=== PATIENT | female | born 1945 | race Two or more races ===

== ENCOUNTER → 2016-07-25 | Outpatient (CLI) | payer MEDICARE, MEDICAID ==
[~2016-07-25] MED LIST: *MAMMOGRAM; /FENO48TA PO; /FERG32TA PO; /GLIP10TAB PO; /LAMO20TA PO; /QUET10TA; /ZOLP6ER; /ZOLP6ER OR; ACET500C PO; ACET50TA PO; ALBU83IN INH; AMBI10TA OR; AMBI10TA PO; AMBI12.52 PO; AMBI5TAB PO; AMIT24CA PO; AMIT24CA5 PO; ARIC10TA OR; Amlodipine Besylate PO; BENI20TA11; BENI20TA11 PO; BENI40TA3 PO; BENZ0.5T PO; CALCCHW12; CALCCHW12 OR; CALCTAB37 PO; CALCTAB54 PO; CLAR5CHW; CLON0.5T; CLON0.5T PO; COLA100C2; COLA100C2 PO; COLACE PO; COMBIVENT PO; COMBVENT INH; CRANPOW2 PO; DEXI60CA PO; DOCU100T8 PO; DONETAB6 PO; DULO20CA PO; DULO30CA PO; ELIQ5TAB PO; FERR325T; FERR325T OR; FIBE625T27 PO; FIBE625T4 PO; FIBERLAX; FIBERLAX PO; FLUTISP; FURO20TA2 PO; GEOD40CA2 PO; GLIP2.5T20 PO; GLIP5TAB77; GLUC10TA18 PO; GLUCOSAMINE; GLUCOSAMINE PO; GLUCTAB6 PO; HYDR1OI TOP; HYDROCODONE PO; INSUDET SC; IPRA6SP; IPRASOL4 IN; IRON28TA OR; JANU50TA4 PO; KLON0.5T; KLON0.5T PO; KLONOPIN PO; KLOR10TA; KLOR10TA PO; LAMI200T3 PO; LANTINJ4 SC; LASI20TA PO; LASI40TA; LEVA500T; LEVO125T6 PO; LIPI20TA OR; LIPI20TA PO; MAGN250T PO; MAGN400C2 PO; MAGO400T PO; MILKSUS; MILKSUS5 PO; MIRA3350 PO; MIRA33504 PO; MULTIVIT PO; MYLASUS6 PO; NEXI40GR PO; OSCAL PO; OXYB10TA PO; POTA10CA PO; POTASSIUM PO; PRAVACHOL1 PO; PRED20TA PO; PREVACID15 PO; PREVACID30 PO; PRIL20CA PO; PROA1AER IN; PROVENTILI PO; QUET20XRTB PO; QUET30XR PO; SENN15TA2 PO; SENN8.6C PO; SENN8.6T28 PO; SENN8.6T76 PO; SENNA PO; SIME80TA PO; SLOWTAB2 PO; SLOWTAB3 PO; SYNT137T7 PO; SYNTHRO125 PO; SYNTHROI15 PO; THERGRAN PO; TRAM50TA2; TRAM50TA2 PO; TRAZ100T; TRAZ100T PO; TYLENOL500 PO; ULTR37.52 PO; VESI10TA PO; VESI5TAB PO; VICO5TAB; VITORIN; VITORIN PO; VOLT1GEL EX; VOLT1GEL TOP; VOLT75TA; VYTO10TA5; ZANTAC150 PO; ZIPR80CAP; ZIPR80CAP PO; ZOLP5TAB PO; ZYRT10CA PO; [UNRECOGNIZED DRUG - CODE] PO; [UNRECOGNIZED DRUG - CODE] PO; [UNRECOGNIZED DRUG - OTHER]; [UNRECOGNIZED DRUG - OTHER] PO
--- NOTE | 2016-07-26 00:18 | ECWPNPC ---
PATIENT NAME: AZALIA COFFMAN : 1945 GENDER: FEMALE VISIT DATE: 07/25/2016 DISCHARGE DATE: 07/25/16 1040 VISIT LOCKED DATE TIME: PHYSICIAN: MIKE LAWRENCE RESOURCE: MIKE LAWRENCE REASON FOR APPOINTMENT 1. BACK HISTORY OF PRESENT ILLNESS HISTORY OF PRESENT ILLNESS: HERE FOR ROUTINE F/U. LUMBAR FACET BLOCK 02-13-16.REPORTED >50% IMPROVEMENT IN PAIN THAT CONTINUED UNTIL A FEW WEEKS AGO.. HAVING FLARE UP IN ARTHRITIC PAIN BILAT. HIPS AND MID BACK. DISCUSSED BILAT. LUMBAR THERAPEUTIC FACET BLOCKS THAT HAVE BEEN HELPFUL IN PAST AND PATIENT WOULD LIKE TO PURSUE. DOES FIND MEDICATION FOR CHRONIC PAIN HELPFUL.DENIES SIDE EFFECTS. RATING PAINVAS 6/10. PAIN THE PATIENT DESCRIBES THE PAIN... THE PATIENT DESCRIBES THE PAIN... FALL RISK SCREENING: SCREENING :NO FALLS IN THE PAST YEAR CURRENT MEDICATIONS TAKING GLUCOTROL XL 10 MG TABLET EXTENDED RELEASE 24 HOUR 1 TABLET ORALLY DAILY, NOTES: 02/21/16 TAKING AMITIZA 24 MCG CAPSULE 1 CAPSULE WITH FOOD ORALLY TWICE A DAY, NOTES: 02/21/16 TAKING DONEPEZIL HYDROCHLORIDE 10 MG TABLET 1 TABLET AT BEDTIME ORALLY ONCE A DAY, NOTES: 02/21/16 TAKING LIPITOR 40MG TABLET 1 TABLET ORALLY ONCE A DAY, NOTES: 02/21/16 TAKING DOCUSATE SODIUM 100 MG CAPSULE 1 CAPSULE NEEDED ORALLY BID, NOTES: 02/21/16 TAKING CALCIUM CITRATE + D 315-200 MG-UNIT TABLET 1 TABLET WITH MEALS ORALLY DAILY, NOTES: 02/21/16 TAKING LAMICTAL 200 MG TABLET 1 TABLET ORALLY ONCE A DAY, NOTES: 02/21/16 TAKING SEROQUEL XR 300 MG TABLET EXTENDED RELEASE 24 HOUR 1 TABLET IN THE EVENING ORALLY ONCE A DAY, NOTES: 02/21/16 TAKING GEODON 80 MG CAPSULE 1 CAPSULE WITH FOOD ORALLY TWICE A DAY, NOTES: 02/21/16 TAKING BENICAR 40 MG TABLET 1 TABLET ORALLY ONCE A DAY, NOTES: 02/21/16 TAKING KLOR-CON 10 10 MEQ TABLET EXTENDED RELEASE 2 TABLET ORALLY BID, NOTES: 02/21/16 TAKING SENNA-GEN 8.6 MG TABLET DIRECTED ORALLY , NOTES: 02/21/16 TAKING LEVOTHYROXINE SODIUM 137 MG TABLET ONCE DAILY ORALLY ONCE A DAY, NOTES: 02/21/16 TAKING ZOLPIDEM TARTRATE 5 MG TABLET 1 TABLET AT BEDTIME ORALLY ONCE A DAY, NOTES: 02/21/16 TAKING FUROSEMIDE 20 MG TABLET 1 TABLET ORALLY ONCE DAILY, NOTES: 02/21/16 TAKING JANUMET XR 50-500 MG TABLET EXTENDED RELEASE 24 HOUR 1 TABLET WITH A MEAL ORALLY TWICE DAILY, NOTES: 02/21/16 TAKING CLONAZEPAM 0.5 MG TABLET 1 TABLET ORALLY BID, NOTES: 02/21/16 TAKING SLOW MAGNESIUM/CALCIUM 64-106 MG TABLET DELAYED RELEASE DIRECTED ORALLY , NOTES: 02/21/16 TAKING NEEDLES & SYRINGES 31 GAUGE DIRECTED TAKING LANCETS THIN MISCELLANEOUS DIRECTED TAKING GLUCOMETER DIRECTED TAKING LEVEMIR FLEXTOUCH 100 UNIT/ML SOLUTION PEN-INJECTOR 80 UNITS SUBCUTANEOUS BEFORE BEDTIME TAKING DEXILANT 60 MG CAPSULE DELAYED RELEASE 1 CAPSULE ORALLY ONCE A DAY TAKING TRAMADOL-ACETAMINOPHEN 37.5-325 MG TABLET 1 ORALLY Q8H PRN MDD3 TAKING CYMBALTA 30 MG CAPSULE DELAYED RELEASE PARTICLES 1 CAPSULE ORALLY DAILY, NOTES: 02/21/16 TAKING FIBER - CAPSULE 2 CAPSULES WITH 8 OUNCES OF LIQUID ORALLY BID NOT-TAKING IPRATROPIUM BROMIDE 0.03 % SOLUTION 2 APPLICATIONS NASALLY TWICE A DAY, NOTES: 02/21/16 NOT-TAKING TRAZODONE HCL 50 MG TABLET 2 TABLETS ORALLY THREE TIMES A DAY, NOTES: 02/21/16 NOT-TAKING OXYBUTYNIN CHLORIDE ER 10 MG TABLET EXTENDED RELEASE 24 HOUR TAKE ONE TABLET BY MOUTH ONCE DAILY NOT-TAKING MIRALAX SUSPENSION 17 GRAMS ORALLY AT HOUR OF SLEEP, NOTES: 02/21/16 NOT-TAKING ELIQUIS 5 MG TABLET ORALLY BID NOT-TAKING NEBULIZER DEVICE DIRECTED FOUR TIMES A DAY NOT-TAKING ALBUTEROL SULFATE (2.5 MG/3ML) 0.083% NEBULIZATION SOLUTION 3 ML INHALATION FOUR TIMES PER DAY NOT-TAKING PROAIR HFA 108 (90 BASE) MCG/ACT AEROSOL SOLUTION 2 PUFFS NEEDED INHALATION EVERY 4 HRS NOT-TAKING NEXIUM 40 MG CAPSULE DELAYED RELEASE 1 CAPSULE ORALLY ONCE A DAY DISCONTINUED FIBER (GUAR GUM) TABLET CHEWABLE TAB SWALLOWED DIRECTED ORALLY , NOTES: 02/21/16 DISCONTINUED ULTRACET 37.5-325 MG TABLET 2 TABLETS NEEDED ORALLY THREE TIMES DAILY, NOTES: 02/21/16 MEDICATION LIST REVIEWED AND RECONCILED WITH THE PATIENT PAST MEDICAL HISTORY KIDNEY DISEASE MEMORY LOSS SCHIZOPHRENIA OSTEOARTHRITIS INCONTINENCE HYPERCHOLESTEROLEMIA ANEMIA DIABETES MELLITUS HYPOTHYROIDISM HYPERTENSION, BENIGN ESOPHAGEAL REFLUX LEGALLY BLIND ALLERGIES SULFA (FOR ALLERGY USE ONLY): HANDS SWELL: ALLERGY ASPIRIN: STOMACH: ALLERGY MORPHINE SULFATE: RASH: ALLERGY CELEBREX: CAUSES PROBLEMS WITH KIDNEYS: ALLERGY SOCIAL HISTORY GENERAL: TOBACCO USE ARE YOU A:NONSMOKER LEARNING BARRIERS / SPECIAL NEEDS ORIENTED TO PLAN OF CARE: PATIENT, PAIN MANAGEMENT PATIENT, ORIENTED TO PLAN OF CARE: PATIENT, PAIN MANAGEMENT PATIENT. NEW PATIENT PAIN DIARY TODAY'S VISITNOTES FROM 0-10, WHAT LEVEL IS YOUR PAIN TODAY?0 PAIN CLINIC PFS, CLERGY, PUBLIC HEALTH REFERRALS PFS REFERRAL NEEDED?NO CLERGY REFERRAL NEEDED?NO PUBLIC HEALTH REFERRAL NEEDED?NO WAS THE PROVIDER NOTIFIED OF ANY PERTINENT INFO?NO PFS REFERRAL NEEDED?NO CLERGY REFERRAL NEEDED?NO PUBLIC HEALTH REFERRAL NEEDED?NO WAS THE PROVIDER NOTIFIED OF ANY PERTINENT INFO?NO REVIEW OF SYSTEMS CONSTITUTIONAL: ANY CHANGE IN YOUR MEDICAL CONDITION? NO . CHILLS NO . FEVER NO . INFECTION: DO YOU HAVE NEW INFECTIONS? NO . DO YOU HAVE HISTORY OF MRSA? NO . MUSCULOSKELETAL: ANY NEW PATTERNS OF PAIN OR NUMBNESS? YES, OCC. MUSCLE SPASMS IN BACK . GASTROENTEROLOGY: ANY NEW CHANGE IN BOWEL CONTROL? NO . GENITOURINARY: ANY NEW CHANGE IN BLADDER CONTROL? NO . IS THERE A CHANCE YOU COULD BE ? NO . HEMATOLOGY/LYMPH: DO YOU TAKE ANY BLOOD THINNERS? (FOR EXAMPLE- COUMADIN, PLAVIX, AGGRENOX, PLATEL, PRADAXA, OR XARELTO) NO . WHEN WAS YOUR LAST DOSE? DATE: TIME: . NEUROLOGY: HAVE YOU FALLEN IN THE PAST 6 MONTHS? NO . ANY NEW EXTREMITY NUMBNESS OR WEAKNESS? NO . CARDIOLOGY: DO YOU HAVE A PACEMAKER OR DEFIBRILLATOR? NO . RESPIRATORY: HAVE YOU BEEN SICK IN THE PAST WEEK? NO . FEVER NO . FLU LIKE SYMPTOMS? NO . COUGH NO . INTEGUMENTARY: DO YOU HAVE ANY RASHES OR OPEN SORES? NO . ALLERGIC/IMMUNO: ARE YOU ALLERGIC TO SHELLFISH OR IV DYE? NO . ANY NEW ALLERGIES? NO . PSYCHIATRIC: DO YOU HAVE THOUGHTS OF HURTING YOURSELF OR SOMEONE ELSE? NO . ARE YOU ABUSED, NEGLECTED, OR IN AN UNSAFE ENVIRONMENT? NO . ENDOCRINOLOGY: ARE YOU DIABETIC? YES . OTHER: DO YOU NEED ANY PRESCRIPTIONS? NOT SURE . IF YES, PLEASE LIST: ____ . ANY NEW PROBLEMS WITH YOUR MEDICATIONS? NO . WHEN DID YOU LAST EAT? ____ . WHEN DID YOU LAST DRINK? ____ . WHAT DID YOU LAST DRINK? ____ . NAME OF PERSON DRIVING YOU HOME? ____ . DO YOU HAVE ANY OTHER QUESTIONS OR CONCERNS NO . REVIEWED BY: PROVIDER: MIKE SIU . VITAL SIGNS WT 217 LBS, HT 63 IN, BMI 38.44 INDEX, BP 138/70 MM HG, HR 85 /MIN, RR 18 /MIN, TEMP 96.0 F, OXYGEN SAT % 92, NA INITIALS TL 0957, REVIEWED BY: AD. EXAMINATION GENERAL EXAMINATION: LUNGS:LUNG SOUNDS ARE CLEAR. HEART:HEART RATE REGULAR. MUSCULOSKELETAL:*, MUSCLE STRENGTH TESTING 3/5 BILATERAL, PALPATION: POSITIVE FOR PAIN OVER L/S SPINE. POSITIVE FOR PAIN OVER L/S PARSPINALS. DIAGNOSTIC:MRI L/S [id number]-[id number]-REVIEWED. ASSESSMENTS LUMBAR DEGENERATIVE DISC DISEASE - M51.36 (PRIMARY) TREATMENT LUMBAR DEGENERATIVE DISC DISEASE CONTINUE TRAMADOL-ACETAMINOPHEN TABLET, 37.5-325 MG, 1, ORALLY, Q8H PRN MDD3 CONTINUE CYMBALTA CAPSULE DELAYED RELEASE PARTICLES, 30 MG, 1 CAPSULE, ORALLY, DAILY, NOTES: 02/21/16 LUMBAR FACET THERAPEUTIC NOTES: FACET JOINT INJECTION MATERIAL WAS PRINTED,FACET JOINT INJECTION: YOUR EXPERIENCE MATERIAL WAS PRINTED. PROCEDURE CODES FA211 ESTABILISHED PATIENT FORMERLY [facility] CHARGE G8730 PAIN ASSESS POS TOOL F/U PLAN DOC G8427 DOC MEDS VERIFIED W/PT OR RE FOLLOW UP 2WK POST ELECTRONICALLY SIGNED BY SALBADOR ADEN ON 07/25/2016 AT 02:36 PM EST DISCLAIMER : THIS IS A VISIT SUMMARY EXTRACTED FROM THE [employer] CHART. IT IS NOT A COPY OF THE [employer] PROGRESS NOTE. MTDD
== END ==
LOC: M PAIN 09:40
PROVIDERS: ATTEND Nurse Practitioner Family
DX: M51.36 Other intervertebral disc degeneration, lumbar region (principal); M16.9 Osteoarthritis of hip, unspecified; M54.04 Panniculitis affecting regions of neck and back, thoracic region; Z79.84 Long term (current) use of oral hypoglycemic drugs; Z79.891 Long term (current) use of opiate analgesic; Z79.4 Long term (current) use of insulin; Z79.899 Other long term (current) drug therapy; Z88.2 Allergy status to sulfonamides; Z88.6 Allergy status to analgesic agent; Z88.5 Allergy status to narcotic agent; Z88.8 Allergy status to other drugs, medicaments and biological substances

== ENCOUNTER → 2016-08-15 | Outpatient (CLI) | payer MEDICARE, MEDICAID ==
[~2016-08-15] MED LIST changes: +BUPIVACAINE HCL 0.25% 30 ML VIAL As Ordered ONE; +ISOVUE-M 300 61% 15ML VIAL (Q9967) As Ordered ONE; +LIDOCAINE 1% SDV INJ 30 ML VIAL As Ordered ONE; +TRIAMCINOLONE ACETONIDE SUSP 40 MG/ML VIAL (J3301) As Ordered ONE
--- NOTE | 2016-08-15 12:41 | REP ---
Partial lumbar spine series: Two views. History: Pain. Injection procedure. 23 seconds of fluoroscopy time is reported. Findings: A sequence of two fluoroscopically obtained last minute hold images of the lumbar spine document various needle positions and contrast injections associated with lumbar spine facet injection procedure. Signed by Toan Lafleur MD 08/15/2016 04:31 P
--- NOTE | 2016-08-22 01:33 | ECWPNPC ---
PATIENT NAME: AZALIA COFFMAN : 1945 GENDER: FEMALE VISIT DATE: 08/15/2016 DISCHARGE DATE: 08/15/16 1157 VISIT LOCKED DATE TIME: PHYSICIAN: JEFRY GOSS RESOURCE: JEFRY GOSS REASON FOR APPOINTMENT 1. PROCEDURE: LUMBAR FACET THERAPEUTIC HISTORY OF PRESENT ILLNESS HISTORY OF PRESENT ILLNESS: PAIN THE PATIENT DESCRIBES THE PAIN... FALL RISK SCREENING: SCREENING :NO FALLS IN THE PAST YEAR CURRENT MEDICATIONS TAKING GLUCOTROL XL 10 MG TABLET EXTENDED RELEASE 24 HOUR 1 TABLET ORALLY DAILY, NOTES: TAKING AMITIZA 24 MCG CAPSULE 1 CAPSULE WITH FOOD ORALLY TWICE A DAY, NOTES: 08/14/16 TAKING DONEPEZIL HYDROCHLORIDE 10 MG TABLET 1 TABLET AT BEDTIME ORALLY ONCE A DAY, NOTES: 08/14/16 TAKING LIPITOR 40MG TABLET 1 TABLET ORALLY ONCE A DAY, NOTES: 08/14/16 TAKING DOCUSATE SODIUM 100 MG CAPSULE 1 CAPSULE NEEDED ORALLY BID, NOTES: 08/14/16 TAKING CALCIUM CITRATE + D 315-200 MG-UNIT TABLET 1 TABLET WITH MEALS ORALLY DAILY, NOTES: 08/14/16 TAKING LAMICTAL 200 MG TABLET 1 TABLET ORALLY ONCE A DAY, NOTES: 08/14/1630 TAKING SEROQUEL XR 300 MG TABLET EXTENDED RELEASE 24 HOUR 1 TABLET IN THE EVENING ORALLY ONCE A DAY, NOTES: 08/14/16 TAKING GEODON 80 MG CAPSULE 1 CAPSULE WITH FOOD ORALLY TWICE A DAY, NOTES: 08/14/16 TAKING BENICAR 40 MG TABLET 1 TABLET ORALLY ONCE A DAY, NOTES: 08/14/1630 TAKING KLOR-CON 10 10 MEQ TABLET EXTENDED RELEASE 2 TABLET ORALLY BID, NOTES: 08/14/16 TAKING SENNA-GEN 8.6 MG TABLET DIRECTED ORALLY , NOTES: 08/14/16 TAKING LEVOTHYROXINE SODIUM 137 MG TABLET ONCE DAILY ORALLY ONCE A DAY, NOTES: 08/14/1630 TAKING ZOLPIDEM TARTRATE 5 MG TABLET 1 TABLET AT BEDTIME ORALLY ONCE A DAY, NOTES: 08/14/16 TAKING FUROSEMIDE 20 MG TABLET 1 TABLET ORALLY ONCE DAILY, NOTES: 08/14/16 TAKING JANUMET XR 50-500 MG TABLET EXTENDED RELEASE 24 HOUR 1 TABLET WITH A MEAL ORALLY TWICE DAILY, NOTES: 08/14/16@1800 TAKING CLONAZEPAM 0.5 MG TABLET 1 TABLET ORALLY BID, NOTES: 08/14/16 TAKING SLOW MAGNESIUM/CALCIUM 64-106 MG TABLET DELAYED RELEASE DIRECTED ORALLY , NOTES: 08/14/16@0730 TAKING NEEDLES & SYRINGES 31 GAUGE DIRECTED TAKING LANCETS THIN MISCELLANEOUS DIRECTED TAKING GLUCOMETER DIRECTED TAKING LEVEMIR FLEXTOUCH 100 UNIT/ML SOLUTION PEN-INJECTOR 80 UNITS SUBCUTANEOUS BEFORE BEDTIME, NOTES: 08/14/16 TAKING DEXILANT 60 MG CAPSULE DELAYED RELEASE 1 CAPSULE ORALLY ONCE A DAY, NOTES: 08/14/161800 TAKING FIBER - CAPSULE 2 CAPSULES WITH 8 OUNCES OF LIQUID ORALLY BID, NOTES: 08/14/16 TAKING TRAMADOL-ACETAMINOPHEN 37.5-325 MG TABLET 1 ORALLY Q8H PRN MDD3, NOTES: 08/14/161800 TAKING CYMBALTA 30 MG CAPSULE DELAYED RELEASE PARTICLES 1 CAPSULE ORALLY DAILY, NOTES: 08/14/16@1199 NOT-TAKING IPRATROPIUM BROMIDE 0.03 % SOLUTION 2 APPLICATIONS NASALLY TWICE A DAY, NOTES: 02/21/16 NOT-TAKING TRAZODONE HCL 50 MG TABLET 2 TABLETS ORALLY THREE TIMES A DAY, NOTES: 02/21/16 NOT-TAKING OXYBUTYNIN CHLORIDE ER 10 MG TABLET EXTENDED RELEASE 24 HOUR TAKE ONE TABLET BY MOUTH ONCE DAILY NOT-TAKING MIRALAX SUSPENSION 17 GRAMS ORALLY AT HOUR OF SLEEP, NOTES: 02/21/16 NOT-TAKING ELIQUIS 5 MG TABLET ORALLY BID NOT-TAKING NEBULIZER DEVICE DIRECTED FOUR TIMES A DAY NOT-TAKING ALBUTEROL SULFATE (2.5 MG/3ML) 0.083% NEBULIZATION SOLUTION 3 ML INHALATION FOUR TIMES PER DAY NOT-TAKING PROAIR HFA 108 (90 BASE) MCG/ACT AEROSOL SOLUTION 2 PUFFS NEEDED INHALATION EVERY 4 HRS NOT-TAKING NEXIUM 40 MG CAPSULE DELAYED RELEASE 1 CAPSULE ORALLY ONCE A DAY MEDICATION LIST REVIEWED AND RECONCILED WITH THE PATIENT PAST MEDICAL HISTORY KIDNEY DISEASE MEMORY LOSS SCHIZOPHRENIA OSTEOARTHRITIS INCONTINENCE HYPERCHOLESTEROLEMIA ANEMIA DIABETES MELLITUS HYPOTHYROIDISM HYPERTENSION, BENIGN ESOPHAGEAL REFLUX LEGALLY BLIND ALLERGIES SULFA (FOR ALLERGY USE ONLY): HANDS SWELL: ALLERGY ASPIRIN: STOMACH: ALLERGY MORPHINE SULFATE: RASH: ALLERGY CELEBREX: CAUSES PROBLEMS WITH KIDNEYS: ALLERGY SOCIAL HISTORY GENERAL: TOBACCO USE ARE YOU A:NONSMOKER LEARNING BARRIERS / SPECIAL NEEDS ORIENTED TO PLAN OF CARE: PATIENT, PAIN MANAGEMENT PATIENT, ORIENTED TO PLAN OF CARE: PATIENT, PAIN MANAGEMENT PATIENT. NEW PATIENT PAIN DIARY TODAY'S VISITNOTES FROM 0-10, WHAT LEVEL IS YOUR PAIN TODAY?0 PAIN CLINIC PFS, CLERGY, PUBLIC HEALTH REFERRALS PFS REFERRAL NEEDED?NO CLERGY REFERRAL NEEDED?NO PUBLIC HEALTH REFERRAL NEEDED?NO WAS THE PROVIDER NOTIFIED OF ANY PERTINENT INFO?NO PFS REFERRAL NEEDED?NO CLERGY REFERRAL NEEDED?NO PUBLIC HEALTH REFERRAL NEEDED?NO WAS THE PROVIDER NOTIFIED OF ANY PERTINENT INFO?NO REVIEW OF SYSTEMS CONSTITUTIONAL: ANY CHANGE IN YOUR MEDICAL CONDITION? NO . CHILLS NO . FEVER NO . INFECTION: DO YOU HAVE NEW INFECTIONS? NO . DO YOU HAVE HISTORY OF MRSA? NO . MUSCULOSKELETAL: ANY NEW PATTERNS OF PAIN OR NUMBNESS? NO . GASTROENTEROLOGY: ANY NEW CHANGE IN BOWEL CONTROL? NO . GENITOURINARY: ANY NEW CHANGE IN BLADDER CONTROL? NO . IS THERE A CHANCE YOU COULD BE ? NO . HEMATOLOGY/LYMPH: DO YOU TAKE ANY BLOOD THINNERS? (FOR EXAMPLE- COUMADIN, PLAVIX, AGGRENOX, PLATEL, PRADAXA, OR XARELTO) NO . WHEN WAS YOUR LAST DOSE? DATE: TIME: . NEUROLOGY: HAVE YOU FALLEN IN THE PAST 6 MONTHS? NO . ANY NEW EXTREMITY NUMBNESS OR WEAKNESS? NO . CARDIOLOGY: DO YOU HAVE A PACEMAKER OR DEFIBRILLATOR? NO . RESPIRATORY: HAVE YOU BEEN SICK IN THE PAST WEEK? NO . FEVER NO . FLU LIKE SYMPTOMS? NO . COUGH NO . INTEGUMENTARY: DO YOU HAVE ANY RASHES OR OPEN SORES? NO . ALLERGIC/IMMUNO: ARE YOU ALLERGIC TO SHELLFISH OR IV DYE? NO . ANY NEW ALLERGIES? NO . PSYCHIATRIC: DO YOU HAVE THOUGHTS OF HURTING YOURSELF OR SOMEONE ELSE? NO . ARE YOU ABUSED, NEGLECTED, OR IN AN UNSAFE ENVIRONMENT? NO . ENDOCRINOLOGY: ARE YOU DIABETIC? YES . OTHER: DO YOU NEED ANY PRESCRIPTIONS? NO . IF YES, PLEASE LIST: ____ . ANY NEW PROBLEMS WITH YOUR MEDICATIONS? NO . WHEN DID YOU LAST EAT? ____12 AM . WHEN DID YOU LAST DRINK? ____12AM . WHAT DID YOU LAST DRINK? ____JUICE . NAME OF PERSON DRIVING YOU HOME? ____[facility] . DO YOU HAVE ANY OTHER QUESTIONS OR CONCERNS NO . REVIEWED BY: PROVIDER: . VITAL SIGNS WT 215 LBS, HT 63 IN, BMI 38.08 INDEX, BP 135/69 MM HG, HR 83 /MIN, RR 16 /MIN, TEMP 97.0 F, OXYGEN SAT % 92, NA INITIALS TL 0939, REVIEWED BY: VD. ASSESSMENTS SPONDYLOSIS WITHOUT MYELOPATHY OR RADICULOPATHY, LUMBAR REGION - M47.816 (PRIMARY) SPONDYLOSIS WITHOUT MYELOPATHY OR RADICULOPATHY, LUMBOSACRAL REGION - M47.817 PROCEDURES PN LUMBAR FACET BLOCK THERAPEUTIC PRE PROCEDURE DIAGNOSIS LUMBAR SPONDYLOSIS, LUMBOSACRAL SPONDYLOSIS POST PROCEDURE DIAGNOSIS LUMBAR SPONDYLOSIS, LUMBOSACRAL SPONDYLOSIS PROCEDURE BILATERAL L4-L5 AND BILATERAL L5-S1 FACET THERAPEUTIC BLOCK SURGEON DR. 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 I EVALUATE THE PATIENT AND REVIEWED THE CHART. I WENT OVER THE RISKS, ALTERNATIVES, AND BENEFITS ASSOCIATED WITH THIS PROCEDURE. THE PATIENT WOULD LIKE TO PROCEED AND GIVE CONSENT TO PERFORMED THE PROCEDURE. THE PATIENT DENIES UNEXPLAINABLE WEIGHT LOSS, FEVER, CHILLS, OR NEW CHANGES IN URINARY OR BOWEL CONTROL DESCRIPTION OF PROCEDURE THE PATIENT WAS BROUGHT TO THE PROCEDURE ROOM AND PLACED IN THE PRONE POSITION. THE LUMBOSACRAL AREA WAS CLEANED WITH CHLORAPREP SOLUTION AND DRAPED ASEPTICALLY. THE PROCEDURE WAS DONE UNDER STERILE CONDITIONS. I CHECKED LATERALITY AND THE LEVEL WHERE THE PROCEDURE WAS GOING TO BE PERFORMED WITH THE PATIENT AND THE SUPPORTING STAFF AT THE MOMENT OF THE TIME OUT IN THE PROCEDURE ROOM. UNDER FLUOROSCOPIC GUIDANCE, THE TARGET POINT WAS SELECTED AT THE RIGHT AND LEFT L4-L5 AND RIGHT AND LEFT L5-S1 FACET JOINT. TARGET POINT WAS SELECTED AFTER LATERAL ROTATION AND TILT OF THE MAGNIFIER OF THE C-ARM. LIDOCAINE 0.5% WAS USED TO NUMB THE SKIN AND THE SUBCUTANEOUS TISSUE BELOW IT. SPINAL NEEDLES, 22-GAUGE, WERE ADVANCED UNDER FLUOROSCOPIC GUIDANCE AND FOLLOWING PATIENT FEEDBACK UNTIL THE TARGETS WERE TOUCHED. THE POSITION OF THE NEEDLES WAS VERIFIED WITH AP AND LATERAL VIEWS. AFTER PROPER POSITION OF THE NEEDLES WAS ACHIEVED, ISOVUE-M DYE 30% 0.1 ML WAS INJECTED SHOWING ADEQUATE SPREAD OF THE DYE. THEN A SOLUTION OF 1.9 ML OF BUPIVACAINE 0.125% OF KENALOG 10 MG WAS INJECTED AT EACH SITE. THERE WAS NO EVIDENCE OF BLOOD, PARESTHESIA OR CEREBROSPINAL FLUID DURING THE PROCEDURE. THE PATIENT WAS SENT TO THE RECOVERY ROOM. THE PATIENT WAS MOVING THE EXTREMITIES AND DOING WELL. THERE WAS NO COMPLICATION DURING THE PROCEDURE. FLUOROSCOPY TIME WAS 23 SECONDS POST PROCEDURE NOTE THE PATIENT WILL BE SEEN IN A FOLLOW UP IN THE NEXT FEW WEEKS. INSTRUCTIONS WERE GIVEN, QUESTIONS WERE ANSWERED, AND THE PATIENT EXPRESSED UNDERSTANDING AND AGREES WITH THE PLAN. INSTRUCTIONS WERE GIVEN, QUESTIONS WERE ANSWERED, PATIENT REPORTS UNDERSTANDING AND AGREES WITH THE PLAN. I, ANTHONY MEDEROS, DOCUMENTED THE ABOVE INFORMATION ACTING A SCRIBE FOR DR. GOSS. I HAVE REVIEWED THE ABOVE DOCUMENT, WRITTEN BY ANTHONY MEDEROS SCRIBE AND I VERIFY THAT IT IS ACCURATE. DIAGNOSTIC IMAGING [facility] FACET BLOCK (PAIN)[id number] PROCEDURE CODES 57453 INJ PARAVERT F JNT L/S 1 LEV 09054 INJ PARAVERT F JNT L/S 2 LEV 6045F RADXPS IN END [id number] PXD FOLLOW UP 3 WEEKS ELECTRONICALLY SIGNED BY JEFRY GOSS MD ON 08/20/2016 AT 01:11 PM EST DISCLAIMER : THIS IS A VISIT SUMMARY EXTRACTED FROM THE [employer] CHART. IT IS NOT A COPY OF THE [employer] PROGRESS NOTE. MTDD
== END ==
LOC: M PAIN 09:10
PROVIDERS: ATTEND Anesthesiology
DX: G89.29 Other chronic pain (principal); M47.816 Spondylosis without myelopathy or radiculopathy, lumbar region; M47.817 Spondylosis without myelopathy or radiculopathy, lumbosacral region; H54.8 Legal blindness, as defined in USA; N18.9 Chronic kidney disease, unspecified; E11.9 Type 2 diabetes mellitus without complications; R41.3 Other amnesia; E03.9 Hypothyroidism, unspecified; K21.9 Gastro-esophageal reflux disease without esophagitis; M19.90 Unspecified osteoarthritis, unspecified site; E78.00 Pure hypercholesterolemia, unspecified; D64.9 Anemia, unspecified; Z88.2 Allergy status to sulfonamides; Z88.6 Allergy status to analgesic agent; Z88.5 Allergy status to narcotic agent; Z88.8 Allergy status to other drugs, medicaments and biological substances; Z79.84 Long term (current) use of oral hypoglycemic drugs; Z79.891 Long term (current) use of opiate analgesic; Z79.899 Other long term (current) drug therapy
CPT/HCPCS: 64493; 64494; J3301; Q9967

== ENCOUNTER → 2016-08-29 | Outpatient (CLI) | payer MEDICARE, MEDICAID ==
[~2016-08-29] MED LIST changes: -BUPIVACAINE HCL 0.25% 30 ML VIAL As Ordered ONE; -ISOVUE-M 300 61% 15ML VIAL (Q9967) As Ordered ONE; -LIDOCAINE 1% SDV INJ 30 ML VIAL As Ordered ONE; -TRIAMCINOLONE ACETONIDE SUSP 40 MG/ML VIAL (J3301) As Ordered ONE
--- NOTE | 2016-08-29 23:54 | ECWPNPC ---
PATIENT NAME: AZALIA COFFMAN : 1945 GENDER: FEMALE VISIT DATE: 08/29/2016 DISCHARGE DATE: 08/29/16 1109 VISIT LOCKED DATE TIME: PHYSICIAN: MIKE LAWRENCE RESOURCE: MIKE LAWRENCE REASON FOR APPOINTMENT 1. POST PROCEDURE-BACK HISTORY OF PRESENT ILLNESS HISTORY OF PRESENT ILLNESS: HERE FOR POST PROCEDURE F/U.HAD BILAT. L4/5-L5/S1 THERAPEUTIC FACET BLOCK ON 08-15-16.REPORTS IMPROVEMENT IN CENTRAL LOW BACK PAIN THAT CONTINUES TODAY.CHIEF AREA OF PAIN IS RIGHT LOW BACK WITH RADIATION DOWN RIGHT LEG.PAIN IS AGGREVATED BY STANDING.RELIEVED SOMEWHAT WITH LAYING DOWN.AWAKENING AT NIGHT DUE TO THIS PAIN AND SHE HAS TO GET UP AND TAKE TYLENOL.RATING PAIN VAS 6/10. PAIN THE PATIENT DESCRIBES THE PAIN... FALL RISK SCREENING: SCREENING :NO FALLS IN THE PAST YEAR CURRENT MEDICATIONS TAKING GLUCOTROL XL 10 MG TABLET EXTENDED RELEASE 24 HOUR 1 TABLET ORALLY DAILY TAKING AMITIZA 24 MCG CAPSULE 1 CAPSULE WITH FOOD ORALLY TWICE A DAY TAKING DONEPEZIL HYDROCHLORIDE 10 MG TABLET 1 TABLET AT BEDTIME ORALLY ONCE A DAY TAKING LIPITOR 40MG TABLET 1 TABLET ORALLY ONCE A DAY TAKING DOCUSATE SODIUM 100 MG CAPSULE 1 CAPSULE NEEDED ORALLY BID TAKING CALCIUM CITRATE + D 315-200 MG-UNIT TABLET 1 TABLET WITH MEALS ORALLY DAILY TAKING LAMICTAL 200 MG TABLET 1 TABLET ORALLY ONCE A DAY TAKING SEROQUEL XR 300 MG TABLET EXTENDED RELEASE 24 HOUR 1 TABLET IN THE EVENING ORALLY ONCE A DAY TAKING GEODON 80 MG CAPSULE 1 CAPSULE WITH FOOD ORALLY TWICE A DAY TAKING BENICAR 40 MG TABLET 1 TABLET ORALLY ONCE A DAY TAKING KLOR-CON 10 10 MEQ TABLET EXTENDED RELEASE 2 TABLET ORALLY BID TAKING SENNA-GEN 8.6 MG TABLET DIRECTED ORALLY TAKING LEVOTHYROXINE SODIUM 137 MG TABLET ONCE DAILY ORALLY ONCE A DAY TAKING ZOLPIDEM TARTRATE 5 MG TABLET 1 TABLET AT BEDTIME ORALLY ONCE A DAY TAKING FUROSEMIDE 20 MG TABLET 1 TABLET ORALLY ONCE DAILY TAKING JANUMET XR 50-500 MG TABLET EXTENDED RELEASE 24 HOUR 1 TABLET WITH A MEAL ORALLY TWICE DAILY TAKING CLONAZEPAM 0.5 MG TABLET 1 TABLET ORALLY BID TAKING SLOW MAGNESIUM/CALCIUM 64-106 MG TABLET DELAYED RELEASE DIRECTED ORALLY TAKING NEEDLES & SYRINGES 31 GAUGE DIRECTED TAKING LANCETS THIN MISCELLANEOUS DIRECTED TAKING GLUCOMETER DIRECTED TAKING LEVEMIR FLEXTOUCH 100 UNIT/ML SOLUTION PEN-INJECTOR 80 UNITS SUBCUTANEOUS BEFORE BEDTIME TAKING DEXILANT 60 MG CAPSULE DELAYED RELEASE 1 CAPSULE ORALLY ONCE A DAY TAKING FIBER - CAPSULE 2 CAPSULES WITH 8 OUNCES OF LIQUID ORALLY BID TAKING TRAMADOL-ACETAMINOPHEN 37.5-325 MG TABLET 1 ORALLY Q8H PRN MDD3 TAKING CYMBALTA 30 MG CAPSULE DELAYED RELEASE PARTICLES 1 CAPSULE ORALLY DAILY NOT-TAKING IPRATROPIUM BROMIDE 0.03 % SOLUTION 2 APPLICATIONS NASALLY TWICE A DAY, NOTES: 02/21/16 NOT-TAKING TRAZODONE HCL 50 MG TABLET 2 TABLETS ORALLY THREE TIMES A DAY, NOTES: 02/21/16 NOT-TAKING OXYBUTYNIN CHLORIDE ER 10 MG TABLET EXTENDED RELEASE 24 HOUR TAKE ONE TABLET BY MOUTH ONCE DAILY NOT-TAKING MIRALAX SUSPENSION 17 GRAMS ORALLY AT HOUR OF SLEEP, NOTES: 02/21/16 NOT-TAKING ELIQUIS 5 MG TABLET ORALLY BID NOT-TAKING NEBULIZER DEVICE DIRECTED FOUR TIMES A DAY NOT-TAKING ALBUTEROL SULFATE (2.5 MG/3ML) 0.083% NEBULIZATION SOLUTION 3 ML INHALATION FOUR TIMES PER DAY NOT-TAKING PROAIR HFA 108 (90 BASE) MCG/ACT AEROSOL SOLUTION 2 PUFFS NEEDED INHALATION EVERY 4 HRS NOT-TAKING NEXIUM 40 MG CAPSULE DELAYED RELEASE 1 CAPSULE ORALLY ONCE A DAY MEDICATION LIST REVIEWED AND RECONCILED WITH THE PATIENT PAST MEDICAL HISTORY KIDNEY DISEASE MEMORY LOSS SCHIZOPHRENIA OSTEOARTHRITIS INCONTINENCE HYPERCHOLESTEROLEMIA ANEMIA DIABETES MELLITUS HYPOTHYROIDISM HYPERTENSION, BENIGN ESOPHAGEAL REFLUX LEGALLY BLIND ALLERGIES SULFA (FOR ALLERGY USE ONLY): HANDS SWELL: ALLERGY ASPIRIN: STOMACH: ALLERGY MORPHINE SULFATE: RASH: ALLERGY CELEBREX: CAUSES PROBLEMS WITH KIDNEYS: ALLERGY SOCIAL HISTORY GENERAL: TOBACCO USE ARE YOU A:NONSMOKER LEARNING BARRIERS / SPECIAL NEEDS ORIENTED TO PLAN OF CARE: PATIENT, PAIN MANAGEMENT PATIENT, ORIENTED TO PLAN OF CARE: PATIENT, PAIN MANAGEMENT PATIENT. NEW PATIENT PAIN DIARY TODAY'S VISITNOTES FROM 0-10, WHAT LEVEL IS YOUR PAIN TODAY?0 PAIN CLINIC PFS, CLERGY, PUBLIC HEALTH REFERRALS PFS REFERRAL NEEDED?NO CLERGY REFERRAL NEEDED?NO PUBLIC HEALTH REFERRAL NEEDED?NO WAS THE PROVIDER NOTIFIED OF ANY PERTINENT INFO?NO PFS REFERRAL NEEDED?NO CLERGY REFERRAL NEEDED?NO PUBLIC HEALTH REFERRAL NEEDED?NO WAS THE PROVIDER NOTIFIED OF ANY PERTINENT INFO?NO REVIEW OF SYSTEMS CONSTITUTIONAL: ANY CHANGE IN YOUR MEDICAL CONDITION? NO . CHILLS NO . FEVER NO . INFECTION: DO YOU HAVE NEW INFECTIONS? NO . DO YOU HAVE HISTORY OF MRSA? NO . MUSCULOSKELETAL: ANY NEW PATTERNS OF PAIN OR NUMBNESS? NO . GASTROENTEROLOGY: ANY NEW CHANGE IN BOWEL CONTROL? NO . GENITOURINARY: ANY NEW CHANGE IN BLADDER CONTROL? NO . IS THERE A CHANCE YOU COULD BE ? NO . HEMATOLOGY/LYMPH: DO YOU TAKE ANY BLOOD THINNERS? (FOR EXAMPLE- COUMADIN, PLAVIX, AGGRENOX, PLATEL, PRADAXA, OR XARELTO) NO . WHEN WAS YOUR LAST DOSE? DATE: TIME: . NEUROLOGY: HAVE YOU FALLEN IN THE PAST 6 MONTHS? NO . ANY NEW EXTREMITY NUMBNESS OR WEAKNESS? NO . CARDIOLOGY: DO YOU HAVE A PACEMAKER OR DEFIBRILLATOR? NO . RESPIRATORY: HAVE YOU BEEN SICK IN THE PAST WEEK? NO . FEVER NO . FLU LIKE SYMPTOMS? NO . COUGH NO . INTEGUMENTARY: DO YOU HAVE ANY RASHES OR OPEN SORES? NO . ALLERGIC/IMMUNO: ARE YOU ALLERGIC TO SHELLFISH OR IV DYE? NO . ANY NEW ALLERGIES? NO . PSYCHIATRIC: DO YOU HAVE THOUGHTS OF HURTING YOURSELF OR SOMEONE ELSE? NO . ARE YOU ABUSED, NEGLECTED, OR IN AN UNSAFE ENVIRONMENT? NO . ENDOCRINOLOGY: ARE YOU DIABETIC? NO . OTHER: DO YOU NEED ANY PRESCRIPTIONS? YES . IF YES, PLEASE LIST: ____ . ANY NEW PROBLEMS WITH YOUR MEDICATIONS? NO . WHEN DID YOU LAST EAT? ____ . WHEN DID YOU LAST DRINK? ____ . WHAT DID YOU LAST DRINK? ____ . NAME OF PERSON DRIVING YOU HOME? ____ . DO YOU HAVE ANY OTHER QUESTIONS OR CONCERNS NO . REVIEWED BY: PROVIDER: MIKE SIU . VITAL SIGNS WT 218 LBS, HT 63 IN, BMI 38.61 INDEX, BP 137/67 MM HG, HR 86 /MIN, RR 16 /MIN, TEMP 96.8 F, OXYGEN SAT % 90%, NA INITIALS SC 10:08. EXAMINATION GENERAL EXAMINATION: LUNGS:LUNG SOUNDS ARE CLEAR. HEART:HEART RATE REGULAR. MUSCULOSKELETAL:*, MUSCLE STRENGTH TESTING 3/5 BILATERAL, PALPATION: POSITIVE FOR PAIN OVER L/S SPINE. POSITIVE FOR PAIN OVER L/S PARSPINALS. DIAGNOSTIC:MRI L/S [id number]. ASSESSMENTS LUMBAR DEGENERATIVE DISC DISEASE - M51.36 (PRIMARY) SACROILIAC JOINT PAIN - M53.3 TREATMENT LUMBAR DEGENERATIVE DISC DISEASE CONTINUE TRAMADOL-ACETAMINOPHEN TABLET, 37.5-325 MG, 1, ORALLY, Q8H PRN MDD3 CONTINUE CYMBALTA CAPSULE DELAYED RELEASE PARTICLES, 30 MG, 1 CAPSULE, ORALLY, DAILY INJECTION ANESTHETIC SACROILIAC JOINT PROCEDURE CODES FA211 ESTABILISHED PATIENT [facility] CHARGE G8730 PAIN ASSESS POS TOOL F/U PLAN DOC G8427 DOC MEDS VERIFIED W/PT OR RE DISPOSITION & COMMUNICATION FOLLOW UP 2WK POST (REASON: RIGHT SIJ) ELECTRONICALLY SIGNED BY SALBADOR ADEN ON 08/29/2016 AT 03:45 PM EST DISCLAIMER : THIS IS A VISIT SUMMARY EXTRACTED FROM THE [employer] CHART. IT IS NOT A COPY OF THE [employer] PROGRESS NOTE. SISI
== END ==
LOC: M PAIN 09:40
PROVIDERS: ATTEND Nurse Practitioner Family
DX: Z09 Encounter for follow-up examination after completed treatment for conditions other than malignant neoplasm (principal); G89.29 Other chronic pain; M51.36 Other intervertebral disc degeneration, lumbar region; M53.3 Sacrococcygeal disorders, not elsewhere classified; M19.90 Unspecified osteoarthritis, unspecified site; M47.816 Spondylosis without myelopathy or radiculopathy, lumbar region; M47.817 Spondylosis without myelopathy or radiculopathy, lumbosacral region; E11.9 Type 2 diabetes mellitus without complications; Z79.4 Long term (current) use of insulin; I12.9 Hypertensive chronic kidney disease with stage 1 through stage 4 chronic kidney disease, or unspecified chronic kidney disease; N18.9 Chronic kidney disease, unspecified; K21.9 Gastro-esophageal reflux disease without esophagitis; E03.9 Hypothyroidism, unspecified; D64.9 Anemia, unspecified; F25.9 Schizoaffective disorder, unspecified; R41.3 Other amnesia; H54.8 Legal blindness, as defined in USA; Z88.2 Allergy status to sulfonamides; Z88.6 Allergy status to analgesic agent; Z88.5 Allergy status to narcotic agent; Z88.8 Allergy status to other drugs, medicaments and biological substances; Z79.891 Long term (current) use of opiate analgesic; Z79.899 Other long term (current) drug therapy

== ENCOUNTER 2016-09-19 11:56 | Observation (INO) | payer MEDICARE, MEDICAID ==
[~2016-09-19] VITALS: Ht 158.8 cm; Wt 101.6 kg
[2016-09-19] MEDS ORDERED: SODIUM CHLORIDE 0.9% 1000 ML IV ONE (12:15)
[2016-09-19] MEDS ORDERED: fentaNYL 100 MCG/2 ML INJECTION (J3010) IV ONE ×2 (12:15→15:00)
[2016-09-19 12:40] LABS: BASO % 0.5 % (0.0-1.0); EOS # 0.2 K/mm3 (0.0-0.50); EOS % 2.1 % (0.0-3.0); LARGE UNSTAINED CELL # 0.2 K/mm3 (0.0-0.4); LARGE UNSTAINED CELL % 2.6 % (0.0-4.0); LYMPH # 0.7 K/mm3 (1.5-4.5); LYMPH % 10.2 % (24.0-44.0); MEAN CORPUSCULAR HEMOGLOBIN 32.6 pg (27.0-33.0); MEAN CORPUSCULAR HGB CONC 33.8 g/dl (32.0-36.5); MEAN CORPUSCULAR VOLUME 96.5 fl (80.0-96.0); MONO # 0.4 K/mm3 (0.0-0.8); MONO % 5.6 % (0.0-5.0); NEUTROPHILS # 5.4 K/mm3 (1.8-7.7); NEUTROPHILS % 78.9 % (36.0-66.0); PLATELET COUNT, AUTOMATED 211 k/mm3 (150-450); RED CELL DISTRIBUTION WIDTH 12.8 % (11.5-14.5); WHITE BLOOD COUNT 6.8 K/mm3 (4.0-10.0)
[2016-09-19 12:55] LABS: ALBUMIN 3.5 GM/DL (3.2-5.2); ALBUMIN/GLOBULIN RATIO 0.83 (1.00-1.93); ALKALINE PHOSPHATASE 121 U/L (45-117); ALT/SGPT 45 U/L (12-78); ANION GAP 11 MEQ/L (8-16); AST/SGOT 36 U/L (15-37); BILIRUBIN,DIRECT < 0.1 MG/DL (0.0-0.2); BILIRUBIN,TOTAL 0.2 MG/DL (0.2-1.0); BLOOD UREA NITROGEN 24 MG/DL (7-18); CALCIUM LEVEL 9.1 MG/DL (8.8-10.2); CARBON DIOXIDE LEVEL 25 MEQ/L (21-32); CHLORIDE LEVEL 101 MEQ/L (98-107); GLOMERULAR FILTRATION RATE 52.4 (>45); GLUCOSE, FASTING 170 MG/DL (80-110); POTASSIUM SERUM 4.6 MEQ/L (3.5-5.1); SODIUM LEVEL 137 MEQ/L (136-145); TOTAL PROTEIN 7.7 GM/DL (6.4-8.2)
[2016-09-19] MEDS ORDERED: ISOVUE-370 76% 100ML VIAL (Q9967) As Ordered ONE (13:15)
[2016-09-19] MEDS ORDERED: VESI10TA PO (13:48)
[2016-09-19] MEDS ORDERED: ASPE4PAD EX (13:48)
[2016-09-19] MEDS ORDERED: PIPERACILLIN/TAZOBACTAM SOD 3.375 GM in D5W MINI-BAG PLUS 50 ML IV ONE (14:00)
[2016-09-19] MEDS ORDERED: FIBE62TA (14:02)
[2016-09-19] MEDS ORDERED: JANU50TA4 PO (14:02)
[2016-09-19] MEDS ORDERED: OLME40TA (14:02)
[2016-09-19] MEDS ORDERED: SERO400T3 (14:02)
[2016-09-19] MEDS ORDERED: SENN-22 (14:02)
[2016-09-19] MEDS ORDERED: [UNRECOGNIZED DRUG - CODE] (14:02)
[2016-09-19] MEDS ORDERED: GLIP10TA13 PO (14:02)
[2016-09-19] MEDS ORDERED: LEVO150T7 (14:02)
[2016-09-19] MEDS ORDERED: KLON1TAB (14:02)
[2016-09-19] MEDS ORDERED: AMBI10TA (14:02)
--- NOTE | 2016-09-19 14:07 | REP ---
ABDOMEN SERIES: Four views. HISTORY: Abdominal pain. FINDINGS: There is interstitial fibrosis pattern in the right apex which is unchanged from the February 29, 2016 prior chest x-ray. EKG electrodes are seen. The lungs are otherwise clear. No free subdiaphragmatic air is seen. Heart is not enlarged. Supine and erect views of the abdomen show hernia repair aubrie in the central abdomen and vascular calcification. There is nonspecific pattern of small bowel and large bowel gas. No significant air fluid level. No definite obstruction. IMPRESSION: Post hernia repair clips. Nonspecific small bowel loops in the central abdomen. No significant air-fluid levels. No evidence of free air. Signed by Toan Lafleur MD 09/19/2016 05:38 P
--- NOTE | 2016-09-19 15:11 | REP ---
CT ABDOMEN AND PELVIS WITH IV CONTRAST: 09/19/2016. Clinical history: Abdominal pain. Prior abdominal wall hernia repair. Chronic kidney disease, stage III, scanning through the abdomen and pelvis after bolus of 100 ml of Isovue 370 and with both coronal and sagittal reconstructions provided. Comparison: 08/31/2015. CT abdomen: Lung bases show dependent atelectatic changes bilaterally in the lower lung zones, right slightly greater than left. No effusion or dense consolidation or parenchymal lung mass. Heart not grossly enlarged. No pericardial thickening or effusion. There appears to be some fatty infiltration of the liver with some hepatomegaly with an 18 cm vertical diameter of the right lobe in the midclavicular line. This is essentially unchanged. No focal hepatic mass or intrahepatic biliary dilatation. The gallbladder partially contracted without calcified stone or mass. The spleen is not enlarged and shows no focal lesion. No ascites. Adrenal glands normal. There is no hiatal hernia. The aorta has diffuse atherosclerotic calcifications without aneurysm or dissection. No periaortic adenopathy. No retroperitoneal or mesenteric lymphadenopathy. Lung window review of all CT slice levels shows no perforation or free air. There is some colonic interposition of the hepatic flexure between the anterior wall of the abdomen and the right lobe of the liver and some of this extends upward towards the dome of the liver. This is an anatomic variation. There are some inflammatory changes adjacent to the cecum and thickening of the appendix with inflammatory changes around it consistent with acute appendicitis. This is a distinct change from the thin normal appearance of the appendix on 08/31/2015. Although there are inflammatory changes in the fat adjacent to it, there is no perforation or abscess noted at this time. Small bowel loops are fluid filled but not abnormally dilated. A few air-fluid levels in a nonspecific pattern. There is a midline ventral hernia repair. No ascites in the peroneal gutters or upper abdomen. Kidneys show function without obstruction, mass, stone or hydronephrosis. There is a scar lower pole left kidney as on the previous study. Bone windows show degenerative changes at the L4-5 level with narrowing and marginal osteophytes at that disc space. The other vertebral body and disc spaces were intact. There is facet hypertrophy in the lower lumbar spine but no spondylolysis. The visualized ribs are intact. CT pelvis: The bilateral hips show mild degenerative changes. The pelvis, SI joints, sacrum, acetabuli and ischium grossly intact. No fracture or destructive lesion. In the deep pelvis, bladder intact without mass, wall thickening or stone. No ureteral dilatation or stone in the deep pelvis. The vaginal cuff is intact. No adnexal mass. The distal left colon, sigmoid and rectum are without evidence for colitis, diverticulitis or proctosigmoiditis. No inguinal hernia or pathologic inguinal adenopathy. Impression: 1. There is evidence of acute appendicitis with thickening of the appendix, inflammatory changes in the fat adjacent, but no perforation or abscess. The appendix has a very normal appearance on the previous CT. 2. No generalized ascites, free air, adenopathy or mass. 3. Fluid filled but not abnormally dilated. Small bowel loops with a few air-fluid levels as a nonspecific finding, likely some ileus. 4. Partially contracted gallbladder and a prior ventral wall abdominal hernia repair noted. Signed by Mauro Escamilla MD 09/19/2016 04:19 P
[2016-09-19] MEDS ORDERED: BUPIVACAINE/EPIN 0.25% 30 ML VIAL As Ordered ONE (15:52)
[2016-09-19] MEDS ORDERED: DONETAB6 PO (16:22)
[2016-09-19] MEDS ORDERED: COLA100C3 PO (16:22)
[2016-09-19] MEDS ORDERED: ULTR37.52 PO (16:22)
[2016-09-19] MEDS ORDERED: DEXI60CA PO (16:22)
[2016-09-19] MEDS ORDERED: ZOLP10TA2 PO (16:22)
[2016-09-19] MEDS ORDERED: ZIPR80CA12 PO (16:22)
[2016-09-19] MEDS ORDERED: CLON1TAB PO (16:22)
[2016-09-19] MEDS ORDERED: CLON0.5T PO (16:22)
[2016-09-19] MEDS ORDERED: CETI10TA PO (16:22)
[2016-09-19] MEDS ORDERED: SERO400T3 PO (16:22)
[2016-09-19] MEDS ORDERED: ATOR40TA PO (16:22)
[2016-09-19] MEDS ORDERED: FURO20TA2 PO (16:22)
[2016-09-19] MEDS ORDERED: CALCTAB37 PO (16:22)
[2016-09-19] MEDS ORDERED: LEVO150T42 PO (16:22)
[2016-09-19] MEDS ORDERED: GLIP10TA58 PO (16:22)
[2016-09-19] MEDS ORDERED: AMIT24CA5 PO (16:22)
[2016-09-19] MEDS ORDERED: JANU50TA22 PO (16:22)
[2016-09-19] MEDS ORDERED: LAMI200T3 PO (16:22)
[2016-09-19] MEDS ORDERED: OLME40TA PO (16:22)
[2016-09-19] MEDS ORDERED: MIRA33504 PO (16:22)
[2016-09-19] MEDS ORDERED: FIBE62TA PO (16:22)
[2016-09-19] MEDS ORDERED: DULO1CAP2 PO (16:22)
[2016-09-19] MEDS ORDERED: SENN8.6T10 PO (16:22)
[2016-09-19] MEDS ORDERED: MAGN400T5 PO (16:22)
[2016-09-19] MEDS ORDERED: K-TA10TA PO (16:22)
[2016-09-19] MEDS ORDERED: OXYB10TA PO (16:24)
[2016-09-19] MEDS ORDERED: INSUDET SC (16:24)
[2016-09-19] MEDS ORDERED: TYLE650T35 PO (16:24)
[2016-09-19] MEDS ORDERED: MIDAZOLAM INJ 2 MG/2 ML VIAL (J2250) As Ordered ONE (16:43)
[2016-09-19] MEDS ORDERED: ROCURONIUM BROMIDE 50 MG/5 ML VIAL As Ordered ONE (16:43)
[2016-09-19] MEDS ORDERED: KETOROLAC 60 MG/2 ML VIAL (J1885) As Ordered ONE (16:43)
[2016-09-19] MEDS ORDERED: ONDANSETRON 4MG/2ML VIAL (J2405) As Ordered ONE (16:43)
[2016-09-19] MEDS ORDERED: dexameTHASONE 4 MG/ML 1ML VIAL (J1100) As Ordered ONE (16:43)
[2016-09-19] MEDS ORDERED: PROPOFOL 200 MG/20 ML VIAL As Ordered ONE (16:43)
[2016-09-19] MEDS ORDERED: fentaNYL 250 MCG/5 ML INJECTION (J3010) As Ordered ONE (16:43)
[2016-09-19] MEDS ORDERED: LIDOCAINE 2% INJ 100 MG/5 ML SDV (FOR ANES.) As Ordered ONE (16:43)
[2016-09-19] MEDS ORDERED: SUCCINYLCHOLINE 100 MG/5 ML SYRINGE (J0330) As Ordered ONE (16:53)
[2016-09-19] MEDS ORDERED: ULTRACET TAB PO SCH (17:30)
[2016-09-19] MEDS ORDERED: GLYCOPYRROLATE INJ 0.2 MG/ML 2 ML VIAL As Ordered ONE (17:41)
[2016-09-19] MEDS ORDERED: NEOSTIGMINE 1MG/ML 5 ML SYRINGE (J2710) As Ordered ONE (17:41)
[2016-09-19] MEDS ORDERED: HYDROmorphone HCL 1 MG/ML SYRINGE (J1170) IV PRN (18:30)
[2016-09-19] MEDS ORDERED: METOCLOPRAMIDE INJ 10MG/2ML VIAL (J2765) IV PRN (18:30)
[2016-09-19] MEDS ORDERED: HYDROmorphone 2 MG TAB PO PRN (18:30)
[2016-09-19] MEDS ORDERED: ONDANSETRON 4MG/2ML VIAL (J2405) IV PRN ×2 (18:30→19:30)
[2016-09-19] MEDS ORDERED: PROMETHAZINE INJ 25 MG/ML VIAL (J2550) IV PRN (18:30)
[2016-09-19] MEDS ORDERED: LABETALOL HCL 100 MG/20 ML VIAL As Ordered ONE (18:45)
[2016-09-19] MEDS: HYDROmorphone HCL 1 MG/ML SYRINGE (J1170) IV PRN ×5 (19:15→19:35)
[2016-09-19] MEDS ORDERED: PERCOCET 5MG/325MG TAB PO PRN (19:30)
[2016-09-19] MEDS ORDERED: LR 1,000 ML IV SCH (19:30)
[2016-09-19] MEDS ORDERED: fentaNYL 100 MCG/2 ML INJECTION (J3010) IV PRN (19:30)
[2016-09-19 20:00] VITALS: BP 145/70
[2016-09-19 20:30] VITALS: BP 138/63
[2016-09-19] MEDS ORDERED: SENNA 8.6 MG TAB (SENOKOT) PO SCH (21:00)
[2016-09-19 21:30] VITALS: BP 123/58
[2016-09-19] MEDS: QUEtiapine FUMARATE **XR** 200MG TABLET PO SCH (22:09)
[2016-09-19] MEDS: FIBER-CON 625 MG TAB PO SCH (22:09)
[2016-09-19] MEDS: lamoTRIgine 100MG TAB PO SCH (22:09)
[2016-09-19] MEDS: clonazePAM 1 MG TAB PO SCH (22:09)
[2016-09-19] MEDS: clonazePAM 0.5 MG TAB PO SCH (22:10)
[2016-09-19] MEDS: FAMOTIDINE 20 MG TAB PO SCH (22:10)
[2016-09-19] MEDS: ATORVASTATIN 20 MG TAB PO SCH (22:10)
[2016-09-19] MEDS: MAGNESIUM OXIDE 400 MG TAB (MAG-OX) PO SCH (22:10)
[2016-09-19] MEDS: POTASSIUM CHLORIDE 10 MEQ SR TABLET PO SCH (22:10)
[2016-09-19] MEDS: ZIPRASIDONE 80 MG CAP (GEODON) PO SCH (22:11)
[2016-09-19] MEDS: DOCUSATE SODIUM 100 MG CAP PO SCH (22:11)
[2016-09-19] MEDS: zolPIDEM TARTRATE 10MG TAB PO SCH (22:11)
[2016-09-19] MEDS: FUROSEMIDE 20 MG TAB PO SCH (22:12)
[2016-09-19] MEDS: NORCO, ANEXSIA 5/325MG TABLET (HYDROcodone/ACETAMINOPHEN) PO PRN (22:13)
[2016-09-19] MEDS: PIPERACILLIN/TAZOBACTAM SOD 3.375 GM in D5W MINI-BAG PLUS 50 ML IV SCH (22:13)
[2016-09-19] MEDS: LR 1,000 ML IV SCH (22:19)
[2016-09-19 22:30] VITALS: BP 121/60
[2016-09-19 23:30] VITALS: BP 149/70
[2016-09-20 02:00] VITALS: BP 117/56
[2016-09-20] MEDS: LR 1,000 ML IV SCH (02:44)
[2016-09-20] MEDS: PIPERACILLIN/TAZOBACTAM SOD 3.375 GM in D5W MINI-BAG PLUS 50 ML IV SCH ×4 (02:44→20:53)
[2016-09-20] MEDS: NORCO, ANEXSIA 5/325MG TABLET (HYDROcodone/ACETAMINOPHEN) PO PRN ×3 (05:47→20:55)
[2016-09-20] MEDS: LEVOTHYROXINE 0.15 MG TAB (150 MCG) PO SCH (05:47)
[2016-09-20 06:00] VITALS: BP 133/62
[2016-09-20] MEDS: ULTRACET TAB PO SCH ×3 (07:30→17:13)
--- NOTE | 2016-09-20 08:44 | ECGEPIP ---
Stationary ECG Study [facility] - ED Test Date: 2016-09-19 Pat Name: AZALIA COFFMAN Department: Room: - Gender: F It Applications Analyst: MOE : 1945 Requested By: Varsha Phillips Order Number: [id number] Reading MD: Varsha Phillips Measurements Intervals [place] Rate: 76 P: 23 NE: 173 QRS: -6 QRSD: 94 T: 42 QT: 403 QTc: 454 Interpretive Statements SINUS RHYTHM INCOMPLETE RIGHT BUNDLE BRANCH BLOCK NONSPECIFIC T-WAVE ABNORMALITY DECREASED RATE 08/28/15 Electronically Signed On 09-20-2016 8:44:33 EDT by Varsha Phillips
[2016-09-20] MEDS: ZIPRASIDONE 80 MG CAP (GEODON) PO SCH ×2 (09:08→17:12)
[2016-09-20] MEDS: MAGNESIUM OXIDE 400 MG TAB (MAG-OX) PO SCH ×2 (09:08→20:54)
[2016-09-20] MEDS: CETIRIZINE (ZyrTEC) 10 MG TAB PO SCH (09:09)
[2016-09-20] MEDS: POTASSIUM CHLORIDE 10 MEQ SR TABLET PO SCH ×2 (09:09→20:54)
[2016-09-20] MEDS: DULoxetine 30 MG CAP (CYMBALTA) PO SCH (09:09)
[2016-09-20] MEDS: glipiZIDE XL 5 MG TABCR PO SCH (09:09)
[2016-09-20] MEDS: DOCUSATE SODIUM 100 MG CAP PO SCH ×2 (09:09→20:53)
[2016-09-20] MEDS: clonazePAM 0.5 MG TAB PO SCH ×2 (09:09→20:54)
[2016-09-20] MEDS: oxyBUTYnin *DITROPAN XL* 5 MG TABCR PO SCH (09:09)
[2016-09-20] MEDS: FAMOTIDINE 20 MG TAB PO SCH ×2 (09:09→20:54)
[2016-09-20] MEDS ORDERED: DEXTROSE 50% 50 ML SYRINGE IV PRN (09:30)
[2016-09-20] MEDS ORDERED: GLUCAGON FOR INJ 1 MG VIAL (J1610) SC PRN (09:30)
[2016-09-20] MEDS ORDERED: GLUCOSE 4 GM CHEW TABLET PO PRN (09:30)
[2016-09-20] MEDS: SENNA 8.6 MG TAB (SENOKOT) PO SCH ×2 (11:13→20:54)
[2016-09-20] MEDS: FIBER-CON 625 MG TAB PO SCH ×2 (11:14→20:54)
[2016-09-20] MEDS: FUROSEMIDE 20 MG TAB PO SCH (11:14)
[2016-09-20] MEDS: lamoTRIgine 100MG TAB PO SCH (11:14)
[2016-09-20 11:51] LABS: MEAN CORPUSCULAR HEMOGLOBIN 32.4 pg (27.0-33.0); MEAN CORPUSCULAR HGB CONC 33.5 g/dl (32.0-36.5); MEAN CORPUSCULAR VOLUME 96.6 fl (80.0-96.0); WHITE BLOOD COUNT 8.7 K/mm3 (4.0-10.0)
[2016-09-20] MEDS: IPRATROPIUM 0.5MG/ALBUTEROL 2.5MG INH SOL UD 3ML (DUONEB)(J7620) NEB SCH ×3 (12:00→21:19)
[2016-09-20 12:21] LABS: ALBUMIN/GLOBULIN RATIO 0.77 (1.00-1.93); BILIRUBIN,TOTAL 0.3 MG/DL (0.2-1.0); CALCIUM LEVEL 7.9 MG/DL (8.8-10.2); CREATININE FOR GFR 1.18 MG/DL (0.55-1.02); GLOMERULAR FILTRATION RATE 48.3 (>45); POTASSIUM SERUM 4.6 MEQ/L (3.5-5.1); TOTAL PROTEIN 6.9 GM/DL (6.4-8.2)
[2016-09-20] MEDS: HumaLOG INSULIN (NovoLOG) PER UNIT SC SCH ×3 (12:51→20:35)
[2016-09-20 14:00] VITALS: BP 133/60
--- NOTE | 2016-09-20 17:35 | HPE ---
DATE OF ADMISSION: 09/20/2016 CHIEF COMPLAINT: Right lower quadrant pain. HISTORY OF PRESENT ILLNESS: The patient is a 70-year-old female who has a complex medical history with some difficulties with memory and confusion and thus history is somewhat vague but essentially started with a 3-day history of some abdominal pain, seemed to be better after about 24 hours, then it was quite severe, persistent in the right lower quadrant, without fevers, without chills. However, it radiated up into the right upper chest area down across the umbilicus. She developed some nausea with significant bloating and had decreased oral intake. She has had a bowel movement on the day of admission without blood per rectum. She has had no urinary tract complaints, although she does have some chronic urinary tract issues. Came to the emergency room and had some right lower quadrant pain, tenderness and concerns of possible appendicitis. A CT scan was performed. The patient had a normal white count and the CT scan revealed some inflammatory changes in the right lower quadrant consistent with acute appendicitis and evidence of acute thickening of the appendix. The patient had a "very normal appearance" on previous CT. PAST MEDICAL HISTORY: Significant for history of amnesia, history of anemia, history of chronic kidney disease secondary to diabetes mellitus, history of insulin dependent diabetes mellitus, history of gastroesophageal reflux disease, history of Jose Alfredo's thyroiditis, history of hypercholesterolemia, hypertension, hypomagnesemia, hypothyroidism, legally blind, osteoarthritis, schizophrenia, urge incontinence, left shoulder surgery, thyroidectomy, vaginal cuff repair, bladder suspension, hernia repair, hysterectomy. MEDICATIONS: Include: - Tylenol - Amitiza - atorvastatin - calcium citrate - Fiber Lax - cetirizine - clonazepam - Dexilant - docusate - donepezil - duloxetine - Lasix - glipizide - insulin - lamotrigine - levothyroxine - magnesium oxide - medoxomil - oxybutynin - polyethylene glycol - potassium chloride - Seroquel - Sennalax - Janumet - Ultracet - ziprasidone - zolpidem PHYSICAL EXAMINATION: Reveals a 70-year-old female who looks stated age. Sclerae nonicteric. Oropharynx clear without exudate or lesions. Neck supple without adenopathy. She has previous incisions from thyroid surgery. Lungs are clear anterior although decreased posteriorly. Heart is regular. Abdomen is morbidly obese, tender in the right lower quadrant with guarding and localized peritoneal signs. No hernias are appreciated. No masses are appreciated. She has a previous incisional hernia above the umbilicus. IMPRESSION AND PLAN: The patient is tender in her right lower quadrant, evidence of possible appendicitis on her CT scan. However, her white count is not significantly elevated, suggesting that either the appendicitis is early in its presentation or that there may be some other etiology for her inflammatory process in this area. I do feel a laparoscopic appendectomy/laparoscopic evaluation is warranted. We have discussed risks as well as operative benefits of laparoscopy. The risks include, but are not limited to, infection, bleeding, damage to surrounding structures including bowel, bladder, nerves, vessels, kidney, ureter, and postoperative appendix complications. The patient understands and would like to proceed with operative intervention as soon as possible.
--- NOTE | 2016-09-20 17:45 | IPN ---
DATE: 09/20/2016 The patient overnight has been doing relatively well, has tolerated a breakfast this morning without significant problems associated with this, but still is quite sore around her incisions as well as in the right lower quadrant. She is not having any fevers. No chills. No nausea. No vomiting. Tolerating a regular diet, as I stated previously. She has not had a bowel movement as of yet, but otherwise has no other complaints except for the discomfort per se. She lives alone and does not feel "comfortable enough to go home today." OBJECTIVE: She is afebrile. Blood pressure is good. Her white count remains normal at 8.7. Her physical examination reveals abdomen is morbidly obese. It is hard to tell if this is distended or just morbidly obese at baseline. Dressings are clean and dry. IMPRESSION/PLAN: Patient has some postoperative discomfort and, at this point, given her living situation, I do feel that it is reasonable for her to spend the night with us, probably get discharged to home tomorrow and I anticipate she will need some oral pain medication; however, I feel that with the present diagnosis of infarcted epiploic fat, she does not need to be discharged home on antibiotics. Will see how she does over the evening and I anticipate probable discharge tomorrow morning.
--- NOTE | 2016-09-20 20:25 | RO ---
DATE OF PROCEDURE: 09/19/2016 PREOPERATIVE DIAGNOSIS: Acute appendicitis. POSTOPERATIVE DIAGNOSIS: 1. Infarcted epiploic fat. 2. Fibrotic appendix. PROCEDURE: Laparoscopic appendectomy. SURGEON: Dr. Roderick Cazares COMPLIANCE REVIEW SPECIALIST: ANESTHESIA: General endotracheal anesthesia ESTIMATED BLOOD LOSS: Minimal. FLUIDS: Crystalloid. DESCRIPTION OF PROCEDURE: The patient was brought to the operating room, was given general anesthesia. After adequate anesthesia and preoperative antibiotics were given, the patient was prepped and draped in the usual sterile fashion. Next, a supraumbilical incision was made with a skin knife. Blunt dissection was carried down to fascia and a Veress needle placed into the abdominal cavity and insufflated to 15 mm of pressure. A dilating 5 mm trocar was placed above the umbilicus and under direct visualization, a suprapubic 5 mm trocar was placed and then the 5 mm trocar above the umbilicus was replaced with a 12 mm trocar, left lower quadrant 5 mm trocar was also placed. The patient was placed in a Trendelenburg position, left side down, and the small bowel was quite dilated but eventually I was able to get this mobilized off the right pelvic sidewall and then the cecum was evaluated. It was lifted and there was some fibrosed tissue coming off the cecum, going to the pelvic sidewall and lateral to this, I did take down the peritoneum so that the lateral portion of the cecum could be mobilized and then clearing some of this fibrosed tissue as well, I was able to mobilize this area in question. Once mobilizing this area, there was an epiploic fat that was obviously torsed and it could be visualized being twisted several times and it was infarcted and somewhat gangrenous appearing. This was transected at its base. It was placed in the EndoCatch bag when the appendix was removed. The rest of the cecum was mobilized as well. I felt that this was necessary given that even though the epiploic fat was indeed an abnormality, I could not reliably determine where the appendix was in this area. Thus, without seeing a "normal-appearing appendix," I mobilized the end of the cecum, and once I did this, there was some fibrotic tissue coming off the tissue off the end of the cecum and then following this more proximally, this was the fluted base of the appendix, thus suggesting that the patient had a chronically fibrotic distal appendix. After mobilizing this further, some of the mesentery needed to be taken down and while taking this down, I felt that the end of the appendix would be relatively ischemic. Once the base of the appendix was cleared of all mesentery, this was transected using a JOCELIN stapler. The green load was used and thus there was some minimal oozing along the staple line and this was treated with some clips. However, it still was mildly oozing and thus mary was placed on this area and provided excellent hemostasis. The area where the epiploic fat was removed was nice clean and dry. Everything had been washed, irrigated prior to removal and revealed no other significant abnormalities. No infectious process present. All trocars were removed under direct visualization, #0 Vicryl was used to close the fascia at the umbilicus, in the epigastric/supraumbilical area, and all incisions were closed with #4-0 Vicryl. Steri-Strips and a dry sterile dressing was applied. The patient was awakened, extubated, brought to recovery room awake, alert, and hemodynamically stable. Sponge and needle counts correct times two. MTDD
[2016-09-20] MEDS: QUEtiapine FUMARATE **XR** 200MG TABLET PO SCH (20:53)
[2016-09-20] MEDS: clonazePAM 1 MG TAB PO SCH (20:54)
[2016-09-20] MEDS: ATORVASTATIN 20 MG TAB PO SCH (20:54)
[2016-09-20] MEDS: zolPIDEM TARTRATE 10MG TAB PO SCH (20:55)
[2016-09-20] MEDS ORDERED: HumaLOG INSULIN (NovoLOG) PER UNIT SC SCH (21:00)
[2016-09-20 22:00] VITALS: BP 135/63
[2016-09-21 02:00] VITALS: BP 126/58
[2016-09-21] MEDS: PIPERACILLIN/TAZOBACTAM SOD 3.375 GM in D5W MINI-BAG PLUS 50 ML IV SCH ×4 (02:08→20:47)
[2016-09-21] MEDS: NORCO, ANEXSIA 5/325MG TABLET (HYDROcodone/ACETAMINOPHEN) PO PRN ×3 (05:52→19:36)
[2016-09-21] MEDS: LEVOTHYROXINE 0.15 MG TAB (150 MCG) PO SCH (05:52)
[2016-09-21 06:00] VITALS: BP 167/72
[2016-09-21] MEDS: CETIRIZINE (ZyrTEC) 10 MG TAB PO SCH (08:02)
[2016-09-21] MEDS: DULoxetine 30 MG CAP (CYMBALTA) PO SCH (08:02)
[2016-09-21] MEDS: POTASSIUM CHLORIDE 10 MEQ SR TABLET PO SCH ×2 (08:02→20:48)
[2016-09-21] MEDS: HumaLOG INSULIN (NovoLOG) PER UNIT SC SCH ×4 (08:03→20:30)
[2016-09-21] MEDS: ULTRACET TAB PO SCH ×3 (08:03→17:35)
[2016-09-21] MEDS: glipiZIDE XL 5 MG TABCR PO SCH (08:03)
[2016-09-21] MEDS: oxyBUTYnin *DITROPAN XL* 5 MG TABCR PO SCH (08:03)
[2016-09-21] MEDS: clonazePAM 0.5 MG TAB PO SCH ×2 (08:04→20:47)
[2016-09-21] MEDS: FAMOTIDINE 20 MG TAB PO SCH ×2 (08:04→20:48)
[2016-09-21] MEDS: ZIPRASIDONE 80 MG CAP (GEODON) PO SCH ×2 (08:04→17:36)
[2016-09-21] MEDS: DOCUSATE SODIUM 100 MG CAP PO SCH ×2 (08:04→20:48)
[2016-09-21] MEDS: MAGNESIUM OXIDE 400 MG TAB (MAG-OX) PO SCH ×2 (08:04→20:49)
[2016-09-21] MEDS: IPRATROPIUM 0.5MG/ALBUTEROL 2.5MG INH SOL UD 3ML (DUONEB)(J7620) NEB SCH ×4 (08:48→20:53)
[2016-09-21] MEDS: FUROSEMIDE 20 MG TAB PO SCH (12:51)
[2016-09-21] MEDS: lamoTRIgine 100MG TAB PO SCH (12:51)
[2016-09-21] MEDS: FIBER-CON 625 MG TAB PO SCH ×2 (12:51→20:49)
[2016-09-21] MEDS: SENNA 8.6 MG TAB (SENOKOT) PO SCH ×2 (12:51→20:49)
[2016-09-21 14:00] VITALS: BP 175/75
[2016-09-21] MEDS: clonazePAM 1 MG TAB PO SCH (20:48)
[2016-09-21] MEDS: QUEtiapine FUMARATE **XR** 200MG TABLET PO SCH (20:48)
[2016-09-21] MEDS: ATORVASTATIN 20 MG TAB PO SCH (20:49)
[2016-09-21] MEDS: zolPIDEM TARTRATE 10MG TAB PO SCH (20:49)
[2016-09-21 22:00] VITALS: BP 130/62
[2016-09-22] MEDS: NORCO, ANEXSIA 5/325MG TABLET (HYDROcodone/ACETAMINOPHEN) PO PRN (04:43)
[2016-09-22] MEDS: LEVOTHYROXINE 0.15 MG TAB (150 MCG) PO SCH (05:54)
[2016-09-22] MEDS: IPRATROPIUM 0.5MG/ALBUTEROL 2.5MG INH SOL UD 3ML (DUONEB)(J7620) NEB SCH ×2 (07:07→11:37)
[2016-09-22] MEDS: HumaLOG INSULIN (NovoLOG) PER UNIT SC SCH ×2 (08:06→12:18)
[2016-09-22] MEDS: DULoxetine 30 MG CAP (CYMBALTA) PO SCH (08:06)
[2016-09-22] MEDS: FAMOTIDINE 20 MG TAB PO SCH (08:07)
[2016-09-22] MEDS: clonazePAM 0.5 MG TAB PO SCH (08:07)
[2016-09-22] MEDS: DOCUSATE SODIUM 100 MG CAP PO SCH (08:07)
[2016-09-22] MEDS: MAGNESIUM OXIDE 400 MG TAB (MAG-OX) PO SCH (08:07)
[2016-09-22] MEDS: POTASSIUM CHLORIDE 10 MEQ SR TABLET PO SCH (08:07)
[2016-09-22] MEDS: glipiZIDE XL 5 MG TABCR PO SCH (08:07)
[2016-09-22] MEDS: oxyBUTYnin *DITROPAN XL* 5 MG TABCR PO SCH (08:07)
[2016-09-22] MEDS: ZIPRASIDONE 80 MG CAP (GEODON) PO SCH (08:08)
[2016-09-22] MEDS: ULTRACET TAB PO SCH ×2 (08:08→12:18)
[2016-09-22] MEDS: CETIRIZINE (ZyrTEC) 10 MG TAB PO SCH (08:08)
[2016-09-22] MEDS: FIBER-CON 625 MG TAB PO SCH (12:17)
[2016-09-22] MEDS: lamoTRIgine 100MG TAB PO SCH (12:18)
[2016-09-22] MEDS: FUROSEMIDE 20 MG TAB PO SCH (12:18)
[2016-09-22] MEDS: SENNA 8.6 MG TAB (SENOKOT) PO SCH (12:18)
[2016-09-22 14:00] VITALS: BP 132/75
== END 2016-09-22 16:45 | disposition home health service (06) ==
LOC: M ED 12:46 → M SDC 15:40 → M ED INP 18:25 → M MSPAV 19:53 → M ED INP 09-20 14:47 → UNDOADMOB 09-20 14:47 → M MSPAV 09-20 14:48 → M ED INP 09-20 14:48 → UNDODISOB 09-22 16:45
PROVIDERS: ADMIT Surgery; ATTEND Surgery
DX: K55.069 Acute infarction of intestine, part and extent unspecified (principal); K38.8 Other specified diseases of appendix; E11.9 Type 2 diabetes mellitus without complications; K21.9 Gastro-esophageal reflux disease without esophagitis; D64.9 Anemia, unspecified; F31.9 Bipolar disorder, unspecified; E03.9 Hypothyroidism, unspecified; N18.3 Chronic kidney disease, stage 3 (moderate); I12.9 Hypertensive chronic kidney disease with stage 1 through stage 4 chronic kidney disease, or unspecified chronic kidney disease; E87.6 Hypokalemia; Z88.2 Allergy status to sulfonamides; Z88.8 Allergy status to other drugs, medicaments and biological substances; Z79.899 Other long term (current) drug therapy; E78.00 Pure hypercholesterolemia, unspecified
CPT/HCPCS: 36415; 44970; 74022; 74177; 80048; 80053; 80076; 83690; 85025; 85027; 88304; 90834; 93005; 93041; 94640; 99285; G0378; G0463; J0330; J1100; J1170; J2250; J2405; J2543; J2710; J3010; Q9967

== ENCOUNTER → 2016-10-19 | Outpatient (REF) | payer MEDICARE, MEDICAID ==
[~2016-10-19] MED LIST changes: +AMBI10TA; +ASPE4PAD EX; +ATOR40TA PO; +CETI10TA PO; +CLON1TAB PO; +COLA100C3 PO; +DULO1CAP2 PO; +FIBE62TA; +FIBE62TA PO; +GLIP10TA13 PO; +GLIP10TA58 PO; +JANU50TA22 PO; +K-TA10TA PO; +KLON1TAB; +LEVO150T42 PO; +LEVO150T7; +MAGN400T5 PO; +OLME40TA; +OLME40TA PO; +SENN-22; +SENN8.6T10 PO; +SERO400T3; +SERO400T3 PO; +TYLE650T35 PO; +ZIPR80CA12 PO; +ZOLP10TA2 PO; +[UNRECOGNIZED DRUG - CODE]
[2016-10-19 09:29] LABS: MEAN CORPUSCULAR HEMOGLOBIN 31.1 pg (27.0-33.0); MEAN CORPUSCULAR HGB CONC 31.9 g/dl (32.0-36.5); MEAN CORPUSCULAR VOLUME 97.4 fl (80.0-96.0); RED CELL DISTRIBUTION WIDTH 13.9 % (11.5-14.5); WHITE BLOOD COUNT 5.1 K/mm3 (4.0-10.0)
[2016-10-19 09:58] LABS: ALBUMIN 3.3 GM/DL (3.2-5.2); ALBUMIN/GLOBULIN RATIO 0.87 (1.00-1.93); BILIRUBIN,DIRECT 0.1 MG/DL (0.0-0.2); BILIRUBIN,TOTAL 0.2 MG/DL (0.2-1.0); CALCIUM LEVEL 8.6 MG/DL (8.8-10.2); CREATININE FOR GFR 0.98 MG/DL (0.55-1.02); GLOMERULAR FILTRATION RATE 59.7 (>39); MAGNESIUM LEVEL 1.8 MG/DL (1.8-2.4); POTASSIUM SERUM 4.4 MEQ/L (3.5-5.1); TOTAL PROTEIN 7.1 GM/DL (6.4-8.2)
[2016-10-21 11:23] LABS: HEP C VIRUS AB SCREEN MEDICARE 0.3 INDEX (<0.8)
== END ==
LOC: SKLABADC 08:28
PROVIDERS: ATTEND Internal Medicine
DX: N18.3 Chronic kidney disease, stage 3 (moderate) (principal); D63.1 Anemia in chronic kidney disease; E11.22 Type 2 diabetes mellitus with diabetic chronic kidney disease; M19.90 Unspecified osteoarthritis, unspecified site; E83.42 Hypomagnesemia; E03.9 Hypothyroidism, unspecified; E66.9 Obesity, unspecified
CPT/HCPCS: 36415; 80048; 80076; 82043; 82550; 83036; 83735; 84443; 85027; G0472

== ENCOUNTER → 2016-10-31 | Outpatient (CLI) | payer MEDICARE, MEDICAID ==
[~2016-10-31] MED LIST changes: +BUPIVACAINE HCL 0.25% 30 ML VIAL As Ordered ONE; +ISOVUE-M 300 61% 15ML VIAL (Q9967) As Ordered ONE; +LIDOCAINE 1% SDV INJ 30 ML VIAL As Ordered ONE; +TRIAMCINOLONE ACETONIDE SUSP 40 MG/ML VIAL (J3301) As Ordered ONE
--- NOTE | 2016-11-01 06:44 | REP ---
FLUORO GUIDANCE: The images were reviewed with Dr. Stevenson. The patient has a history of low back pain. The portable C-arm was provided in the OR for Dr. Stanton for fluoroscopic guidance. Four intraoperative fluoro spot films were obtained for needle placement verification for bilateral SI joint injection. The films are on the PACS system and are available for review. 28 seconds of fluoroscopy time was utilized for this procedure. Reviewed by MEAGAN Moreno 11/01/2016 05:38 PEdited and Signed by Davin Stevenson MD 11/04/2016 05:34 P
--- NOTE | 2016-11-04 00:43 | ECWPNPC ---
PATIENT NAME: AZALIA COFFMAN : 1945 GENDER: FEMALE VISIT DATE: 10/31/2016 DISCHARGE DATE: 10/31/16 1055 VISIT LOCKED DATE TIME: PHYSICIAN: JEFRY GOSS RESOURCE: JEFRY GOSS REASON FOR APPOINTMENT 1. SIJ INJECTION HISTORY OF PRESENT ILLNESS HISTORY OF PRESENT ILLNESS: PAIN THE PATIENT DESCRIBES THE PAIN... FALL RISK SCREENING: SCREENING :NO FALLS IN THE PAST YEAR CURRENT MEDICATIONS TAKING GLUCOTROL XL 10 MG TABLET EXTENDED RELEASE 24 HOUR 1 TABLET ORALLY DAILY, NOTES: 10/30 AM TAKING AMITIZA 24 MCG CAPSULE 1 CAPSULE WITH FOOD ORALLY TWICE A DAY, NOTES: 10/30 AM TAKING DONEPEZIL HCL 10 MG TABLET 1 TABLET AT BEDTIME ORALLY ONCE A DAY, NOTES: 10/30 PM TAKING LIPITOR 40MG TABLET 1 TABLET ORALLY ONCE A DAY, NOTES: 10/30 AM TAKING DOCUSATE SODIUM 100 MG CAPSULE 1 CAPSULE NEEDED ORALLY BID, NOTES: 10/30 AM TAKING CALCIUM CITRATE + D 315-200 MG-UNIT TABLET 1 TABLET WITH MEALS ORALLY DAILY, NOTES: 10/30 AM TAKING LAMICTAL 200 MG TABLET 1 TABLET ORALLY ONCE A DAY, NOTES: 10/30 AM TAKING SEROQUEL XR 300 MG TABLET EXTENDED RELEASE 24 HOUR 1 TABLET IN THE EVENING ORALLY ONCE A DAY, NOTES: 10/30 AM TAKING GEODON 80 MG CAPSULE 1 CAPSULE WITH FOOD ORALLY TWICE A DAY, NOTES: 10/30 AM TAKING BENICAR 40 MG TABLET 1 TABLET ORALLY ONCE A DAY, NOTES: 10/30 AM TAKING KLOR-CON 10 10 MEQ TABLET EXTENDED RELEASE 2 TABLET ORALLY BID, NOTES: 10/30 AM TAKING SENNA-GEN 8.6 MG TABLET DIRECTED ORALLY , NOTES: 10/30 AM TAKING LEVOTHYROXINE SODIUM 137 MG TABLET ONCE DAILY ORALLY ONCE A DAY, NOTES: 10/30 AM TAKING ZOLPIDEM TARTRATE 5 MG TABLET 1 TABLET AT BEDTIME ORALLY ONCE A DAY, NOTES: 10/30 AM TAKING FUROSEMIDE 20 MG TABLET 1 TABLET ORALLY ONCE DAILY, NOTES: 10/30 AM TAKING JANUMET XR 50-500 MG TABLET EXTENDED RELEASE 24 HOUR 1 TABLET WITH A MEAL ORALLY TWICE DAILY, NOTES: 10/30 AM TAKING CLONAZEPAM 0.5 MG TABLET 1 TABLET ORALLY BID, NOTES: 10/30 PM TAKING SLOW MAGNESIUM/CALCIUM 64-106 MG TABLET DELAYED RELEASE DIRECTED ORALLY , NOTES: 10/30 AM TAKING NEEDLES & SYRINGES 31 GAUGE DIRECTED TAKING LANCETS THIN MISCELLANEOUS DIRECTED TAKING GLUCOMETER DIRECTED TAKING LEVEMIR FLEXTOUCH 100 UNIT/ML SOLUTION PEN-INJECTOR 80 UNITS SUBCUTANEOUS BEFORE BEDTIME, NOTES: 10/30 PM TAKING DEXILANT 60 MG CAPSULE DELAYED RELEASE 1 CAPSULE ORALLY ONCE A DAY, NOTES: 10/30 AM TAKING FIBER - CAPSULE 2 CAPSULES WITH 8 OUNCES OF LIQUID ORALLY BID, NOTES: 10/30 AM TAKING TRAMADOL-ACETAMINOPHEN 37.5-325 MG TABLET 1 ORALLY Q8H PRN MDD3, NOTES: 10/30 AM TAKING CYMBALTA 30 MG CAPSULE DELAYED RELEASE PARTICLES 1 CAPSULE ORALLY DAILY, NOTES: 10/30 PM NOT-TAKING IPRATROPIUM BROMIDE 0.03 % SOLUTION 2 APPLICATIONS NASALLY TWICE A DAY, NOTES: 02/21/16 NOT-TAKING TRAZODONE HCL 50 MG TABLET 2 TABLETS ORALLY THREE TIMES A DAY, NOTES: 02/21/16 NOT-TAKING OXYBUTYNIN CHLORIDE ER 10 MG TABLET EXTENDED RELEASE 24 HOUR TAKE ONE TABLET BY MOUTH ONCE DAILY NOT-TAKING MIRALAX SUSPENSION 17 GRAMS ORALLY AT HOUR OF SLEEP, NOTES: 02/21/16 NOT-TAKING ELIQUIS 5 MG TABLET ORALLY BID NOT-TAKING NEBULIZER DEVICE DIRECTED FOUR TIMES A DAY NOT-TAKING ALBUTEROL SULFATE (2.5 MG/3ML) 0.083% NEBULIZATION SOLUTION 3 ML INHALATION FOUR TIMES PER DAY NOT-TAKING PROAIR HFA 108 (90 BASE) MCG/ACT AEROSOL SOLUTION 2 PUFFS NEEDED INHALATION EVERY 4 HRS NOT-TAKING NEXIUM 40 MG CAPSULE DELAYED RELEASE 1 CAPSULE ORALLY ONCE A DAY MEDICATION LIST REVIEWED AND RECONCILED WITH THE PATIENT PAST MEDICAL HISTORY KIDNEY DISEASE MEMORY LOSS SCHIZOPHRENIA OSTEOARTHRITIS INCONTINENCE HYPERCHOLESTEROLEMIA ANEMIA DIABETES MELLITUS HYPOTHYROIDISM HYPERTENSION, BENIGN ESOPHAGEAL REFLUX LEGALLY BLIND ALLERGIES SULFA (FOR ALLERGY USE ONLY): HANDS SWELL: ALLERGY ASPIRIN: STOMACH: ALLERGY MORPHINE SULFATE: RASH: ALLERGY CELEBREX: CAUSES PROBLEMS WITH KIDNEYS: ALLERGY SOCIAL HISTORY GENERAL: PAIN CLINIC PFS, CLERGY, PUBLIC HEALTH REFERRALS PFS REFERRAL NEEDED?NO CLERGY REFERRAL NEEDED?NO PUBLIC HEALTH REFERRAL NEEDED?NO WAS THE PROVIDER NOTIFIED OF ANY PERTINENT INFO?YES PATIENT: ____. REVIEW OF SYSTEMS CONSTITUTIONAL: ANY CHANGE IN YOUR MEDICAL CONDITION? NO . CHILLS NO . FEVER NO . INFECTION: DO YOU HAVE NEW INFECTIONS? NO . DO YOU HAVE HISTORY OF MRSA? NO . MUSCULOSKELETAL: ANY NEW PATTERNS OF PAIN OR NUMBNESS? NO . GASTROENTEROLOGY: ANY NEW CHANGE IN BOWEL CONTROL? NO . GENITOURINARY: ANY NEW CHANGE IN BLADDER CONTROL? NO . IS THERE A CHANCE YOU COULD BE ? NO . HEMATOLOGY/LYMPH: DO YOU TAKE ANY BLOOD THINNERS? (FOR EXAMPLE- COUMADIN, PLAVIX, AGGRENOX, PLATEL, PRADAXA, OR XARELTO) NO . WHEN WAS YOUR LAST DOSE? DATE: TIME: . NEUROLOGY: HAVE YOU FALLEN IN THE PAST 6 MONTHS? NO . ANY NEW EXTREMITY NUMBNESS OR WEAKNESS? NO . CARDIOLOGY: DO YOU HAVE A PACEMAKER OR DEFIBRILLATOR? NO . RESPIRATORY: HAVE YOU BEEN SICK IN THE PAST WEEK? NO . FEVER NO . FLU LIKE SYMPTOMS? NO . COUGH NO . INTEGUMENTARY: DO YOU HAVE ANY RASHES OR OPEN SORES? NO . ALLERGIC/IMMUNO: ARE YOU ALLERGIC TO SHELLFISH OR IV DYE? NO . ANY NEW ALLERGIES? NO . PSYCHIATRIC: DO YOU HAVE THOUGHTS OF HURTING YOURSELF OR SOMEONE ELSE? NO . ARE YOU ABUSED, NEGLECTED, OR IN AN UNSAFE ENVIRONMENT? NO . ENDOCRINOLOGY: ARE YOU DIABETIC? YES, DID NOT DO FSBS THIS MORNING. . OTHER: DO YOU NEED ANY PRESCRIPTIONS? NO . IF YES, PLEASE LIST: ____ . ANY NEW PROBLEMS WITH YOUR MEDICATIONS? NO . WHEN DID YOU LAST EAT? 10/30 12AM . WHEN DID YOU LAST DRINK? 10/30 12AM . WHAT DID YOU LAST DRINK? WATER . NAME OF PERSON DRIVING YOU HOME? [facility] . DO YOU HAVE ANY OTHER QUESTIONS OR CONCERNS NO . REVIEWED BY: PROVIDER: . VITAL SIGNS WT 213 LBS, HT 63 IN, BMI 37.73 INDEX, BP 138/54 MM HG, HR 88 /MIN, RR 18 /MIN, TEMP 97 F,7 F, OXYGEN SAT % 93, SAFE IN ENV? (Y/N) Y, NA INITIALS KG 930, REVIEWED BY: DS. ASSESSMENTS SACROILIITIS, NOT ELSEWHERE CLASSIFIED - M46.1 (PRIMARY) PROCEDURES PN SI PRE PROCEDURE DIAGNOSIS SACROILIITIS, SACROILIAC JOINT DYSFUNCTION POST PROCEDURE DIAGNOSIS SACROILIITIS, SACROILIAC JOINT DYSFUNCTION PROCEDURE ., BILATERAL SACROILIAC JOINT BLOCK SURGEON DR. 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 I EVALUATED THE PATIENT AND REVIEWED THE CHART. I WENT OVER THE RISKS, ALTERNATIVES, AND BENEFITS ASSOCIATED WITH THIS PROCEDURE. THE PATIENT WOULD LIKE TO PROCEED AND GAVE CONSENT TO PERFORM THE PROCEDURE. THE PATIENT DENIES UNEXPLAINABLE WEIGHT LOSS, FEVER, CHILLS, OR NEW CHANGES IN URINARY OR BOWEL CONTROL DESCRIPTION OF PROCEDURE THE PATIENT WAS BROUGHT TO THE PROCEDURE ROOM AND PLACED IN THE PRONE POSITION. THE LUMBOSACRAL AREA WAS CLEANED WITH CHLORAPREP SOLUTION AND DRAPED ASEPTICALLY. THE PROCEDURE WAS DONE UNDER STERILE CONDITIONS. I CHECKED LATERALITY AND THE LEVEL WHERE THE PROCEDURE WAS GOING TO BE PERFORMED WITH THE PATIENT AND THE SUPPORTING STAFF AT THE MOMENT OF THE TIME OUT IN THE PROCEDURE ROOM. UNDER FLUOROSCOPIC GUIDANCE, TARGET POINT WAS SELECTED AT THE LOWER BORDER OF THE RIGHT AND LEFT SACROILIAC JOINT. TARGET POINT WAS SELECTED AFTER MEDIAL ROTATION AND TILT OF THE MAGNIFIER OF THE C-ARM. LIDOCAINE WAS USED TO NUMB THE SKIN AND SUBCUTANEOUS TISSUE BELOW IT. A SPINAL NEEDLE, 22-GAUGE, WAS ADVANCED UNDER FLUOROSCOPIC GUIDANCE AND FOLLOWING PATIENT FEEDBACK UNTIL THE TARGET AREA WAS TOUCHED. THE POSITION OF THE NEEDLE WAS VERIFIED WITH AP AND LATERAL VIEWS. AFTER PROPER POSITION OF THE NEEDLE WAS ACHIEVED, ISOVUE M DYE 30%, 0.25 ML, WAS INJECTED SHOWING SPREAD OF THE DYE. THEN, A SOLUTION OF 20 MG OF KENALOG WAS INJECTED IN RIGHT JOINT WITH 3 ML OF BUPIVACAINE 0.125%. THERE WAS NO EVIDENCE OF BLOOD, PARESTHESIA OR CEREBROSPINAL FLUID DURING THE PROCEDURE. THE PATIENT WAS SENT TO THE RECOVERY ROOM. THE PATIENT WAS MOVING THE EXTREMITIES AND DOING WELL. THERE WAS NO COMPLICATION DURING THE PROCEDURE. FLUOROSCOPY TIME WAS 28 SECONDS POST PROCEDURE NOTE THE PATIENT WILL BE SEEN IN A FOLLOW UP IN THE NEXT FEW WEEKS. INSTRUCTIONS WERE GIVEN, QUESTIONS WERE ANSWERED, AND THE PATIENT EXPRESSED UNDERSTANDING AND AGREED WITH THE PLAN. I, ANTHONY MEDEROS, DOCUMENTED THE ABOVE INFORMATION ACTING A SCRIBE FOR DR. GOSS. I HAVE REVIEWED THE ABOVE DOCUMENT, WRITTEN BY ANTHONY MEDEROS SCRIBFaizan AND I VERIFY THAT IT IS ACCURATE. DIAGNOSTIC IMAGING [facility] FLUORO GUIDANCE (PAIN)[id number] PROCEDURE CODES 15663 INJECT SACROILIAC JOINT 6045F RADXPS IN END [id number] PXD DISPOSITION & COMMUNICATION FOLLOW UP 3 WEEKS ELECTRONICALLY SIGNED BY JEFRY GOSS MD ON 11/03/2016 AT 12:39 PM EDT DISCLAIMER : THIS IS A VISIT SUMMARY EXTRACTED FROM THE [email or web address] CHART. IT IS NOT A COPY OF THE [email or web address] PROGRESS NOTE. SISI
== END ==
LOC: M PAIN 09:00
PROVIDERS: ATTEND Anesthesiology
DX: G89.29 Other chronic pain (principal); M46.1 Sacroiliitis, not elsewhere classified; M53.88 Other specified dorsopathies, sacral and sacrococcygeal region; I12.9 Hypertensive chronic kidney disease with stage 1 through stage 4 chronic kidney disease, or unspecified chronic kidney disease; N18.9 Chronic kidney disease, unspecified; R41.3 Other amnesia; F25.9 Schizoaffective disorder, unspecified; M19.90 Unspecified osteoarthritis, unspecified site; E78.00 Pure hypercholesterolemia, unspecified; D64.9 Anemia, unspecified; E11.9 Type 2 diabetes mellitus without complications; E03.9 Hypothyroidism, unspecified; K21.9 Gastro-esophageal reflux disease without esophagitis; H54.8 Legal blindness, as defined in USA; Z88.6 Allergy status to analgesic agent; Z88.2 Allergy status to sulfonamides; Z88.5 Allergy status to narcotic agent; Z88.8 Allergy status to other drugs, medicaments and biological substances; Z79.891 Long term (current) use of opiate analgesic; Z79.899 Other long term (current) drug therapy
CPT/HCPCS: G0260; J3301; Q9967

== ENCOUNTER → 2016-11-14 | Outpatient (CLI) | payer MEDICARE, MEDICAID ==
[~2016-11-14] MED LIST changes: -BUPIVACAINE HCL 0.25% 30 ML VIAL As Ordered ONE; -ISOVUE-M 300 61% 15ML VIAL (Q9967) As Ordered ONE; -LIDOCAINE 1% SDV INJ 30 ML VIAL As Ordered ONE; -TRIAMCINOLONE ACETONIDE SUSP 40 MG/ML VIAL (J3301) As Ordered ONE
--- NOTE | 2016-11-14 11:57 | REPMRS ---
Patient History The patient states she has not had a clinical breast exam in over a year. Patient is nulliparous. Family history of unknown cancer in father at age 50 or over, unknown cancer in sister under age 50, and unknown cancer in mother at age 50 or over. Benign radio exam breast specimen of the right breast, October 18, 2014. Benign stereotatic loc for ea lesion of the right breast, October 18, 2014. Stereotatic Loc for ea Lesion of the left breast, October 02, 2011. Took hormonal contraceptives for 2 years. Took unspecified hormones for 2 years. Digital Mammo Screening Bilat: November 14, 2016 - Exam #: [id number] Bilateral CC and MLO view(s) were taken. Technologist: Tea Ingram, Technologist Prior study comparison: September 01, 2014, right breast digital mammo diagnostic unilateral performed at [facility]. January 04, 2014, right breast digital mammo diagnostic unilateral performed at [facility]. FINDINGS: The breast tissue is heterogeneously dense. This may lower the sensitivity of mammography. There is a fairly symmetric fibroglandular pattern in both breasts. There has been no interval development of masses, areas of architectural distortion or clusters of microcalcifications typical of malignancy. Large coarse benign appearing calcifications are present, the number of calcifications has mildly increased at the benign biopsy sites bilaterally. ASSESSMENT: BI-RADS/ACR category 2 mammogram. Benign finding(s). Recommendation Routine screening mammogram of both breasts in 1 year (for women over age 40). This mammogram was interpreted with the aid of an FDA-approved computer-aided dectection system. Electronically Signed By: Davin Stevenson MD 11/14/16 2051
== END ==
LOC: M RAD 10:24
PROVIDERS: ATTEND Internal Medicine
DX: Z12.31 Encounter for screening mammogram for malignant neoplasm of breast (principal); Z92.0 Personal history of contraception; R92.8 Other abnormal and inconclusive findings on diagnostic imaging of breast

== ENCOUNTER → 2016-12-12 | Outpatient (CLI) | payer MEDICARE, MEDICAID ==
--- NOTE | 2016-12-13 00:22 | ECWPNPC ---
PATIENT NAME: AZALIA COFFMAN : 1945 GENDER: FEMALE VISIT DATE: 12/12/2016 DISCHARGE DATE: 12/12/16 1054 VISIT LOCKED DATE TIME: PHYSICIAN: MIKE LAWRENCE RESOURCE: MIKE LAWRENCE HISTORY OF PRESENT ILLNESS HISTORY OF PRESENT ILLNESS: HERE FOR POST PROCEDURE F/U.HADBILATERAL SIJ INJECTIONS 10-31-16.REPORTS SIGNIFICANT IMPROVEMENT IN LOW BACK PAIN THAT CONTINUES TODAY.RATING PAIN VAS 5/10.DESCRIBES INTERMITTENT TENDERNESS OVER LOW BACK.PATIENT IS SLEEPING AT INTERVALS DURING VISIT BUT IS EASILY AROUSABLE.SHE STATES SHE DOES THIS SOMETIMES. PAIN THE PATIENT DESCRIBES THE PAIN... FALL RISK SCREENING: SCREENING :NO FALLS IN THE PAST YEAR CURRENT MEDICATIONS TAKING GLUCOTROL XL 10 MG TABLET EXTENDED RELEASE 24 HOUR 1 TABLET ORALLY DAILY TAKING AMITIZA 24 MCG CAPSULE 1 CAPSULE WITH FOOD ORALLY TWICE A DAY TAKING DONEPEZIL HCL 10 MG TABLET 1 TABLET AT BEDTIME ORALLY ONCE A DAY TAKING LIPITOR 40MG TABLET 1 TABLET ORALLY ONCE A DAY TAKING DOCUSATE SODIUM 100 MG CAPSULE 1 CAPSULE NEEDED ORALLY BID TAKING CALCIUM CITRATE + D 315-200 MG-UNIT TABLET 1 TABLET WITH MEALS ORALLY DAILY TAKING LAMICTAL 200 MG TABLET 1 TABLET ORALLY ONCE A DAY TAKING SEROQUEL XR 300 MG TABLET EXTENDED RELEASE 24 HOUR 1 TABLET IN THE EVENING ORALLY ONCE A DAY TAKING GEODON 80 MG CAPSULE 1 CAPSULE WITH FOOD ORALLY TWICE A DAY TAKING BENICAR 40 MG TABLET 1 TABLET ORALLY ONCE A DAY TAKING KLOR-CON 10 10 MEQ TABLET EXTENDED RELEASE 2 TABLET ORALLY BID TAKING SENNA-GEN 8.6 MG TABLET DIRECTED ORALLY TAKING LEVOTHYROXINE SODIUM 137 MG TABLET ONCE DAILY ORALLY ONCE A DAY TAKING ZOLPIDEM TARTRATE 5 MG TABLET 1 TABLET AT BEDTIME ORALLY ONCE A DAY TAKING FUROSEMIDE 20 MG TABLET 1 TABLET ORALLY ONCE DAILY TAKING JANUMET XR 50-500 MG TABLET EXTENDED RELEASE 24 HOUR 1 TABLET WITH A MEAL ORALLY TWICE DAILY TAKING CLONAZEPAM 0.5 MG TABLET 1 TABLET ORALLY BID TAKING SLOW MAGNESIUM/CALCIUM 64-106 MG TABLET DELAYED RELEASE DIRECTED ORALLY TAKING NEEDLES & SYRINGES 31 GAUGE DIRECTED TAKING LANCETS THIN MISCELLANEOUS DIRECTED TAKING GLUCOMETER DIRECTED TAKING LEVEMIR FLEXTOUCH 100 UNIT/ML SOLUTION PEN-INJECTOR 80 UNITS SUBCUTANEOUS BEFORE BEDTIME TAKING DEXILANT 60 MG CAPSULE DELAYED RELEASE 1 CAPSULE ORALLY ONCE A DAY TAKING FIBER - CAPSULE 2 CAPSULES WITH 8 OUNCES OF LIQUID ORALLY BID TAKING TRAMADOL-ACETAMINOPHEN 37.5-325 MG TABLET 1 ORALLY Q8H PRN MDD3 TAKING CYMBALTA 30 MG CAPSULE DELAYED RELEASE PARTICLES 1 CAPSULE ORALLY DAILY NOT-TAKING IPRATROPIUM BROMIDE 0.03 % SOLUTION 2 APPLICATIONS NASALLY TWICE A DAY, NOTES: 02/21/16 NOT-TAKING TRAZODONE HCL 50 MG TABLET 2 TABLETS ORALLY THREE TIMES A DAY, NOTES: 02/21/16 NOT-TAKING OXYBUTYNIN CHLORIDE ER 10 MG TABLET EXTENDED RELEASE 24 HOUR TAKE ONE TABLET BY MOUTH ONCE DAILY NOT-TAKING MIRALAX SUSPENSION 17 GRAMS ORALLY AT HOUR OF SLEEP, NOTES: 02/21/16 NOT-TAKING ELIQUIS 5 MG TABLET ORALLY BID NOT-TAKING NEBULIZER DEVICE DIRECTED FOUR TIMES A DAY NOT-TAKING ALBUTEROL SULFATE (2.5 MG/3ML) 0.083% NEBULIZATION SOLUTION 3 ML INHALATION FOUR TIMES PER DAY NOT-TAKING PROAIR HFA 108 (90 BASE) MCG/ACT AEROSOL SOLUTION 2 PUFFS NEEDED INHALATION EVERY 4 HRS NOT-TAKING NEXIUM 40 MG CAPSULE DELAYED RELEASE 1 CAPSULE ORALLY ONCE A DAY MEDICATION LIST REVIEWED AND RECONCILED WITH THE PATIENT PAST MEDICAL HISTORY KIDNEY DISEASE MEMORY LOSS SCHIZOPHRENIA OSTEOARTHRITIS INCONTINENCE HYPERCHOLESTEROLEMIA ANEMIA DIABETES MELLITUS HYPOTHYROIDISM HYPERTENSION, BENIGN ESOPHAGEAL REFLUX LEGALLY BLIND ALLERGIES SULFA (FOR ALLERGY USE ONLY): HANDS SWELL: ALLERGY ASPIRIN: STOMACH: ALLERGY MORPHINE SULFATE: RASH: ALLERGY CELEBREX: CAUSES PROBLEMS WITH KIDNEYS: ALLERGY REVIEW OF SYSTEMS CONSTITUTIONAL: ANY CHANGE IN YOUR MEDICAL CONDITION? NO . CHILLS NO . FEVER NO . INFECTION: DO YOU HAVE NEW INFECTIONS? NO . DO YOU HAVE HISTORY OF MRSA? NO . MUSCULOSKELETAL: ANY NEW PATTERNS OF PAIN OR NUMBNESS? NO . GASTROENTEROLOGY: ANY NEW CHANGE IN BOWEL CONTROL? NO . GENITOURINARY: ANY NEW CHANGE IN BLADDER CONTROL? NO . IS THERE A CHANCE YOU COULD BE ? NO . HEMATOLOGY/LYMPH: DO YOU TAKE ANY BLOOD THINNERS? (FOR EXAMPLE- COUMADIN, PLAVIX, AGGRENOX, PLATEL, PRADAXA, OR XARELTO) NO . WHEN WAS YOUR LAST DOSE? DATE: TIME: . NEUROLOGY: HAVE YOU FALLEN IN THE PAST 6 MONTHS? NO . ANY NEW EXTREMITY NUMBNESS OR WEAKNESS? NO . CARDIOLOGY: DO YOU HAVE A PACEMAKER OR DEFIBRILLATOR? NO . RESPIRATORY: HAVE YOU BEEN SICK IN THE PAST WEEK? NO . FEVER NO . FLU LIKE SYMPTOMS? NO . COUGH NO . INTEGUMENTARY: DO YOU HAVE ANY RASHES OR OPEN SORES? NO . ALLERGIC/IMMUNO: ARE YOU ALLERGIC TO SHELLFISH OR IV DYE? NO . ANY NEW ALLERGIES? NO . PSYCHIATRIC: DO YOU HAVE THOUGHTS OF HURTING YOURSELF OR SOMEONE ELSE? NO . ARE YOU ABUSED, NEGLECTED, OR IN AN UNSAFE ENVIRONMENT? NO . ENDOCRINOLOGY: ARE YOU DIABETIC? YES . OTHER: DO YOU NEED ANY PRESCRIPTIONS? NO . IF YES, PLEASE LIST: ____ . ANY NEW PROBLEMS WITH YOUR MEDICATIONS? NO . WHEN DID YOU LAST EAT? ____ . WHEN DID YOU LAST DRINK? ____ . WHAT DID YOU LAST DRINK? ____ . NAME OF PERSON DRIVING YOU HOME? ____ . DO YOU HAVE ANY OTHER QUESTIONS OR CONCERNS NO . REVIEWED BY: PROVIDER: MIKE SIU . VITAL SIGNS WT 219 LBS, HT 63 IN, BMI 38.79 INDEX, BP 119/57 MM HG, HR 82 /MIN, RR 16 /MIN, TEMP 96.1 F, OXYGEN SAT % 93%, NA INITIALS SC 10:32, REVIEWED BY: KEYLA. EXAMINATION GENERAL EXAMINATION: GENERAL APPEARANCE:SLEEPING . LUNGS:LUNG RIVERO ARE CLEAR TO AUSCULTATION BILATERALLY. GOOD MOVEMENT OF AIR. HEART:S1, S2 IN A REGULAR RATE AND RHYTHM. NO SIGNIFICANT MURMURS, RUBS OR GALLOPS NOTED. ASSESSMENTS LUMBAR DEGENERATIVE DISC DISEASE - M51.36 (PRIMARY) TREATMENT LUMBAR DEGENERATIVE DISC DISEASE CONTINUE TRAMADOL-ACETAMINOPHEN TABLET, 37.5-325 MG, 1, ORALLY, Q8H PRN MDD3 CONTINUE CYMBALTA CAPSULE DELAYED RELEASE PARTICLES, 30 MG, 1 CAPSULE, ORALLY, DAILY PROCEDURE CODES FA211 ESTABILISHED PATIENT [facility] CHARGE G8730 PAIN ASSESS POS TOOL F/U PLAN DOC G8427 DOC MEDS VERIFIED W/PT OR RE DISPOSITION & COMMUNICATION FOLLOW UP 2 MONTHS ELECTRONICALLY SIGNED BY SALBADOR ADEN ON 12/12/2016 AT 01:40 PM EDT DISCLAIMER : THIS IS A VISIT SUMMARY EXTRACTED FROM THE [employer] CHART. IT IS NOT A COPY OF THE [employer] PROGRESS NOTE. MTDD
== END ==
LOC: M PAIN 10:20
PROVIDERS: ATTEND Nurse Practitioner Family
DX: G89.29 Other chronic pain (principal); M51.36 Other intervertebral disc degeneration, lumbar region; R41.2 Retrograde amnesia; F25.9 Schizoaffective disorder, unspecified; M19.90 Unspecified osteoarthritis, unspecified site; E78.00 Pure hypercholesterolemia, unspecified; D64.9 Anemia, unspecified; E11.9 Type 2 diabetes mellitus without complications; E03.9 Hypothyroidism, unspecified; I10 Essential (primary) hypertension; K21.9 Gastro-esophageal reflux disease without esophagitis; H54.8 Legal blindness, as defined in USA; Z88.2 Allergy status to sulfonamides; Z88.6 Allergy status to analgesic agent; Z88.5 Allergy status to narcotic agent; Z88.8 Allergy status to other drugs, medicaments and biological substances; Z79.891 Long term (current) use of opiate analgesic; Z79.84 Long term (current) use of oral hypoglycemic drugs; Z79.899 Other long term (current) drug therapy

== ENCOUNTER → 2017-01-23 | Outpatient (REF) | payer MEDICARE, MEDICAID, OTHER ==
[~2017-01-23] MED LIST changes: -AMIT24CA5 PO; +AMIT24CA7 PO; +ARIC1TAB2 PO; -ATOR40TA PO; +ATOR40TA75 PO; +BENI40TA26 PO; -BENI40TA3 PO; -CALCTAB37 PO; +CALCTAB63 PO; -COLA100C3 PO; +COLA100C5 PO; +DEXI60CA2 PO; -GLIP10TA13 PO; -GLIP10TA58 PO; +GLIP1TAB11 PO; +GLIP1TAB51 PO; +INSULANT SC; +LAMI1TAB9 PO; -LAMI200T3 PO; +MILKSUS PO; -PROA1AER IN; +PROAAER10 IN; +SENN1TAB10 PO; -SENN8.6T10 PO; -ULTR37.52 PO; +ULTR37.54 PO; -VESI10TA PO; +VESI10TA2 PO
[2017-01-23 09:59] LABS: MEAN CORPUSCULAR HEMOGLOBIN 33.7 pg (27.0-33.0); MEAN CORPUSCULAR HGB CONC 34.6 g/dl (32.0-36.5); MEAN CORPUSCULAR VOLUME 97.4 fl (80.0-96.0); RED CELL DISTRIBUTION WIDTH 13.6 % (11.5-14.5); WHITE BLOOD COUNT 5.7 K/mm3 (4.0-10.0)
[2017-01-23 10:10] LABS: CALCIUM LEVEL 9.2 MG/DL (8.8-10.2); CREATININE FOR GFR 1.14 MG/DL (0.55-1.02); GLOMERULAR FILTRATION RATE 50.2 (>39); POTASSIUM SERUM 4.6 MEQ/L (3.5-5.1)
== END ==
LOC: SKLABADC 08:16
PROVIDERS: ATTEND Internal Medicine
DX: D64.9 Anemia, unspecified (principal); N18.3 Chronic kidney disease, stage 3 (moderate); E11.22 Type 2 diabetes mellitus with diabetic chronic kidney disease

== ENCOUNTER → 2017-02-06 | Outpatient (CLI) | payer MEDICARE, MEDICAID ==
--- NOTE | 2017-02-23 00:19 | ECWPNPC ---
PATIENT NAME: AZALIA COFFMAN : 1945 GENDER: FEMALE VISIT DATE: 02/06/2017 DISCHARGE DATE: 02/06/17 1151 VISIT LOCKED DATE TIME: PHYSICIAN: MIKE LAWRENCE RESOURCE: MIKE LAWRENCE REASON FOR APPOINTMENT 1. BACK HISTORY OF PRESENT ILLNESS HISTORY OF PRESENT ILLNESS: HERE FOR F/U OF CHRONIC LOW BACK PAIN.HAVING INCREASE IN LEFT LOW BACK PAIN OVER THE PAST SEVERAL WEEKS.DESCRIBES PAIN SHARP.RATING PAIN VAS 8/10.USING [id number] DAILY AND ULTRACET PRN WITH GOOD EFFECT.DENIES SIDE EFFECTS. PAIN THE PATIENT DESCRIBES THE PAIN... THE PATIENT DESCRIBES THE PAIN... FALL RISK SCREENING: SCREENING :NO FALLS IN THE PAST YEAR CURRENT MEDICATIONS TAKING GLUCOTROL XL 10 MG TABLET EXTENDED RELEASE 24 HOUR 1 TABLET ORALLY DAILY TAKING AMITIZA 24 MCG CAPSULE 1 CAPSULE WITH FOOD ORALLY TWICE A DAY TAKING DONEPEZIL HCL 10 MG TABLET 1 TABLET AT BEDTIME ORALLY ONCE A DAY TAKING DOCUSATE SODIUM 100 MG CAPSULE 2 CAPSULE NEEDED ORALLY BID TAKING CALCIUM CITRATE + D 315-200 MG-UNIT TABLET 1 TABLET WITH MEALS ORALLY DAILY TAKING LAMICTAL 200 MG TABLET 1 TABLET ORALLY ONCE A DAY TAKING SEROQUEL XR 400 MG TABLET EXTENDED RELEASE 24 HOUR 1 TABLET IN THE EVENING ORALLY ONCE A DAY TAKING GEODON 80 MG CAPSULE 2 CAPSULE WITH FOOD ORALLY TWICE A DAY TAKING BENICAR 40 MG TABLET 1 TABLET ORALLY ONCE A DAY TAKING KLOR-CON 10 10 MEQ TABLET EXTENDED RELEASE 2 TABLET ORALLY BID TAKING SENNA-GEN 8.6 MG TABLET DIRECTED ORALLY BID TAKING LEVOTHYROXINE SODIUM 150 MCG TABLET ONCE DAILY ORALLY ONCE A DAY TAKING ZOLPIDEM TARTRATE 5 MG TABLET 1 TABLET AT BEDTIME ORALLY ONCE A DAY TAKING FUROSEMIDE 20 MG TABLET 1 TABLET ORALLY ONCE DAILY TAKING JANUMET XR 50-500 MG TABLET EXTENDED RELEASE 24 HOUR 1 TABLET WITH A MEAL ORALLY TWICE DAILY TAKING CLONAZEPAM 1 MG TABLET 1 TABLET ORALLY ONCE DAILY TAKING NEEDLES & SYRINGES 31 GAUGE DIRECTED TAKING LANCETS THIN MISCELLANEOUS DIRECTED TAKING GLUCOMETER DIRECTED TAKING LEVEMIR FLEXTOUCH 100 UNIT/ML SOLUTION PEN-INJECTOR SUBCUTANEOUS 50 UNITS IN AM AND 40 UNITS AT 9 PM TAKING DEXILANT 60 MG CAPSULE DELAYED RELEASE 1 CAPSULE ORALLY ONCE A DAY TAKING FIBER - CAPSULE 2 CAPSULES WITH 8 OUNCES OF LIQUID ORALLY BID TAKING TRAMADOL-ACETAMINOPHEN 37.5-325 MG TABLET 1 ORALLY Q8H PRN MDD3 TAKING OXYBUTYNIN CHLORIDE ER 10 MG TABLET EXTENDED RELEASE 24 HOUR TAKE ONE TABLET BY MOUTH ONCE DAILY TAKING CYMBALTA 30 MG CAPSULE DELAYED RELEASE PARTICLES 1 CAPSULE ORALLY DAILY TAKING ATORVASTATIN CALCIUM 40 MG TABLET 1 TABLET ORALLY ONCE A DAY TAKING OLMESARTAN MEDOXOMIL 40 MG TABLET 1 TABLET ORALLY ONCE A DAY TAKING ALIGN 4 MG CAPSULE ORALLY DAILY TAKING QUETIAPINE FUMARATE ER 400 MG TABLET EXTENDED RELEASE 24 HOUR 1 TABLET IN THE EVENING ORALLY ONCE A DAY TAKING GLYCOLAX - POWDER ORALLY BID NEEDED TAKING TYLENOL EXTRA STRENGTH 500 MG TABLET 2 TABLETS NEEDED ORALLY 2-3 TIMES A DAY NEEDED TAKING MAGNESIUM 400 MG CAPSULE 2 TAB ORALLY BID TAKING CETIRIZINE HCL 10 MG TABLET 1 TABLET ORALLY ONCE A DAY TAKING ASPERCREME LIDOCAINE 4 % PATCH EXTERNALLY 2-4 TIMES A DAY NEEDED TAKING SALINE NASAL SPRAY 0.65 % SOLUTION NASALLY 6-8 TIMES A DAY NEEDED TAKING NOVOLOG FLEXPEN 100 UNIT/ML SOLUTION PEN-INJECTOR 10 UNITS SUBCUTANEOUS BID TAKING IPRATROPIUM BROMIDE 0.03 % SOLUTION 2 APPLICATIONS NASALLY TWICE A DAY TAKING MIRALAX SUSPENSION 17 GRAMS ORALLY AT HOUR OF SLEEP TAKING PROAIR HFA 108 (90 BASE) MCG/ACT AEROSOL SOLUTION 2 PUFFS NEEDED INHALATION EVERY 4 HRS NOT-TAKING LIPITOR 40MG TABLET 1 TABLET ORALLY ONCE A DAY NOT-TAKING SLOW MAGNESIUM/CALCIUM 64-106 MG TABLET DELAYED RELEASE DIRECTED ORALLY NOT-TAKING OXYBUTYNIN CHLORIDE ER 10 MG TAB TAKE ONE TABLET BY MOUTH ONCE DAILY 30 DAY(S) NOT-TAKING TRAZODONE HCL 50 MG TABLET 2 TABLETS ORALLY THREE TIMES A DAY, NOTES: 02/21/16 NOT-TAKING ELIQUIS 5 MG TABLET ORALLY BID NOT-TAKING NEBULIZER DEVICE DIRECTED FOUR TIMES A DAY NOT-TAKING ALBUTEROL SULFATE (2.5 MG/3ML) 0.083% NEBULIZATION SOLUTION 3 ML INHALATION FOUR TIMES PER DAY NOT-TAKING NEXIUM 40 MG CAPSULE DELAYED RELEASE 1 CAPSULE ORALLY ONCE A DAY MEDICATION LIST REVIEWED AND RECONCILED WITH THE PATIENT PAST MEDICAL HISTORY KIDNEY DISEASE MEMORY LOSS SCHIZOPHRENIA OSTEOARTHRITIS INCONTINENCE HYPERCHOLESTEROLEMIA ANEMIA DIABETES MELLITUS HYPOTHYROIDISM HYPERTENSION, BENIGN ESOPHAGEAL REFLUX LEGALLY BLIND ALLERGIES SULFA (FOR ALLERGY USE ONLY): HANDS SWELL: ALLERGY ASPIRIN: STOMACH: ALLERGY MORPHINE SULFATE: RASH: ALLERGY CELEBREX: CAUSES PROBLEMS WITH KIDNEYS: ALLERGY SOCIAL HISTORY GENERAL: TOBACCO USE ARE YOU A:FORMER SMOKER HOW LONG HAS IT BEEN SINCE YOU LAST SMOKED?> 10 YEARS ALCOHOL SCREENING DID YOU HAVE A DRINK CONTAINING ALCOHOL IN THE PAST YEAR?NO POINTS0 INTERPRETATIONNEGATIVE RECREATIONAL DRUG USE DRUG USE?NO CAFFEINE CAFFEINE USE?YES HOW OFTEN AND HOW MUCH? 1/2 CUP OF COFFEE OR TEA A DAY MARITAL STATUS: . OTHERS AT HOME: NONE. LANGUAGE LANGUAGES SPOKEN:[facility] PFS, CLERGY, PUBLIC HEALTH REFERRALS WAS THE PROVIDER NOTIFIED OF ANY PERTINENT INFO?NO HAS THE PATIENT BEEN EDUCATED REGARDING HIS/HER PLAN OF CARE?YES HAS THE PATIENT BEEN EDUCATED REGARDING PAIN, THE RISK FOR PAIN, THE IMPORTANCE OF EFFECTIVE PAIN MANAGEMENT, AND THE PAIN ASSESSMENT PROCESS?YES PATIENT: ____. TRAVEL OUTSIDE US: DENIES. DOMESTIC VIOLENCE DO YOU FEEL SAFE IN YOUR ENVIRONMENT?NO REVIEW OF SYSTEMS REVIEWED BY: PROVIDER: MIKE SIU . CONSTITUTIONAL: ANY CHANGE IN YOUR MEDICAL CONDITION? YES, SUGAR HAS BEEN HIGH . CHILLS NO . FEVER NO . INFECTION: DO YOU HAVE NEW INFECTIONS? NO . DO YOU HAVE HISTORY OF MRSA? NO . MUSCULOSKELETAL: ANY NEW PATTERNS OF PAIN OR NUMBNESS? NO . GASTROENTEROLOGY: ANY NEW CHANGE IN BOWEL CONTROL? YES, MORE CONSTIPATION . GENITOURINARY: ANY NEW CHANGE IN BLADDER CONTROL? NO . IS THERE A CHANCE YOU COULD BE ? NO . HEMATOLOGY/LYMPH: DO YOU TAKE ANY BLOOD THINNERS? (FOR EXAMPLE- COUMADIN, PLAVIX, AGGRENOX, PLATEL, PRADAXA, OR XARELTO) NO . WHEN WAS YOUR LAST DOSE? DATE: TIME: . NEUROLOGY: HAVE YOU FALLEN IN THE PAST 6 MONTHS? NO . ANY NEW EXTREMITY NUMBNESS OR WEAKNESS? NO . CARDIOLOGY: DO YOU HAVE A PACEMAKER OR DEFIBRILLATOR? NO . RESPIRATORY: HAVE YOU BEEN SICK IN THE PAST WEEK? NO . FEVER NO . FLU LIKE SYMPTOMS? NO . COUGH NO . INTEGUMENTARY: DO YOU HAVE ANY RASHES OR OPEN SORES? NO . ALLERGIC/IMMUNO: ARE YOU ALLERGIC TO SHELLFISH OR IV DYE? NO . ANY NEW ALLERGIES? NO . PSYCHIATRIC: DO YOU HAVE THOUGHTS OF HURTING YOURSELF OR SOMEONE ELSE? NO . ARE YOU ABUSED, NEGLECTED, OR IN AN UNSAFE ENVIRONMENT? NO . ENDOCRINOLOGY: ARE YOU DIABETIC? YES . OTHER: DO YOU NEED ANY PRESCRIPTIONS? NO . IF YES, PLEASE LIST: ____ . ANY NEW PROBLEMS WITH YOUR MEDICATIONS? NO . WHEN DID YOU LAST EAT? ____ . WHEN DID YOU LAST DRINK? ____ . WHAT DID YOU LAST DRINK? ____ . NAME OF PERSON DRIVING YOU HOME? ____ . DO YOU HAVE ANY OTHER QUESTIONS OR CONCERNS NO . VITAL SIGNS WT 224 LBS, HT 63 IN, BMI 39.68 INDEX, BP 129/67 MM HG, HR 81 /MIN, RR 18 /MIN, TEMP 97.2 F, OXYGEN SAT % 98, SAFE IN ENV? (Y/N) YES, NA INITIALS MP 1041, REVIEWED BY: KEYLA. EXAMINATION GENERAL EXAMINATION: GENERAL APPEARANCE:SLEEPING . LUNGS:LUNG RIVERO ARE CLEAR TO AUSCULTATION BILATERALLY. GOOD MOVEMENT OF AIR. HEART:S1, S2 IN A REGULAR RATE AND RHYTHM. NO SIGNIFICANT MURMURS, RUBS OR GALLOPS NOTED. LUMBAR SPINE/LOWER BACK: PALPATION:TRIGGER POINT WELICITED LEFT LOW BACK.PAIN IS AGGREVATED IN THIS AREA WITH ROJM OF SPINE. ASSESSMENTS LUMBAR DEGENERATIVE DISC DISEASE - M51.36 (PRIMARY) NEUROPATHY - G62.9 TREATMENT LUMBAR DEGENERATIVE DISC DISEASE INCREASE CYMBALTA CAPSULE DELAYED RELEASE PARTICLES, 30 MG, 1 CAPSULE, ORALLY, TWICE DAILY, 30 DAY(S), 60, REFILLS 2 REFILL TRAMADOL-ACETAMINOPHEN TABLET, 37.5-325 MG, 1, ORALLY, Q8H PRN MDD3, 30 DAY(S), 90, REFILLS 2 [facility] MRI SPINE, L.S. WITHOUT [id number], MACKENZIE 02/14/2017 02:07:00 PM > [facility] CALLING TO SCHEDULE PATIENT FOR APPOINTMENT, NO AUTH REQUIRED MEDICARE A/B NOTES: TPI LEFT LOW BACK. PREVENTIVE MEDICINE PAIN CLINIC TEACHING: MEDICATIONS INCREASE CYMBALTA PER ORDER AND PATIENT VERBALIZES UNDERSTANDING.. PROCEDURE TEACHING PRE-PROCEDURE TEACHING DONE. PATIENT VERBALIZES UNDERSTANDING SHE HAS HAD THESE INJECTIONS IN THE PAST.. PROCEDURE CODES FA211 ESTABILISHED PATIENT [facility] FACILITY CHARGE G8730 PAIN ASSESS POS TOOL F/U PLAN DOC G8427 DOC MEDS VERIFIED W/PT OR RE DISPOSITION & COMMUNICATION FOLLOW UP POST PROC. (REASON: TPI LEFT LOW BACK) ELECTRONICALLY SIGNED BY SALBADOR ADEN ON 02/20/2017 AT 08:14 PM EDT DISCLAIMER : THIS IS A VISIT SUMMARY EXTRACTED FROM THE [employer] CHART. IT IS NOT A COPY OF THE [employer] PROGRESS NOTE. MTDD
== END ==
LOC: M PAIN 10:40
PROVIDERS: ATTEND Nurse Practitioner Family
DX: G89.29 Other chronic pain (principal); M51.36 Other intervertebral disc degeneration, lumbar region; G62.9 Polyneuropathy, unspecified; F25.9 Schizoaffective disorder, unspecified; M19.90 Unspecified osteoarthritis, unspecified site; E78.00 Pure hypercholesterolemia, unspecified; E11.9 Type 2 diabetes mellitus without complications; E03.9 Hypothyroidism, unspecified; I10 Essential (primary) hypertension; K21.9 Gastro-esophageal reflux disease without esophagitis; H54.8 Legal blindness, as defined in USA; Z88.2 Allergy status to sulfonamides; Z88.6 Allergy status to analgesic agent; Z88.5 Allergy status to narcotic agent; Z88.8 Allergy status to other drugs, medicaments and biological substances; Z79.4 Long term (current) use of insulin; Z79.891 Long term (current) use of opiate analgesic; Z79.899 Other long term (current) drug therapy; Z87.891 Personal history of nicotine dependence

== ENCOUNTER → 2017-02-20 | Outpatient (CLI) | payer MEDICARE, MEDICAID ==
[~2017-02-20] MED LIST changes: +BUPIVACAINE HCL 0.25% 10 ML VIAL As Ordered ONE; +BUPIVACAINE HCL 0.25% 30 ML VIAL As Ordered ONE; +TRIAMCINOLONE ACETONIDE SUSP 40 MG/ML VIAL (J3301) As Ordered ONE
--- NOTE | 2017-02-23 23:44 | ECWPNPC ---
PATIENT NAME: AZALIA COFFMAN : 1945 GENDER: FEMALE VISIT DATE: 02/20/2017 DISCHARGE DATE: 02/20/17 1140 VISIT LOCKED DATE TIME: PHYSICIAN: JEFRY GOSS RESOURCE: JEFRY GOSS REASON FOR APPOINTMENT 1. L, LOW BACK HISTORY OF PRESENT ILLNESS HISTORY OF PRESENT ILLNESS: PAIN THE PATIENT DESCRIBES THE PAIN... FALL RISK SCREENING: SCREENING :NO FALLS IN THE PAST YEAR CURRENT MEDICATIONS TAKING GLUCOTROL XL 10 MG TABLET EXTENDED RELEASE 24 HOUR 1 TABLET ORALLY DAILY, NOTES: 02/19/17 TAKING AMITIZA 24 MCG CAPSULE 1 CAPSULE WITH FOOD ORALLY TWICE A DAY, NOTES: 02/20/17729 TAKING DONEPEZIL HCL 10 MG TABLET 1 TABLET AT BEDTIME ORALLY ONCE A DAY, NOTES: 02/19/17 TAKING DOCUSATE SODIUM 100 MG CAPSULE 2 CAPSULE NEEDED ORALLY BID, NOTES: 02/20/17729 TAKING CALCIUM CITRATE + D 315-200 MG-UNIT TABLET 1 TABLET WITH MEALS ORALLY DAILY, NOTES: 02/20/17729 TAKING LAMICTAL 200 MG TABLET 1 TABLET ORALLY ONCE A DAY, NOTES: 02/20/17729 TAKING SEROQUEL XR 400 MG TABLET EXTENDED RELEASE 24 HOUR 1 TABLET IN THE EVENING ORALLY ONCE A DAY, NOTES: 02/19/17 TAKING GEODON 80 MG CAPSULE 2 CAPSULE WITH FOOD ORALLY TWICE A DAY, NOTES: 02/20/17729 TAKING BENICAR 40 MG TABLET 1 TABLET ORALLY ONCE A DAY, NOTES: 02/20/17729 TAKING KLOR-CON 10 10 MEQ TABLET EXTENDED RELEASE 2 TABLET ORALLY BID, NOTES: 02/20/17729 TAKING SENNA-GEN 8.6 MG TABLET DIRECTED ORALLY BID, NOTES: 02/20/17729 TAKING LEVOTHYROXINE SODIUM 150 MCG TABLET ONCE DAILY ORALLY ONCE A DAY, NOTES: 02/20/17729 TAKING ZOLPIDEM TARTRATE 5 MG TABLET 1 TABLET AT BEDTIME ORALLY ONCE A DAY, NOTES: 02/19/17 TAKING FUROSEMIDE 20 MG TABLET 1 TABLET ORALLY ONCE DAILY, NOTES: 02/20/17729 TAKING JANUMET XR 50-500 MG TABLET EXTENDED RELEASE 24 HOUR 1 TABLET WITH A MEAL ORALLY TWICE DAILY, NOTES: 02/19/17 TAKING CLONAZEPAM 1 MG TABLET 1 TABLET ORALLY ONCE DAILY, NOTES: 02/20/17729 TAKING NEEDLES & SYRINGES 31 GAUGE DIRECTED TAKING LANCETS THIN MISCELLANEOUS DIRECTED TAKING GLUCOMETER DIRECTED TAKING LEVEMIR FLEXTOUCH 100 UNIT/ML SOLUTION PEN-INJECTOR SUBCUTANEOUS 50 UNITS IN AM AND 40 UNITS AT 9 PM, NOTES: 02/19/17 TAKING DEXILANT 60 MG CAPSULE DELAYED RELEASE 1 CAPSULE ORALLY ONCE A DAY, NOTES: 02/20/17729 TAKING FIBER - CAPSULE 2 CAPSULES WITH 8 OUNCES OF LIQUID ORALLY BID, NOTES: 02/20/17729 TAKING OXYBUTYNIN CHLORIDE ER 10 MG TABLET EXTENDED RELEASE 24 HOUR TAKE ONE TABLET BY MOUTH ONCE DAILY , NOTES: 02/20/17729 TAKING ATORVASTATIN CALCIUM 40 MG TABLET 1 TABLET ORALLY ONCE A DAY, NOTES: 02/19/17 TAKING OLMESARTAN MEDOXOMIL 40 MG TABLET 1 TABLET ORALLY ONCE A DAY, NOTES: 02/20/17729 TAKING ALIGN 4 MG CAPSULE ORALLY DAILY, NOTES: 02/20/17729 TAKING QUETIAPINE FUMARATE ER 400 MG TABLET EXTENDED RELEASE 24 HOUR 1 TABLET IN THE EVENING ORALLY ONCE A DAY, NOTES: 02/20/17729 TAKING GLYCOLAX - POWDER ORALLY BID NEEDED, NOTES: 02/19/17 TAKING TYLENOL EXTRA STRENGTH 500 MG TABLET 2 TABLETS NEEDED ORALLY 2-3 TIMES A DAY NEEDED, NOTES: 02/19/17 TAKING MAGNESIUM 400 MG CAPSULE 2 TAB ORALLY BID, NOTES: 02/20/17729 TAKING CETIRIZINE HCL 10 MG TABLET 1 TABLET ORALLY ONCE A DAY, NOTES: 02/20/17729 TAKING ASPERCREME LIDOCAINE 4 % PATCH EXTERNALLY 2-4 TIMES A DAY NEEDED, NOTES: 02/19/17 TAKING SALINE NASAL SPRAY 0.65 % SOLUTION NASALLY 6-8 TIMES A DAY NEEDED, NOTES: 02/19/17 TAKING NOVOLOG FLEXPEN 100 UNIT/ML SOLUTION PEN-INJECTOR 10 UNITS SUBCUTANEOUS BID, NOTES: 02/19/17 TAKING IPRATROPIUM BROMIDE 0.03 % SOLUTION 2 APPLICATIONS NASALLY TWICE A DAY, NOTES: 02/20/17729 TAKING MIRALAX SUSPENSION 17 GRAMS ORALLY AT HOUR OF SLEEP, NOTES: 02/20/17729 TAKING PROAIR HFA 108 (90 BASE) MCG/ACT AEROSOL SOLUTION 2 PUFFS NEEDED INHALATION EVERY 4 HRS, NOTES: 02/20/17729 TAKING CYMBALTA 30 MG CAPSULE DELAYED RELEASE PARTICLES 1 CAPSULE ORALLY TWICE DAILY, NOTES: 02/20/17729 TAKING TRAMADOL-ACETAMINOPHEN 37.5-325 MG TABLET 1 ORALLY Q8H PRN MDD3, NOTES: 02/20/17729 NOT-TAKING LIPITOR 40MG TABLET 1 TABLET ORALLY ONCE A DAY NOT-TAKING SLOW MAGNESIUM/CALCIUM 64-106 MG TABLET DELAYED RELEASE DIRECTED ORALLY NOT-TAKING OXYBUTYNIN CHLORIDE ER 10 MG TAB TAKE ONE TABLET BY MOUTH ONCE DAILY 30 DAY(S) NOT-TAKING TRAZODONE HCL 50 MG TABLET 2 TABLETS ORALLY THREE TIMES A DAY, NOTES: 02/21/16 NOT-TAKING ELIQUIS 5 MG TABLET ORALLY BID NOT-TAKING NEBULIZER DEVICE DIRECTED FOUR TIMES A DAY NOT-TAKING ALBUTEROL SULFATE (2.5 MG/3ML) 0.083% NEBULIZATION SOLUTION 3 ML INHALATION FOUR TIMES PER DAY NOT-TAKING NEXIUM 40 MG CAPSULE DELAYED RELEASE 1 CAPSULE ORALLY ONCE A DAY MEDICATION LIST REVIEWED AND RECONCILED WITH THE PATIENT PAST MEDICAL HISTORY KIDNEY DISEASE MEMORY LOSS SCHIZOPHRENIA OSTEOARTHRITIS INCONTINENCE HYPERCHOLESTEROLEMIA ANEMIA DIABETES MELLITUS HYPOTHYROIDISM HYPERTENSION, BENIGN ESOPHAGEAL REFLUX LEGALLY BLIND ALLERGIES SULFA (FOR ALLERGY USE ONLY): HANDS SWELL: ALLERGY ASPIRIN: STOMACH: ALLERGY MORPHINE SULFATE: RASH: ALLERGY CELEBREX: CAUSES PROBLEMS WITH KIDNEYS: ALLERGY SURGICAL HISTORY THYROID SURGERY PARTIAL HYSTERECTOMY/LIFTED BLADDER BILATERAL FOOT SURGERY HERNIA CATARACT RIGHT SHOULDER SURGERY HOSPITALIZATION/MAJOR DIAGNOSTIC PROCEDURE SURGERY RELATED KIDNEY INFECTION 2010 REVIEW OF SYSTEMS REVIEWED BY: PROVIDER: . CONSTITUTIONAL: ANY CHANGE IN YOUR MEDICAL CONDITION? YES, PT C/O LEFT FOOT TOES DIGITS # 3, 4 & 5 ARE PAINFUL AND TENDER X 2-3 MONTHS. PT STATES SHE SEES A CANE FLUME WATCHMAN FOR THIS. . CHILLS NO . FEVER NO . INFECTION: DO YOU HAVE NEW INFECTIONS? NO . DO YOU HAVE HISTORY OF MRSA? NO . MUSCULOSKELETAL: ANY NEW PATTERNS OF PAIN OR NUMBNESS? NO . GASTROENTEROLOGY: ANY NEW CHANGE IN BOWEL CONTROL? NO . GENITOURINARY: ANY NEW CHANGE IN BLADDER CONTROL? NO . IS THERE A CHANCE YOU COULD BE ? NO . HEMATOLOGY/LYMPH: DO YOU TAKE ANY BLOOD THINNERS? (FOR EXAMPLE- COUMADIN, PLAVIX, AGGRENOX, PLATEL, PRADAXA, OR XARELTO) NO . WHEN WAS YOUR LAST DOSE? DATE: TIME: . NEUROLOGY: HAVE YOU FALLEN IN THE PAST 6 MONTHS? NO . ANY NEW EXTREMITY NUMBNESS OR WEAKNESS? NO . CARDIOLOGY: DO YOU HAVE A PACEMAKER OR DEFIBRILLATOR? NO . RESPIRATORY: HAVE YOU BEEN SICK IN THE PAST WEEK? NO . FEVER NO . FLU LIKE SYMPTOMS? NO . COUGH NO . INTEGUMENTARY: DO YOU HAVE ANY RASHES OR OPEN SORES? NO . ALLERGIC/IMMUNO: ARE YOU ALLERGIC TO SHELLFISH OR IV DYE? NO . ANY NEW ALLERGIES? NO . PSYCHIATRIC: DO YOU HAVE THOUGHTS OF HURTING YOURSELF OR SOMEONE ELSE? NO . ARE YOU ABUSED, NEGLECTED, OR IN AN UNSAFE ENVIRONMENT? NO . ENDOCRINOLOGY: ARE YOU DIABETIC? YES, FS THIS AM WAS 224 . OTHER: DO YOU NEED ANY PRESCRIPTIONS? YES, TRAMADOL . IF YES, PLEASE LIST: ____ . ANY NEW PROBLEMS WITH YOUR MEDICATIONS? NO . WHEN DID YOU LAST EAT? 02/19/17 . WHEN DID YOU LAST DRINK? 02/20/17 0730 . WHAT DID YOU LAST DRINK? WATER . NAME OF PERSON DRIVING YOU HOME? DAYCARE . DO YOU HAVE ANY OTHER QUESTIONS OR CONCERNS NO . VITAL SIGNS WT 221 LBS, HT 63 IN, BMI 39.14 INDEX, BP 138/76 MM HG, HR 79 /MIN, RR 18 /MIN, TEMP 96.8 F, OXYGEN SAT % 91%, NA INITIALS AW 1007. ASSESSMENTS MYALGIA - M79.1 (PRIMARY) PROCEDURES PN TRIGGER POINT INJECTION WITH STEROIDS PRE PROCEDURE DIAGNOSIS 1. MYALGIA 2. PAIN AT BILATERAL LOWER BACK AREA POST PROCEDURE DIAGNOSIS 1. MYALGIA 2. PAIN AT BILATERAL LOWER BACK AREA PROCEDURE TRIGGER POINT INJECTION AT BILATERAL LOWER BACK AREA SURGEON DR. JEFRY GOSS MAGNETIC TAPE TYPEWRITER OPERATOR NONE ANESTHESIA LOCAL PRE PROCEDURE NOTE THE PATIENT HAS A HISTORY OF CHRONIC PAIN AT THE RIGHT AND LEFT LOWER BACK AREA. I EVALUATE THE PATIENT AND REVIEWED THE CHART. THERE IS EVIDENCE OF BANDS OF TISSUE WITH RESTRICTION OF MOVEMENT AND PRESENCE OF TRIGGER POINT AT THE AFFECTED AREA. I WENT OVER THE RISKS, ALTERNATIVES, AND BENEFITS ASSOCIATED WITH THIS PROCEDURE. THE PATIENT WOULD LIKE TO PROCEED AND GIVE CONSENT TO PERFORMED THE PROCEDURE. THE PATIENT DENIES UNEXPLAINABLE WEIGHT LOSS, FEVER, CHILLS, OR NEW CHANGES IN URINARY OR BOWEL CONTROL DESCRIPTION OF PROCEDURE THE PATIENT WAS BROUGHT TO THE PROCEDURE ROOM AND PLACED IN THE SITTING POSITION. THE AREA WAS CLEANED WITH ALCOHOL. THE PROCEDURE WAS DONE USING ASEPTIC STERILE TECHNIQUE. I CHECKED LATERALITY AND THE LEVEL WHERE THE PROCEDURE WAS GOING TO BE PERFORMED WITH THE PATIENT AND THE SUPPORTING STAFF AT THE MOMENT OF THE TIME OUT IN THE PROCEDURE ROOM. USING A 25-GAUGE NEEDLE, TRIGGER POINTS WERE INJECTED AT THE RIGHT AND LEFT LOWER BACK AREA WITH A TOTAL OF 40 ML OF BUPIVACAINE 0.25% AND KENALOG 40 MG. THERE WAS NO EVIDENCE OF BLOOD, PARESTHESIA OR CEREBROSPINAL FLUID DURING THE PROCEDURE. THE PATIENT WAS SENT TO THE RECOVERY ROOM. THE PATIENT WAS MOVING THE EXTREMITIES AND DOING WELL. THERE WAS NO COMPLICATION DURING THE PROCEDURE POST PROCEDURE NOTE THE PATIENT WILL BE SEEN IN A FOLLOW UP IN THE NEXT FEW WEEKS. INSTRUCTIONS WERE GIVEN, QUESTIONS WERE ANSWERED, AND THE PATIENT EXPRESSED UNDERSTANDING AND AGREES WITH THE PLAN. I, MIKALA PRICE, DOCUMENTED THE ABOVE INFORMATION ACTING A SCRIBE FOR DR. GOSS. I HAVE REVIEWED THE ABOVE DOCUMENT, WRITTEN BY MIKALA TENA AND I VERIFY THAT IT IS ACCURATE PROCEDURE CODES 78538 INJ TRIGGER POINT [place] [facility] [id number] RADXPS IN [place] [id number] [id number] DISPOSITION & COMMUNICATION FOLLOW UP 3 WEEKS ELECTRONICALLY SIGNED BY JEFRY GOSS MD ON 02/23/2017 AT 07:32 PM EDT DISCLAIMER : THIS IS A VISIT SUMMARY EXTRACTED FROM THE [employer] CHART. IT IS NOT A COPY OF THE [employer] PROGRESS NOTE. MTDD
== END ==
LOC: M PAIN 10:00
PROVIDERS: ATTEND Anesthesiology
DX: G89.29 Other chronic pain (principal); M54.5 Low back pain; M79.1 Myalgia; I12.9 Hypertensive chronic kidney disease with stage 1 through stage 4 chronic kidney disease, or unspecified chronic kidney disease; N18.9 Chronic kidney disease, unspecified; F25.9 Schizoaffective disorder, unspecified; M19.90 Unspecified osteoarthritis, unspecified site; E11.9 Type 2 diabetes mellitus without complications; E03.9 Hypothyroidism, unspecified; E78.00 Pure hypercholesterolemia, unspecified; K21.9 Gastro-esophageal reflux disease without esophagitis; Z88.2 Allergy status to sulfonamides; Z88.6 Allergy status to analgesic agent; Z88.5 Allergy status to narcotic agent; Z88.8 Allergy status to other drugs, medicaments and biological substances; Z79.4 Long term (current) use of insulin; Z79.891 Long term (current) use of opiate analgesic; Z79.899 Other long term (current) drug therapy
CPT/HCPCS: 20552; J3301

== ENCOUNTER → 2017-03-06 | Outpatient (CLI) | payer MEDICARE, MEDICAID ==
[~2017-03-06] MED LIST changes: -BUPIVACAINE HCL 0.25% 10 ML VIAL As Ordered ONE; -BUPIVACAINE HCL 0.25% 30 ML VIAL As Ordered ONE; -TRIAMCINOLONE ACETONIDE SUSP 40 MG/ML VIAL (J3301) As Ordered ONE
--- NOTE | 2017-03-06 11:52 | REP ---
MR LUMBAR SPINE WITHOUT CONTRAST: HISTORY: Back pain. COMPARISON: 06/15/2013 Decreased signal intensity on T2-weighted images is present in the L3-4 through L5-S1 intervertebral discs. The discs are decreased in height. These findings are consistent with disc degeneration. A diffuse disc bulge is present at the L1-2 level. This abuts the thecal sac. The L1 nerves exit the neural foramina without compression. A diffuse disc bulge is present at the L2-3 level. This abuts the thecal sac. The L2 nerves exit the neural foramina without compression. A diffuse disc bulge is present at the L3-4 level. There is hypertrophy of the ligamenta flava and posterior articulating facets. There is an increase in the amount of epidural fat. There are 3 mm of grade 1 spondylolisthesis of L3 on L4. These findings produce mild central canal stenosis. The L3 nerves exit the neural foramina without compression. A diffuse disc bulge and small central disc protrusion with associated osteophyte formation are present at the L4-5 level. There is minimal compression of the thecal sac. There is hypertrophy of the posterior articulating facets. The L4 nerves exit the neural foramina without compression. A diffuse disc bulge is symmetric and to the left and small central disc protrusion are present at the L5-S1 level. The disc protrusion abuts the thecal sac. There is hypertrophy of the posterior articulating facets. The L5 nerves exit the neural foramina without compression. There is partial sacralization of the L5 vertebral body. The conus medullaris is normal in appearance terminating at the level of the T12-L1 intervertebral disc. Increased signal intensity on T2-weighted images is present in the endplates of the L4 and L5 vertebral bodies. This represents degenerative change. IMPRESSION: 1. Diffuse disc bulges at the L1-2 and L2-3 levels. The disc bulges abut the thecal sac. The disc bulge at the L2-3 level is a new finding. 2. Mild central canal stenosis at the L3-4 level secondary to disc bulge, ligamentous and facet hypertrophy and epidural lipomatosis and grade 1 spondylolisthesis. 3. Diffuse disc bulge and small central disc protrusion with associated osteophyte formation at the L4-5 level with minimal thecal sac compression. 4. Diffuse disc bulge and small central disc protrusion at the L5-S1 level. The disc bulge abuts the thecal sac. There is no other significant change. Signed by Herbie Yang MD 03/06/2017 12:02 P
== END ==
LOC: M RAD 10:17
PROVIDERS: ATTEND Nurse Practitioner Family
DX: M51.36 Other intervertebral disc degeneration, lumbar region (principal); M51.26 Other intervertebral disc displacement, lumbar region

== ENCOUNTER → 2017-03-20 | Outpatient (CLI) | payer MEDICARE, MEDICAID ==
--- NOTE | 2017-03-30 23:33 | ECWPNPC ---
PATIENT NAME: AZALIA COFFMAN : 1945 GENDER: FEMALE VISIT DATE: 03/20/2017 DISCHARGE DATE: 03/20/17 1112 VISIT LOCKED DATE TIME: PHYSICIAN: MIKE LAWRENCE RESOURCE: MIKE LAWRENCE REASON FOR APPOINTMENT 1. POST PROCEDURE HISTORY OF PRESENT ILLNESS HISTORY OF PRESENT ILLNESS: HERE FOR POST PROCEDURE F/U.HAD BILATERAL LOW BACK TPI W STEROIDS.SHE IS VERY HAPPY WITH REDUCTION IN PAIN.RATING PAIN VAS 0/10. PAIN THE PATIENT DESCRIBES THE PAIN... THE PATIENT DESCRIBES THE PAIN... FALL RISK SCREENING: SCREENING :NO FALLS IN THE PAST YEAR CURRENT MEDICATIONS TAKING GLUCOTROL XL 10 MG TABLET EXTENDED RELEASE 24 HOUR 1 TABLET ORALLY DAILY, NOTES: 02/19/17 TAKING AMITIZA 24 MCG CAPSULE 1 CAPSULE WITH FOOD ORALLY TWICE A DAY, NOTES: 02/20/17729 TAKING DONEPEZIL HCL 10 MG TABLET 1 TABLET AT BEDTIME ORALLY ONCE A DAY, NOTES: 02/19/17 TAKING DOCUSATE SODIUM 100 MG CAPSULE 2 CAPSULE NEEDED ORALLY BID, NOTES: 02/20/17729 TAKING CALCIUM CITRATE + D 315-200 MG-UNIT TABLET 1 TABLET WITH MEALS ORALLY DAILY, NOTES: 02/20/17729 TAKING LAMICTAL 200 MG TABLET 1 TABLET ORALLY ONCE A DAY, NOTES: 02/20/17729 TAKING SEROQUEL XR 400 MG TABLET EXTENDED RELEASE 24 HOUR 1 TABLET IN THE EVENING ORALLY ONCE A DAY, NOTES: 02/19/17 TAKING GEODON 80 MG CAPSULE 2 CAPSULE WITH FOOD ORALLY TWICE A DAY, NOTES: 02/20/17729 TAKING BENICAR 40 MG TABLET 1 TABLET ORALLY ONCE A DAY, NOTES: 02/20/17729 TAKING KLOR-CON 10 10 MEQ TABLET EXTENDED RELEASE 2 TABLET ORALLY BID, NOTES: 02/20/17729 TAKING SENNA-GEN 8.6 MG TABLET DIRECTED ORALLY BID, NOTES: 02/20/17729 TAKING LEVOTHYROXINE SODIUM 150 MCG TABLET ONCE DAILY ORALLY ONCE A DAY, NOTES: 02/20/17729 TAKING ZOLPIDEM TARTRATE 5 MG TABLET 1 TABLET AT BEDTIME ORALLY ONCE A DAY, NOTES: 02/19/17 TAKING FUROSEMIDE 20 MG TABLET 1 TABLET ORALLY ONCE DAILY, NOTES: 02/20/17729 TAKING JANUMET XR 50-500 MG TABLET EXTENDED RELEASE 24 HOUR 1 TABLET WITH A MEAL ORALLY TWICE DAILY, NOTES: 02/19/17 TAKING CLONAZEPAM 1 MG TABLET 1 TABLET ORALLY ONCE DAILY, NOTES: 02/20/17729 TAKING NEEDLES & SYRINGES 31 GAUGE DIRECTED TAKING LANCETS THIN MISCELLANEOUS DIRECTED TAKING GLUCOMETER DIRECTED TAKING LEVEMIR FLEXTOUCH 100 UNIT/ML SOLUTION PEN-INJECTOR SUBCUTANEOUS 50 UNITS IN AM AND 40 UNITS AT 9 PM, NOTES: 02/19/17 TAKING DEXILANT 60 MG CAPSULE DELAYED RELEASE 1 CAPSULE ORALLY ONCE A DAY, NOTES: 02/20/17729 TAKING FIBER - CAPSULE 2 CAPSULES WITH 8 OUNCES OF LIQUID ORALLY BID, NOTES: 02/20/17729 TAKING OXYBUTYNIN CHLORIDE ER 10 MG TABLET EXTENDED RELEASE 24 HOUR TAKE ONE TABLET BY MOUTH ONCE DAILY , NOTES: 02/20/17729 TAKING ATORVASTATIN CALCIUM 40 MG TABLET 1 TABLET ORALLY ONCE A DAY, NOTES: 02/19/17 TAKING OLMESARTAN MEDOXOMIL 40 MG TABLET 1 TABLET ORALLY ONCE A DAY, NOTES: 02/20/17729 TAKING ALIGN 4 MG CAPSULE ORALLY DAILY, NOTES: 02/20/17729 TAKING QUETIAPINE FUMARATE ER 400 MG TABLET EXTENDED RELEASE 24 HOUR 1 TABLET IN THE EVENING ORALLY ONCE A DAY, NOTES: 02/20/17729 TAKING GLYCOLAX - POWDER ORALLY BID NEEDED, NOTES: 02/19/17 TAKING TYLENOL EXTRA STRENGTH 500 MG TABLET 2 TABLETS NEEDED ORALLY 2-3 TIMES A DAY NEEDED, NOTES: 02/19/17 TAKING MAGNESIUM 400 MG CAPSULE 2 TAB ORALLY BID, NOTES: 02/20/17729 TAKING CETIRIZINE HCL 10 MG TABLET 1 TABLET ORALLY ONCE A DAY, NOTES: 02/20/17729 TAKING ASPERCREME LIDOCAINE 4 % PATCH EXTERNALLY 2-4 TIMES A DAY NEEDED, NOTES: 02/19/17 TAKING SALINE NASAL SPRAY 0.65 % SOLUTION NASALLY 6-8 TIMES A DAY NEEDED, NOTES: 02/19/17 TAKING NOVOLOG FLEXPEN 100 UNIT/ML SOLUTION PEN-INJECTOR 10 UNITS SUBCUTANEOUS BID, NOTES: 02/19/17 TAKING IPRATROPIUM BROMIDE 0.03 % SOLUTION 2 APPLICATIONS NASALLY TWICE A DAY, NOTES: 02/20/17729 TAKING MIRALAX SUSPENSION 17 GRAMS ORALLY AT HOUR OF SLEEP, NOTES: 02/20/17729 TAKING PROAIR HFA 108 (90 BASE) MCG/ACT AEROSOL SOLUTION 2 PUFFS NEEDED INHALATION EVERY 4 HRS, NOTES: 02/20/17729 TAKING CYMBALTA 30 MG CAPSULE DELAYED RELEASE PARTICLES 1 CAPSULE ORALLY TWICE DAILY, NOTES: 02/20/17729 TAKING TRAMADOL-ACETAMINOPHEN 37.5-325 MG TABLET 1 ORALLY Q8H PRN MDD3, NOTES: 02/20/17729 NOT-TAKING LIPITOR 40MG TABLET 1 TABLET ORALLY ONCE A DAY NOT-TAKING SLOW MAGNESIUM/CALCIUM 64-106 MG TABLET DELAYED RELEASE DIRECTED ORALLY NOT-TAKING OXYBUTYNIN CHLORIDE ER 10 MG TAB TAKE ONE TABLET BY MOUTH ONCE DAILY 30 DAY(S) NOT-TAKING TRAZODONE HCL 50 MG TABLET 2 TABLETS ORALLY THREE TIMES A DAY, NOTES: 02/21/16 NOT-TAKING ELIQUIS 5 MG TABLET ORALLY BID NOT-TAKING NEBULIZER DEVICE DIRECTED FOUR TIMES A DAY NOT-TAKING ALBUTEROL SULFATE (2.5 MG/3ML) 0.083% NEBULIZATION SOLUTION 3 ML INHALATION FOUR TIMES PER DAY NOT-TAKING NEXIUM 40 MG CAPSULE DELAYED RELEASE 1 CAPSULE ORALLY ONCE A DAY MEDICATION LIST REVIEWED AND RECONCILED WITH THE PATIENT PAST MEDICAL HISTORY KIDNEY DISEASE MEMORY LOSS SCHIZOPHRENIA OSTEOARTHRITIS INCONTINENCE HYPERCHOLESTEROLEMIA ANEMIA DIABETES MELLITUS HYPOTHYROIDISM HYPERTENSION, BENIGN ESOPHAGEAL REFLUX LEGALLY BLIND ALLERGIES SULFA (FOR ALLERGY USE ONLY): HANDS SWELL: ALLERGY ASPIRIN: STOMACH: ALLERGY MORPHINE SULFATE: RASH: ALLERGY CELEBREX: CAUSES PROBLEMS WITH KIDNEYS: ALLERGY REVIEW OF SYSTEMS REVIEWED BY: PROVIDER: MIKE SIU . CONSTITUTIONAL: ANY CHANGE IN YOUR MEDICAL CONDITION? NO . CHILLS NO . FEVER NO . INFECTION: DO YOU HAVE NEW INFECTIONS? NO . DO YOU HAVE HISTORY OF MRSA? NO . MUSCULOSKELETAL: ANY NEW PATTERNS OF PAIN OR NUMBNESS? NO . GASTROENTEROLOGY: ANY NEW CHANGE IN BOWEL CONTROL? NO . GENITOURINARY: ANY NEW CHANGE IN BLADDER CONTROL? NO . IS THERE A CHANCE YOU COULD BE ? NO . HEMATOLOGY/LYMPH: DO YOU TAKE ANY BLOOD THINNERS? (FOR EXAMPLE- COUMADIN, PLAVIX, AGGRENOX, PLATEL, PRADAXA, OR XARELTO) NO . WHEN WAS YOUR LAST DOSE? DATE: TIME: . NEUROLOGY: HAVE YOU FALLEN IN THE PAST 6 MONTHS? NO . ANY NEW EXTREMITY NUMBNESS OR WEAKNESS? NO . CARDIOLOGY: DO YOU HAVE A PACEMAKER OR DEFIBRILLATOR? NO . RESPIRATORY: HAVE YOU BEEN SICK IN THE PAST WEEK? NO . FEVER NO . FLU LIKE SYMPTOMS? NO . COUGH NO . INTEGUMENTARY: DO YOU HAVE ANY RASHES OR OPEN SORES? NO . ALLERGIC/IMMUNO: ARE YOU ALLERGIC TO SHELLFISH OR IV DYE? NO . ANY NEW ALLERGIES? NO . PSYCHIATRIC: DO YOU HAVE THOUGHTS OF HURTING YOURSELF OR SOMEONE ELSE? NO . ARE YOU ABUSED, NEGLECTED, OR IN AN UNSAFE ENVIRONMENT? NO . ENDOCRINOLOGY: ARE YOU DIABETIC? NO . OTHER: DO YOU NEED ANY PRESCRIPTIONS? NO . IF YES, PLEASE LIST: ____ . ANY NEW PROBLEMS WITH YOUR MEDICATIONS? NO . WHEN DID YOU LAST EAT? ____ . WHEN DID YOU LAST DRINK? ____ . WHAT DID YOU LAST DRINK? ____ . NAME OF PERSON DRIVING YOU HOME? ____ . DO YOU HAVE ANY OTHER QUESTIONS OR CONCERNS NO . VITAL SIGNS WT 221 LBS, HT 63 IN, BMI 39.14 INDEX, BP 136/65 MM HG, HR 86 /MIN, RR 18 /MIN, TEMP 96.8 F, OXYGEN SAT % 92, REVIEWED BY: NL. EXAMINATION GENERAL EXAMINATION: GENERAL APPEARANCE:SLEEPING . LUNGS:LUNG RIVERO ARE CLEAR TO AUSCULTATION BILATERALLY. GOOD MOVEMENT OF AIR . HEART:S1, S2 IN A REGULAR RATE AND RHYTHM. NO SIGNIFICANT MURMURS, RUBS OR GALLOPS NOTED . BACK:NORMAL, NONTENDER. ASSESSMENTS LUMBAR DEGENERATIVE DISC DISEASE - M51.36 (PRIMARY) NEUROPATHY - G62.9 TREATMENT LUMBAR DEGENERATIVE DISC DISEASE CONTINUE TRAMADOL-ACETAMINOPHEN TABLET, 37.5-325 MG, 1, ORALLY, Q8H PRN MDD3, NOTES: 02/20/17729 CONTINUE CYMBALTA CAPSULE DELAYED RELEASE PARTICLES, 30 MG, 1 CAPSULE, ORALLY, TWICE DAILY, NOTES: 02/20/17729 PROCEDURE CODES FA211 ESTABILISHED PATIENT [facility] FACILITY CHARGE G8730 PAIN ASSESS POS TOOL F/U PLAN DOC G8427 DOC MEDS VERIFIED W/PT OR RE DISPOSITION & COMMUNICATION FOLLOW UP 2 MONTHS ELECTRONICALLY SIGNED BY SALBADOR ADEN ON 03/30/2017 AT 07:15 PM EDT DISCLAIMER : THIS IS A VISIT SUMMARY EXTRACTED FROM THE [employer] CHART. IT IS NOT A COPY OF THE [employer] PROGRESS NOTE. MTDD
== END ==
LOC: M PAIN 09:30
PROVIDERS: ATTEND Nurse Practitioner Family
DX: G89.29 Other chronic pain (principal); M51.36 Other intervertebral disc degeneration, lumbar region; G62.9 Polyneuropathy, unspecified; F25.9 Schizoaffective disorder, unspecified; M19.90 Unspecified osteoarthritis, unspecified site; E78.00 Pure hypercholesterolemia, unspecified; E03.9 Hypothyroidism, unspecified; E11.9 Type 2 diabetes mellitus without complications; I10 Essential (primary) hypertension; K21.9 Gastro-esophageal reflux disease without esophagitis; Z88.2 Allergy status to sulfonamides; Z88.6 Allergy status to analgesic agent; Z88.5 Allergy status to narcotic agent; Z88.8 Allergy status to other drugs, medicaments and biological substances; Z79.4 Long term (current) use of insulin; Z79.891 Long term (current) use of opiate analgesic; Z79.899 Other long term (current) drug therapy; R32 Unspecified urinary incontinence; N32.81 Overactive bladder
CPT/HCPCS: 36415; 80048; 85027; 85610; 93005; G0463

== ENCOUNTER → 2017-03-20 | Outpatient (CLI) | payer MEDICARE, MEDICAID ==
[2017-03-20 10:22] LABS: MEAN CORPUSCULAR HEMOGLOBIN 33.6 pg (27.0-33.0); MEAN CORPUSCULAR HGB CONC 34.2 g/dl (32.0-36.5); MEAN CORPUSCULAR VOLUME 98.2 fl (80.0-96.0); WHITE BLOOD COUNT 6.8 K/mm3 (4.0-10.0)
[2017-03-20 10:28] LABS: INR 0.95
[2017-03-20 10:41] LABS: CREATININE FOR GFR 1.23 MG/DL (0.55-1.02)
--- NOTE | 2017-03-20 14:58 | ECGEPIP ---
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
== END ==
LOC: M LAB 09:43 → M EKG 09:43
PROVIDERS: ATTEND Specialist
DX: Z01.818 Encounter for other preprocedural examination (principal); R32 Unspecified urinary incontinence; N32.81 Overactive bladder

== ENCOUNTER 2017-04-22 06:33 | Day surgery (SDC) | payer MEDICARE, MEDICAID ==
--- NOTE | 2017-03-24 18:25 | CR ---
DATE OF CONSULTATION: 03/24/[address] Short, thank you for asking me to see Ms. Geri Keyes prior to her bladder Botox injections. As you know Ms. Keyes is a 71-year-old female with a past medical history of schizoaffective disorder, type 2 diabetes, hypertension, hyperlipidemia. The patient reports that she has been in her usual state of good health. She is pleased that we have added short-acting insulin between before her largest meal i.e. breakfast and supper and has been titrating the insulin to optimize the postprandial sugars she brings with her list of sugars. She is hesitant even to let me hold her insulin perioperatively because she is so pleased her sugars have improved. The patient has known gastroesophageal reflux disease. She is on dexilant with good control of symptoms. The patient has gastroparesis she is on Amitiza, MiraLax with adequate control constipation. The patient is legally blind. She has Public Health support and arrangement of her medication. She goes to [facility] 2-3 days a week. The patient has schizoaffective disorder. She feels that she is stable. She follows with psychiatry and is compliant with her multidrug regimen which she has been instructed to take perioperatively. The patient follows with pain clinic. She has had multitude of orthopedic symptoms they have helped us address. She continues on tramadol three times a day and is requesting approval to take it the morning of surgery. The patient otherwise denies any fevers or chills, chest pain or shortness of breath, nausea, vomiting, change in bowels. Review of systems otherwise negative. PAST MEDICAL HISTORY: 1. Type 2 diabetes with chronic renal insufficiency. 2. Hypertensive heart disease. 3. Hyperlipidemia. 4. Grave's thyroiditis status post surgery and radioactive iodine. 5. OAD ASHTYN. 6. Gastroesophageal reflux disease / aclasia, status is EGD/ 07-07 with dilatation and EGD 05/20 status-post dilatation. 7. COPD. 8. Schizoaffective disorder. 9. Status post hysterectomy with bladder suspension secondary to prolapse in 1994. 10. Uterine fibroids with tubal ligation 1971. 11. Cor pulmonale with echo 2000 showing pulmonary hypertension. 12. Bladder suspension 12/2001 with tension-free vaginal tape posterior vaginal wall. 13. Left rotator cuff surgery. 14. Abdominal hernia repair. 15. Chronic renal insufficiency stage III. 16. Anemia felt secondary renal insufficiency. 17. Legally blind. 18. Multiple foot surgeries for hammertoe correction / bunionectomy [id number]. MEDICATIONS: She is on Amitiza 24 mcg one by mouth two times a day, asper cream as needed, atorvastatin 40 mg daily, calcitriol 315/250 one daily, cetirizine 10 mg daily, clonazepam 1 mg at 06:00 p.m., Cymbalta 30 mg daily, Dexilant 60 mg daily, docusate 100 mg 2 pills twice a day, donepezil 10 mg daily, Fiberlax 625 mg 2 tablets two times a day, Flonase once spray per nostril twice a day, furosemide 20 mg every morning, Geodon 80 mg 2 pills twice a day, Glucotrol XL 10 mg in the morning, glycolax 17 grams daily as needed, ipratropium nasal spray 1 spray per nostril twice a day as needed, Janumet XR 50/500 take 1 tablet two times a day, Klor-Con 10 mEq 2 tablets twice a day, Lamictal 200 mg the morning Levemir 50 units every morning, 40 units every p.m., levothyroxine 115 mcg daily, Maxzide 400 mg 2 tablets twice a day, milk of magnesia as needed, Mylanta as needed, NovoLog 20 units before breakfast and 10 units before supper, olmesartan 40 mg daily, ProAir as needed, Seroquel 400 mg at bedtime, saline spray as needed, senna 8.6 mg 2 tablets twice a day as needed, Tylenol as needed, Vesicare 10 mg a day, tramadol with acetaminophen 37.5 mg three times a day, Ambien 5 mg at bedtime. ALLERGIES: Sulfa causes hand swelling, aspirin upsets her stomach, morphine causes a rash. SOCIAL HISTORY: She lives independently with support. She is legally blind. Former smoker 17 pack-year quit over 30 years ago. Denies alcohol use. FAMILY HISTORY: Irrelevant. PHYSICAL EXAMINATION: VITAL SIGNS: Weight 223 pounds with a BMI of 41. Her O2 sat is 93%, blood pressure 122/62 with a pulse of 80. HEENT: Examination head is normocephalic. Neck is supple. Pupils evidence of exophthalmos. She does wear eyeglasses. Pupils are equally reactive to light. Extraocular movements are intact. Conjunctivae not injected. Sclerae anicteric. Vision is grossly declined. EARS:: Tympanic membranes slightly dull, scant amount of cerumen. Tongue is midline. Posterior pharynx without inflammation. Neck is supple. Well-healed anterior neck incision. No thyromegaly, carotid bruits, cervical lymphadenopathy. RESPIRATORY: Clear to auscultation, resonant to percussion. BREASTS: Exam deferred. GYNECOLOGY: Gynecologic deferred. CARDIOVASCULAR: Regular rate and rhythm. No significant murmur, rub, gallop. ABDOMEN: Protuberant, soft, nontender. No hepatosplenomegaly. EXTREMITIES: Trace pretibial edema. NEUROLOGIC: She is alert and oriented. LABORATORY DATA: [facility] 03/20/2017, CBC, H and H is 11.7 and 34.2, med profile the sugar is 163, BUN and creatinine are 20 and 1.23 with a GFR of 46. Her last A1c was 8. IMPRESSION: Ms. Anna Keyes is a 71-year-old female with multiple cardiovascular risk factors including age, type 2 diabetes, hypertension, hyperlipidemia, has no signs or symptoms indicative of cardiovascular ischemia and is felt to be optimized and at low risk for cardiovascular complications from the proposed surgical intervention which can be further minimized by the following. 1. Diabetes 2. Hold oral meds a.m. of surgery halve long acting and short acting insulin the evening before and the morning of surgery, resume all meds following surgery. 2. Hypertension. Hold Benicar and furosemide morning of the surgery. I have approved her taking these after surgery when discharged to home. 3. Hyperlipidemia. Take statin as usual the evening prior to surgery. 4. Schizoaffective disorder. I have approved her taking her Cymbalta, Geodon the morning of surgery as usual. 5. Gastroesophageal reflux disease. She will take her dexilant morning of surgery. 6. Hypothyroid. She will take her levothyroxine morning of surgery. 7. COPD. She will use ProAir only if needed as she rarely takes this. 8. Urinary incontinence. She will hold Vesicare morning of surgery 9. Constipation she will hold her bowel meds morning of surgery but resumed following surgery. 10. OA DJD, chronic pain. I have approved her taking Cymbalta and tramadol morning of surgery as usual. Thank you very much for this consultation. Please call with any questions or concerns.
[~2017-04-22] VITALS: Ht 157.5 cm; Wt 100.2 kg
[2017-04-22] MEDS ORDERED: D5W/0.2% SODIUM CHLORIDE 250 ML IV ONE (07:00)
[2017-04-22] MEDS ORDERED: LIDOCAINE 2% INJ 100 MG/5 ML SYRINGE As Ordered ONE (07:21)
[2017-04-22] MEDS ORDERED: PROPOFOL 200 MG/20 ML VIAL As Ordered ONE (07:21)
[2017-04-22] MEDS ORDERED: MIDAZOLAM INJ 2 MG/2 ML VIAL (J2250) As Ordered ONE (07:22)
[2017-04-22] MEDS ORDERED: fentaNYL 100 MCG/2 ML INJECTION (J3010) As Ordered ONE (07:22)
[2017-04-22] MEDS ORDERED: BOTULINUM INJ 100 UNITS (J0585) As Ordered ONE (07:33)
[2017-04-22] MEDS ORDERED: LIDOCAINE 2% 5ML JELLY UROJET As Ordered ONE (07:41)
[2017-04-22 09:10] VITALS: BP 128/62
--- NOTE | 2017-04-22 16:12 | RO ---
DATE OF PROCEDURE: 04/22/2017 PREOPERATIVE DIAGNOSIS: Severe urinary urgency, frequency, and urge incontinence despite medical management. POSTOPERATIVE DIAGNOSIS: Severe urinary urgency, frequency, and urge incontinence despite medical management. PROCEDURE: Cystoscopy, hydrodistention, intravesical Botox, bladder biopsies, and fulguration. SURGEON: Dr. Milagros Short ALODIZE MACHINE HELPER: ANESTHESIA: MAC. MEDICATIONS: Ancef 2 grams preoperatively. DRAINS: None. FINDINGS: Total bladder capacity of 400 mL with minimal glomerulations but some trabeculation and some areas of erythema INDICATIONS FOR PROCEDURE: The patient is a 71-year-old female with severe urinary urgency, frequency, and urge incontinence despite Vesicare, Myrbetriq and oxybutynin ER. She did do behavioral modification and was still wearing Depends, which she changed twice a day. Urodynamic studies were done 02/10/2017, and she had a voided volume of 115 mL with a post void residual (PVR) of 23 mL. Her first sensation was at 13 mL with urgency at 192 mL. A voiding diary showed that she voided between 13 and 15 times a day and voided as little as 80 mL at a time. After discussing all different options, alternatives, risks, and benefits, it was decided to bring her to the operating room for surgical management. Informed consent was obtained in both verbal and written form. DESCRIPTION OF PROCEDURE: The patient was brought into the operating room. Sequential compression devices were in place. Preoperative antibiotics were given. Next, anesthesia was given and the patient was placed in the lithotomy position and careful attention was paid that her pressure points were well padded and protected. She was prepped and draped in the usual fashion. Next, a 21-Maori cystoscope was inserted. The urethra was noted to be open without any evidence of lesions or strictures. Upon entering the bladder, both ureteral orifices were seen. There was some mild trabeculation and some erythematous areas even before distension. Next, the bladder was distended using sterile water with gravity drainage. This was left distended for a total of 10 minutes. Her total bladder capacity under anesthesia was only 400 mL. She did have some minimal glomerulations. At this point, 100 units of Botox had been reconstituted with 10 mL of injectable saline. Next, using an injection needle, Botox was placed in 10 different areas in the bladder with 10 units in each area. This was done one in the middle the trigone, at the base of the bladder and the lateral quintero. When this was completed, random bladder biopsies were taken at the areas of glomerulations and hyperemia. These areas were then fulgurated. The patient's bladder was emptied and she was returned to the recovery room in stable condition.
== END 2017-04-22 09:51 | disposition home or self-care (01) ==
LOC: M SDC 06:33
PROVIDERS: ATTEND Specialist
DX: R39.15 Urgency of urination (principal); N30.10 Interstitial cystitis (chronic) without hematuria; R35.0 Frequency of micturition; N32.81 Overactive bladder; E11.9 Type 2 diabetes mellitus without complications; E78.5 Hyperlipidemia, unspecified; I10 Essential (primary) hypertension; K21.9 Gastro-esophageal reflux disease without esophagitis; Z79.899 Other long term (current) drug therapy; Z87.891 Personal history of nicotine dependence; E05.90 Thyrotoxicosis, unspecified without thyrotoxic crisis or storm; Z88.2 Allergy status to sulfonamides; Z88.5 Allergy status to narcotic agent; Z88.8 Allergy status to other drugs, medicaments and biological substances
CPT/HCPCS: 36415; 52260; 52287; 86850; 86900; 86901; 88305; J0585; J0690; J2250; J3010; L8606

== ENCOUNTER → 2017-05-01 | Outpatient (REF) | payer MEDICARE, MEDICAID ==
[2017-05-01 12:33] LABS: MEAN CORPUSCULAR HEMOGLOBIN 32.8 pg (27.0-33.0); MEAN CORPUSCULAR HGB CONC 32.7 g/dl (32.0-36.5); MEAN CORPUSCULAR VOLUME 100.3 fl (80.0-96.0); PLATELET COUNT, AUTOMATED 216 10^3/uL (150-450); RED CELL DISTRIBUTION WIDTH 13.3 % (11.5-14.5); WHITE BLOOD COUNT 7.3 10^3/uL (4.0-10.0)
[2017-05-01 13:47] LABS: CALCIUM LEVEL 9.4 MG/DL (8.8-10.2); CREATININE FOR GFR 1.25 MG/DL (0.55-1.02); GLOMERULAR FILTRATION RATE 45.1 (>39); POTASSIUM SERUM 4.7 MEQ/L (3.5-5.1)
== END ==
LOC: SKLABADC 08:41
PROVIDERS: ATTEND Internal Medicine
DX: E11.22 Type 2 diabetes mellitus with diabetic chronic kidney disease (principal); N18.3 Chronic kidney disease, stage 3 (moderate); D64.9 Anemia, unspecified

== ENCOUNTER → 2017-05-21 | Outpatient (REF) | payer MEDICARE | LOC: M SMT 18:03 | PROVIDERS: ATTEND Specialist | DX: R32 Unspecified urinary incontinence (principal) | CPT/HCPCS: 81001; 81002; G0463 ==

== ENCOUNTER → 2017-06-12 | Outpatient (CLI) | payer MEDICARE, MEDICAID | LOC: M PAIN 10:15 | DX: G89.29 Other chronic pain (principal); M51.36 Other intervertebral disc degeneration, lumbar region; M43.07 Spondylolysis, lumbosacral region; I12.9 Hypertensive chronic kidney disease with stage 1 through stage 4 chronic kidney disease, or unspecified chronic kidney disease; N18.9 Chronic kidney disease, unspecified; F25.9 Schizoaffective disorder, unspecified; E11.9 Type 2 diabetes mellitus without complications; E03.9 Hypothyroidism, unspecified; K21.9 Gastro-esophageal reflux disease without esophagitis; H54.8 Legal blindness, as defined in USA; R32 Unspecified urinary incontinence; Z88.2 Allergy status to sulfonamides; Z88.6 Allergy status to analgesic agent; Z88.5 Allergy status to narcotic agent; Z88.8 Allergy status to other drugs, medicaments and biological substances; Z79.4 Long term (current) use of insulin; Z79.891 Long term (current) use of opiate analgesic; Z79.899 Other long term (current) drug therapy | CPT/HCPCS: G0463 ==

== ENCOUNTER 2017-07-07 11:05 | Emergency (ER) | payer MEDICARE, MEDICAID | END 2017-07-07 12:27 | disposition home or self-care (01) | LOC: M ED 11:05 | DX: K59.00 Constipation, unspecified (principal); E11.9 Type 2 diabetes mellitus without complications; I10 Essential (primary) hypertension; N18.9 Chronic kidney disease, unspecified; F25.9 Schizoaffective disorder, unspecified; Z87.891 Personal history of nicotine dependence; Z79.4 Long term (current) use of insulin; Z79.899 Other long term (current) drug therapy; Z88.6 Allergy status to analgesic agent; Z88.5 Allergy status to narcotic agent; Z88.2 Allergy status to sulfonamides | CPT/HCPCS: 74022 ==

== ENCOUNTER → 2017-08-14 | Outpatient (CLI) | payer MEDICARE, MEDICAID | LOC: M PAIN 09:45 | DX: M51.36 Other intervertebral disc degeneration, lumbar region (principal); M43.07 Spondylolysis, lumbosacral region; G89.29 Other chronic pain; E11.22 Type 2 diabetes mellitus with diabetic chronic kidney disease; I12.9 Hypertensive chronic kidney disease with stage 1 through stage 4 chronic kidney disease, or unspecified chronic kidney disease; N18.9 Chronic kidney disease, unspecified; F25.9 Schizoaffective disorder, unspecified; E03.9 Hypothyroidism, unspecified; K21.9 Gastro-esophageal reflux disease without esophagitis; M19.90 Unspecified osteoarthritis, unspecified site; E78.00 Pure hypercholesterolemia, unspecified; H54.8 Legal blindness, as defined in USA; Z79.4 Long term (current) use of insulin; Z79.899 Other long term (current) drug therapy; Z88.2 Allergy status to sulfonamides; Z88.5 Allergy status to narcotic agent; Z88.6 Allergy status to analgesic agent; Z88.8 Allergy status to other drugs, medicaments and biological substances; Z87.891 Personal history of nicotine dependence | CPT/HCPCS: 84443 ==

== ENCOUNTER → 2017-08-14 | Outpatient (REF) | payer MEDICARE, MEDICAID ==
[2017-08-14 10:14] LABS: HEMATOCRIT 35.1 % (36.0-47.0); HEMOGLOBIN 11.6 g/dl (12.0-16.0); MEAN CORPUSCULAR HEMOGLOBIN 31.6 pg (27.0-33.0); MEAN CORPUSCULAR VOLUME 95.6 fl (80.0-96.0); PLATELET COUNT, AUTOMATED 201 10^3/uL (150-450); RED BLOOD COUNT 3.67 10^6/uL (4.00-5.40); RED CELL DISTRIBUTION WIDTH 12.5 % (11.5-14.5); WHITE BLOOD COUNT 6.3 10^3/uL (4.0-10.0)
[2017-08-14 10:31] LABS: ESTIMATED AVERAGE GLUCOSE 154 MG/DL (60-110)
[2017-08-14 11:08] LABS: ANION GAP 7 MEQ/L (8-16); BLOOD UREA NITROGEN 21 MG/DL (7-18); CALCIUM LEVEL 9.5 MG/DL (8.8-10.2); CARBON DIOXIDE LEVEL 31 MEQ/L (21-32); CHLORIDE LEVEL 100 MEQ/L (98-107); CHOLESTEROL LEVEL 186 MG/DL (<200); CHOLESTEROL RISK RATIO 5.166 (<5); CREATININE FOR GFR 1.13 MG/DL (0.55-1.30); GLOMERULAR FILTRATION RATE 50.7 (>39); GLUCOSE, FASTING 174 MG/DL (70-100); HDL CHOLESTEROL 36 MG/DL (>40); LDL CHOLESTEROL 93.6 MG/DL (<100); NON-HDL-C 150 MG/DL; POTASSIUM SERUM 4.4 MEQ/L (3.5-5.1); SODIUM LEVEL 138 MEQ/L (136-145); THYROID STIMULATING HORMONE 0.654 uIU/ML (0.358-3.740); TRIGLYCERIDES LEVEL 282 MG/DL (<150)
== END ==
LOC: SKLABADC 08:09
DX: E11.22 Type 2 diabetes mellitus with diabetic chronic kidney disease (principal); N18.3 Chronic kidney disease, stage 3 (moderate); E03.9 Hypothyroidism, unspecified
CPT/HCPCS: 84443

== ENCOUNTER → 2017-08-15 | Outpatient (REF) | payer MEDICARE, MEDICAID ==
[2017-08-15 15:58] LABS: INFLUENZA A AMPLIFICATION POSITIVE (NEGATIVE); INFLUENZA B AMPLIFICATION NEGATIVE (NEGATIVE); RSV AMPLIFICATION NEGATIVE (NEGATIVE)
== END ==
LOC: M LAB REF 14:54
DX: J11.1 Influenza due to unidentified influenza virus with other respiratory manifestations (principal)
CPT/HCPCS: 87502

== ENCOUNTER → 2017-11-06 | Outpatient (REF) | payer MEDICARE, MEDICAID ==
[2017-11-06 10:00] LABS: HEMATOCRIT 33.1 % (36.0-47.0); MEAN CORPUSCULAR HGB CONC 33.2 g/dl (32.0-36.5); MEAN CORPUSCULAR VOLUME 96.2 fl (80.0-96.0); PLATELET COUNT, AUTOMATED 204 10^3/uL (150-450); RED BLOOD COUNT 3.44 10^6/uL (4.00-5.40); WHITE BLOOD COUNT 6.5 10^3/uL (4.0-10.0)
[2017-11-06 10:16] LABS: ESTIMATED AVERAGE GLUCOSE 154 MG/DL (60-110)
[2017-11-06 10:42] LABS: ALT/SGPT 28 U/L (12-78); ANION GAP 5 MEQ/L (8-16); BLOOD UREA NITROGEN 20 MG/DL (7-18); CALCIUM LEVEL 8.9 MG/DL (8.8-10.2); CARBON DIOXIDE LEVEL 29 MEQ/L (21-32); CHLORIDE LEVEL 104 MEQ/L (98-107); CHOLESTEROL LEVEL 194 MG/DL (<200); CHOLESTEROL RISK RATIO 4.974 (<5); CPK CREATINE PHOSPHOKINASE 62 U/L (26-192); CREATININE FOR GFR 1.06 MG/DL (0.55-1.30); CREATININE, URINE 88.2 MG/DL; GLOMERULAR FILTRATION RATE 54.4 (>39); GLUCOSE, FASTING 165 MG/DL (70-100); HDL CHOLESTEROL 39 MG/DL (>40); LDL CHOLESTEROL 105.2 MG/DL (<100); MAGNESIUM LEVEL 1.7 MG/DL (1.8-2.4); MALB URINE SIEMENS 31.6 MG/L; MAU/CREAT RATIO 35.8 MCG/MG (0.0-30.0); NON-HDL-C 155 MG/DL; POTASSIUM SERUM 4.5 MEQ/L (3.5-5.1); SODIUM LEVEL 138 MEQ/L (136-145); THYROID STIMULATING HORMONE 0.153 uIU/ML (0.358-3.740); TRIGLYCERIDES LEVEL 249 MG/DL (<150)
== END ==
LOC: SKLABADC 07:41
DX: E11.22 Type 2 diabetes mellitus with diabetic chronic kidney disease (principal); I12.9 Hypertensive chronic kidney disease with stage 1 through stage 4 chronic kidney disease, or unspecified chronic kidney disease; E78.00 Pure hypercholesterolemia, unspecified
CPT/HCPCS: 84460

== ENCOUNTER → 2017-11-20 | Outpatient (CLI) | payer MEDICARE, MEDICAID | LOC: M PAIN 10:00 | DX: M51.36 Other intervertebral disc degeneration, lumbar region (principal); F20.9 Schizophrenia, unspecified; M19.90 Unspecified osteoarthritis, unspecified site; R32 Unspecified urinary incontinence; E78.00 Pure hypercholesterolemia, unspecified; D64.9 Anemia, unspecified; E11.9 Type 2 diabetes mellitus without complications; E03.9 Hypothyroidism, unspecified; I10 Essential (primary) hypertension; K21.9 Gastro-esophageal reflux disease without esophagitis; H54.8 Legal blindness, as defined in USA; Z87.891 Personal history of nicotine dependence; Z79.4 Long term (current) use of insulin; Z79.891 Long term (current) use of opiate analgesic; Z79.899 Other long term (current) drug therapy; Z88.2 Allergy status to sulfonamides; Z88.6 Allergy status to analgesic agent; Z88.5 Allergy status to narcotic agent; Z88.8 Allergy status to other drugs, medicaments and biological substances | CPT/HCPCS: G0463 ==

== ENCOUNTER 2017-11-26 14:00 | Outpatient (RCR) | payer MEDICARE, MEDICAID | END 2017-12-04 | LOC: M PT 14:00 | DX: Z51.89 Encounter for other specified aftercare (principal); M54.5 Low back pain; M79.661 Pain in right lower leg; M79.662 Pain in left lower leg | CPT/HCPCS: 97161 ==

== ENCOUNTER 2017-12-10 07:49 | Outpatient (RCR) | payer MEDICARE, MEDICAID | END 2018-01-03 | LOC: M PT 07:49 | DX: Z51.89 Encounter for other specified aftercare (principal); M54.5 Low back pain | CPT/HCPCS: 97110 ==

== ENCOUNTER 2018-02-02 19:35 | Emergency (ER) | payer MEDICARE, MEDICAID ==
[2018-02-02 20:56] LABS: BASO % 0.6 % (0.0-1.0); EOS # 0.2 10^3/uL (0.0-0.50); EOS % 2.7 % (0.0-3.0); HEMOGLOBIN 11.1 g/dl (12.0-15.5); IMMATURE GRANULOCYTE % 0.7 % (0-3.0); LYMPH # 1.7 10^3/uL (1.5-4.5); LYMPH % 25.6 % (24.0-44.0); MEAN CORPUSCULAR HEMOGLOBIN 31.6 pg (27.0-33.0); MEAN CORPUSCULAR HGB CONC 33.6 g/dl (32.0-36.5); MONO # 0.7 10^3/uL (0.0-0.8); MONO % 10.9 % (0.0-5.0); NEUTROPHILS % 59.5 % (36.0-66.0); PLATELET COUNT, AUTOMATED 206 10^3/uL (150-450); RED BLOOD COUNT 3.51 10^6/uL (4.00-5.40); RED CELL DISTRIBUTION WIDTH 12.6 % (11.5-14.5); WHITE BLOOD COUNT 6.8 10^3/uL (4.0-10.0)
[2018-02-02 21:09] LABS: ALBUMIN 3.6 GM/DL (3.2-5.2); ALBUMIN/GLOBULIN RATIO 0.92 (1.00-1.93); ALKALINE PHOSPHATASE 111 U/L (45-117); ALT/SGPT 26 U/L (12-78); ANION GAP 9 MEQ/L (8-16); AST/SGOT 18 U/L (7-37); BILIRUBIN,DIRECT < 0.1 MG/DL (0.0-0.2); BILIRUBIN,TOTAL 0.2 MG/DL (0.2-1.0); BLOOD UREA NITROGEN 26 MG/DL (7-18); CALCIUM LEVEL 8.8 MG/DL (8.8-10.2); CARBON DIOXIDE LEVEL 28 MEQ/L (21-32); CHLORIDE LEVEL 102 MEQ/L (98-107); CREATININE FOR GFR 1.27 MG/DL (0.55-1.30); GLOMERULAR FILTRATION RATE 44.2 (>39); GLUCOSE, FASTING 65 MG/DL (70-100); POTASSIUM SERUM 3.9 MEQ/L (3.5-5.1); SODIUM LEVEL 139 MEQ/L (136-145); TOTAL PROTEIN 7.5 GM/DL (6.4-8.2)
[2018-02-02] MEDS: predniSONE 20 MG TAB PO (21:15)
== END 2018-02-03 01:46 | disposition home or self-care (01) ==
LOC: M ED 02-03 01:46
DX: R07.89 Other chest pain (principal); I10 Essential (primary) hypertension; E11.9 Type 2 diabetes mellitus without complications; J45.909 Unspecified asthma, uncomplicated; H54.8 Legal blindness, as defined in USA; Z88.6 Allergy status to analgesic agent; Z88.5 Allergy status to narcotic agent; Z88.2 Allergy status to sulfonamides; Z88.8 Allergy status to other drugs, medicaments and biological substances; Z79.899 Other long term (current) drug therapy; Z79.891 Long term (current) use of opiate analgesic; Z79.4 Long term (current) use of insulin
CPT/HCPCS: 71250

== ENCOUNTER → 2018-02-26 | Outpatient (REF) | payer MEDICARE, MEDICAID ==
[2018-02-26 09:29] LABS: HEMATOCRIT 33.5 % (36.0-47.0); HEMOGLOBIN 11.2 g/dl (12.0-15.5); MEAN CORPUSCULAR HEMOGLOBIN 31.5 pg (27.0-33.0); MEAN CORPUSCULAR HGB CONC 33.4 g/dl (32.0-36.5); MEAN CORPUSCULAR VOLUME 94.1 fl (80.0-96.0); PLATELET COUNT, AUTOMATED 215 10^3/uL (150-450); RED BLOOD COUNT 3.56 10^6/uL (4.00-5.40); RED CELL DISTRIBUTION WIDTH 12.7 % (11.5-14.5); WHITE BLOOD COUNT 8.1 10^3/uL (4.0-10.0)
[2018-02-26 09:39] LABS: ESTIMATED AVERAGE GLUCOSE 171 MG/DL (60-110); HEMOGLOBIN A1c 7.6 %
[2018-02-26 09:57] LABS: ANION GAP 10 MEQ/L (8-16); BLOOD UREA NITROGEN 14 MG/DL (7-18); CALCIUM LEVEL 8.9 MG/DL (8.8-10.2); CARBON DIOXIDE LEVEL 28 MEQ/L (21-32); CHLORIDE LEVEL 100 MEQ/L (98-107); CHOLESTEROL LEVEL 179 MG/DL (<200); CHOLESTEROL RISK RATIO 4.475 (<5); CREATININE FOR GFR 1.12 MG/DL (0.55-1.30); GLOMERULAR FILTRATION RATE 51.1 (>39); GLUCOSE, FASTING 177 MG/DL (70-100); HDL CHOLESTEROL 40 MG/DL (>40); NON-HDL-C 139 MG/DL; POTASSIUM SERUM 4.2 MEQ/L (3.5-5.1); SODIUM LEVEL 138 MEQ/L (136-145); THYROID STIMULATING HORMONE 0.258 uIU/ML (0.358-3.740); TRIGLYCERIDES LEVEL 220 MG/DL (<150)
== END ==
LOC: SKLABADC 08:04
DX: F20.3 Undifferentiated schizophrenia (principal); E03.9 Hypothyroidism, unspecified; D64.9 Anemia, unspecified; Z79.899 Other long term (current) drug therapy
CPT/HCPCS: 84443

== ENCOUNTER → 2018-03-12 | Outpatient (CLI) | payer MEDICARE, MEDICAID | LOC: M PAIN 09:45 | DX: M51.36 Other intervertebral disc degeneration, lumbar region (principal); E78.00 Pure hypercholesterolemia, unspecified; E11.9 Type 2 diabetes mellitus without complications; E03.9 Hypothyroidism, unspecified; I10 Essential (primary) hypertension; F20.9 Schizophrenia, unspecified; Z79.4 Long term (current) use of insulin; Z79.891 Long term (current) use of opiate analgesic; Z79.899 Other long term (current) drug therapy; Z88.8 Allergy status to other drugs, medicaments and biological substances; Z87.891 Personal history of nicotine dependence | CPT/HCPCS: G0463 ==

== ENCOUNTER 2018-04-02 15:50 | Inpatient (IN) | payer MEDICARE, MEDICAID ==
[2018-04-02] MEDS: IPRATROPIUM 0.5MG/ALBUTEROL 2.5MG INH SOL UD 3ML (DUONEB)(J7620) NEB ×2 (17:50→18:13)
[2018-04-02] MEDS: ACETAMINOPHEN 325 MG TAB PO (17:57)
[2018-04-02] MEDS: methylPREDNISolone INJ 125 MG/2 ML VIAL (J2930) IV (17:57)
[2018-04-02] MEDS: ZIPRASIDONE 80 MG CAP (GEODON) PO (18:00)
[2018-04-02 18:12] LABS: BASO % 0.3 % (0.0-1.0); EOS # 0.4 10^3/uL (0.0-0.50); EOS % 3.3 % (0.0-3.0); HEMATOCRIT 33.2 % (36.0-47.0); HEMOGLOBIN 11.2 g/dl (12.0-15.5); IMMATURE GRANULOCYTE % 0.4 % (0-3.0); LYMPH # 1.8 10^3/uL (1.5-4.5); LYMPH % 13.7 % (24.0-44.0); MEAN CORPUSCULAR HGB CONC 33.7 g/dl (32.0-36.5); MEAN CORPUSCULAR VOLUME 94.9 fl (80.0-96.0); MONO # 1.3 10^3/uL (0.0-0.8); MONO % 10.1 % (0.0-5.0); NEUTROPHILS # 9.3 10^3/uL (1.8-7.7); NEUTROPHILS % 72.2 % (36.0-66.0); PLATELET COUNT, AUTOMATED 206 10^3/uL (150-450); RED CELL DISTRIBUTION WIDTH 13.4 % (11.5-14.5); WHITE BLOOD COUNT 12.8 10^3/uL (4.0-10.0)
[2018-04-02 18:29] LABS: KETONE, URINE AUTO RFX NEGATIVE (NEGATIVE); LEUKOCYTE ESTERASE UR AUTO RFX 2+ (NEGATIVE); NITRITE, URINE AUTO RFX POSITIVE (NEGATIVE); RBC, URINE AUTO RFX 4 /HPF (0-3); SQUAM EPITHELIAL CELL UR AURFX 3 /HPF (0-6); WBC, URINE AUTO RFX 37 /HPF (0-3)
[2018-04-02 18:46] LABS: ALBUMIN 3.8 GM/DL (3.2-5.2); ALBUMIN/GLOBULIN RATIO 0.86 (1.00-1.93); ALKALINE PHOSPHATASE 83 U/L (45-117); ALT/SGPT 24 U/L (12-78); ANION GAP 10 MEQ/L (8-16); AST/SGOT 19 U/L (7-37); BILIRUBIN,DIRECT 0.1 MG/DL (0.0-0.2); BILIRUBIN,TOTAL 0.4 MG/DL (0.2-1.0); BLOOD UREA NITROGEN 21 MG/DL (7-18); CALCIUM LEVEL 9.5 MG/DL (8.8-10.2); CARBON DIOXIDE LEVEL 29 MEQ/L (21-32); CHLORIDE LEVEL 98 MEQ/L (98-107); CK-MB VALUE MASS < 1.0 NG/ML (<3.6); CPK CREATINE PHOSPHOKINASE 188 U/L (26-192); CREATININE FOR GFR 1.25 MG/DL (0.55-1.30); GLUCOSE, FASTING 66 MG/DL (70-100); MB/CK RELATIVE INDEX 0.53 (< OR =4); NT-PRO BNP 136 PG/ML (<125); POTASSIUM SERUM 3.8 MEQ/L (3.5-5.1); SODIUM LEVEL 137 MEQ/L (136-145); TOTAL PROTEIN 8.2 GM/DL (6.4-8.2); TROPONIN I < 0.02 NG/ML (< 0.10)
[2018-04-02] MEDS: LEVEMIR (INSULIN DETEMIR) 1 UNITS/0.01ML SC (21:00)
[2018-04-02] MEDS ORDERED: DEXTROSE 50% 50 ML SYRINGE IV (21:45)
[2018-04-02] MEDS ORDERED: guaiFENesin 200 MG TAB PO (21:45)
[2018-04-02] MEDS ORDERED: zolPIDEM TARTRATE 5 MG TAB PO (21:45)
[2018-04-02] MEDS ORDERED: GLUCAGON FOR INJ 1 MG VIAL (J1610) SC (21:45)
[2018-04-02] MEDS ORDERED: GLUCOSE 4 GM CHEW TABLET PO (21:45)
[2018-04-02] MEDS ORDERED: ZIPRASIDONE 80 MG CAP (GEODON) PO (22:45)
[2018-04-02 23:01] LABS: ESTIMATED AVERAGE GLUCOSE 151 MG/DL (60-110); HEMOGLOBIN A1c 6.9 %
[2018-04-03] MEDS: clonazePAM 0.5 MG TAB PO ×2 (00:09→21:46)
[2018-04-03] MEDS: zolPIDEM TARTRATE 10MG TAB PO ×2 (00:10→21:46)
[2018-04-03] MEDS: DULoxetine 30 MG CAP (CYMBALTA) PO ×3 (00:10→21:44)
[2018-04-03] MEDS: ULTRACET TAB PO ×4 (00:11→17:13)
[2018-04-03] MEDS: cefTRIAXone SOD 1 GM in D5W MINI-BAG PLUS 50 ML IV ×2 (00:14→21:46)
[2018-04-03] MEDS: QUEtiapine FUMARATE **XR** 200MG TABLET PO ×2 (00:33→21:45)
[2018-04-03 00:44] LABS: BEDSIDE GLUCOSE 299 MG/DL (83-110)
[2018-04-03] MEDS: HumaLOG INSULIN (NovoLOG) PER UNIT SC ×5 (00:48→21:43)
[2018-04-03] MEDS: AZITHROMYCIN INJ 500 MG, VIAL MATE ADAPTER 1 EACH in D5W 250 ML IV ×2 (00:54→23:40)
[2018-04-03 07:21] LABS: HEMATOCRIT 31.2 % (36.0-47.0); HEMOGLOBIN 10.6 g/dl (12.0-15.5); MEAN CORPUSCULAR HEMOGLOBIN 31.3 pg (27.0-33.0); PLATELET COUNT, AUTOMATED 192 10^3/uL (150-450); RED BLOOD COUNT 3.39 10^6/uL (4.00-5.40); RED CELL DISTRIBUTION WIDTH 12.9 % (11.5-14.5); WHITE BLOOD COUNT 11.1 10^3/uL (4.0-10.0)
[2018-04-03 07:54] LABS: ALBUMIN 3.5 GM/DL (3.2-5.2); ALBUMIN/GLOBULIN RATIO 0.83 (1.00-1.93); ALKALINE PHOSPHATASE 77 U/L (45-117); ALT/SGPT 23 U/L (12-78); ANION GAP 11 MEQ/L (8-16); AST/SGOT 19 U/L (7-37); BILIRUBIN,TOTAL 0.3 MG/DL (0.2-1.0); BLOOD UREA NITROGEN 22 MG/DL (7-18); CALCIUM LEVEL 9.2 MG/DL (8.8-10.2); CARBON DIOXIDE LEVEL 26 MEQ/L (21-32); CHLORIDE LEVEL 97 MEQ/L (98-107); CREATININE FOR GFR 1.04 MG/DL (0.55-1.30); FREE THYROXINE INDEX 1.6 % (1.3-4.8); GLOMERULAR FILTRATION RATE 55.6 (>39); GLUCOSE, FASTING 188 MG/DL (70-100); POTASSIUM SERUM 4.2 MEQ/L (3.5-5.1); SODIUM LEVEL 134 MEQ/L (136-145); T UPTAKE 33 % (30-39); THYROID STIMULATING HORMONE 0.384 uIU/ML (0.358-3.740); THYROXINE (T4) 4.9 UG/DL (4.5-12.0); TOTAL PROTEIN 7.7 GM/DL (6.4-8.2)
[2018-04-03] MEDS: methylPREDNISolone INJ 40 MG/1 ML VIAL (J2920) IV ×2 (08:19→17:14)
[2018-04-03] MEDS: ENOXAPARIN 40 MG/0.4 ML SYRINGE (J1650) SC (08:19)
[2018-04-03] MEDS: LEVEMIR (INSULIN DETEMIR) 1 UNITS/0.01ML SC ×2 (08:20→21:44)
[2018-04-03] MEDS: DOCUSATE SODIUM 100 MG CAP PO ×2 (08:20→17:14)
[2018-04-03] MEDS: oxyBUTYnin *DITROPAN XL* 5 MG TABCR PO (08:21)
[2018-04-03] MEDS: DONEPEZIL 5 MG TAB PO (08:21)
[2018-04-03] MEDS: CETIRIZINE (ZyrTEC) 10 MG TAB PO (08:22)
[2018-04-03] MEDS: LEVOTHYROXINE 150MCG TABLET (0.15MG) PO (08:22)
[2018-04-03] MEDS: ZIPRASIDONE 80 MG CAP (GEODON) PO ×2 (08:22→17:12)
[2018-04-03] MEDS: SOLIFENACIN 5 MG TAB PO (08:24)
[2018-04-03] MEDS: FIBER-CON 625 MG TAB PO ×2 (13:12→21:46)
[2018-04-03] MEDS: SENNA 8.6 MG TAB (SENOKOT) PO ×2 (13:13→21:46)
[2018-04-03] MEDS: POTASSIUM CHLORIDE 10 MEQ SR TABLET PO ×2 (13:14→21:44)
[2018-04-03] MEDS: MAGNESIUM OXIDE 400 MG TAB (MAG-OX) PO ×2 (13:14→21:45)
[2018-04-03] MEDS: FUROSEMIDE 20 MG TAB PO (13:15)
[2018-04-03] MEDS: lamoTRIgine 100MG TAB PO (13:15)
[2018-04-03] MEDS: IPRATROPIUM 0.5MG/ALBUTEROL 2.5MG INH SOL UD 3ML (DUONEB)(J7620) NEB ×3 (13:19→21:04)
[2018-04-03] MEDS: BENZONATATE 100 MG CAP PO ×2 (16:35→21:49)
[2018-04-03] MEDS: OMEPRAZOLE 20 MG CAP PO (17:13)
[2018-04-03 20:46] LABS: BEDSIDE GLUCOSE 351 MG/DL (83-110)
[2018-04-03 20:46] LABS: BEDSIDE GLUCOSE 260 MG/DL (83-110)
[2018-04-03 20:46] LABS: BEDSIDE GLUCOSE 216 MG/DL (83-110)
[2018-04-03 20:46] LABS: BEDSIDE GLUCOSE 342 MG/DL (83-110)
[2018-04-03] MEDS: ATORVASTATIN 20 MG TAB PO (21:45)
[2018-04-04] MEDS: LEVOTHYROXINE 150MCG TABLET (0.15MG) PO (05:03)
[2018-04-04] MEDS: methylPREDNISolone INJ 40 MG/1 ML VIAL (J2920) IV ×2 (05:03→17:08)
[2018-04-04 06:35] LABS: HEMATOCRIT 30.8 % (36.0-47.0); HEMOGLOBIN 10.2 g/dl (12.0-15.5); MEAN CORPUSCULAR HEMOGLOBIN 31.8 pg (27.0-33.0); MEAN CORPUSCULAR HGB CONC 33.1 g/dl (32.0-36.5); PLATELET COUNT, AUTOMATED 193 10^3/uL (150-450); RED BLOOD COUNT 3.21 10^6/uL (4.00-5.40); WHITE BLOOD COUNT 9.2 10^3/uL (4.0-10.0)
[2018-04-04 07:03] LABS: ALBUMIN 3.1 GM/DL (3.2-5.2); ALBUMIN/GLOBULIN RATIO 0.67 (1.00-1.93); ALKALINE PHOSPHATASE 99 U/L (45-117); ALT/SGPT 23 U/L (12-78); ANION GAP 11 MEQ/L (8-16); AST/SGOT 19 U/L (7-37); BILIRUBIN,TOTAL 0.2 MG/DL (0.2-1.0); BLOOD UREA NITROGEN 25 MG/DL (7-18); CALCIUM LEVEL 9.2 MG/DL (8.8-10.2); CARBON DIOXIDE LEVEL 27 MEQ/L (21-32); CHLORIDE LEVEL 98 MEQ/L (98-107); CREATININE FOR GFR 1.07 MG/DL (0.55-1.30); GLOMERULAR FILTRATION RATE 53.8 (>39); GLUCOSE, FASTING 243 MG/DL (70-100); POTASSIUM SERUM 3.8 MEQ/L (3.5-5.1); SODIUM LEVEL 136 MEQ/L (136-145); TOTAL PROTEIN 7.7 GM/DL (6.4-8.2)
[2018-04-04] MEDS: IPRATROPIUM 0.5MG/ALBUTEROL 2.5MG INH SOL UD 3ML (DUONEB)(J7620) NEB ×3 (07:30→22:21)
[2018-04-04] MEDS: HumaLOG INSULIN (NovoLOG) PER UNIT SC ×4 (08:01→20:23)
[2018-04-04] MEDS: LEVEMIR (INSULIN DETEMIR) 1 UNITS/0.01ML SC ×2 (08:01→20:24)
[2018-04-04] MEDS: ENOXAPARIN 40 MG/0.4 ML SYRINGE (J1650) SC (08:02)
[2018-04-04] MEDS: DONEPEZIL 5 MG TAB PO (08:02)
[2018-04-04] MEDS: DOCUSATE SODIUM 100 MG CAP PO ×2 (08:02→17:08)
[2018-04-04] MEDS: SOLIFENACIN 5 MG TAB PO (08:02)
[2018-04-04] MEDS: ULTRACET TAB PO ×3 (08:02→17:07)
[2018-04-04] MEDS: DULoxetine 30 MG CAP (CYMBALTA) PO ×2 (08:02→20:27)
[2018-04-04] MEDS: oxyBUTYnin *DITROPAN XL* 5 MG TABCR PO (08:02)
[2018-04-04] MEDS: OMEPRAZOLE 20 MG CAP PO (08:03)
[2018-04-04] MEDS: ZIPRASIDONE 80 MG CAP (GEODON) PO ×2 (08:03→17:08)
[2018-04-04] MEDS: CETIRIZINE (ZyrTEC) 10 MG TAB PO (08:03)
[2018-04-04] MEDS: CEFDINIR 300 MG CAP (OMNICEF) PO ×2 (08:06→20:25)
[2018-04-04 11:51] LABS: BEDSIDE GLUCOSE 401 MG/DL (83-110)
[2018-04-04] MEDS: lamoTRIgine 100MG TAB PO (12:00)
[2018-04-04] MEDS: MAGNESIUM OXIDE 400 MG TAB (MAG-OX) PO ×2 (12:01→20:26)
[2018-04-04] MEDS: SENNA 8.6 MG TAB (SENOKOT) PO ×2 (12:01→20:27)
[2018-04-04] MEDS: FIBER-CON 625 MG TAB PO ×2 (12:01→20:25)
[2018-04-04] MEDS: POTASSIUM CHLORIDE 10 MEQ SR TABLET PO ×2 (12:01→20:27)
[2018-04-04] MEDS: FUROSEMIDE 20 MG TAB PO (12:01)
[2018-04-04 17:04] LABS: BEDSIDE GLUCOSE 320 MG/DL (83-110)
[2018-04-04 20:04] LABS: BEDSIDE GLUCOSE 290 MG/DL (83-110)
[2018-04-04] MEDS: zolPIDEM TARTRATE 10MG TAB PO (20:25)
[2018-04-04] MEDS: clonazePAM 0.5 MG TAB PO (20:25)
[2018-04-04] MEDS: ATORVASTATIN 20 MG TAB PO (20:25)
[2018-04-04] MEDS: QUEtiapine FUMARATE **XR** 200MG TABLET PO (20:27)
[2018-04-04] MEDS: ACETAMINOPHEN TAB 650MG DOSE (2X325MG) PO (20:35)
[2018-04-04] MEDS: BENZONATATE 100 MG CAP PO (21:45)
[2018-04-05] MEDS: methylPREDNISolone INJ 40 MG/1 ML VIAL (J2920) IV ×2 (05:53→17:03)
[2018-04-05] MEDS: LEVOTHYROXINE 150MCG TABLET (0.15MG) PO (05:53)
[2018-04-05] MEDS: BENZONATATE 100 MG CAP PO ×3 (05:53→22:01)
[2018-04-05 06:35] LABS: HEMATOCRIT 29.6 % (36.0-47.0); MEAN CORPUSCULAR HEMOGLOBIN 31.6 pg (27.0-33.0); MEAN CORPUSCULAR HGB CONC 33.8 g/dl (32.0-36.5); MEAN CORPUSCULAR VOLUME 93.7 fl (80.0-96.0); PLATELET COUNT, AUTOMATED 210 10^3/uL (150-450); RED BLOOD COUNT 3.16 10^6/uL (4.00-5.40); WHITE BLOOD COUNT 8.9 10^3/uL (4.0-10.0)
[2018-04-05 06:49] LABS: ALBUMIN 3.3 GM/DL (3.2-5.2); ALBUMIN/GLOBULIN RATIO 0.77 (1.00-1.93); ALKALINE PHOSPHATASE 93 U/L (45-117); ALT/SGPT 26 U/L (12-78); ANION GAP 9 MEQ/L (8-16); AST/SGOT 19 U/L (7-37); BILIRUBIN,TOTAL 0.2 MG/DL (0.2-1.0); BLOOD UREA NITROGEN 20 MG/DL (7-18); CALCIUM LEVEL 8.8 MG/DL (8.8-10.2); CARBON DIOXIDE LEVEL 28 MEQ/L (21-32); CHLORIDE LEVEL 98 MEQ/L (98-107); CREATININE FOR GFR 0.89 MG/DL (0.55-1.30); GLOMERULAR FILTRATION RATE > 60.0 (>39); GLUCOSE, FASTING 170 MG/DL (70-100); POTASSIUM SERUM 3.9 MEQ/L (3.5-5.1); SODIUM LEVEL 135 MEQ/L (136-145); TOTAL PROTEIN 7.6 GM/DL (6.4-8.2)
[2018-04-05] MEDS: DOCUSATE SODIUM 100 MG CAP PO ×2 (08:12→17:03)
[2018-04-05] MEDS: ENOXAPARIN 40 MG/0.4 ML SYRINGE (J1650) SC (08:12)
[2018-04-05] MEDS: OMEPRAZOLE 20 MG CAP PO (08:13)
[2018-04-05] MEDS: SOLIFENACIN 5 MG TAB PO (08:13)
[2018-04-05] MEDS: ZIPRASIDONE 80 MG CAP (GEODON) PO ×2 (08:13→17:03)
[2018-04-05] MEDS: oxyBUTYnin *DITROPAN XL* 5 MG TABCR PO (08:13)
[2018-04-05] MEDS: CEFDINIR 300 MG CAP (OMNICEF) PO ×2 (08:13→21:02)
[2018-04-05] MEDS: CETIRIZINE (ZyrTEC) 10 MG TAB PO (08:13)
[2018-04-05] MEDS: DONEPEZIL 5 MG TAB PO (08:13)
[2018-04-05] MEDS: ULTRACET TAB PO ×3 (08:13→17:03)
[2018-04-05] MEDS: LEVEMIR (INSULIN DETEMIR) 1 UNITS/0.01ML SC ×2 (08:14→21:01)
[2018-04-05] MEDS: DULoxetine 30 MG CAP (CYMBALTA) PO ×2 (08:15→21:02)
[2018-04-05] MEDS: HumaLOG INSULIN (NovoLOG) PER UNIT SC ×4 (08:15→21:00)
[2018-04-05] MEDS: IPRATROPIUM 0.5MG/ALBUTEROL 2.5MG INH SOL UD 3ML (DUONEB)(J7620) NEB (11:12)
[2018-04-05 11:41] LABS: BEDSIDE GLUCOSE 263 MG/DL (83-110)
[2018-04-05] MEDS: FIBER-CON 625 MG TAB PO ×2 (11:55→21:03)
[2018-04-05] MEDS: MAGNESIUM OXIDE 400 MG TAB (MAG-OX) PO ×2 (11:55→21:02)
[2018-04-05] MEDS: SENNA 8.6 MG TAB (SENOKOT) PO ×2 (11:56→21:02)
[2018-04-05] MEDS: POTASSIUM CHLORIDE 10 MEQ SR TABLET PO ×2 (11:56→21:02)
[2018-04-05] MEDS: FUROSEMIDE 20 MG TAB PO (11:56)
[2018-04-05] MEDS: lamoTRIgine 100MG TAB PO (11:56)
[2018-04-05 16:52] LABS: BEDSIDE GLUCOSE 225 MG/DL (83-110)
[2018-04-05] MEDS: ATORVASTATIN 20 MG TAB PO (21:01)
[2018-04-05] MEDS: clonazePAM 0.5 MG TAB PO (21:02)
[2018-04-05] MEDS: QUEtiapine FUMARATE **XR** 200MG TABLET PO (21:02)
[2018-04-05] MEDS: zolPIDEM TARTRATE 10MG TAB PO (21:02)
[2018-04-05] MEDS: ACETAMINOPHEN TAB 650MG DOSE (2X325MG) PO (22:01)
[2018-04-06] MEDS: ACETAMINOPHEN TAB 650MG DOSE (2X325MG) PO (03:25)
[2018-04-06] MEDS: IPRATROPIUM 0.5MG/ALBUTEROL 2.5MG INH SOL UD 3ML (DUONEB)(J7620) NEB ×4 (04:11→20:08)
[2018-04-06 06:03] LABS: BEDSIDE GLUCOSE 217 MG/DL (83-110)
[2018-04-06] MEDS: methylPREDNISolone INJ 40 MG/1 ML VIAL (J2920) IV (06:06)
[2018-04-06] MEDS: LEVOTHYROXINE 150MCG TABLET (0.15MG) PO (06:06)
[2018-04-06] MEDS: guaiFENesin DM LIQ 10ML UD PO ×3 (06:06→21:16)
[2018-04-06 07:24] LABS: HEMATOCRIT 31.2 % (36.0-47.0); HEMOGLOBIN 10.7 g/dl (12.0-15.5); MEAN CORPUSCULAR HEMOGLOBIN 31.8 pg (27.0-33.0); MEAN CORPUSCULAR HGB CONC 34.3 g/dl (32.0-36.5); MEAN CORPUSCULAR VOLUME 92.6 fl (80.0-96.0); PLATELET COUNT, AUTOMATED 221 10^3/uL (150-450); RED BLOOD COUNT 3.37 10^6/uL (4.00-5.40); RED CELL DISTRIBUTION WIDTH 12.8 % (11.5-14.5); WHITE BLOOD COUNT 9.8 10^3/uL (4.0-10.0)
[2018-04-06] MEDS: BENZONATATE 100 MG CAP PO ×3 (07:42→22:56)
[2018-04-06 07:49] LABS: ALBUMIN 3.5 GM/DL (3.2-5.2); ALBUMIN/GLOBULIN RATIO 0.88 (1.00-1.93); ALKALINE PHOSPHATASE 84 U/L (45-117); ALT/SGPT 25 U/L (12-78); ANION GAP 6 MEQ/L (8-16); AST/SGOT 21 U/L (7-37); BILIRUBIN,TOTAL 0.2 MG/DL (0.2-1.0); BLOOD UREA NITROGEN 20 MG/DL (7-18); CALCIUM LEVEL 9.5 MG/DL (8.8-10.2); CARBON DIOXIDE LEVEL 31 MEQ/L (21-32); CHLORIDE LEVEL 98 MEQ/L (98-107); CREATININE FOR GFR 0.94 MG/DL (0.55-1.30); GLOMERULAR FILTRATION RATE > 60.0 (>39); GLUCOSE, FASTING 118 MG/DL (70-100); SODIUM LEVEL 135 MEQ/L (136-145); TOTAL PROTEIN 7.5 GM/DL (6.4-8.2)
[2018-04-06] MEDS: DULoxetine 30 MG CAP (CYMBALTA) PO ×2 (08:17→21:15)
[2018-04-06] MEDS: HumaLOG INSULIN (NovoLOG) PER UNIT SC ×4 (08:17→21:00)
[2018-04-06] MEDS: DOCUSATE SODIUM 100 MG CAP PO ×2 (08:17→17:45)
[2018-04-06] MEDS: ENOXAPARIN 40 MG/0.4 ML SYRINGE (J1650) SC (08:17)
[2018-04-06] MEDS: ZIPRASIDONE 80 MG CAP (GEODON) PO ×2 (08:18→17:45)
[2018-04-06] MEDS: CETIRIZINE (ZyrTEC) 10 MG TAB PO (08:18)
[2018-04-06] MEDS: CEFDINIR 300 MG CAP (OMNICEF) PO ×2 (08:18→21:15)
[2018-04-06] MEDS: oxyBUTYnin *DITROPAN XL* 5 MG TABCR PO (08:18)
[2018-04-06] MEDS: OMEPRAZOLE 20 MG CAP PO (08:18)
[2018-04-06] MEDS: DONEPEZIL 5 MG TAB PO (08:18)
[2018-04-06] MEDS: LEVEMIR (INSULIN DETEMIR) 1 UNITS/0.01ML SC ×2 (08:18→21:16)
[2018-04-06] MEDS: ULTRACET TAB PO ×3 (08:19→17:46)
[2018-04-06] MEDS: SOLIFENACIN 5 MG TAB PO (08:19)
[2018-04-06] MEDS: MAGNESIUM OXIDE 400 MG TAB (MAG-OX) PO ×2 (12:04→21:15)
[2018-04-06] MEDS: lamoTRIgine 100MG TAB PO (12:05)
[2018-04-06] MEDS: FIBER-CON 625 MG TAB PO ×2 (12:05→21:14)
[2018-04-06] MEDS: SENNA 8.6 MG TAB (SENOKOT) PO ×2 (12:05→21:14)
[2018-04-06] MEDS: POTASSIUM CHLORIDE 10 MEQ SR TABLET PO ×2 (12:05→21:15)
[2018-04-06] MEDS: FUROSEMIDE 20 MG TAB PO (12:05)
[2018-04-06] MEDS: ATORVASTATIN 20 MG TAB PO (21:14)
[2018-04-06] MEDS: predniSONE 20 MG TAB PO (21:14)
[2018-04-06] MEDS: clonazePAM 0.5 MG TAB PO (21:14)
[2018-04-06] MEDS: QUEtiapine FUMARATE **XR** 200MG TABLET PO (21:14)
[2018-04-06] MEDS: zolPIDEM TARTRATE 10MG TAB PO (21:15)
[2018-04-07 02:45] LABS: BEDSIDE GLUCOSE 268 MG/DL (83-110)
[2018-04-07 02:45] LABS: BEDSIDE GLUCOSE 274 MG/DL (83-110)
[2018-04-07 02:45] LABS: BEDSIDE GLUCOSE 182 MG/DL (83-110)
[2018-04-07] MEDS: guaiFENesin DM LIQ 10ML UD PO ×2 (03:05→09:46)
[2018-04-07] MEDS: IPRATROPIUM 0.5MG/ALBUTEROL 2.5MG INH SOL UD 3ML (DUONEB)(J7620) NEB ×5 (03:56→15:04)
[2018-04-07] MEDS: LEVOTHYROXINE 150MCG TABLET (0.15MG) PO (05:31)
[2018-04-07 07:04] LABS: HEMATOCRIT 32.1 % (36.0-47.0); HEMOGLOBIN 10.8 g/dl (12.0-15.5); MEAN CORPUSCULAR HEMOGLOBIN 31.9 pg (27.0-33.0); MEAN CORPUSCULAR HGB CONC 33.6 g/dl (32.0-36.5); MEAN CORPUSCULAR VOLUME 94.7 fl (80.0-96.0); PLATELET COUNT, AUTOMATED 222 10^3/uL (150-450); RED BLOOD COUNT 3.39 10^6/uL (4.00-5.40); RED CELL DISTRIBUTION WIDTH 12.9 % (11.5-14.5); WHITE BLOOD COUNT 9.6 10^3/uL (4.0-10.0)
[2018-04-07 07:24] LABS: ALBUMIN 3.3 GM/DL (3.2-5.2); ALBUMIN/GLOBULIN RATIO 0.83 (1.00-1.93); ALKALINE PHOSPHATASE 86 U/L (45-117); ALT/SGPT 25 U/L (12-78); ANION GAP 11 MEQ/L (8-16); AST/SGOT 17 U/L (7-37); BILIRUBIN,TOTAL 0.2 MG/DL (0.2-1.0); BLOOD UREA NITROGEN 19 MG/DL (7-18); CALCIUM LEVEL 9.6 MG/DL (8.8-10.2); CARBON DIOXIDE LEVEL 31 MEQ/L (21-32); CHLORIDE LEVEL 95 MEQ/L (98-107); CREATININE FOR GFR 1.05 MG/DL (0.55-1.30); GLUCOSE, FASTING 299 MG/DL (70-100); POTASSIUM SERUM 4.7 MEQ/L (3.5-5.1); SODIUM LEVEL 137 MEQ/L (136-145); TOTAL PROTEIN 7.3 GM/DL (6.4-8.2)
[2018-04-07] MEDS: LEVEMIR (INSULIN DETEMIR) 1 UNITS/0.01ML SC (08:08)
[2018-04-07] MEDS: HumaLOG INSULIN (NovoLOG) PER UNIT SC ×2 (08:08→11:27)
[2018-04-07] MEDS: ENOXAPARIN 40 MG/0.4 ML SYRINGE (J1650) SC (08:08)
[2018-04-07] MEDS: BENZONATATE 100 MG CAP PO (08:09)
[2018-04-07] MEDS: CEFDINIR 300 MG CAP (OMNICEF) PO (08:09)
[2018-04-07] MEDS: DONEPEZIL 5 MG TAB PO (08:09)
[2018-04-07] MEDS: ZIPRASIDONE 80 MG CAP (GEODON) PO (08:09)
[2018-04-07] MEDS: CETIRIZINE (ZyrTEC) 10 MG TAB PO (08:09)
[2018-04-07] MEDS: DOCUSATE SODIUM 100 MG CAP PO (08:09)
[2018-04-07] MEDS: predniSONE 20 MG TAB PO (08:10)
[2018-04-07] MEDS: DULoxetine 30 MG CAP (CYMBALTA) PO (08:10)
[2018-04-07] MEDS: OMEPRAZOLE 20 MG CAP PO (08:10)
[2018-04-07] MEDS: SOLIFENACIN 5 MG TAB PO (08:10)
[2018-04-07] MEDS: oxyBUTYnin *DITROPAN XL* 5 MG TABCR PO (08:10)
[2018-04-07] MEDS: ULTRACET TAB PO ×2 (08:11→11:28)
[2018-04-07] MEDS: MOM 30ML SUSPENSION UDC PO (09:46)
[2018-04-07] MEDS: MIRALAX *UNIT DOSE* 17GM PACKET PO (09:47)
[2018-04-07] MEDS: POTASSIUM CHLORIDE 10 MEQ SR TABLET PO (11:27)
[2018-04-07] MEDS: SENNA 8.6 MG TAB (SENOKOT) PO (11:27)
[2018-04-07] MEDS: MAGNESIUM OXIDE 400 MG TAB (MAG-OX) PO (11:27)
[2018-04-07] MEDS: lamoTRIgine 100MG TAB PO (11:27)
[2018-04-07] MEDS: FIBER-CON 625 MG TAB PO (11:28)
[2018-04-07] MEDS: FUROSEMIDE 20 MG TAB PO (11:28)
[2018-04-07 12:02] LABS: BEDSIDE GLUCOSE 331 MG/DL (83-110)
== END 2018-04-07 15:45 | disposition home health service (06) | DRG 202 ==
LOC: M ED 15:50 → M ED INP 21:39 → M MS5PR 23:00 → M ED INP 23:04 → M MS5PR 23:36
DX: J40 Bronchitis, not specified as acute or chronic (principal); J44.1 Chronic obstructive pulmonary disease with (acute) exacerbation; N39.0 Urinary tract infection, site not specified; F99 Mental disorder, not otherwise specified; G24.01 Drug induced subacute dyskinesia; E11.9 Type 2 diabetes mellitus without complications; K21.9 Gastro-esophageal reflux disease without esophagitis; E66.01 Morbid (severe) obesity due to excess calories; E89.0 Postprocedural hypothyroidism; B97.89 Other viral agents as the cause of diseases classified elsewhere; B96.20 Unspecified Escherichia coli [E. coli] as the cause of diseases classified elsewhere; J06.9 Acute upper respiratory infection, unspecified; H54.8 Legal blindness, as defined in USA; Z87.891 Personal history of nicotine dependence; Z79.4 Long term (current) use of insulin; Z79.891 Long term (current) use of opiate analgesic; Z79.899 Other long term (current) drug therapy; Z88.2 Allergy status to sulfonamides; Z88.6 Allergy status to analgesic agent; Z88.5 Allergy status to narcotic agent; Z68.38 Body mass index [BMI] 38.0-38.9, adult

== ENCOUNTER 2018-04-13 17:51 | Inpatient (IN) | payer MEDICARE, MEDICAID ==
[2018-04-13 18:32] LABS: BASO # 0.1 10^3/uL (0.0-0.2); BASO % 0.4 % (0.0-1.0); HEMOGLOBIN 11.9 g/dl (12.0-15.5); IMMATURE GRANULOCYTE % 2.6 % (0-3.0); LYMPH # 1.7 10^3/uL (1.5-4.5); MEAN CORPUSCULAR HEMOGLOBIN 31.9 pg (27.0-33.0); MEAN CORPUSCULAR HGB CONC 32.2 g/dl (32.0-36.5); MEAN CORPUSCULAR VOLUME 99.2 fl (80.0-96.0); MONO # 0.3 10^3/uL (0.0-0.8); NEUTROPHILS # 14.8 10^3/uL (1.8-7.7); PLATELET COUNT, AUTOMATED 264 10^3/uL (150-450); RED BLOOD COUNT 3.73 10^6/uL (4.00-5.40); RED CELL DISTRIBUTION WIDTH 13.4 % (11.5-14.5); VENOUS BASE EXCESS -0.6 (-2.0-2.0); VENOUS O2 SATURATION 96.9 % (60.0-80.0); VENOUS PARTIAL PRESSURE CO2 44.9 mmHg (38.0-50.0); VENOUS PARTIAL PRESSURE O2 98.5 mmHg (30.0-50.0); VENOUS PH 7.363 UNITS (7.330-7.430); VENOUS STANDARD HCO3 23.9 MEQ/L; VENOUS TOTAL CO2 26.3 MEQ/L (24.0-28.0); WHITE BLOOD COUNT 17.4 10^3/uL (4.0-10.0)
[2018-04-13 19:02] LABS: INFLUENZA A AMPLIFICATION NEGATIVE (NEGATIVE); INFLUENZA B AMPLIFICATION NEGATIVE (NEGATIVE); PROTHROMBIN TIME 12.2 SECONDS (12.1-14.4)
[2018-04-13 19:10] LABS: ALBUMIN 3.5 GM/DL (3.2-5.2); ALBUMIN/GLOBULIN RATIO 0.92 (1.00-1.93); ALKALINE PHOSPHATASE 108 U/L (45-117); ALT/SGPT 35 U/L (12-78); ANION GAP 10 MEQ/L (8-16); AST/SGOT 26 U/L (7-37); BILIRUBIN,DIRECT < 0.1 MG/DL (0.0-0.2); BILIRUBIN,TOTAL 0.2 MG/DL (0.2-1.0); BLOOD UREA NITROGEN 33 MG/DL (7-18); CALCIUM LEVEL 8.8 MG/DL (8.8-10.2); CARBON DIOXIDE LEVEL 28 MEQ/L (21-32); CHLORIDE LEVEL 95 MEQ/L (98-107); CPK CREATINE PHOSPHOKINASE 137 U/L (26-192); CREATININE FOR GFR 1.21 MG/DL (0.55-1.30); GLOMERULAR FILTRATION RATE 46.7 (>39); GLUCOSE, FASTING 222 MG/DL (70-100); MB/CK RELATIVE INDEX 0.88 (< OR =4); NT-PRO BNP 54 PG/ML (<125); POTASSIUM SERUM 4.8 MEQ/L (3.5-5.1); SODIUM LEVEL 133 MEQ/L (136-145); THYROID STIMULATING HORMONE 0.509 uIU/ML (0.358-3.740); TOTAL PROTEIN 7.3 GM/DL (6.4-8.2); TROPONIN I < 0.02 NG/ML (< 0.10)
[2018-04-13 19:14] LABS: LACTIC ACID SEPSIS PROTOCOL 3.5 MMOL/L (0.4-2.0)
[2018-04-13] MEDS: IPRATROPIUM 0.5MG/ALBUTEROL 2.5MG INH SOL UD 3ML (DUONEB)(J7620) NEB ×3 (19:50→21:49)
[2018-04-13] MEDS: dexameTHASONE 20 MG/5 ML VIAL (J1100) IV (19:50)
[2018-04-13] MEDS: NS 500 ML IV (19:50)
[2018-04-13 20:44] LABS: ABG HCO3 28.8 MEQ/L (22.0-26.0); ABG O2 SATURATION 97.8 % (95.0-99.0); ABG PARTIAL PRESSURE CO2 49.6 mmHg (35.0-45.0); ABG PARTIAL PRESSURE O2 119.5 mmHg (75.0-100.0); ABG STANDARD HCO3 27.1 MEQ/L (22.0-26.0); ABG TOTAL CO2 30.3 MEQ/L (23.0-31.0); ABG pH (ARTERIAL) 7.382 UNITS (7.350-7.450)
[2018-04-13 20:51] LABS: APPEARANCE, URINE CLEAR (CLEAR); BACTERIA, URINE AUTO NEGATIVE (NEGATIVE); BILIRUBIN, URINE AUTO NEGATIVE (NEGATIVE); BLOOD, URINE BLOOD NEGATIVE (NEGATIVE); COLOR, URINE YELLOW (YELLOW); GLUCOSE, URINE (UA) AUTO NEGATIVE (NEGATIVE); KETONE, URINE AUTO NEGATIVE (NEGATIVE); LEUKOCYTE ESTERASE, URINE AUTO NEGATIVE (NEGATIVE); NITRITE, URINE AUTO NEGATIVE (NEGATIVE); PROTEIN, URINE AUTO NEGATIVE (NEGATIVE); RBC, URINE AUTO 1 /HPF (0-3); SPECIFIC GRAVITY URINE AUTO 1.018 (1.002-1.035); SQUAMOUS EPITHELIAL CELL UR AU 1 /HPF (0-6); UROBILINOGEN, URINE AUTO 0.2 mg/dL (0.0-2.0); WBC, URINE AUTO 1 /HPF (0-3)
[2018-04-13] MEDS: NS 1,000 ML IV (21:15)
[2018-04-14] MEDS ORDERED: GLUCAGON FOR INJ 1 MG VIAL (J1610) SC (01:45)
[2018-04-14] MEDS ORDERED: MOM 30ML SUSPENSION UDC PO (01:45)
[2018-04-14] MEDS ORDERED: MIRALAX *UNIT DOSE* 17GM PACKET PO (01:45)
[2018-04-14] MEDS ORDERED: GLUCOSE 4 GM CHEW TABLET PO (01:45)
[2018-04-14] MEDS ORDERED: DEXTROSE 50% 50 ML SYRINGE IV (01:45)
[2018-04-14] MEDS: DULoxetine 30 MG CAP (CYMBALTA) PO ×3 (01:50→20:25)
[2018-04-14] MEDS: QUEtiapine FUMARATE **XR** 200MG TABLET PO ×2 (01:51→20:28)
[2018-04-14] MEDS: QUEtiapine FUMARATE 50 MG TAB PO ×2 (01:52→20:25)
[2018-04-14] MEDS: ZIPRASIDONE 80 MG CAP (GEODON) PO ×3 (01:57→20:25)
[2018-04-14] MEDS: SENNA 8.6 MG TAB (SENOKOT) PO ×3 (01:57→20:25)
[2018-04-14] MEDS: IPRATROPIUM 0.06% NASAL SPRAY 15 ML (ATROVENT) ×3 (01:57→21:00)
[2018-04-14] MEDS: zolPIDEM TARTRATE 10MG TAB PO ×2 (01:58→20:25)
[2018-04-14 02:16] LABS: BEDSIDE GLUCOSE 255 MG/DL (83-110)
[2018-04-14] MEDS: NS 1,000 ML IV ×3 (02:34→20:22)
[2018-04-14] MEDS: methylPREDNISolone INJ 125 MG/2 ML VIAL (J2930) IV ×4 (02:35→20:22)
[2018-04-14] MEDS: ATORVASTATIN 20 MG TAB PO ×2 (02:36→20:25)
[2018-04-14] MEDS: ACETAMINOPHEN TAB 650MG DOSE (2X325MG) PO (02:37)
[2018-04-14] MEDS: clonazePAM 0.5 MG TAB PO ×2 (02:37→20:25)
[2018-04-14] MEDS: LEVEMIR (INSULIN DETEMIR) 1 UNITS/0.01ML SC ×3 (02:37→20:25)
[2018-04-14] MEDS: DOCUSATE SODIUM 100 MG CAP PO ×3 (02:38→20:25)
[2018-04-14] MEDS: IPRATROPIUM 0.5MG/ALBUTEROL 2.5MG INH SOL UD 3ML (DUONEB)(J7620) NEB ×4 (03:53→19:54)
[2018-04-14] MEDS: LevoFLOXacin IV 500 MG in APPROPRIATE DILUENT 1 EA IV (03:59)
[2018-04-14 05:39] LABS: HEMATOCRIT 34.5 % (36.0-47.0); HEMOGLOBIN 11.2 g/dl (12.0-15.5); MEAN CORPUSCULAR HEMOGLOBIN 31.5 pg (27.0-33.0); MEAN CORPUSCULAR HGB CONC 32.5 g/dl (32.0-36.5); MEAN CORPUSCULAR VOLUME 97.2 fl (80.0-96.0); PLATELET COUNT, AUTOMATED 251 10^3/uL (150-450); RED BLOOD COUNT 3.55 10^6/uL (4.00-5.40); RED CELL DISTRIBUTION WIDTH 13.1 % (11.5-14.5); WHITE BLOOD COUNT 18.2 10^3/uL (4.0-10.0)
[2018-04-14] MEDS: HEPARIN SOD (PORCINE) 5000 UNITS/ML VIAL SC ×3 (05:46→20:23)
[2018-04-14 06:04] LABS: ANION GAP 10 MEQ/L (8-16); BLOOD UREA NITROGEN 23 MG/DL (7-18); CALCIUM LEVEL 7.9 MG/DL (8.8-10.2); CARBON DIOXIDE LEVEL 26 MEQ/L (21-32); CHLORIDE LEVEL 99 MEQ/L (98-107); CREATININE FOR GFR 1.17 MG/DL (0.55-1.30); GLOMERULAR FILTRATION RATE 48.5 (>39); GLUCOSE, FASTING 250 MG/DL (70-100); MAGNESIUM LEVEL 1.9 MG/DL (1.8-2.4); POTASSIUM SERUM 4.5 MEQ/L (3.5-5.1); SODIUM LEVEL 135 MEQ/L (136-145)
[2018-04-14 06:24] LABS: LACTIC ACID SEPSIS PROTOCOL 4.7 MMOL/L (0.4-2.0)
[2018-04-14] MEDS: NS 500 ML IV (07:12)
[2018-04-14] MEDS: HumaLOG INSULIN (NovoLOG) PER UNIT SC ×4 (08:14→20:30)
[2018-04-14] MEDS: FIBER-CON 625 MG TAB PO ×2 (08:15→20:25)
[2018-04-14] MEDS: CETIRIZINE (ZyrTEC) 10 MG TAB PO (08:15)
[2018-04-14] MEDS: LEVOTHYROXINE 150MCG TABLET (0.15MG) PO (08:15)
[2018-04-14] MEDS: OMEPRAZOLE 20 MG CAP PO (08:15)
[2018-04-14] MEDS: DONEPEZIL 5 MG TAB PO (08:15)
[2018-04-14 11:16] LABS: BEDSIDE GLUCOSE 265 MG/DL (83-110)
[2018-04-14] MEDS: SOLIFENACIN 5 MG TAB PO (13:05)
[2018-04-14] MEDS: OLMESARTAN MEDOXOMIL 20 MG TAB (BENICAR) PO (13:05)
[2018-04-14 16:44] LABS: BEDSIDE GLUCOSE 235 MG/DL (83-110)
[2018-04-14 20:10] LABS: BEDSIDE GLUCOSE 182 MG/DL (83-110)
[2018-04-14 21:35] LABS: LACTIC ACID SEPSIS PROTOCOL 3.2 MMOL/L (0.4-2.0)
[2018-04-15] MEDS: IPRATROPIUM 0.5MG/ALBUTEROL 2.5MG INH SOL UD 3ML (DUONEB)(J7620) NEB ×4 (02:00→21:24)
[2018-04-15] MEDS: methylPREDNISolone INJ 125 MG/2 ML VIAL (J2930) IV ×4 (03:18→20:46)
[2018-04-15] MEDS: NS 1,000 ML IV (04:17)
[2018-04-15] MEDS: HEPARIN SOD (PORCINE) 5000 UNITS/ML VIAL SC ×3 (05:23→20:46)
[2018-04-15 06:38] LABS: HEMATOCRIT 31.4 % (36.0-47.0); HEMOGLOBIN 10.3 g/dl (12.0-15.5); MEAN CORPUSCULAR HEMOGLOBIN 31.6 pg (27.0-33.0); MEAN CORPUSCULAR HGB CONC 32.8 g/dl (32.0-36.5); MEAN CORPUSCULAR VOLUME 96.3 fl (80.0-96.0); PLATELET COUNT, AUTOMATED 216 10^3/uL (150-450); RED BLOOD COUNT 3.26 10^6/uL (4.00-5.40); RED CELL DISTRIBUTION WIDTH 13.3 % (11.5-14.5); WHITE BLOOD COUNT 13.4 10^3/uL (4.0-10.0)
[2018-04-15 07:00] LABS: ANION GAP 7 MEQ/L (8-16); BLOOD UREA NITROGEN 19 MG/DL (7-18); CALCIUM LEVEL 8.9 MG/DL (8.8-10.2); CARBON DIOXIDE LEVEL 29 MEQ/L (21-32); CHLORIDE LEVEL 104 MEQ/L (98-107); CREATININE FOR GFR 0.91 MG/DL (0.55-1.30); GLOMERULAR FILTRATION RATE > 60.0 (>39); GLUCOSE, FASTING 167 MG/DL (70-100); POTASSIUM SERUM 4.2 MEQ/L (3.5-5.1); SODIUM LEVEL 140 MEQ/L (136-145)
[2018-04-15] MEDS: SENNA 8.6 MG TAB (SENOKOT) PO ×2 (08:39→20:45)
[2018-04-15] MEDS: LEVOTHYROXINE 150MCG TABLET (0.15MG) PO (08:39)
[2018-04-15] MEDS: DULoxetine 30 MG CAP (CYMBALTA) PO ×2 (08:39→20:50)
[2018-04-15] MEDS: ZIPRASIDONE 80 MG CAP (GEODON) PO ×2 (08:39→20:45)
[2018-04-15] MEDS: SOLIFENACIN 5 MG TAB PO (08:40)
[2018-04-15] MEDS: BENZONATATE 100 MG CAP PO (08:40)
[2018-04-15] MEDS: CETIRIZINE (ZyrTEC) 10 MG TAB PO (08:40)
[2018-04-15] MEDS: FIBER-CON 625 MG TAB PO ×2 (08:40→20:45)
[2018-04-15] MEDS: OMEPRAZOLE 20 MG CAP PO (08:40)
[2018-04-15] MEDS: DOCUSATE SODIUM 100 MG CAP PO ×2 (08:40→20:46)
[2018-04-15] MEDS: DONEPEZIL 5 MG TAB PO (08:40)
[2018-04-15] MEDS: LEVEMIR (INSULIN DETEMIR) 1 UNITS/0.01ML SC ×2 (08:41→20:47)
[2018-04-15] MEDS: HumaLOG INSULIN (NovoLOG) PER UNIT SC ×4 (08:41→20:44)
[2018-04-15 11:34] LABS: BEDSIDE GLUCOSE 200 MG/DL (83-110)
[2018-04-15] MEDS: OLMESARTAN MEDOXOMIL 20 MG TAB (BENICAR) PO (12:04)
[2018-04-15] MEDS: guaiFENesin DM LIQ 10ML UD PO (17:41)
[2018-04-15 20:38] LABS: BEDSIDE GLUCOSE 281 MG/DL (83-110)
[2018-04-15] MEDS: QUEtiapine FUMARATE **XR** 200MG TABLET PO (20:45)
[2018-04-15] MEDS: QUEtiapine FUMARATE 50 MG TAB PO (20:45)
[2018-04-15] MEDS: zolPIDEM TARTRATE 10MG TAB PO (20:45)
[2018-04-15] MEDS: clonazePAM 0.5 MG TAB PO (20:45)
[2018-04-15] MEDS: ATORVASTATIN 20 MG TAB PO (20:46)
[2018-04-15] MEDS: IPRATROPIUM 0.06% NASAL SPRAY 15 ML (ATROVENT) ×2 (21:00→22:59)
[2018-04-16] MEDS: IPRATROPIUM 0.5MG/ALBUTEROL 2.5MG INH SOL UD 3ML (DUONEB)(J7620) NEB ×4 (02:00→20:34)
[2018-04-16] MEDS: methylPREDNISolone INJ 125 MG/2 ML VIAL (J2930) IV (02:00)
[2018-04-16] MEDS: guaiFENesin DM LIQ 10ML UD PO (02:00)
[2018-04-16] MEDS: LevoFLOXacin IV 500 MG in APPROPRIATE DILUENT 1 EA IV (02:29)
[2018-04-16] MEDS: HEPARIN SOD (PORCINE) 5000 UNITS/ML VIAL SC ×3 (05:28→20:53)
[2018-04-16 06:37] LABS: HEMATOCRIT 35.8 % (36.0-47.0); HEMOGLOBIN 11.8 g/dl (12.0-15.5); MEAN CORPUSCULAR HEMOGLOBIN 31.9 pg (27.0-33.0); MEAN CORPUSCULAR VOLUME 96.8 fl (80.0-96.0); PLATELET COUNT, AUTOMATED 229 10^3/uL (150-450); RED CELL DISTRIBUTION WIDTH 12.9 % (11.5-14.5); WHITE BLOOD COUNT 10.7 10^3/uL (4.0-10.0)
[2018-04-16 06:59] LABS: ANION GAP 7 MEQ/L (8-16); BLOOD UREA NITROGEN 19 MG/DL (7-18); CALCIUM LEVEL 9.3 MG/DL (8.8-10.2); CARBON DIOXIDE LEVEL 30 MEQ/L (21-32); CHLORIDE LEVEL 98 MEQ/L (98-107); CREATININE FOR GFR 1.14 MG/DL (0.55-1.30); GLUCOSE, FASTING 225 MG/DL (70-100); SODIUM LEVEL 135 MEQ/L (136-145)
[2018-04-16] MEDS: LEVEMIR (INSULIN DETEMIR) 1 UNITS/0.01ML SC ×2 (08:06→20:49)
[2018-04-16] MEDS: HumaLOG INSULIN (NovoLOG) PER UNIT SC ×4 (08:06→20:50)
[2018-04-16] MEDS: SENNA 8.6 MG TAB (SENOKOT) PO ×2 (08:07→20:51)
[2018-04-16] MEDS: SOLIFENACIN 5 MG TAB PO (08:07)
[2018-04-16] MEDS: DONEPEZIL 5 MG TAB PO (08:07)
[2018-04-16] MEDS: FIBER-CON 625 MG TAB PO ×2 (08:07→20:51)
[2018-04-16] MEDS: OMEPRAZOLE 20 MG CAP PO (08:07)
[2018-04-16] MEDS: DOCUSATE SODIUM 100 MG CAP PO ×2 (08:07→20:51)
[2018-04-16] MEDS: ZIPRASIDONE 80 MG CAP (GEODON) PO ×2 (08:07→20:51)
[2018-04-16] MEDS: DULoxetine 30 MG CAP (CYMBALTA) PO ×2 (08:07→20:51)
[2018-04-16] MEDS: CETIRIZINE (ZyrTEC) 10 MG TAB PO (08:07)
[2018-04-16] MEDS: LEVOTHYROXINE 150MCG TABLET (0.15MG) PO (08:08)
[2018-04-16] MEDS: IPRATROPIUM 0.06% NASAL SPRAY 15 ML (ATROVENT) (09:00)
[2018-04-16 11:25] LABS: BEDSIDE GLUCOSE 259 MG/DL (83-110)
[2018-04-16] MEDS: OLMESARTAN MEDOXOMIL 20 MG TAB (BENICAR) PO (11:33)
[2018-04-16] MEDS: methylPREDNISolone INJ 40 MG/1 ML VIAL (J2920) IV (14:03)
[2018-04-16] MEDS: cloNIDine 0.2 MG TAB PO (20:12)
[2018-04-16] MEDS: QUEtiapine FUMARATE **XR** 200MG TABLET PO (20:50)
[2018-04-16] MEDS: clonazePAM 0.5 MG TAB PO (20:51)
[2018-04-16] MEDS: ATORVASTATIN 20 MG TAB PO (20:51)
[2018-04-16] MEDS: zolPIDEM TARTRATE 10MG TAB PO (20:52)
[2018-04-16] MEDS: QUEtiapine FUMARATE 50 MG TAB PO (20:52)
[2018-04-16] MEDS: ACETAMINOPHEN TAB 650MG DOSE (2X325MG) PO (20:53)
[2018-04-17] MEDS: IPRATROPIUM 0.5MG/ALBUTEROL 2.5MG INH SOL UD 3ML (DUONEB)(J7620) NEB ×5 (02:00→21:25)
[2018-04-17] MEDS: methylPREDNISolone INJ 40 MG/1 ML VIAL (J2920) IV ×2 (02:06→13:43)
[2018-04-17] MEDS: HEPARIN SOD (PORCINE) 5000 UNITS/ML VIAL SC ×3 (05:16→20:17)
[2018-04-17 06:41] LABS: HEMATOCRIT 32.4 % (36.0-47.0); HEMOGLOBIN 10.9 g/dl (12.0-15.5); MEAN CORPUSCULAR HEMOGLOBIN 32.3 pg (27.0-33.0); MEAN CORPUSCULAR HGB CONC 33.6 g/dl (32.0-36.5); MEAN CORPUSCULAR VOLUME 96.1 fl (80.0-96.0); PLATELET COUNT, AUTOMATED 212 10^3/uL (150-450); RED BLOOD COUNT 3.37 10^6/uL (4.00-5.40); RED CELL DISTRIBUTION WIDTH 13.2 % (11.5-14.5); WHITE BLOOD COUNT 8.6 10^3/uL (4.0-10.0)
[2018-04-17 07:07] LABS: ANION GAP 9 MEQ/L (8-16); BLOOD UREA NITROGEN 29 MG/DL (7-18); CALCIUM LEVEL 9.2 MG/DL (8.8-10.2); CARBON DIOXIDE LEVEL 29 MEQ/L (21-32); CHLORIDE LEVEL 97 MEQ/L (98-107); CREATININE FOR GFR 1.23 MG/DL (0.55-1.30); GLOMERULAR FILTRATION RATE 45.8 (>39); GLUCOSE, FASTING 254 MG/DL (70-100); POTASSIUM SERUM 4.3 MEQ/L (3.5-5.1); SODIUM LEVEL 135 MEQ/L (136-145)
[2018-04-17] MEDS: LEVEMIR (INSULIN DETEMIR) 1 UNITS/0.01ML SC ×2 (09:00→20:07)
[2018-04-17] MEDS: SENNA 8.6 MG TAB (SENOKOT) PO ×2 (09:01→20:05)
[2018-04-17] MEDS: CETIRIZINE (ZyrTEC) 10 MG TAB PO (09:01)
[2018-04-17] MEDS: OMEPRAZOLE 20 MG CAP PO (09:01)
[2018-04-17] MEDS: HumaLOG INSULIN (NovoLOG) PER UNIT SC ×4 (09:01→20:06)
[2018-04-17] MEDS: DOCUSATE SODIUM 100 MG CAP PO ×2 (09:02→20:04)
[2018-04-17] MEDS: LEVOTHYROXINE 150MCG TABLET (0.15MG) PO (09:02)
[2018-04-17] MEDS: SOLIFENACIN 5 MG TAB PO (09:02)
[2018-04-17] MEDS: ZIPRASIDONE 80 MG CAP (GEODON) PO ×2 (09:02→20:05)
[2018-04-17] MEDS: DULoxetine 30 MG CAP (CYMBALTA) PO ×2 (09:02→20:05)
[2018-04-17] MEDS: DONEPEZIL 5 MG TAB PO (09:02)
[2018-04-17] MEDS: FIBER-CON 625 MG TAB PO ×2 (09:02→20:05)
[2018-04-17] MEDS: IPRATROPIUM 0.06% NASAL SPRAY 15 ML (ATROVENT) ×2 (09:05→21:00)
[2018-04-17] MEDS: OLMESARTAN MEDOXOMIL 20 MG TAB (BENICAR) PO (13:42)
[2018-04-17 14:25] LABS: BEDSIDE GLUCOSE 277 MG/DL (83-110)
[2018-04-17 14:26] LABS: BEDSIDE GLUCOSE 340 MG/DL (83-110)
[2018-04-17 14:26] LABS: BEDSIDE GLUCOSE 330 MG/DL (83-110)
[2018-04-17 14:26] LABS: BEDSIDE GLUCOSE 282 MG/DL (83-110)
[2018-04-17] MEDS: guaiFENesin DM LIQ 10ML UD PO (15:00)
[2018-04-17 16:25] LABS: BEDSIDE GLUCOSE 278 MG/DL (83-110)
[2018-04-17] MEDS: clonazePAM 0.5 MG TAB PO (20:05)
[2018-04-17] MEDS: zolPIDEM TARTRATE 10MG TAB PO (20:05)
[2018-04-17] MEDS: predniSONE 20 MG TAB PO (20:05)
[2018-04-17] MEDS: QUEtiapine FUMERATE XR 50 MG TABER PO (20:05)
[2018-04-17] MEDS: ATORVASTATIN 20 MG TAB PO (20:05)
[2018-04-17] MEDS: QUEtiapine FUMARATE **XR** 200MG TABLET PO (20:05)
[2018-04-17] MEDS: ACETAMINOPHEN TAB 650MG DOSE (2X325MG) PO (20:17)
[2018-04-18] MEDS: IPRATROPIUM 0.5MG/ALBUTEROL 2.5MG INH SOL UD 3ML (DUONEB)(J7620) NEB ×3 (01:06→13:06)
[2018-04-18] MEDS: LevoFLOXacin 500 MG TABLET PO (05:45)
[2018-04-18] MEDS: HEPARIN SOD (PORCINE) 5000 UNITS/ML VIAL SC (05:45)
[2018-04-18 06:42] LABS: HEMATOCRIT 30.8 % (36.0-47.0); HEMOGLOBIN 10.4 g/dl (12.0-15.5); MEAN CORPUSCULAR HEMOGLOBIN 31.9 pg (27.0-33.0); MEAN CORPUSCULAR HGB CONC 33.8 g/dl (32.0-36.5); MEAN CORPUSCULAR VOLUME 94.5 fl (80.0-96.0); PLATELET COUNT, AUTOMATED 209 10^3/uL (150-450); RED BLOOD COUNT 3.26 10^6/uL (4.00-5.40); RED CELL DISTRIBUTION WIDTH 13.2 % (11.5-14.5); WHITE BLOOD COUNT 9.4 10^3/uL (4.0-10.0)
[2018-04-18 07:06] LABS: ANION GAP 10 MEQ/L (8-16); BLOOD UREA NITROGEN 29 MG/DL (7-18); CALCIUM LEVEL 8.9 MG/DL (8.8-10.2); CARBON DIOXIDE LEVEL 26 MEQ/L (21-32); CHLORIDE LEVEL 97 MEQ/L (98-107); CREATININE FOR GFR 1.09 MG/DL (0.55-1.30); GLOMERULAR FILTRATION RATE 52.7 (>39); GLUCOSE, FASTING 303 MG/DL (70-100); POTASSIUM SERUM 4.5 MEQ/L (3.5-5.1); SODIUM LEVEL 133 MEQ/L (136-145)
[2018-04-18] MEDS: SOLIFENACIN 5 MG TAB PO (08:17)
[2018-04-18] MEDS: SENNA 8.6 MG TAB (SENOKOT) PO (08:17)
[2018-04-18] MEDS: LEVEMIR (INSULIN DETEMIR) 1 UNITS/0.01ML SC (08:17)
[2018-04-18] MEDS: HumaLOG INSULIN (NovoLOG) PER UNIT SC ×2 (08:17→12:03)
[2018-04-18] MEDS: FIBER-CON 625 MG TAB PO (08:17)
[2018-04-18] MEDS: CETIRIZINE (ZyrTEC) 10 MG TAB PO (08:18)
[2018-04-18] MEDS: predniSONE 20 MG TAB PO (08:18)
[2018-04-18] MEDS: OMEPRAZOLE 20 MG CAP PO (08:18)
[2018-04-18] MEDS: LEVOTHYROXINE 150MCG TABLET (0.15MG) PO (08:18)
[2018-04-18] MEDS: ZIPRASIDONE 80 MG CAP (GEODON) PO (08:18)
[2018-04-18] MEDS: FUROSEMIDE 20 MG TAB PO (08:19)
[2018-04-18] MEDS: DOCUSATE SODIUM 100 MG CAP PO (08:19)
[2018-04-18] MEDS: DULoxetine 30 MG CAP (CYMBALTA) PO (08:20)
[2018-04-18] MEDS: DONEPEZIL 5 MG TAB PO (08:20)
[2018-04-18] MEDS: IPRATROPIUM 0.06% NASAL SPRAY 15 ML (ATROVENT) (09:59)
[2018-04-18] MEDS: OLMESARTAN MEDOXOMIL 20 MG TAB (BENICAR) PO (12:04)
[2018-04-19 12:41] LABS: BEDSIDE GLUCOSE 327 MG/DL (83-110)
[2018-04-19 12:41] LABS: BEDSIDE GLUCOSE 371 MG/DL (83-110)
== END 2018-04-18 14:30 | disposition home health service (06) | DRG 191 ==
LOC: M ED INP 04-14 02:15 → M MSPAV 04-16 13:11 → M ED 17:51
DX: J44.0 Chronic obstructive pulmonary disease with (acute) lower respiratory infection (principal); E87.2 Acidosis; F20.5 Residual schizophrenia; J44.1 Chronic obstructive pulmonary disease with (acute) exacerbation; G24.01 Drug induced subacute dyskinesia; Z79.899 Other long term (current) drug therapy; Z79.4 Long term (current) use of insulin; Z88.2 Allergy status to sulfonamides; Z88.6 Allergy status to analgesic agent; Z88.5 Allergy status to narcotic agent; Z88.8 Allergy status to other drugs, medicaments and biological substances; E11.9 Type 2 diabetes mellitus without complications; K21.9 Gastro-esophageal reflux disease without esophagitis; E66.01 Morbid (severe) obesity due to excess calories; I10 Essential (primary) hypertension; H54.8 Legal blindness, as defined in USA; K59.00 Constipation, unspecified; Z87.891 Personal history of nicotine dependence; D72.829 Elevated white blood cell count, unspecified; G30.9 Alzheimer's disease, unspecified; F02.80 Dementia in other diseases classified elsewhere, unspecified severity, without behavioral disturbance, psychotic disturbance, mood disturbance, and anxiety; N32.81 Overactive bladder; E03.9 Hypothyroidism, unspecified

== ENCOUNTER → 2018-04-28 | Outpatient (CLI) | payer MEDICARE, MEDICAID ==
[2018-04-28 22:15] LABS: CREATININE FOR GFR 1.15 MG/DL (0.55-1.30); GLOMERULAR FILTRATION RATE 49.5 (>39)
[2018-04-28 22:15] LABS: BLOOD UREA NITROGEN 23 MG/DL (7-18)
== END ==
LOC: M LAB 15:10
DX: E05.00 Thyrotoxicosis with diffuse goiter without thyrotoxic crisis or storm (principal)
CPT/HCPCS: 82565

== ENCOUNTER → 2018-05-04 | Outpatient (CLI) | payer MEDICARE, MEDICAID ==
[~2018-05-04] MED LIST changes: -*MAMMOGRAM; -/FENO48TA PO; -/FERG32TA PO; -/GLIP10TAB PO; -/LAMO20TA PO; -/QUET10TA; -/ZOLP6ER; -/ZOLP6ER OR; -ACET500C PO; -ACET50TA PO; -ALBU83IN INH; -AMBI10TA; -AMBI10TA OR; -AMBI10TA PO; -AMBI12.52 PO; -AMBI5TAB PO; -AMIT24CA PO; -AMIT24CA7 PO; -ARIC10TA OR; -ARIC1TAB2 PO; -ASPE4PAD EX; -ATOR40TA75 PO; -Amlodipine Besylate PO; -BENI20TA11; -BENI20TA11 PO; -BENI40TA26 PO; -BENZ0.5T PO; -CALCCHW12; -CALCCHW12 OR; -CALCTAB54 PO; -CALCTAB63 PO; -CETI10TA PO; -CLAR5CHW; -CLON0.5T; -CLON0.5T PO; -CLON1TAB PO; -COLA100C2; -COLA100C2 PO; -COLA100C5 PO; -COLACE PO; -COMBIVENT PO; -COMBVENT INH; -CRANPOW2 PO; -DEXI60CA PO; -DEXI60CA2 PO; -DOCU100T8 PO; -DONETAB6 PO; -DULO1CAP2 PO; -DULO20CA PO; -DULO30CA PO; -ELIQ5TAB PO; -FERR325T; -FERR325T OR; -FIBE625T27 PO; -FIBE625T4 PO; -FIBE62TA; -FIBE62TA PO; -FIBERLAX; -FIBERLAX PO; -FLUTISP; -FURO20TA2 PO; -GEOD40CA2 PO; -GLIP1TAB11 PO; -GLIP1TAB51 PO; -GLIP2.5T20 PO; -GLIP5TAB77; -GLUC10TA18 PO; -GLUCOSAMINE; -GLUCOSAMINE PO; -GLUCTAB6 PO; -HYDR1OI TOP; -HYDROCODONE PO; -INSUDET SC; -INSULANT SC; -IPRA6SP; -IPRASOL4 IN; -IRON28TA OR; +ISOVUE-370 76% 100ML VIAL (Q9967) As Ordered; -JANU50TA22 PO; -JANU50TA4 PO; -K-TA10TA PO; -KLON0.5T; -KLON0.5T PO; -KLON1TAB; -KLONOPIN PO; -KLOR10TA; -KLOR10TA PO; -LAMI1TAB9 PO; -LANTINJ4 SC; -LASI20TA PO; -LASI40TA; -LEVA500T; -LEVO125T6 PO; -LEVO150T42 PO; -LEVO150T7; -LIPI20TA OR; -LIPI20TA PO; -MAGN250T PO; -MAGN400C2 PO; -MAGN400T5 PO; -MAGO400T PO; -MILKSUS; -MILKSUS PO; -MILKSUS5 PO; -MIRA3350 PO; -MIRA33504 PO; -MULTIVIT PO; -MYLASUS6 PO; -NEXI40GR PO; -OLME40TA; -OLME40TA PO; -OSCAL PO; -OXYB10TA PO; -POTA10CA PO; -POTASSIUM PO; -PRAVACHOL1 PO; -PRED20TA PO; -PREVACID15 PO; -PREVACID30 PO; -PRIL20CA PO; -PROAAER10 IN; -PROVENTILI PO; -QUET20XRTB PO; -QUET30XR PO; -SENN-22; -SENN15TA2 PO; -SENN1TAB10 PO; -SENN8.6C PO; -SENN8.6T28 PO; -SENN8.6T76 PO; -SENNA PO; -SERO400T3; -SERO400T3 PO; -SIME80TA PO; -SLOWTAB2 PO; -SLOWTAB3 PO; -SYNT137T7 PO; -SYNTHRO125 PO; -SYNTHROI15 PO; -THERGRAN PO; -TRAM50TA2; -TRAM50TA2 PO; -TRAZ100T; -TRAZ100T PO; -TYLE650T35 PO; -TYLENOL500 PO; -ULTR37.54 PO; -VESI10TA2 PO; -VESI5TAB PO; -VICO5TAB; -VITORIN; -VITORIN PO; -VOLT1GEL EX; -VOLT1GEL TOP; -VOLT75TA; -VYTO10TA5; -ZANTAC150 PO; -ZIPR80CA12 PO; -ZIPR80CAP; -ZIPR80CAP PO; -ZOLP10TA2 PO; -ZOLP5TAB PO; -ZYRT10CA PO; -[UNRECOGNIZED DRUG - CODE]; -[UNRECOGNIZED DRUG - CODE] PO; -[UNRECOGNIZED DRUG - CODE] PO; -[UNRECOGNIZED DRUG - OTHER]; -[UNRECOGNIZED DRUG - OTHER] PO
== END ==
LOC: M RAD 07:53
DX: E05.00 Thyrotoxicosis with diffuse goiter without thyrotoxic crisis or storm (principal)
CPT/HCPCS: Q9967

== ENCOUNTER 2018-05-09 22:00 | Emergency (ER) | payer MEDICARE, MEDICAID ==
[2018-05-09] MEDS: LIDOCAINE 5% (LIDODERM) PATCH TD (22:48)
[2018-05-10] MEDS ORDERED: **NOTE PATIENT COMMENT** MISC XX (21:00)
== END 2018-05-09 23:29 | disposition home or self-care (01) ==
LOC: M ED 22:00
DX: M25.561 Pain in right knee (principal); E11.9 Type 2 diabetes mellitus without complications; I10 Essential (primary) hypertension; I25.10 Atherosclerotic heart disease of native coronary artery without angina pectoris; Z79.899 Other long term (current) drug therapy; Z79.4 Long term (current) use of insulin; Z88.2 Allergy status to sulfonamides; Z88.5 Allergy status to narcotic agent; Z88.8 Allergy status to other drugs, medicaments and biological substances
CPT/HCPCS: 73560

== ENCOUNTER → 2018-06-18 | Outpatient (CLI) | payer MEDICARE, MEDICAID ==
[~2018-06-18] MED LIST changes: +*MAMMOGRAM; +/FENO48TA PO; +/FERG32TA PO; +/GLIP10TAB PO; +/LAMO20TA PO; +/QUET10TA; +/ZOLP6ER; +/ZOLP6ER OR; +ACET500C PO; +ACET50TA PO; +ALBU83IN INH; +AMBI10TA; +AMBI10TA OR; +AMBI10TA PO; +AMBI12.52 PO; +AMBI5TAB PO; +AMIT24CA PO; +AMIT24CA7 PO; +AMLO25TA PO; +ARIC10TA OR; +ARIC1TAB2 PO; +ASPE4PAD EX; +ATOR40TA75 PO; +Amlodipine Besylate PO; +BENI20TA11; +BENI20TA11 PO; +BENI40TA26 PO; +BENZ0.5T PO; +BENZ200C70 PO; +CALCCHW12; +CALCCHW12 OR; +CALCTAB54 PO; +CALCTAB63 PO; +CETI10TA PO; +CLAR5CHW; +CLON0.5T; +CLON0.5T8 PO; +CLON1TAB8 PO; +COLA100C2; +COLA100C2 PO; +COLA100C5 PO; +COLACE PO; +COMBIVENT PO; +COMBVENT INH; +CRANPOW2 PO; +DEXI60CA PO; +DEXI60CA2 PO; +DOCU100T8 PO; +DONETAB6 PO; +DULO1CAP2 PO; +DULO20CA PO; +DULO30CA PO; +ELIQ5TAB PO; +FERR325T; +FERR325T OR; +FIBE625T27 PO; +FIBE625T4 PO; +FIBE62TA; +FIBE62TA PO; +FIBERLAX; +FIBERLAX PO; +FLUTISP; +FURO20TA2 PO; +GEOD40CA13 PO; +GLIP1TAB11 PO; +GLIP1TAB51 PO; +GLIP2.5T20 PO; +GLIP5TAB77; +GLUC10TA18 PO; +GLUCOSAMINE; +GLUCOSAMINE PO; +GLUCTAB6 PO; +GUAIDM5UD PO; +HYDR1OI TOP; +HYDROCODONE PO; +INGR80CA PO; +INSUDET SC; +INSULANT SC; +IPRA0.00 IN; +IPRA0.00 NEB; +IPRA6SP; +IRON28TA OR; -ISOVUE-370 76% 100ML VIAL (Q9967) As Ordered; +JANU50TA22 PO; +JANU50TA4 PO; +K-TA10TA PO; +KLON0.5T; +KLON0.5T PO; +KLON1TAB; +KLONOPIN PO; +KLOR10TA; +KLOR10TA PO; +KLOR10TA76 PO; +LAMI1TAB9 PO; +LANTINJ4 SC; +LASI20TA PO; +LASI40TA; +LEVA1TAB2 PO; +LEVA500T; +LEVO125T6 PO; +LEVO150T42 PO; +LEVO150T7; +LIDO5DIS41 TOP; +LIPI20TA OR; +LIPI20TA PO; +MAGN250T PO; +MAGN400C2 PO; +MAGN400T5 PO; +MAGO400T PO; +MILK12002 PO; +MILKSUS; +MILKSUS5 PO; +MIRA3350 PO; +MIRA33504 PO; +MULTIVIT PO; +MYLASUS6 PO; +NEXI40GR PO; +OLME40TA; +OLME40TA PO; +OSCAL PO; +OXYB10TA PO; +POTASSIUM PO; +PRAVACHOL1 PO; +PRED10TA2 PO; +PRED20TA PO; +PREVACID15 PO; +PREVACID30 PO; +PRIL20CA PO; +PROAAER10 IN; +PROAAER10 INH; +PROVENTILI PO; +QUET20XRTB PO; +QUET30XR PO; +QUET50TA48 PO; +SENN-22; +SENN15TA2 PO; +SENN1TAB10 PO; +SENN8.6C PO; +SENN8.6T28 PO; +SENN8.6T76 PO; +SENNA PO; +SERO400T3; +SERO400T3 PO; +SIME80TA PO; +SLOWTAB2 PO; +SLOWTAB3 PO; +SYNT137T7 PO; +SYNTHRO125 PO; +SYNTHROI15 PO; +THERGRAN PO; +TRAM50TA2; +TRAM50TA2 PO; +TRAZ100T; +TRAZ100T PO; +TYLE650T35 PO; +TYLENOL500 PO; +ULTR37.54 PO; +VESI10TA2 PO; +VESI5TAB PO; +VICO5TAB; +VITORIN; +VITORIN PO; +VOLT1GEL EX; +VOLT1GEL TOP; +VOLT75TA; +VYTO10TA5; +ZANTAC150 PO; +ZIPR80CA12 PO; +ZIPR80CAP; +ZIPR80CAP PO; +ZOLP10TA2 PO; +ZOLP5TAB PO; +ZYRT10CA PO; +[UNRECOGNIZED DRUG - CODE]; +[UNRECOGNIZED DRUG - CODE] PO; +[UNRECOGNIZED DRUG - CODE] PO; +[UNRECOGNIZED DRUG - OTHER]; +[UNRECOGNIZED DRUG - OTHER] PO
--- NOTE | 2018-07-11 02:02 | ECWPNPC ---
PATIENT NAME: AZALIA COFFMAN : 1945 GENDER: FEMALE VISIT DATE: 06/18/2018 DISCHARGE DATE: 06/18/18 1039 VISIT LOCKED DATE TIME: PHYSICIAN: MIKE LAWRENCE RESOURCE: MIKE LAWRENCE REASON FOR APPOINTMENT 1. LOW BACK HISTORY OF PRESENT ILLNESS HISTORY OF PRESENT ILLNESS: HERE FOR 3 MONTH F/U OF CHRONIC LOW BACK PAIN.CURRENTLY USING TRAMADOL AND CYMBALTA FOR CHRONIC PAIN.FINDS MEDICATION HELPFUL AT REDUCING PAIN AND KEEPING HER FUNCTIONAL.DENIES SIDE EFFECTS.HAVING AN INCREASE IN LOW BACK PAIN LATELY BUT FEELS SHE CONTINUES TO BENEFIT FROM TPI DONE IN .RATING PAIN LEVEL 5/10.PAIN IS AGGREVATED BY WALKING.CURRENTLY TAKING ULTRACET 37.5/325 THREE TABLETS DAILY.TAKING CYMBALTA 30MG BID. PAIN THE PATIENT DESCRIBES THE PAIN... THE PATIENT DESCRIBES THE PAIN... THE PATIENT DESCRIBES THE PAIN... THE PATIENT DESCRIBES THE PAIN... THE PATIENT DESCRIBES THE PAIN... THE PATIENT DESCRIBES THE PAIN... PAIN THE PATIENT DESCRIBES THE PAIN... THE PATIENT DESCRIBES THE PAIN... THE PATIENT DESCRIBES THE PAIN... THE PATIENT DESCRIBES THE PAIN... THE PATIENT DESCRIBES THE PAIN... THE PATIENT DESCRIBES THE PAIN... FALL RISK SCREENING: SCREENING :NO FALLS IN THE PAST YEAR CURRENT MEDICATIONS TAKING GLUCOTROL XL 10 MG TABLET EXTENDED RELEASE 24 HOUR 1 TABLET ORALLY DAILY TAKING AMITIZA 24 MCG CAPSULE 1 CAPSULE WITH FOOD ORALLY TWICE A DAY TAKING DONEPEZIL HCL 10 MG TABLET 1 TABLET AT BEDTIME ORALLY ONCE A DAY TAKING CALCIUM CITRATE + D 315-200 MG-UNIT TABLET 1 TABLET WITH MEALS ORALLY DAILY TAKING LAMICTAL 200 MG TABLET 1 TABLET ORALLY ONCE A DAY TAKING SEROQUEL XR 50 MG TABLET EXTENDED RELEASE 24 HOUR 1 TABLET IN THE EVENING ORALLY BEFORE BEDTIME TAKING GEODON 80 MG CAPSULE 1 CAPSULE WITH FOOD ORALLY TWICE A DAY TAKING BENICAR 40 MG TABLET 1 TABLET ORALLY ONCE A DAY TAKING KLOR-CON 10 10 MEQ TABLET EXTENDED RELEASE 2 TABLET ORALLY BID TAKING SENNA-GEN 8.6 MG TABLET DIRECTED ORALLY BID TAKING ZOLPIDEM TARTRATE 10 MG TABLET 1 TABLET AT BEDTIME ORALLY ONCE A DAY TAKING FUROSEMIDE 20 MG TABLET 1 TABLET ORALLY ONCE DAILY TAKING CLONAZEPAM 0.25 MG TABLET DISINTEGRATING 1 TABLET ORALLY ONCE DAILY TAKING NEEDLES & SYRINGES 31 GAUGE DIRECTED TAKING LANCETS THIN MISCELLANEOUS DIRECTED TAKING GLUCOMETER DIRECTED TAKING LEVEMIR FLEXTOUCH 100 UNIT/ML SOLUTION PEN-INJECTOR SUBCUTANEOUS 50 UNITS IN AM AND 40 UNITS AT 9 PM TAKING DEXILANT 30 MG CAPSULE DELAYED RELEASE 1 CAPSULE ORALLY ONCE A DAY TAKING FIBER - CAPSULE 2 CAPSULES WITH 8 OUNCES OF LIQUID ORALLY BID TAKING ATORVASTATIN CALCIUM 40 MG TABLET 1 TABLET ORALLY ONCE A DAY TAKING OLMESARTAN MEDOXOMIL 40 MG TABLET 1 TABLET ORALLY ONCE A DAY TAKING QUETIAPINE FUMARATE ER 400 MG TABLET EXTENDED RELEASE 24 HOUR 1 TABLET IN THE EVENING ORALLY ONCE A DAY TAKING GLYCOLAX - POWDER ORALLY BID NEEDED TAKING TYLENOL EXTRA STRENGTH 500 MG TABLET 2 TABLETS NEEDED ORALLY 2-3 TIMES A DAY NEEDED TAKING MAGNESIUM 400 MG CAPSULE 2 TAB ORALLY BID TAKING CETIRIZINE HCL 10 MG TABLET 1 TABLET ORALLY ONCE A DAY TAKING ASPERCREME LIDOCAINE 4 % PATCH EXTERNALLY 2-4 TIMES A DAY NEEDED TAKING SALINE NASAL SPRAY 0.65 % SOLUTION NASALLY 6-8 TIMES A DAY NEEDED TAKING NOVOLOG FLEXPEN 100 UNIT/ML SOLUTION PEN-INJECTOR 22 UNITS BEFORE BREAKFAST, 12 UNITS BEFORE DINNER SUBCUTANEOUS BID TAKING IPRATROPIUM BROMIDE 0.03 % SOLUTION 2 APPLICATIONS NASALLY TWICE A DAY TAKING MIRALAX SUSPENSION 17 GRAMS ORALLY AT HOUR OF SLEEP TAKING PROAIR HFA 108 (90 BASE) MCG/ACT AEROSOL SOLUTION 2 PUFFS NEEDED INHALATION EVERY 4 HRS TAKING LIPITOR 40MG TABLET 1 TABLET ORALLY ONCE A DAY TAKING SLOW MAGNESIUM/CALCIUM 64-106 MG TABLET DELAYED RELEASE DIRECTED ORALLY TAKING TRAZODONE HCL 50 MG TABLET 2 TABLETS ORALLY THREE TIMES A DAY TAKING NEBULIZER DEVICE DIRECTED FOUR TIMES A DAY TAKING ALBUTEROL SULFATE (2.5 MG/3ML) 0.083% NEBULIZATION SOLUTION 3 ML INHALATION FOUR TIMES PER DAY TAKING LEVEMIR FLEX TOUCH 100 UNIT/ML SOLUTION SUBCUTANEOUS TAKING JANUMET XR 50-500 MG TABLET EXTENDED RELEASE 24 HOUR 1 TAB ORALLY BID TAKING LEVOTHYROXINE SODIUM 125 MCG TABLET 1 TABLET ON AN EMPTY STOMACH IN THE MORNING ORALLY ONCE A DAY TAKING VESICARE 10 MG TABLET 1 TABLET ORALLY ONCE A DAY TAKING DOCUSATE SODIUM 100 MG CAPSULE 2 CAPSULE NEEDED ORALLY BID TAKING TRAMADOL-ACETAMINOPHEN 37.5-325 MG TABLET 1 ORALLY Q8H PRN MDD3 TAKING CYMBALTA 30 MG CAPSULE DELAYED RELEASE PARTICLES 1 CAPSULE ORALLY TWICE DAILY TAKING GUAIFENESIN-DM 100-10 MG/5ML SYRUP 10 ML NEEDED ORALLY EVERY 4 HRS TAKING XOPENEX HFA 45 MCG/ACT AEROSOL 1 PUFF NEEDED INHALATION EVERY 4 HRS TAKING VENTOLIN HFA 108 (90 BASE) MCG/ACT AEROSOL SOLUTION 2 PUFFS NEEDED INHALATION EVERY 6 HRS TAKING INGREZZA 80 MG CAPSULE 1 CAPSULE ORALLY ONCE A DAY TAKING ZIPRASIDONE HCL 80 MG CAPSULE 1 CAPSULE WITH FOOD ORALLY TWICE A DAY NOT-TAKING ELIQUIS 5 MG TABLET ORALLY BID NOT-TAKING NEXIUM 40 MG CAPSULE DELAYED RELEASE 1 CAPSULE ORALLY ONCE A DAY NOT-TAKING FLUTICASONE PROPIONATE 50 MCG/ACT SUSPENSION 1 SPRAY IN EACH NOSTRIL NASALLY ONCE A DAY NOT-TAKING OXYBUTYNIN CHLORIDE ER 10 MG TABLET EXTENDED RELEASE 24 HOUR TAKE ONE TABLET BY MOUTH ONCE DAILY DISCONTINUED SEROQUEL XR 50 MG TABLET EXTENDED RELEASE 24 HOUR 450 MG TABLET IN THE EVENING ORALLY ONCE A DAY, NOTES: DUPLICATE MEDICATION LIST REVIEWED AND RECONCILED WITH THE PATIENT PAST MEDICAL HISTORY KIDNEY DISEASE STAGE 3 MEMORY LOSS SCHIZOPHRENIA OSTEOARTHRITIS INCONTINENCE HYPERCHOLESTEROLEMIA ANEMIA DIABETES MELLITUS HYPOTHYROIDISM DUE TO DIALLO'S HYPERTENSION, BENIGN ESOPHAGEAL REFLUX LEGALLY BLIND HYPOMAGNESEMIA GERD ALLERGIES SULFA (FOR ALLERGY USE ONLY): HANDS SWELL: ALLERGY ASPIRIN: STOMACH: ALLERGY MORPHINE SULFATE: RASH: ALLERGY CELEBREX: CAUSES PROBLEMS WITH KIDNEYS: ALLERGY SURGICAL HISTORY THYROID SURGERY PARTIAL HYSTERECTOMY/LIFTED BLADDER BILATERAL FOOT SURGERY HERNIA CATARACT RIGHT SHOULDER SURGERY LEFT SHOULDER SURGERY FAMILY HISTORY FATHER: , DIAGNOSED WITH HEART DISEASE, CANCER MOTHER: , DIAGNOSED WITH CANCER SIBLINGS: , DIAGNOSED WITH STROKE, CANCER NO KNOWN FAMILY HISTORY OF ANY UROLOGICALLY RELATED DISEASES/CANCERS. FATHER-THROAT CAMOTHER-LUNG CASISTER-LUNG CAHAS 2 BROTHERS THAT SHE DOES NOT KNOW HISTORY ON. SOCIAL HISTORY GENERAL: TOBACCO USE ARE YOU A:FORMER SMOKER HOW LONG HAS IT BEEN SINCE YOU LAST SMOKED?> 10 YEARS ALCOHOL SCREENING DID YOU HAVE A DRINK CONTAINING ALCOHOL IN THE PAST YEAR?NO POINTS0 INTERPRETATIONNEGATIVE RECREATIONAL DRUG USE DRUG USE?NO CAFFEINE CAFFEINE USE?YES HOW OFTEN AND HOW MUCH? 1/2 CUP OF COFFEE OR TEA A DAY VOODOO VOODOO NO EVANGELICAL BELIEFS THAT WOULD IMPACT HEALTH CARE. LANGUAGE LANGUAGES SPOKEN:KOREAN LEARNING BARRIERS / SPECIAL NEEDS HEARING IMPAIRED?NO VISION IMPAIRED? GLASSES READINESS TO LEARN?YES LEARNING CAPABILITIES PRESENT?YES SPECIAL DEVICES?YES :WALKER DOMESTIC VIOLENCE DO YOU FEEL SAFE IN YOUR ENVIRONMENT?YES MARITAL STATUS: . OTHERS AT HOME: NONE. PAIN CLINIC PFS, CLERGY, PUBLIC HEALTH REFERRALS WAS THE PROVIDER NOTIFIED OF ANY PERTINENT INFO? N/A HAS THE PATIENT BEEN EDUCATED REGARDING HIS/HER PLAN OF CARE?YES HAS THE PATIENT BEEN EDUCATED REGARDING PAIN, THE RISK FOR PAIN, THE IMPORTANCE OF EFFECTIVE PAIN MANAGEMENT, AND THE PAIN ASSESSMENT PROCESS?YES ADVANCE DIRECTIVE ADVANCE DIRECTIVE DISCUSSED WITH PATIENT:YES PT STATES SHE HAS HCP 1. MAGALIE OLIVEIRA [phone](H) [phone](C) 2. GABRIELLA ARDON [phone] (H) 06/18/18 1027 REVIEWED WITH PT. AD. HOSPITALIZATION/MAJOR DIAGNOSTIC PROCEDURE SURGERY RELATED KIDNEY INFECTION 2011 BRONCHITIS X 2 REVIEW OF SYSTEMS REVIEWED BY: PROVIDER: MIKE SIU . CONSTITUTIONAL: ANY CHANGE IN YOUR MEDICAL CONDITION? YES, LAST FRI WAS STARTED ON O2 AT NIGHT . CHILLS NO . FEVER NO . INFECTION: DO YOU HAVE NEW INFECTIONS? NO . DO YOU HAVE HISTORY OF MRSA? NO . MUSCULOSKELETAL: ANY NEW PATTERNS OF PAIN OR NUMBNESS? NO . GASTROENTEROLOGY: ANY NEW CHANGE IN BOWEL CONTROL? NO . GENITOURINARY: ANY NEW CHANGE IN BLADDER CONTROL? NO . IS THERE A CHANCE YOU COULD BE ? NO . HEMATOLOGY/LYMPH: DO YOU TAKE ANY BLOOD THINNERS? (FOR EXAMPLE- COUMADIN, PLAVIX, AGGRENOX, PLATEL, PRADAXA, OR XARELTO) NO . WHEN WAS YOUR LAST DOSE? DATE: TIME: . NEUROLOGY: HAVE YOU FALLEN IN THE PAST 6 MONTHS? YES, FELL OUT OF BED A COUPLE OF WEEKS AGO--NO INJURY . ANY NEW EXTREMITY NUMBNESS OR WEAKNESS? NO . CARDIOLOGY: DO YOU HAVE A PACEMAKER OR DEFIBRILLATOR? NO . RESPIRATORY: HAVE YOU BEEN SICK IN THE PAST WEEK? NO . FEVER NO . FLU LIKE SYMPTOMS? NO . COUGH NO . INTEGUMENTARY: DO YOU HAVE ANY RASHES OR OPEN SORES? NO . ALLERGIC/IMMUNO: ARE YOU ALLERGIC TO SHELLFISH OR IV DYE? NO . ANY NEW ALLERGIES? NO . PSYCHIATRIC: DO YOU HAVE THOUGHTS OF HURTING YOURSELF OR SOMEONE ELSE? NO . ARE YOU ABUSED, NEGLECTED, OR IN AN UNSAFE ENVIRONMENT? NO . ENDOCRINOLOGY: ARE YOU DIABETIC? YES . OTHER: DO YOU NEED ANY PRESCRIPTIONS? YES . IF YES, PLEASE LIST: TRAMADOL AND ? CYMBALTA . ANY NEW PROBLEMS WITH YOUR MEDICATIONS? NO . WHEN DID YOU LAST EAT? ____ . WHEN DID YOU LAST DRINK? ____ . WHAT DID YOU LAST DRINK? ____ . NAME OF PERSON DRIVING YOU HOME? ____ . DO YOU HAVE ANY OTHER QUESTIONS OR CONCERNS NO . VITAL SIGNS WT 210 LBS, HT 63 IN, BMI 37.20 INDEX, BP 133/66 MM HG, HR 87 /MIN, RR 18 /MIN, TEMP 96.8 F, OXYGEN SAT % 94%, SAFE IN ENV? (Y/N) Y, NA INITIALS SC 10:04, REVIEWED BY: FIORDALIZA. EXAMINATION GENERAL EXAMINATION: GENERAL APPEARANCE:SLEEPING . LUNGS:LUNG RIVERO ARE CLEAR TO AUSCULTATION BILATERALLY. GOOD MOVEMENT OF AIR . HEART:S1, S2 IN A REGULAR RATE AND RHYTHM. NO SIGNIFICANT MURMURS, RUBS OR GALLOPS NOTED . BACK:MILD DISCOMFORT WITH PALPATION L/S SPINE AND LUMBAR PARASPINALS. ASSESSMENTS LUMBAR DEGENERATIVE DISC DISEASE - M51.36 (PRIMARY) TREATMENT LUMBAR DEGENERATIVE DISC DISEASE REFILL TRAMADOL-ACETAMINOPHEN TABLET, 37.5-325 MG, 1, ORALLY, Q8H PRN MDD3, 30 DAY(S), 90, REFILLS 2 CONTINUE DOCUSATE SODIUM CAPSULE, 100 MG, 2 CAPSULE NEEDED, ORALLY, BID CONTINUE CYMBALTA CAPSULE DELAYED RELEASE PARTICLES, 30 MG, 1 CAPSULE, ORALLY, TWICE DAILY NOTES: ISTOP REGISTRY REVIEWED AND DEMONSTRATES COMPLLIANCE. (REF # ). PROCEDURE CODES FA211 ESTABILISHED PATIENT [facility] CHARGE DISPOSITION & COMMUNICATION FOLLOW UP 3 MONTHS ELECTRONICALLY SIGNED BY SALBADOR VU ON 07/10/2018 AT 08:56 AM EST DISCLAIMER : THIS IS A VISIT SUMMARY EXTRACTED FROM THE [employer] CHART. IT IS NOT A COPY OF THE [employer] PROGRESS NOTE. MTDD
== END ==
LOC: M PAIN 09:30
PROVIDERS: ATTEND Nurse Practitioner Family
DX: M51.36 Other intervertebral disc degeneration, lumbar region (principal); G89.29 Other chronic pain; E11.22 Type 2 diabetes mellitus with diabetic chronic kidney disease; I12.9 Hypertensive chronic kidney disease with stage 1 through stage 4 chronic kidney disease, or unspecified chronic kidney disease; E03.9 Hypothyroidism, unspecified; N18.3 Chronic kidney disease, stage 3 (moderate); F31.9 Bipolar disorder, unspecified; E78.00 Pure hypercholesterolemia, unspecified; M19.90 Unspecified osteoarthritis, unspecified site; E83.42 Hypomagnesemia; E66.01 Morbid (severe) obesity due to excess calories; Z68.37 Body mass index [BMI] 37.0-37.9, adult; Z79.4 Long term (current) use of insulin; Z79.891 Long term (current) use of opiate analgesic; Z79.899 Other long term (current) drug therapy; Z88.2 Allergy status to sulfonamides; Z88.6 Allergy status to analgesic agent; Z88.5 Allergy status to narcotic agent; Z88.8 Allergy status to other drugs, medicaments and biological substances; Z87.891 Personal history of nicotine dependence

== ENCOUNTER → 2018-06-25 | Outpatient (REF) | payer MEDICARE, MEDICAID | LOC: SKLABADC 09:35 | PROVIDERS: ATTEND Internal Medicine | DX: E83.42 Hypomagnesemia (principal) ==

== ENCOUNTER → 2018-07-30 | Outpatient (REF) | payer MEDICARE, MEDICAID ==
[~2018-07-30] MED LIST changes: +GLIP10TA18 PO; -GLIP1TAB51 PO; +MILK120011 PO; -MILK12002 PO; -QUET30XR PO; +SERO300T20 PO
[2018-07-30 09:53] LABS: HEMATOCRIT 33.9 % (36.0-47.0); MEAN CORPUSCULAR HEMOGLOBIN 31.5 pg (27.0-33.0); MEAN CORPUSCULAR HGB CONC 32.4 g/dl (32.0-36.5); MEAN CORPUSCULAR VOLUME 97.1 fl (80.0-96.0); PLATELET COUNT, AUTOMATED 217 10^3/uL (150-450); RED BLOOD COUNT 3.49 10^6/uL (4.00-5.40); WHITE BLOOD COUNT 5.9 10^3/uL (4.0-10.0)
[2018-07-30 10:16] LABS: CALCIUM LEVEL 9.4 MG/DL (8.8-10.2); CREATININE FOR GFR 1.11 MG/DL (0.55-1.30); GLOMERULAR FILTRATION RATE 51.6 (>39); POTASSIUM SERUM 4.3 MEQ/L (3.5-5.1)
== END ==
LOC: SKLABADC 08:48
PROVIDERS: ATTEND Specialist
DX: R32 Unspecified urinary incontinence (principal); N18.3 Chronic kidney disease, stage 3 (moderate); E03.9 Hypothyroidism, unspecified; D64.9 Anemia, unspecified

== ENCOUNTER → 2018-07-30 | Outpatient (REF) | payer MEDICARE, MEDICAID ==
[2018-07-30 15:22] LABS: MAGNESIUM LEVEL 1.6 MG/DL (1.8-2.4); PERCENT SATURATION 25.2 % (13.2-45.0); THYROID STIMULATING HORMONE 2.45 uIU/ML (0.358-3.740)
[2018-07-30 15:36] LABS: FOLATE 14.2 NG/ML
== END ==
LOC: M LAB REF 13:39
PROVIDERS: ATTEND Internal Medicine
DX: N18.3 Chronic kidney disease, stage 3 (moderate) (principal); E03.9 Hypothyroidism, unspecified; D64.9 Anemia, unspecified

== ENCOUNTER → 2018-08-11 | Outpatient (REF) | payer MEDICARE, MEDICAID ==
[~2018-08-11] MED LIST changes: +INSUH10VL SC; +NOVOINJ3 SC; +TYLE500T78 PO
[2018-08-11 12:52] LABS: BACTERIA, URINE AUTO 1+ (NEGATIVE); MUCUS, URINE SMALL (NEGATIVE); RBC, URINE AUTO 5 /HPF (0-3); SQUAMOUS EPITHELIAL CELL UR AU 1 /HPF (0-6); WBC, URINE AUTO 22 /HPF (0-3)
== END ==
LOC: SKLABADC 12:04
PROVIDERS: ATTEND Specialist
DX: R32 Unspecified urinary incontinence (principal)

== ENCOUNTER 2018-08-18 07:22 | Day surgery (SDC) | payer MEDICARE, MEDICAID ==
--- NOTE | 2018-08-05 07:25 | CR ---
DATE OF CONSULTATION: 08/04/2018 Consultation for: Dr. Milagros Short. REASON FOR CONSULTATION: Bladder biopsy with Botox injection. Dear Dr. Short, Thank you for asking me to see Ms. Genny Keyes in preoperative consultation. As you know Ms. Keyes is a 72-year-old female with a past medical history of schizoaffective disorder, type 2 diabetes, hypertension, hyperlipidemia who reports that she has been in her usual state of health after recovering from [id number] bronchitis fall 2017. The patient does have type 2 diabetes. She has been noncompliant checking sugars. Reports recent sugars have been in the mid 100s to high 100 range. She admits some noncompliance with her insulin noting that she forgets to take it one to two times a week. She denies any polyuria, polyphagia, polydipsia and reports compliance with all oral medications. The patient has known gastroesophageal reflux disease (GERD). She is on Dexilant and denies any gastrointestinal (GI) symptoms. The patient has schizoaffective disorder. She follows with Dr. Bledsoe in mental health. She is on multidrug regimen and feels that she is stable. The patient follows in the pain clinic as well as with orthopedics. She is on tramadol three times a day and requests approval to take it morning of surgery. She also has been seeing orthopedics with recent knee pain, which is much improved after cortisone injection. The patient has gastric paresis. She continues Amitiza and MiraLAX and reports that her bowels have been stable. After having had jwxw-nh-aieo bronchitis, the patient had recent spirometry for further evaluation of her pulmonary status and consideration of a chronic obstructive pulmonary disease (COPD) diagnosis. She had a remote history for smoking 17 years up to a pack a day but had quit 30 years ago. Patient's pulmonary function tests (PFTs) 06/15/2018 at [facility] showed a normal FVC, FEV-1 and a normal ratio. There was minimal change following bronchodilation with only mild diffusion impairment, which was isolated and very mild. The patient does have inhalers she uses these only on an as-needed basis. The patient has had longstanding difficulties with urinary incontinence. fall, the patient had intravesicular Botox with a 95% improvement of her nocturia discontinuation of oxybutynin. The patient's symptoms have slowly progressed and she is presenting now for repeat Botox. The patient does go to [facility] day[facility] two times per week, unless she has piano lessons, which she enjoys. The patient has hypertension. Denies any chest pain or palpitations. REVIEW OF SYSTEMS: Otherwise negative. Landon fevers or chills, chest pain or shortness of breath, nausea, vomiting, change in bowels. PAST MEDICAL HISTORY: 1. Type 2 diabetes. 2. Hypertension. 3. Hyperlipidemia. 4. Grave's thyroiditis status post surgery and radioactive iodine. 5. Osteoarthritis (OA) degenerative joint disease (DJD) of the back, knees. 6. Gastroesophageal reflux disease (GERD)/achalasia status post esophagogastroduodenoscopy (EGD) January [address] Rubio with dilatation. 7. COPD, questionable diagnosis with recent normal PFTs 06/15/2018 as above. 8. Schizoaffective disorder, follows with Dr. Bledsoe and behavioral health. 9. Status post hysterectomy with bladder suspension secondary to prolapse 1994. 10. Uterine fibroids with tubal ligation 1971. 11. Cor pulmonale with echo 2000 showing pulmonary hypertension. 12. Bladder suspension December 2001 with tension-free vaginal tape posterior vaginal wall. 13. Left rotator cuff surgery. 14. Abdominal hernia repair. 15. Chronic renal insufficiency stage III. 16. Anemia felt secondary to renal insufficiency. 17. Legally blind. 18. Multiple foot surgeries [id number] for hammertoe correction and bunionectomy. 19. Abnormal mammogram [address] post benign biopsy Dr. Cazares. 20. Status post appendectomy September 2016. 21. Bladder Botox injections/biopsy per Dr. Short March 2017. 22. Status post appendectomy. 23. Cataract extractions. MEDICATIONS: - Amitiza 24 mcg two times per day - amlodipine 2.5 mg at bedtime - aspirin cream with lidocaine for times a day as needed - atorvastatin 40 mg at bedtime - calcium citrate one tablet daily - cetirizine 10 mg daily - clonazepam 0.25 mg at bedtime - Cymbalta 30 mg daily - Dexilant 30 mg every morning - diclofenac cream two times a day to right knee as needed. - docusate 100 mg two capsules two times a day - [id number] mg daily - fiber laxative 625 mg two tablets daily - furosemide 20 mg one tablet every morning - glipizide ER 10 mg daily - glycolax 17 grams in liquid twice a day. - Ingrezza 80 mg daily - ipratropium nasal spray twice a day - DuoNeb as needed - Janumet XR 50/500 two times a day. - Lamictal 200 mg daily - Levemir 50 units every morning 40 units every p.m. - levothyroxine 125 mcg daily - Lidoderm patches 12 hours on, 12 hours off - Mag-Ox 400 mg twice a day - Milk of Magnesia as needed - nocturnal oxygen for O2 sat greater than 90% - NovoLog 22 units before breakfast, 12 units before dinner - olmesartan 40 mg daily - potassium chloride 10 mEq, two tablets two times a day - Seroquel 400 mg at bedtime and Seroquel 50 mg at bedtime. - saline nasal spray as needed - senna as needed - tramadol HCT one, three times a day - Tylenol Extra Strength as needed - Ventolin as needed - Vesicare 10 mg daily - ziprasidone 80 mg two times a day - zolpidem 10 mg at bedtime. ALLERGIES: SULFA - hands swell. ASPIRIN - upset stomach, MORPHINE- rash. The patient's drug intolerances are to Zelnorm and Novocain FAMILY HISTORY: Father due to cancer of the head and neck. Mother and her sister of lung cancer. Her sister had a premature stroke at 47. SOCIAL HISTORY: The patient is lives alone, retired. Former smoker but quit over 30 years ago. Denies alcohol use. PHYSICAL EXAMINATION: Overweight female in no acute distress. Vital signs are weight 209 with a body mass index (BMI) of 38.5, blood pressure 108/58 with a heart rate of 72. Her O2 sat after exertion is 92%. In general no acute distress. HEENT: Head is normocephalic. Neck is supple. Eyes: She has exophthalmos. She wears eyeglasses. Pupils are equal, reactive to light. Extraocular movements intact. Conjunctivae not injected. Sclerae anicteric. Vision grossly normal. Tympanic membranes slightly dull, scant amount of cerumen. Tongue is midline. Posterior pharynx without inflammation. She does have alopecia. Neck is supple. Well-healed anterior neck incision. No thyromegaly, carotid bruits, cervical lymphadenopathy. Respiratory: Decreased breath sounds symmetric expansion bilaterally. Resonant to percussion. Breasts: Exam deferred. Gynecologic: Deferred. Cardiovascular: Regular rate rhythm. No murmur, rub or gallop. Abdomen: Protuberant, firm, nontender. No had splenomegaly. Extremities: Some arthritic changes, trace pretibial edema. Neurologically: Alert and oriented. Cranial nerves II-XII intact. LABORATORY DATA: 07/30/2018: Magnesium is 1.6, TSH 2.4, normal iron studies, B12, folate CBC, hemoglobin and hematocrit 11 and 34. Med profile: Sugar is 197 with a GFR 52. EKG today shows normal sinus rhythm rate of 74, axis of -11 degrees. Normal KS, QRS, QTC incomplete right bundle branch block but no atrial or ventricular branches in no pathologic Q-waves. No change from previous EKG. IMPRESSION: Ms. Genny Madrid 72-year-old female with multiple cardiovascular risk factors including type 2 diabetes, hypertension, hyperlipidemia, has no signs or symptoms indicative of cardiovascular ischemia and is felt to be optimized and at low risk for cardiovascular complications from the proposed surgical intervention which can be further minimized by the followin. Diabetes 2: Sugars have been high. I have approved her continue oral meds perioperatively. She will take half of her long-acting and short-acting insulin the evening before surgery and the morning of surgery. 2. Hypertension: The patient will take usual meds a.m. of surgery sip of water. 3. Hyperlipidemia: The patient will take statin as usual the evening prior to surgery. 4. Schizoaffective disorder: She will take her usual psychiatric meds a.m. of surgery including the Cymbalta and Geodon. 5. Gastroesophageal reflux disease. The patient will take Dexilant the a.m. of surgery 6. Hypothyroid: She will take her the levothyroxine a.m. of surgery. 7. Chronic obstructive pulmonary disease (COPD): Recent PFTs normal. She will use her nebulizer or puffers only as needed. 8. Urinary incontinence: The patient will take her Vesicare as usual a.m. of surgery. 9. Constipation: She will take her usual bowel meds perioperatively. 10. Osteoarthritis (OA) degenerative joint disease (DJD). I have approved patient taking Cymbalta, tramadol and topicals a.m. of surgery. Thank you very much for this consultation.
[~2018-08-18] VITALS: Ht 160 cm; Wt 95.3 kg
[~2018-08-18 07:22] MED LIST changes: +LR 1,000 ML IV ONE
[2018-08-18] MEDS ORDERED: LIDOCAINE 2% INJ 100 MG/5 ML SDV (FOR ANES.) As Ordered ONE (08:16)
[2018-08-18] MEDS ORDERED: fentaNYL 100 MCG/2 ML INJECTION (J3010) As Ordered ONE (08:16)
[2018-08-18] MEDS ORDERED: PROPOFOL 200 MG/20 ML VIAL As Ordered ONE (08:16)
[2018-08-18] MEDS ORDERED: MIDAZOLAM INJ 2 MG/2 ML VIAL (J2250) As Ordered ONE (08:17)
[2018-08-18] MEDS ORDERED: CIPR-249 PO (08:34)
[2018-08-18] MEDS ORDERED: LIDOCAINE 2% 5ML JELLY UROJET As Ordered ONE (09:12)
[2018-08-18] MEDS ORDERED: LIDOCAINE 1% MDV 20ML VIAL As Ordered ONE (09:12)
[2018-08-18] MEDS ORDERED: BOTULINUM INJ 100 UNITS (J0585) As Ordered ONE (09:33)
[2018-08-18] MEDS ORDERED: METOCLOPRAMIDE INJ 10MG/2ML VIAL (J2765) As Ordered ONE (09:52)
[2018-08-18] MEDS ORDERED: ONDANSETRON 4MG/2ML VIAL (J2405) As Ordered ONE (09:52)
[2018-08-18] MEDS ORDERED: KETOROLAC 60 MG/2 ML VIAL (J1885) As Ordered ONE (09:52)
[2018-08-18 11:00] VITALS: BP 152/67
--- NOTE | 2018-08-19 19:44 | RO ---
DATE OF PROCEDURE: 08/18/2018 PREOPERATIVE DIAGNOSIS: Significant urinary urgency, frequency, and urge incontinence with nocturia was failed medical management. POSTOPERATIVE DIAGNOSIS: Significant urinary urgency, frequency, and urge incontinence with nocturia was failed medical management. PROCEDURE: Cystoscopy, hydrodistention, and injection of intravesical Botox with 200 units. SURGEON: Dr. Milagros Short ANESTHESIA: MAC. MEDICATIONS: Ancef 2 grams preoperatively. INDICATIONS FOR PROCEDURE: Geri had undergone cystoscopy, hydrodistention, bladder biopsies, and intravesical Botox with 100 units on 04/22/2017. This worked extremely well until recently when she was back to voiding up to 15 times a day and wearing diapers because of very severe incontinence. After the original procedure. She had had 95% improvement in her symptoms. It was decided to go back to the operating room and repeat this. At this point though she acid more Botox could be placed to see if that would last longer. She understood though that this comes with a risk of urinary retention and the need to do clean instrument catheterization in the future. She said that she was going to take this risk. All different options, alternatives, risks, and benefits were discussed and informed consent was obtained in both verbal and written form. PROCEDURE: The patient was brought into the operating room. Anesthesia was induced. She was then placed in the lithotomy position and careful attention was paid that her pressure points were well padded and protected. She was prepped and draped in the usual fashion. An 18-Spanish cystoscope was inserted. The urethra was noted to be open without any evidence of lesions or strictures. Upon entering the bladder both ureteral orifices were seen. There was very severe trabeculation. At this point a hydrodistention was done with normal saline, but she had very severe detrusor instability and leakage around the catheter. Next 200 units of Botox had been prepared using injectable saline. This was then pulled into 10 mL syringes and using the injection needle 10 units was injected and 20 different areas of the bladder using a 3 mm needle. At the end of the procedure the water source was changed to sterile water and fulguration was done to the areas that were bleeding. Her bladder was emptied. Next 10 mL of 1% lidocaine mixed with lidocaine jelly was placed in the bladder and she was returned to the recovery room in stable condition.
== END 2018-08-18 10:15 | disposition home or self-care (01) ==
LOC: M SDC 07:22
PROVIDERS: ATTEND Specialist
DX: R39.15 Urgency of urination (principal); N32.81 Overactive bladder; R35.0 Frequency of micturition; N39.41 Urge incontinence; R35.1 Nocturia; I12.9 Hypertensive chronic kidney disease with stage 1 through stage 4 chronic kidney disease, or unspecified chronic kidney disease; N18.3 Chronic kidney disease, stage 3 (moderate); E78.5 Hyperlipidemia, unspecified; E11.22 Type 2 diabetes mellitus with diabetic chronic kidney disease; E11.40 Type 2 diabetes mellitus with diabetic neuropathy, unspecified; E03.9 Hypothyroidism, unspecified; K59.00 Constipation, unspecified; D64.9 Anemia, unspecified; F25.9 Schizoaffective disorder, unspecified; R06.02 Shortness of breath; M54.9 Dorsalgia, unspecified; R29.898 Other symptoms and signs involving the musculoskeletal system; K21.9 Gastro-esophageal reflux disease without esophagitis; F32.9 Major depressive disorder, single episode, unspecified; M15.0 Primary generalized (osteo)arthritis; F41.9 Anxiety disorder, unspecified; F31.9 Bipolar disorder, unspecified; F43.10 Post-traumatic stress disorder, unspecified; R51 Headache; Z88.2 Allergy status to sulfonamides; Z88.5 Allergy status to narcotic agent; Z88.6 Allergy status to analgesic agent; Z88.8 Allergy status to other drugs, medicaments and biological substances; Z79.899 Other long term (current) drug therapy; Z79.4 Long term (current) use of insulin; Z87.891 Personal history of nicotine dependence; Z90.710 Acquired absence of both cervix and uterus; Z98.41 Cataract extraction status, right eye; Z98.42 Cataract extraction status, left eye; Z96.1 Presence of intraocular lens
CPT/HCPCS: 52265; 52287; J0585; J0690; J1885; J2250; J2405; J2765; J3010

== ENCOUNTER → 2018-09-08 | Outpatient (CLI) | payer MEDICARE, MEDICAID ==
[~2018-09-08] MED LIST changes: +CIPR-249 PO; -LR 1,000 ML IV ONE
--- NOTE | 2018-09-15 23:12 | SLEEPCENT ---
DATE OF PROCEDURE: 09/08/2018 ORDERED BY: Sanam Underwood Nocturnal polysomnography was performed for evaluation of sleep physiology in this patient with a history of excessive somnolence and nonrestorative sleep who has multiple comorbidities. 8 hours and 31 minutes of data were reviewed. There were 421 minutes of sleep identified. Sleep latency was very short at 30 seconds. Rapid eye movement (REM) sleep was delayed at 264 minutes. Sleep architecture was fair with two REM cycles noted. Overall sleep efficiency was 83%. The electrocardiogram showed a sinus rhythm with an average heart rate of 74 beats per minute. EEG showed some coarsening in background, nonspecific changes. No focal events were identified. There were only 14 respiratory events of 10 seconds in duration or greater for an apnea-hypopnea index within normal limits at 2. Snoring was noted from time to time, but respiratory related arousals occurred only 1.4 times per hour, and there were no significant oxygen desaturations. Some artifactual changes were noted on the oximetry tracing. There was minimal limb activity. Limb movement arousal index of 2.4. IMPRESSION: Normal nocturnal polysomnography with snoring. No recommendation.
== END ==
LOC: M SLEEP 18:46
PROVIDERS: ATTEND Nurse Practitioner Family
DX: R06.83 Snoring (principal)

== ENCOUNTER → 2018-09-17 | Outpatient (CLI) | payer MEDICARE, MEDICAID ==
--- NOTE | 2018-10-04 00:30 | ECWPNPC ---
PATIENT NAME: AZALIA COFFMAN : 1945 GENDER: FEMALE VISIT DATE: 09/17/2018 DISCHARGE DATE: 09/17/18 1156 VISIT LOCKED DATE TIME: PHYSICIAN: MIKE LAWRENCE RESOURCE: MIKE LAWRENCE REASON FOR APPOINTMENT 1. LOW BACK HISTORY OF PRESENT ILLNESS HISTORY OF PRESENT ILLNESS: HERE FOR F/U OF CHRONIC LOW BACK PAIN.STATES LOW BACK PAIN HAS BEEN OK.CHIEF AREA OF PAIN IS KNEES.CURRENTLY FOLLOWING W [facility]THOPEDICS FOR KNEE PAIN.SHE HAS STOPPED TRAMADOL AND WILL START TYLENOL W CODEINE PER ORTHO.RATING PAIN VAS 5/10. PAIN THE PATIENT DESCRIBES THE PAIN... FALL RISK SCREENING: SCREENING : NO FALLS IN THE PAST YEAR. CURRENT MEDICATIONS TAKING DOCUSATE SODIUM 100 MG CAPSULE 2 CAPSULE NEEDED ORALLY BID TAKING CYMBALTA 30 MG CAPSULE DELAYED RELEASE PARTICLES 1 CAPSULE ORALLY TWICE DAILY TAKING GLUCOTROL XL 10 MG TABLET EXTENDED RELEASE 24 HOUR 1 TABLET ORALLY DAILY TAKING AMITIZA 24 MCG CAPSULE 1 CAPSULE WITH FOOD ORALLY TWICE A DAY TAKING DONEPEZIL HCL 10 MG TABLET 1 TABLET AT BEDTIME ORALLY ONCE A DAY TAKING CALCIUM CITRATE + D 315-200 MG-UNIT TABLET 1 TABLET WITH MEALS ORALLY DAILY TAKING LAMICTAL 200 MG TABLET 1 TABLET ORALLY ONCE A DAY TAKING SEROQUEL XR 50 MG TABLET EXTENDED RELEASE 24 HOUR 1 TABLET IN THE EVENING ORALLY BEFORE BEDTIME TAKING KLOR-CON 10 10 MEQ TABLET EXTENDED RELEASE 2 TABLET ORALLY BID TAKING SENNA-GEN 8.6 MG TABLET DIRECTED ORALLY BID TAKING ZOLPIDEM TARTRATE 10 MG TABLET 1 TABLET AT BEDTIME ORALLY ONCE A DAY TAKING FUROSEMIDE 20 MG TABLET 1 TABLET ORALLY ONCE DAILY TAKING CLONAZEPAM 0.25 MG TABLET DISINTEGRATING 1 TABLET ORALLY ONCE DAILY TAKING NEEDLES & SYRINGES 31 GAUGE DIRECTED TAKING LANCETS THIN MISCELLANEOUS DIRECTED TAKING GLUCOMETER DIRECTED TAKING LEVEMIR FLEXTOUCH 100 UNIT/ML SOLUTION PEN-INJECTOR SUBCUTANEOUS 50 UNITS IN AM AND 40 UNITS AT 9 PM TAKING DEXILANT 30 MG CAPSULE DELAYED RELEASE 1 CAPSULE ORALLY ONCE A DAY TAKING FIBER - CAPSULE 2 CAPSULES WITH 8 OUNCES OF LIQUID ORALLY BID TAKING ATORVASTATIN CALCIUM 40 MG TABLET 1 TABLET ORALLY ONCE A DAY TAKING OLMESARTAN MEDOXOMIL 40 MG TABLET 1 TABLET ORALLY ONCE A DAY TAKING QUETIAPINE FUMARATE ER 400 MG TABLET EXTENDED RELEASE 24 HOUR 1 TABLET IN THE EVENING ORALLY ONCE A DAY TAKING GLYCOLAX - POWDER ORALLY BID NEEDED TAKING TYLENOL EXTRA STRENGTH 500 MG TABLET 2 TABLETS NEEDED ORALLY 2-3 TIMES A DAY NEEDED TAKING MAGNESIUM 400 MG CAPSULE 2 TAB ORALLY BID TAKING CETIRIZINE HCL 10 MG TABLET 1 TABLET ORALLY ONCE A DAY TAKING ASPERCREME LIDOCAINE 4 % PATCH EXTERNALLY 2-4 TIMES A DAY NEEDED TAKING SALINE NASAL SPRAY 0.65 % SOLUTION NASALLY 6-8 TIMES A DAY NEEDED TAKING NOVOLOG FLEXPEN 100 UNIT/ML SOLUTION PEN-INJECTOR 22 UNITS BEFORE BREAKFAST, 12 UNITS BEFORE DINNER SUBCUTANEOUS BID TAKING IPRATROPIUM BROMIDE 0.03 % SOLUTION 2 APPLICATIONS NASALLY TWICE A DAY TAKING MIRALAX SUSPENSION 17 GRAMS ORALLY AT HOUR OF SLEEP TAKING PROAIR HFA 108 (90 BASE) MCG/ACT AEROSOL SOLUTION 2 PUFFS NEEDED INHALATION EVERY 4 HRS TAKING NEBULIZER DEVICE DIRECTED FOUR TIMES A DAY TAKING ALBUTEROL SULFATE (2.5 MG/3ML) 0.083% NEBULIZATION SOLUTION 3 ML INHALATION FOUR TIMES PER DAY TAKING JANUMET XR 50-500 MG TABLET EXTENDED RELEASE 24 HOUR 1 TAB ORALLY BID TAKING LEVOTHYROXINE SODIUM 125 MCG TABLET 1 TABLET ON AN EMPTY STOMACH IN THE MORNING ORALLY ONCE A DAY TAKING VESICARE 10 MG TABLET 1 TABLET ORALLY ONCE A DAY TAKING GUAIFENESIN-DM 100-10 MG/5ML SYRUP 10 ML NEEDED ORALLY EVERY 4 HRS TAKING XOPENEX HFA 45 MCG/ACT AEROSOL 1 PUFF NEEDED INHALATION EVERY 4 HRS TAKING INGREZZA 80 MG CAPSULE 1 CAPSULE ORALLY ONCE A DAY TAKING ZIPRASIDONE HCL 80 MG CAPSULE 1 CAPSULE WITH FOOD ORALLY TWICE A DAY TAKING AUSTEDO 12 MG TABLET 1 TABLET WITH FOOD ORALLY TWICE A DAY TAKING LIDODERM 5 % PATCH 1 PATCH TO SKIN REMOVE AFTER 12 HOURS EXTERNALLY ONCE A DAY TAKING AMLODIPINE BESYLATE 2.5 MG TABLET 1 TABLET ORALLY ONCE A DAY TAKING MILK OF MAGNESIA 400 MG/5ML SUSPENSION 5 ML NEEDED ORALLY FOUR TIMES A DAY TAKING TRAMADOL-ACETAMINOPHEN 37.5-325 MG TABLET 1 ORALLY Q8H PRN MDD3 NOT-TAKING SLOW MAGNESIUM/CALCIUM 64-106 MG TABLET DELAYED RELEASE DIRECTED ORALLY NOT-TAKING TRAZODONE HCL 50 MG TABLET 2 TABLETS ORALLY THREE TIMES A DAY NOT-TAKING CIPRO 500 MG TABLET 1 TABLET ORALLY EVERY 12 HRS NOT-TAKING OXYBUTYNIN CHLORIDE ER 10 MG TABLET EXTENDED RELEASE 24 HOUR TAKE ONE TABLET BY MOUTH ONCE DAILY DISCONTINUED GEODON 80 MG CAPSULE 1 CAPSULE WITH FOOD ORALLY TWICE A DAY, NOTES: DUPLICATE DISCONTINUED BENICAR 40 MG TABLET 1 TABLET ORALLY ONCE A DAY, NOTES: DUPLICATE DISCONTINUED LIPITOR 40MG TABLET 1 TABLET ORALLY ONCE A DAY, NOTES: DUPLICATE DISCONTINUED LEVEMIR FLEX TOUCH 100 UNIT/ML SOLUTION SUBCUTANEOUS , NOTES: DUPICATE DISCONTINUED VENTOLIN HFA 108 (90 BASE) MCG/ACT AEROSOL SOLUTION 2 PUFFS NEEDED INHALATION EVERY 6 HRS, NOTES: DUPLICATE DISCONTINUED ELIQUIS 5 MG TABLET ORALLY BID DISCONTINUED NEXIUM 40 MG CAPSULE DELAYED RELEASE 1 CAPSULE ORALLY ONCE A DAY DISCONTINUED FLUTICASONE PROPIONATE 50 MCG/ACT SUSPENSION 1 SPRAY IN EACH NOSTRIL NASALLY ONCE A DAY MEDICATION LIST REVIEWED AND RECONCILED WITH THE PATIENT PAST MEDICAL HISTORY KIDNEY DISEASE STAGE 3 MEMORY LOSS SCHIZOPHRENIA OSTEOARTHRITIS INCONTINENCE HYPERCHOLESTEROLEMIA ANEMIA DIABETES MELLITUS HYPOTHYROIDISM DUE TO DIALLO'S HYPERTENSION, BENIGN ESOPHAGEAL REFLUX LEGALLY BLIND HYPOMAGNESEMIA GERD AMNESIA OSTEOARTHRITIS URGE INCONTINENCE OG URINE BACK PAIN ALLERGIES SULFA (FOR ALLERGY USE ONLY): HANDS SWELL - ALLERGY ASPIRIN: STOMACH - ALLERGY MORPHINE SULFATE: RASH - ALLERGY CELEBREX: CAUSES PROBLEMS WITH KIDNEYS - ALLERGY SURGICAL HISTORY THYROID SURGERY PARTIAL HYSTERECTOMY/LIFTED BLADDER BILATERAL FOOT SURGERY HERNIA CATARACT-BILATERAL RIGHT SHOULDER SURGERY LEFT SHOULDER SURGERY FAMILY HISTORY FATHER: , DIAGNOSED WITH CANCER, HEART DISEASE MOTHER: , CANCER SIBLINGS: , STROKE, CANCER NO KNOWN FAMILY HISTORY OF ANY UROLOGICALLY RELATED DISEASES/CANCERS. FATHER-THROAT CAMOTHER-LUNG CASISTER-LUNG CAHAS 2 BROTHERS THAT SHE DOES NOT KNOW HISTORY ON. SOCIAL HISTORY GENERAL: TOBACCO USE ARE YOU A:FORMER SMOKER HOW LONG HAS IT BEEN SINCE YOU LAST SMOKED?> 10 YEARS ALCOHOL SCREENING DID YOU HAVE A DRINK CONTAINING ALCOHOL IN THE PAST YEAR?NO POINTS0 INTERPRETATIONNEGATIVE RECREATIONAL DRUG USE DRUG USE?NO CAFFEINE CAFFEINE USE?YES HOW OFTEN AND HOW MUCH? 1/2 CUP OF COFFEE OR TEA A DAY PRESYBETERIAN PRESYBETERIAN NO DRUZE BELIEFS THAT WOULD IMPACT HEALTH CARE. LANGUAGE LANGUAGES SPOKEN:ESTONIAN LEARNING BARRIERS / SPECIAL NEEDS HEARING IMPAIRED?NO VISION IMPAIRED? GLASSES READINESS TO LEARN?YES LEARNING CAPABILITIES PRESENT?YES SPECIAL DEVICES?YES :WALKER DOMESTIC VIOLENCE DO YOU FEEL SAFE IN YOUR ENVIRONMENT?YES MARITAL STATUS: . OTHERS AT HOME: NONE. PAIN CLINIC PFS, CLERGY, PUBLIC HEALTH REFERRALS HAS THE PATIENT BEEN EDUCATED REGARDING HIS/HER PLAN OF CARE?YES HAS THE PATIENT BEEN EDUCATED REGARDING PAIN, THE RISK FOR PAIN, THE IMPORTANCE OF EFFECTIVE PAIN MANAGEMENT, AND THE PAIN ASSESSMENT PROCESS?YES ADVANCE DIRECTIVE ADVANCE DIRECTIVE DISCUSSED WITH PATIENT:YES PT STATES SHE HAS HCP 1. MAGALIE OLIVEIRA [phone](H) [phone](C) 2. GABRIELLA ARDON [phone] (H) 06/18/18 1027 REVIEWED WITH PT. AD. HOSPITALIZATION/MAJOR DIAGNOSTIC PROCEDURE SURGERY RELATED KIDNEY INFECTION 2011 BRONCHITIS X 2 2018 REVIEW OF SYSTEMS REVIEWED BY: PROVIDER: MIKE SIU . CONSTITUTIONAL: ANY CHANGE IN YOUR MEDICAL CONDITION? YES, RIGHT KNEE PAIN--SEEING ORTHO AND WAS STARTED ON TYL #3 . CHILLS NO . FEVER NO . INFECTION: DO YOU HAVE NEW INFECTIONS? NO . DO YOU HAVE HISTORY OF MRSA? NO . MUSCULOSKELETAL: ANY NEW PATTERNS OF PAIN OR NUMBNESS? NO . GASTROENTEROLOGY: ANY NEW CHANGE IN BOWEL CONTROL? NO . GENITOURINARY: ANY NEW CHANGE IN BLADDER CONTROL? NO . IS THERE A CHANCE YOU COULD BE ? NO . HEMATOLOGY/LYMPH: DO YOU TAKE ANY BLOOD THINNERS? (FOR EXAMPLE- COUMADIN, PLAVIX, AGGRENOX, PLATEL, PRADAXA, OR XARELTO) NO . WHEN WAS YOUR LAST DOSE? DATE: TIME: . NEUROLOGY: HAVE YOU FALLEN IN THE PAST 12 MONTHS? NO . ANY NEW EXTREMITY NUMBNESS OR WEAKNESS? YES, WEAKNESS RIGHT KNEE DUE TO THE PAIN . CARDIOLOGY: DO YOU HAVE A PACEMAKER OR DEFIBRILLATOR? NO . RESPIRATORY: HAVE YOU BEEN SICK IN THE PAST WEEK? NO . FEVER NO . FLU LIKE SYMPTOMS? NO . COUGH NO . INTEGUMENTARY: DO YOU HAVE ANY RASHES OR OPEN SORES? NO . ALLERGIC/IMMUNO: ARE YOU ALLERGIC TO IV DYE? NO . ANY NEW ALLERGIES? NO . PSYCHIATRIC: DO YOU HAVE THOUGHTS OF HURTING YOURSELF OR SOMEONE ELSE? NO . ARE YOU ABUSED, NEGLECTED, OR IN AN UNSAFE ENVIRONMENT? NO . ENDOCRINOLOGY: ARE YOU DIABETIC? YES . OTHER: DO YOU NEED ANY PRESCRIPTIONS? NOT SURE . IF YES, PLEASE LIST: DOESN'T HAVE TRAMADOL BUT NOT TAKING NOW DUE TO TYL _#3 BUT SHE DOESN'T KNOW HOW LONG SHE WILL BE TAKING IT . ANY NEW PROBLEMS WITH YOUR MEDICATIONS? NO . WHEN DID YOU LAST EAT? ____ . WHEN DID YOU LAST DRINK? ____ . WHAT DID YOU LAST DRINK? ____ . NAME OF PERSON DRIVING YOU HOME? ____ . DO YOU HAVE ANY OTHER QUESTIONS OR CONCERNS NO . VITAL SIGNS WT 215 LBS, HT 63 IN, BMI 38.08 INDEX, BP 129/66 MM HG, HR 90 /MIN, RR 18 /MIN, TEMP 96.6 F, OXYGEN SAT % 92%, SAFE IN ENV? (Y/N) Y, NA INITIALS AW 1023, REVIEWED BY: FIORDALIZA. EXAMINATION GENERAL EXAMINATION: GENERAL APPEARANCE:AWAKE,ALERT ,PLEAASANT . PSYCHAFFECT NORMAL . LUNGS:LUNG RIVERO ARE CLEAR TO AUSCULTATION BILATERALLY. GOOD MOVEMENT OF AIR . HEART:S1, S2 IN A REGULAR RATE AND RHYTHM. NO SIGNIFICANT MURMURS, RUBS OR GALLOPS NOTED . ASSESSMENTS LUMBAR DEGENERATIVE DISC DISEASE - M51.36 (PRIMARY) TREATMENT LUMBAR DEGENERATIVE DISC DISEASE NOTES: CONTINUE W ORTHO FOR KNEE PAIN.CURRENTLY USING TYLENOL W CODEINE PER ORTHO. NOT USING TRAMADOL.CALL IF NEEDS MEDICATION. PROCEDURE CODES FA211 ESTABILISHED PATIENT [facility] CHARGE DISPOSITION & COMMUNICATION FOLLOW UP 3 MONTHS ELECTRONICALLY SIGNED BY SALBADOR VU ON 10/02/2018 AT 09:33 AM EDT DISCLAIMER : THIS IS A VISIT SUMMARY EXTRACTED FROM THE [employer] CHART. IT IS NOT A COPY OF THE [employer] PROGRESS NOTE. SISI
== END ==
LOC: M PAIN 10:00
PROVIDERS: ATTEND Nurse Practitioner Family
DX: M51.36 Other intervertebral disc degeneration, lumbar region (principal); G89.29 Other chronic pain; N18.3 Chronic kidney disease, stage 3 (moderate); E11.22 Type 2 diabetes mellitus with diabetic chronic kidney disease; I12.9 Hypertensive chronic kidney disease with stage 1 through stage 4 chronic kidney disease, or unspecified chronic kidney disease; M19.90 Unspecified osteoarthritis, unspecified site; E78.00 Pure hypercholesterolemia, unspecified; E89.0 Postprocedural hypothyroidism; Z79.4 Long term (current) use of insulin; Z79.899 Other long term (current) drug therapy; Z88.2 Allergy status to sulfonamides; Z88.6 Allergy status to analgesic agent; Z88.5 Allergy status to narcotic agent; Z87.891 Personal history of nicotine dependence

== ENCOUNTER → 2018-09-24 | Outpatient (REF) | payer MEDICARE, MEDICAID ==
[~2018-09-24] MED LIST changes: -/FENO48TA PO; -/FERG32TA PO; -/LAMO20TA PO; -/QUET10TA; -ACET50TA PO; +CYMB1CAP4 PO; -DULO20CA PO; -DULO30CA PO; +DULO30CA9 PO; +FERR1TAB6 PO; +FLUT50SP12; -FLUTISP; -HYDR1OI TOP; +HYDR1OIN2 TOP; +MAPA500T17 PO; -QUET20XRTB PO; +SERO1TAB; +SERO200T43 PO; +SERO300T PO; -SERO300T20 PO; -SERO400T3; -SERO400T3 PO; +SERO400T4; +SERO400T4 PO; +TRIC1TAB PO
[2018-09-24 13:08] LABS: APPEARANCE, URINE CLOUDY (CLEAR); BACTERIA, URINE AUTO 2+ (NEGATIVE); BILIRUBIN, URINE AUTO NEGATIVE (NEGATIVE); BLOOD, URINE BLOOD NEGATIVE (NEGATIVE); COLOR, URINE YELLOW (YELLOW); GLUCOSE, URINE (UA) AUTO NEGATIVE (NEGATIVE); KETONE, URINE AUTO NEGATIVE (NEGATIVE); LEUKOCYTE ESTERASE, URINE AUTO 3+ (NEGATIVE); NITRITE, URINE AUTO POSITIVE (NEGATIVE); PROTEIN, URINE AUTO NEGATIVE (NEGATIVE); RBC, URINE AUTO 21 /HPF (0-3); SPECIFIC GRAVITY URINE AUTO 1.018 (1.002-1.035); SQUAMOUS EPITHELIAL CELL UR AU 13 /HPF (0-6); UROBILINOGEN, URINE AUTO 0.2 mg/dL (0.0-2.0); WBC, URINE AUTO TNTC /HPF (0-3)
== END ==
LOC: SKLABADC 12:04
PROVIDERS: ATTEND Internal Medicine
DX: R30.0 Dysuria (principal)

== ENCOUNTER → 2018-10-02 | Outpatient (REF) | payer MEDICARE, MEDICAID ==
[~2018-10-02] MED LIST changes: +/FENO48TA PO; +/FERG32TA PO; +/LAMO20TA PO; +/QUET10TA; +ACET50TA PO; -CYMB1CAP4 PO; +DULO20CA PO; +DULO30CA PO; -DULO30CA9 PO; -FERR1TAB6 PO; -FLUT50SP12; +FLUTISP; +HYDR1OI TOP; -HYDR1OIN2 TOP; -MAPA500T17 PO; +QUET20XRTB PO; -SERO1TAB; -SERO200T43 PO; -SERO300T PO; +SERO300T20 PO; +SERO400T3; +SERO400T3 PO; -SERO400T4; -SERO400T4 PO; -TRIC1TAB PO
== END ==
LOC: M SMT 16:56
PROVIDERS: ATTEND Specialist
DX: R32 Unspecified urinary incontinence (principal)

== ENCOUNTER 2018-11-20 14:02 | Emergency (ER) | payer MEDICARE, MEDICAID ==
[~2018-11-20] VITALS: Ht 157.5 cm; Wt 96.8 kg
[~2018-11-20 14:02] MED LIST changes: -/FENO48TA PO; -/FERG32TA PO; -/LAMO20TA PO; -/QUET10TA; -ACET50TA PO; +CYMB1CAP4 PO; -DULO20CA PO; -DULO30CA PO; +DULO30CA9 PO; +FERR1TAB6 PO; +FLUT50SP12; -FLUTISP; -HYDR1OI TOP; +HYDR1OIN2 TOP; +MAPA500T17 PO; -QUET20XRTB PO; +SERO1TAB; +SERO200T43 PO; +SERO300T PO; -SERO300T20 PO; -SERO400T3; -SERO400T3 PO; +SERO400T4; +SERO400T4 PO; +TRIC1TAB PO
[2018-11-20] MEDS ORDERED: HYDR-4571 (15:02)
[2018-11-20] MEDS ORDERED: [UNRECOGNIZED DRUG - REMARK] INH (15:26)
[2018-11-20] MEDS ORDERED: CALC625T12 PO (15:26)
[2018-11-20] MEDS ORDERED: GLYC3350 PO (15:26)
[2018-11-20] MEDS ORDERED: DICL1GEL3 TOP (15:26)
[2018-11-20] MEDS ORDERED: ASPE16CR TOP (15:26)
[2018-11-20] MEDS ORDERED: VENTAER (15:26)
[2018-11-20] MEDS ORDERED: NORCO, ANEXSIA 5/325MG TABLET (HYDROcodone/ACETAMINOPHEN) PO ONE (15:45)
[2018-11-20 16:56] VITALS: BP 140/70
--- NOTE | 2018-11-21 07:15 | REP ---
REASON FOR EXAM: Increasing knee pain. COMPARISON EXAM: None. Five views of the right knee show tricompartmental marginal osteophytosis and mild tricompartmental narrowing. There is no acute fracture, dislocation, or subluxation. Five views of the left knee show small marginal osteophytes arising from the articular surface of the patella. The compartments are symmetric and well maintained. There is no evidence of an acute fracture, dislocation, or subluxation. IMPRESSION: Bilateral chronic knee changes as described above. Electronically Signed by Daljit Alexandre DO 11/21/2018 08:27 A
== END 2018-11-20 17:17 | disposition home or self-care (01) ==
LOC: M ED 14:02
DX: M17.0 Bilateral primary osteoarthritis of knee (principal)

== ENCOUNTER → 2018-12-24 | Outpatient (CLI) | payer MEDICARE, MEDICAID ==
[~2018-12-24] MED LIST changes: +ASPE16CR TOP; +CALC625T12 PO; +DICL1GEL3 TOP; +GLYC3350 PO; +HYDR-4571; +VENTAER; +[UNRECOGNIZED DRUG - REMARK] INH
--- NOTE | 2018-12-26 01:37 | ECWPNPC ---
PATIENT NAME: AZALIA COFFMAN : 1945 GENDER: FEMALE VISIT DATE: 12/24/2018 DISCHARGE DATE: 12/24/18 1121 VISIT LOCKED DATE TIME: PHYSICIAN: MIKE LAWRENCE RESOURCE: MIKE LAWRENCE REASON FOR APPOINTMENT 1. LOW BACK HISTORY OF PRESENT ILLNESS HISTORY OF PRESENT ILLNESS: 73 YEAR OLD FEMALE IN FOR FOLLOW UP RELATED TO CHRONIC LOW BACK PAIN. UPON EXAM TODAY SHE ADMITS TO 3-10 LOW BACK PAIN AND 8-10 FOR BILATERAL KNEE PAIN. CURRENTLY TAKING HYDROCODONE FOR KNEE PAIN THAT IS BEING PRESCRIBED BY ORTHO. PAIN THE PATIENT DESCRIBES THE PAIN... FALL RISK SCREENING: SCREENING :NO FALLS REPORTED IN THE LAST YEAR CURRENT MEDICATIONS TAKING DOCUSATE SODIUM 100 MG CAPSULE 2 CAPSULE NEEDED ORALLY BID TAKING GLUCOTROL XL 10 MG TABLET EXTENDED RELEASE 24 HOUR 1 TABLET ORALLY DAILY TAKING AMITIZA 24 MCG CAPSULE 1 CAPSULE WITH FOOD ORALLY TWICE A DAY TAKING DONEPEZIL HCL 10 MG TABLET 1 TABLET AT BEDTIME ORALLY ONCE A DAY TAKING CALCIUM CITRATE + D 315-200 MG-UNIT TABLET 1 TABLET WITH MEALS ORALLY DAILY TAKING LAMICTAL 200 MG TABLET 1 TABLET ORALLY ONCE A DAY TAKING SEROQUEL XR 50 MG TABLET EXTENDED RELEASE 24 HOUR 1 TABLET IN THE EVENING ORALLY BEFORE BEDTIME TAKING KLOR-CON 10 10 MEQ TABLET EXTENDED RELEASE 2 TABLET ORALLY BID TAKING SENNA-GEN 8.6 MG TABLET DIRECTED ORALLY BID TAKING ZOLPIDEM TARTRATE 10 MG TABLET 1 TABLET AT BEDTIME ORALLY ONCE A DAY TAKING FUROSEMIDE 20 MG TABLET 1 TABLET ORALLY ONCE DAILY TAKING CLONAZEPAM 0.25 MG TABLET DISINTEGRATING 1 TABLET ORALLY ONCE DAILY TAKING NEEDLES & SYRINGES 31 GAUGE DIRECTED TAKING LANCETS THIN MISCELLANEOUS DIRECTED TAKING GLUCOMETER DIRECTED TAKING LEVEMIR FLEXTOUCH 100 UNIT/ML SOLUTION PEN-INJECTOR SUBCUTANEOUS 50 UNITS IN AM AND 40 UNITS AT 9 PM TAKING DEXILANT 30 MG CAPSULE DELAYED RELEASE 1 CAPSULE ORALLY ONCE A DAY TAKING FIBER - CAPSULE 2 CAPSULES WITH 8 OUNCES OF LIQUID ORALLY BID TAKING ATORVASTATIN CALCIUM 40 MG TABLET 1 TABLET ORALLY ONCE A DAY TAKING QUETIAPINE FUMARATE ER 400 MG TABLET EXTENDED RELEASE 24 HOUR 1 TABLET IN THE EVENING ORALLY ONCE A DAY TAKING GLYCOLAX - POWDER ORALLY BID NEEDED TAKING MAGNESIUM 400 MG CAPSULE 2 TAB ORALLY BID TAKING CETIRIZINE HCL 10 MG TABLET 1 TABLET ORALLY ONCE A DAY TAKING SALINE NASAL SPRAY 0.65 % SOLUTION NASALLY 6-8 TIMES A DAY NEEDED TAKING NOVOLOG FLEXPEN 100 UNIT/ML SOLUTION PEN-INJECTOR 22 UNITS BEFORE BREAKFAST, 12 UNITS BEFORE DINNER SUBCUTANEOUS BID TAKING IPRATROPIUM BROMIDE 0.03 % SOLUTION 2 APPLICATIONS NASALLY TWICE A DAY TAKING MIRALAX SUSPENSION 17 GRAMS ORALLY AT HOUR OF SLEEP TAKING PROAIR HFA 108 (90 BASE) MCG/ACT AEROSOL SOLUTION 2 PUFFS NEEDED INHALATION EVERY 4 HRS TAKING NEBULIZER DEVICE DIRECTED FOUR TIMES A DAY TAKING ALBUTEROL SULFATE (2.5 MG/3ML) 0.083% NEBULIZATION SOLUTION 3 ML INHALATION FOUR TIMES PER DAY TAKING JANUMET XR 50-500 MG TABLET EXTENDED RELEASE 24 HOUR 1 TAB ORALLY BID TAKING LEVOTHYROXINE SODIUM 125 MCG TABLET 1 TABLET ON AN EMPTY STOMACH IN THE MORNING ORALLY ONCE A DAY TAKING VESICARE 10 MG TABLET 1 TABLET ORALLY ONCE A DAY TAKING GUAIFENESIN-DM 100-10 MG/5ML SYRUP 10 ML NEEDED ORALLY EVERY 4 HRS TAKING XOPENEX HFA 45 MCG/ACT AEROSOL 1 PUFF NEEDED INHALATION EVERY 4 HRS TAKING INGREZZA 80 MG CAPSULE 1 CAPSULE ORALLY ONCE A DAY TAKING ZIPRASIDONE HCL 80 MG CAPSULE 1 CAPSULE WITH FOOD ORALLY TWICE A DAY TAKING AUSTEDO 12 MG TABLET 1 TABLET WITH FOOD ORALLY TWICE A DAY TAKING AMLODIPINE BESYLATE 2.5 MG TABLET 1 TABLET ORALLY ONCE A DAY TAKING MILK OF MAGNESIA 400 MG/5ML SUSPENSION 5 ML NEEDED ORALLY FOUR TIMES A DAY TAKING BARD URETHRAL CATHETER - MISCELLANEOUS DIRECTED 14F CATHETER, CIC TWICE PER DAY TAKING OXYBUTYNIN CHLORIDE ER 10 MG TABLET EXTENDED RELEASE 24 HOUR TAKE ONE TABLET BY MOUTH ONCE DAILY TAKING CYMBALTA 30 MG CAPSULE DELAYED RELEASE PARTICLES 1 CAPSULE ORALLY TWICE DAILY TAKING CANDESARTAN CILEXETIL 32 MG TABLET 1 TABLET ORALLY ONCE A DAY NOT-TAKING OLMESARTAN MEDOXOMIL 40 MG TABLET 1 TABLET ORALLY ONCE A DAY NOT-TAKING TYLENOL EXTRA STRENGTH 500 MG TABLET 2 TABLETS NEEDED ORALLY 2-3 TIMES A DAY NEEDED NOT-TAKING ASPERCREME LIDOCAINE 4 % PATCH EXTERNALLY 2-4 TIMES A DAY NEEDED NOT-TAKING LIDODERM 5 % PATCH 1 PATCH TO SKIN REMOVE AFTER 12 HOURS EXTERNALLY ONCE A DAY NOT-TAKING TRAMADOL-ACETAMINOPHEN 37.5-325 MG TABLET 1 ORALLY Q8H PRN MDD3 NOT-TAKING LEVAQUIN 500 MG TABLET 1 TABLET ORALLY ONCE A DAY NOT-TAKING SLOW MAGNESIUM/CALCIUM 64-106 MG TABLET DELAYED RELEASE DIRECTED ORALLY NOT-TAKING TRAZODONE HCL 50 MG TABLET 2 TABLETS ORALLY THREE TIMES A DAY NOT-TAKING CIPRO 500 MG TABLET 1 TABLET ORALLY EVERY 12 HRS MEDICATION LIST REVIEWED AND RECONCILED WITH THE PATIENT PAST MEDICAL HISTORY KIDNEY DISEASE STAGE 3 MEMORY LOSS SCHIZOPHRENIA OSTEOARTHRITIS INCONTINENCE HYPERCHOLESTEROLEMIA ANEMIA DIABETES MELLITUS HYPOTHYROIDISM DUE TO DIALLO'S HYPERTENSION, BENIGN ESOPHAGEAL REFLUX LEGALLY BLIND HYPOMAGNESEMIA GERD AMNESIA OSTEOARTHRITIS URGE INCONTINENCE OG URINE BACK PAIN TORN MENISCUS RIGHT KNEE ALLERGIES SULFA (FOR ALLERGY USE ONLY): HANDS SWELL - ALLERGY ASPIRIN: STOMACH - ALLERGY MORPHINE SULFATE: RASH - ALLERGY CELEBREX: CAUSES PROBLEMS WITH KIDNEYS - ALLERGY SURGICAL HISTORY THYROID SURGERY PARTIAL HYSTERECTOMY/LIFTED BLADDER BILATERAL FOOT SURGERY HERNIA CATARACT-BILATERAL RIGHT SHOULDER SURGERY LEFT SHOULDER SURGERY HOSPITALIZATION/MAJOR DIAGNOSTIC PROCEDURE SURGERY RELATED KIDNEY INFECTION 2011 BRONCHITIS X 2 2018 REVIEW OF SYSTEMS REVIEWED BY: PROVIDER: ILENE CHAN TEMPLER HEAD-C . CONSTITUTIONAL: ANY CHANGE IN YOUR MEDICAL CONDITION? NO . CHILLS NO . FEVER NO . INFECTION: DO YOU HAVE NEW INFECTIONS? NO . DO YOU HAVE HISTORY OF MRSA? NO . MUSCULOSKELETAL: ANY NEW PATTERNS OF PAIN OR NUMBNESS? NO . GASTROENTEROLOGY: ANY NEW CHANGE IN BOWEL CONTROL? NO . GENITOURINARY: ANY NEW CHANGE IN BLADDER CONTROL? NO . IS THERE A CHANCE YOU COULD BE ? NO . HEMATOLOGY/LYMPH: DO YOU TAKE ANY BLOOD THINNERS? (FOR EXAMPLE- COUMADIN, PLAVIX, AGGRENOX, PLATEL, PRADAXA, OR XARELTO) NO . WHEN WAS YOUR LAST DOSE? DATE: TIME: . NEUROLOGY: HAVE YOU FALLEN IN THE PAST 12 MONTHS? NO . ANY NEW EXTREMITY NUMBNESS OR WEAKNESS? NO . CARDIOLOGY: DO YOU HAVE A PACEMAKER OR DEFIBRILLATOR? NO . RESPIRATORY: HAVE YOU BEEN SICK IN THE PAST WEEK? NO . FEVER NO . FLU LIKE SYMPTOMS? NO . COUGH NO . INTEGUMENTARY: DO YOU HAVE ANY RASHES OR OPEN SORES? NO . ALLERGIC/IMMUNO: ARE YOU ALLERGIC TO IV DYE? NO . ANY NEW ALLERGIES? NO . PSYCHIATRIC: DO YOU HAVE THOUGHTS OF HURTING YOURSELF OR SOMEONE ELSE? NO . ARE YOU ABUSED, NEGLECTED, OR IN AN UNSAFE ENVIRONMENT? NO . ENDOCRINOLOGY: ARE YOU DIABETIC? NO . OTHER: DO YOU NEED ANY PRESCRIPTIONS? NO . IF YES, PLEASE LIST: ____ . ANY NEW PROBLEMS WITH YOUR MEDICATIONS? NO . WHEN DID YOU LAST EAT? ____ . WHEN DID YOU LAST DRINK? ____ . WHAT DID YOU LAST DRINK? ____ . NAME OF PERSON DRIVING YOU HOME? ____ . DO YOU HAVE ANY OTHER QUESTIONS OR CONCERNS NO . VITAL SIGNS WT 195 LBS, HT 63 IN, BMI 34.54 INDEX, BP 134/59 MM HG, HR 82 /MIN, RR 18 /MIN, TEMP 95.8 F, OXYGEN SAT % 92%, NA INITIALS AW 1031. EXAMINATION GENERAL EXAMINATION: GENERAL APPEARANCE:AWAKE,ALERT ,PLEASANT. PSYCHAFFECT NORMAL . LUNGS:LUNG RIVERO ARE CLEAR TO AUSCULTATION BILATERALLY. GOOD MOVEMENT OF AIR . HEART:S1, S2 IN A REGULAR RATE AND RHYTHM. NO SIGNIFICANT MURMURS, RUBS OR GALLOPS NOTED . ASSESSMENTS SPONDYLOSIS WITHOUT MYELOPATHY OR RADICULOPATHY, LUMBOSACRAL REGION - M47.817 (PRIMARY) TREATMENT SPONDYLOSIS WITHOUT MYELOPATHY OR RADICULOPATHY, LUMBOSACRAL REGION CLINICAL NOTES: 73 YEAR OLD FEMALE IN FOR FOLLOW UP RELATED TO LOW BACK PAIN. SHE HAS BEEN SEEING ORTHOPEDICS FOR BILATERAL KNEE PAIN RELATED TO TORN MENISCUS. ORTHO HAS PLACED HER ON HYDROCODONE FOR THE PAIN. SUCH, SHE WILL CONTINUE WITH HYDROCODONE AND FOLLOW UP IN 2 MONTHS. WE WILL CONTINUE WITH THE CYMBALTA AT THIS TIME. . PROCEDURE CODES FA211 ESTABILISHED PATIENT [facility] CHARGE DISPOSITION & COMMUNICATION FOLLOW UP 2 MONTHS (REASON: CHRONIC LOW BACK PAIN ) ELECTRONICALLY SIGNED BY SALBADOR VU ON 12/24/2018 AT 03:35 PM EDT DISCLAIMER : THIS IS A VISIT SUMMARY EXTRACTED FROM THE PAK CHART. IT IS NOT A COPY OF THE [employer] PROGRESS NOTE. SISI
== END ==
LOC: M PAIN 10:00
PROVIDERS: ATTEND Nurse Practitioner Family
DX: M47.817 Spondylosis without myelopathy or radiculopathy, lumbosacral region (principal); G89.29 Other chronic pain; I10 Essential (primary) hypertension; E11.9 Type 2 diabetes mellitus without complications; Z79.4 Long term (current) use of insulin; Z79.899 Other long term (current) drug therapy; Z88.2 Allergy status to sulfonamides; Z88.5 Allergy status to narcotic agent; Z88.8 Allergy status to other drugs, medicaments and biological substances

== ENCOUNTER 2018-12-31 10:54 | Inpatient (IN) | payer MEDICARE, MEDICAID ==
--- NOTE | 2018-12-25 18:21 | CR ---
DATE OF CONSULTATION: 12/24/2018 DATE OF SURGERY: 12/31/2018 at [facility] ([facility]) for right knee arthroscopy with Dr. Mickey Gambino. Dear Dr. Gambino, Thank you for asking me to see Ms. Geri Keyes in consultation prior to her right knee surgery. As you know, Ms. Keyes is a 73-year-old female with a past medical history of schizoaffective disorder, type 2 diabetes, hypertension, hyperlipidemia, osteoarthritis (OA), degenerative joint disease (DJD) presenting for preoperative consultation. The patient reports significant decline in her mobility since having onset of right knee pain and now has even developed left knee pain. She is in wheelchair much of the time. She is frustrated and eager to proceed with surgical intervention. The patient does have assistance at home. She has an aide three hours, three days a week and this will increase after surgery. Her aide helps her with bathing, cleaning, cooking, laundry. The patient has type 2 diabetes. She has been noncompliant checking blood sugars and noncompliant with dietary interventions. However, she denies polyuria, polyphagia, polydipsia. She reports compliance with her oral medications. Home blood sugars in the morning have been running 166-220 over the last month. The patient has known gastroesophageal reflux disease (GERD). She denies significant dyspepsia. She is compliant with her Dexilant. She also has irritable bowel syndrome (IBS), constipation, and is compliant with her Amitiza. The patient has known schizoaffective disorder. She is following with Dr. Bledsoe. She is having a medication increase for tremor. She is unsure the exact name. Otherwise, reports no change in her medications. The patient had bladder surgery with Dr. Short in early August 2018 with improvement in her incontinence but not resolution. The patient has a multitude of orthopedic symptoms and chronic pain. She does follow in the pain clinic and uses tramadol. She has had multiple shots with some improvement in her symptoms. The patient had severe bronchitis end of 2017 but pulmonary function tests (PFTs) at [facility] 06/15/2018 showed essentially normal study with only very mild diffusion impairment. The patient does have inhalers. She only uses these as needed. The patient does go to [facility] two times a week. She also enjoys playing piano but this has been more difficult since she developed her severe tremors. The patient otherwise denies fevers or chills, chest pain or shortness of breath. PAST MEDICAL HISTORY: 1. Type 2 diabetes. 2. Hypertension. 3. Hyperlipidemia. 4. Grave's thyroiditis, status post surgery and radioactive iodine. 5. Osteoarthritis (OA), degenerative joint disease (DJD) of the back, knees. 6. Gastroesophageal reflux disease (GERD) with achalasia status post esophagogastroduodenoscopy (EGD) [place] [address] Rubio with dilatation. 7. Chronic obstructive pulmonary disease (COPD), questionable diagnosis with recent essentially normal pulmonary function tests (PFTs) 06/15/2018. She uses inhalers only as needed. 8. Schizoaffective disorder. Follows closely with Dr. Bledsoe. She has developed quite coarse tremors and being medicated for this. 9. Status post hysterectomy with bladder suspension 1994. 10. Uterine fibroids with tubal ligation 1971. 11. Cor pulmonale with echocardiogram in 2000 showing pulmonary hypertension. 12. Bladder suspension December 2001 with tension-free vaginal tape, posterior vaginal wall and a history Botox injection, biopsies with Dr. Short March 2017 and August 2018. 13. Left rotator cuff surgery. 14. Abdominal hernia repair. 15. Chronic renal insufficiency, III. 16. Anemia felt secondary to renal insufficiency. 17. Legally blind. 18. Multiple foot surgeries [id number] for hammertoe correction and bunionectomies. 19. Abnormal mammogram 2014, status post benign biopsy with Dr. Cazares. 20. Status post appendectomy September 2016. 21. Status post cataract extraction. MEDICATIONS: - Amitiza 24 mcg daily - amlodipine 2.5 mg daily - atorvastatin 40 mg daily - Calcitrate 315 mg one daily - candesartan 32 mg daily - cetirizine 10 mg daily - clonazepam 0.25 mg daily - Cymbalta 30 mg daily - Dexilant 30 mg every morning - diclofenac 1% gel topically as needed - docusate 100 mg two twice a day - donepezil 10 mg daily - fiber laxative two tablets twice daily - furosemide 20 mg daily - glipizide ER 10 mg daily - GlycoLax as needed - Ingrezza 80 mg daily - ipratropium nasal spray twice a day - DuoNebs as needed - Janumet XR 5500 one tablet twice a day - Lamictal 200 mg daily - Levemir 50 units in the morning and 40 units in the evening - levothyroxine 125 mcg daily - Lidoderm patch as needed - magnesium oxide 400 mg two twice a day - milk of magnesia as needed - nocturnal oxygen - NovoLog 22 units before breakfast, 12 units before dinner - potassium chloride two tablets twice a day - Seroquel 400 mg at bedtime, 50 mg in the evening - senna 8.6 mg as needed - tramadol four times a day as needed - Tylenol 2-3 times a day as needed - Ventolin as needed - Vesicare 10 mg daily - ziprasidone 80 mg two times a day - zolpidem 10 mg at bedtime DRUG ALLERGIES: SULFA, ASPIRIN, MORPHINE. Intolerances: Zelnorm. FAMILY HISTORY: Father of cancer of the head and neck. Mother and her sister of lung cancer. A sister had a premature stroke at 47. SOCIAL HISTORY: The patient was alone. She is retired, former smoker but quit over 30 years ago. PHYSICAL EXAMINATION: Obese female in no acute distress. VITAL SIGNS: Weight 216 with a body mass index (BMI) of 40. Her oxygen saturation at rest is 92%, blood pressure 142/62, heart rate is 84 and regular. HEENT: Head is normocephalic. Neck is supple. Pupils equally reactive to light. She does have exophthalmos, wears eyeglasses. Her extraocular movements are intact. Conjunctivae are not injected. Sclerae anicteric. Vision grossly normal. Tympanic membranes slightly dull, scant amount of cerumen. Tongue is midline. Posterior pharynx without inflammation. She does have alopecia. Neck is supple, well-healed anterior neck incision. No thyromegaly, carotid bruits or cervical lymphadenopathy. RESPIRATIONS: Decreased breath sounds. BREASTS: Examination deferred. GYNECOLOGIC: Deferred. CARDIOVASCULAR: Regular rate and rhythm. No murmur, rub, or gallop. ABDOMEN: Protuberant, soft, nontender. No hepatosplenomegaly. EXTREMITIES: Arthritic changes, at most trace pretibial edema. NEUROLOGIC: She has a coarse tremor which is intermittent throughout the examination, otherwise she is alert and oriented. LABORATORY DATA: From 12/23/2018: Her CBC shows a hemoglobin and hematocrit of 10.9 and 31.6 which is stable for this patient. She has a normal TSH. Her magnesium is slightly low at 1.7. Her A1c is acceptable at 6.9. Metabolic profile shows a glucose of 94, a normal liver panel, a GFR of 55. The patient's last EKG 08/04/2018 showed a normal sinus rhythm, rate of 74, axis of -11, normal [place], QRS, QTC, incomplete right bundle branch block. No atrial or ventricular hypertrophy. No pathologic Q-waves. No change compared to an EKG from 03/20/2017. The patient's last stress test was 04/16/2017 and was felt to be normal at [facility] IMPRESSION: Ms. Geri Keyes is a 73-year-old female with multiple cardiovascular risk factors including type 2 diabetes, hypertension, hyperlipidemia, age and has no signs or symptoms indicative of cardiovascular ischemia and is felt to be optimized and at low risk for cardiovascular complications from proposed surgical intervention. PROBLEMS: Risks can be further minimized by the followin. Diabetes, type 2. Sugars have been high. I am going to increase her baseline insulin to Levemir 50 units twice a day. I have encouraged her to check her sugars and comply with dietary interventions. She will take half of her long-acting and short-acting insulin the evening before and the morning of surgery. She will take all of her oral medicines. Her sugars do tent to run high. 2. Hypertension. She will take her usual morning medications the morning of surgery. 3. Hyperlipidemia. She will take her statin the evening prior to surgery. 4. Schizoaffective disorder. She will take her usual psychiatric medications the morning of surgery. 5. Gastroesophageal reflux disease (GERD). She will take her Dexilant the morning of surgery. 6. Hypothyroid. She will take her levothyroxine the morning of surgery. 7. Chronic obstructive pulmonary disease (COPD). Recent pulmonary function tests (PFTs) are normal. She will only use nebulizers or puffers as needed. 8. Urinary incontinence. She will take her Vesicare as usual the morning of surgery. 9. Constipation. She will continue her bowel medications perioperatively. 10. Osteoarthritis. She will continue her topicals and tramadol perioperatively. Thank you very much for this consultation. Please call with questions or concerns.
[~2018-12-31] VITALS: Ht 157.5 cm; Wt 99.2 kg
[~2018-12-31 10:54] MED LIST changes: +LIDOCAINE 1% MDV 20ML VIAL SQ PRN
[2018-12-31] MEDS ORDERED: LR 1,000 ML IV ONE (11:15)
[2018-12-31] MEDS ORDERED: PROPOFOL 200 MG/20 ML VIAL As Ordered ONE (13:03)
[2018-12-31] MEDS ORDERED: LIDOCAINE 2% INJ 100 MG/5 ML SDV (FOR ANES.) As Ordered ONE (13:05)
[2018-12-31] MEDS ORDERED: dexameTHASONE 4 MG/ML 1ML VIAL (J1100) As Ordered ONE (13:06)
[2018-12-31] MEDS ORDERED: ONDANSETRON 4MG/2ML VIAL (J2405) As Ordered ONE (13:06)
[2018-12-31] MEDS ORDERED: KETOROLAC 60 MG/2 ML VIAL (J1885) As Ordered ONE (13:07)
[2018-12-31] MEDS ORDERED: KETAMINE HCL 200 MG/20 ML VIAL As Ordered ONE (13:10)
[2018-12-31] MEDS ORDERED: fentaNYL 100 MCG/2 ML INJECTION (J3010) As Ordered ONE ×2 (13:12→15:33)
[2018-12-31] MEDS ORDERED: MIDAZOLAM INJ 2 MG/2 ML VIAL (J2250) As Ordered ONE (13:13)
[2018-12-31] MEDS ORDERED: ROCURONIUM BROMIDE 50 MG/5 ML VIAL As Ordered ONE (13:35)
[2018-12-31] MEDS ORDERED: ROPIvacaine 0.5% 30 ML INJECTION (J2795 PER 1MG) As Ordered ONE (14:07)
[2018-12-31] MEDS ORDERED: ePHEDrine SULFATE 25 MG/5 ML(5MG/ML) SYRINGE As Ordered ONE (14:52)
[2018-12-31] MEDS ORDERED: TRIAMCINOLONE ACETONIDE SUSP 40 MG/ML VIAL (J3301) As Ordered ONE (14:56)
[2018-12-31] MEDS: fentaNYL 100 MCG/2 ML INJECTION (J3010) IV PRN ×4 (15:35→15:50)
[2018-12-31] MEDS ORDERED: PROMETHAZINE INJ 25 MG/ML VIAL (J2550) IV PRN (15:45)
[2018-12-31] MEDS ORDERED: traMADol 50 MG TAB PO PRN (15:45)
[2018-12-31] MEDS ORDERED: LR 1,000 ML IV SCH (15:45)
[2018-12-31] MEDS ORDERED: METOCLOPRAMIDE INJ 10MG/2ML VIAL (J2765) IV PRN (15:45)
[2018-12-31] MEDS ORDERED: ACETAMINOPHEN TAB 650MG DOSE (2X325MG) PO PRN (15:45)
[2018-12-31] MEDS ORDERED: ACETAMINOPHEN 1000MG 100ML IV BTL (OFIRMEV) (J0131 PER 10MG) As Ordered ONE (15:59)
[2018-12-31] MEDS ORDERED: MIRALAX *UNIT DOSE* 17GM PACKET PO PRN (16:15)
[2018-12-31] MEDS ORDERED: IPRATROPIUM 0.5MG/ALBUTEROL 2.5MG INH SOL UD 3ML (DUONEB)(J7620) NEB PRN (16:15)
[2018-12-31] MEDS ORDERED: ACETAMINOPHEN *IV* 1,000 MG IV ONE ×2 (16:15)
[2018-12-31] MEDS ORDERED: ALBUTEROL 90 MCG/ACT 8GM HFA INHALER INH SCH (16:15)
[2018-12-31] MEDS ORDERED: guaiFENesin DM LIQ 10ML UD PO PRN (16:15)
[2018-12-31] MEDS ORDERED: ALBUTEROL 90 MCG/ACT 8GM HFA INHALER INH PRN (16:15)
--- NOTE | 2018-12-31 16:15 | CR.PDOC ---
General Date of Consultation: Dec 31, 2018 Referring Provider: Mickey Gambino Attending Physician: EVIN MAYORGA MD Consultation REASON FOR CONSULTATION/CHIEF COMPLAINT: [Status post right knee arthroplasty with partial medial and lateral menisccectomy, call for medical management. HISTORY OF PRESENT ILLNESS: [This is 73 years old female, past medical history of multiple medical problems. She was brought in to or for right knee arthroscopic partial May medial and lateral meniscectomy and surgery. Patient's surgery went without any complications, is being admitted to medical floor for observation due to multiple metabolic medical comorbidities. Patient denies any complaints except pain at the surgical site]. ALLERGIES: Please see below. HOME MEDICATIONS: Please see below. PAST MEDICAL HISTORY: Diabetes mellitus type 2, hypertension, hyperlipidemia, and Graves' thyroiditis, status post surgery and radioactive iodine treatment, osteoarthritis, GERD status post EGD, chronic COPD, schizoaffective disorder, status post hysterectomy with bladder suspension, uterine fibroids, retired, tubal ligation, cor pulmonale with pulmonary hypertension, bladder suspension with tension-free vaginal tape posterior vaginal wall and history of Botox injection, left rotator cuff surgery, abdominal hernia surgery, chronic renal insufficiency stage III, anemia secondary to renal insufficiency, legally blind, multiple foot surgeries for hammertoes and bunionectomies, abnormal mammogram, status post appendectomy, status post cataract extraction. PAST SURGICAL HISTORY: As above FAMILY HISTORY: Father: [Cancer of head and neck] Mother: [Lung cancer] Siblings: [Sister had a premature stroke] Children: [Not applicable] Hereditary Diseases: [Not applicable] Unexpected deaths due to medical reasons: [Not applicable] SOCIAL HISTORY: Marital status and/or living arrangements: [Lives alone] Children: [Not applicable] Employment: [Tired] Tobacco use:[Ex-smoker, quit 30 years ago] ETOH: [None] Illicit drug use: [No] IV drug use: [No] Other relevant social factors: [None] REVIEW OF SYSTEMS: CONSTITUTIONAL: [No complaints]. HEENT: [No headache, no eye pain]. CARDIOVASCULAR: [, Palpitations. No chest pain]. RESPIRATORY: [, No shortness of breath, cough or fever]. GENITOURINARY: [No urinary distress, frequency, urgency]. MUSCULOSKELETAL: [. No weakness, pain at the surgical site]. GASTROINTESTINAL: [, No nausea, vomiting or diarrhea]. SKIN: [. No mottling, cyanosis, or skin changes]. NEUROLOGICAL: [Motor or sensory deficit. No cranial nerve deficit]. PSYCHIATRIC: Tearful, schizoaffective disorder]. ENDOCRINE: [History of diabetes mellitus]. HEMATOLOGIC/LYMPHATIC: [History of anemia]. ALLERGIC/IMMUNOLOGIC: [None]. PHYSICAL EXAMINATION: VITAL SIGNS: Please see below. GENERAL APPEARANCE: [Normal]. HEENT: [PERRLA. Extraocular muscles intact]. RESPIRATORY: Clear to a and P]. CARDIOVASCULAR: [S1, S2, regular]. ABDOMEN: [, Soft, nontender, bowel sounds present]. EXTREMITIES: [Dressing at the right knee]. NEUROLOGICAL: [. No focal motor sensory deficit]. PSYCHIATRIC: [Within normal range]. LABORATORY DATA: None available ASSESSMENT/PLAN: #1; status post right knee arthroscopic surgery with partial medial and lateral meniscal repair DVT prophylaxis and pain management as per orthopedic , Leg elevation and dressing change as per orthopedic Physical therapy eval in a.m. #2 diabetes mellitus Fingerstick blood sugar every before meals and at bedtime with coverage Continue all home medications Closely monitor patient's fingerstick blood sugar and adjust dose of insulin according #3 hypertension Under well control Continue home medications #4 hyperlipidemia Continue home meds #5. GERD Continue home meds #6, schizoaffective disorder Continue her regular psychiatric meds #7. Hypothyroidism And tinea home meds #8, COPD Continue nebulizer when necessary #9. Urinary incontinence Continue home meds Vital Signs/I&O Vital Signs Date Time Temp Pulse Resp B/P (MAP) Pulse Ox O2 Delivery O2 Flow Rate FiO2 12/31/18 11:58 98.2 80 20 136/65 (88) 94 Laboratory Data Labs 24H Laboratory Tests 2 12/31/18 11:46: Bedside Glucose (Misc Panel) 117H 12/31/18 15:42: Bedside Glucose (Misc Panel) 85 Allergies Coded Allergies: Sulfa (Sulfonamide Antibiotics) (Verified Allergy, Unknown, rash hand swelling, 11/20/18) NSAIDS (Non-Steroidal Anti-Inflamma (Verified Adverse Reaction, Unknown, gi upset, 12/17/18) aspirin (Verified Adverse Reaction, Unknown, gi upset, 12/17/18) celecoxib (Verified Adverse Reaction, Unknown, kidney failure, 12/17/18) morphine (Verified Adverse Reaction, Unknown, respiratory depression, 12/17/18) oxycodone (Verified Adverse Reaction, Unknown, altered mental status, 12/17/18) Home Medications Scheduled Amlodipine Besylate (Amlodipine Besylate) 2.5 Mg Tab, 2.5 MG PO DAILY, #30 Atorvastatin Calcium (Atorvastatin Calcium) 40 Mg Tab, 40 MG PO QHS, (Reported) Cetirizine HCl (Cetirizine HCl) 10 Mg Tab, 10 MG PO DAILY, (Reported) Clonazepam (Clonazepam) 0.5 Mg Tab, 0.5 MG PO QPM, (Reported) Dexlansoprazole (Dexilant) 60 Mg Cap, 60 MG PO DAILY, (Reported) Docusate Sodium (Colace) 100 Mg Cap, 200 MG PO BID, (Reported) AM, DINNERTIME Donepezil HCl (Aricept) 10 Mg Tab, 10 MG PO DAILY, (Reported) Duloxetine Hcl (Duloxetine HCl) 30 Mg Cap, 30 MG PO BID, (Reported) Furosemide (Furosemide) 20 Mg Tab, 20 MG PO DAILY, (Reported) NOON Glipizide (Glucotrol Xl) 10 Mg Tab, 10 MG PO DAILY, (Reported) Insulin Aspart (Novolog Flexpen) 100 Unit/Ml Inj, 22 UNITS SC QAM, (Reported) Insulin Detemir (Levemir) 1 Units/0.01 Ml Susp, 50 UNITS SC QAM, (Reported) Insulin Detemir (Levemir) 1 Units/0.01 Ml Susp, 40 UNITS SC QPM, (Reported) Insulin Human Lispro (Novolog) 100 U/Ml Inj, 12 UNITS SC QPM, (Reported) Ipratropium [place] (Ipratropium [place]) 165 [place]/15 Ml Naspr, 1 SPRAY NA BID, (Reported) Lamotrigine (Lamictal) 200 Mg Tab, 200 MG PO DAILY for 30 Days, #30 (Reported) Levothyroxine Sodium (Levoxyl) 150 Mcg Tab, 125 MCG PO DAILY, (Reported) Lidocaine HCl (Aspercreme) 4% Cream..g., 1 APLCT TOP TID for 30 Days, #76.5 (Reported) Lubiprostone (Amitiza) 24 Mcg Cap, 24 MCG PO BID, (Reported) AM, HS Olmesartan Medoxomil (Olmesartan Medoxomil) 40 Mg Tab, 40 MG PO DAILY, (Reported) NOON Polyethylene Glycol 3350 (Glycolax) 119 Gm Powder, 17 GRAM PO ASDIRECTED for c onstipation, #527 (Reported) Potassium Chloride (K-Tab ER) 10 Meq Tab, 20 MEQ PO BID, (Reported) NOON, HS Quetiapine Fumarate (Seroquel Xr) 400 Mg Tab, 400 MG PO QHS, (Reported) Quetiapine Fumarate (Quetiapine Fumarate ER) 50 Mg Tab, 50 MG PO QPM, (Reported) Sitagliptin Phos/Metformin HCl (Janumet Xr 50-500 mg Tablet) 1 Tab Tab, 1 TAB PO BID, (Reported) Solifenacin Succinate (Vesicare) 10 Mg Tab, 10 MG PO DAILY, (Reported) Tramadol HCl/Acetaminophen (Ultracet Tablet) 1 Tab Tab, 1 TAB PO TID, (Reported) AM, NOON, DINNERTIME Valbenazine Tosylate (Ingrezza) 80 Mg Cap, 80 MG PO DAILY for 30 Days, #30 (Reported) Ziprasidone HCl (Ziprasidone HCl) 80 Mg Cap, 80 MG PO BID, (Reported) AM, DINNERTIME Zolpidem Tartrate (Zolpidem Tartrate) 10 Mg Tab, 10 MG PO QHS, (Reported) [nocturnal O2] , 2 L INH QHS, (Reported) Scheduled PRN Albuterol Sulfate (Proair Hfa) 108 Mcg/Act Aer, 2 PUFF INH Q4H PRN for SHORTNESS OF BREATH, (Reported) Diclofenac Sodium (Diclofenac Sodium) 1% 100GM Gel..gram., 4 GM TOP BID PRN for BACK PAIN for 5 Days, #1 (Reported) Apply to area of pain Guaifenesin/Dextromethorphan (Guaifenesin Dm Syrup) 1 Syp Syp, 10 ML PO Q6HP PRN for cough for 10 Days, #1 Ipratropium/Albuterol Sulfate (Iprat-Albut 0.5-3(2.5) mg/3 ml) 1 Alejandra Alejandra, 3 ML NEB Q4HP PRN for SOB/WHEEZING for 30 Days, #1 30 day supply Polyethylene Glycol 3350 (Miralax) 1 Pow Pow, 17 GM PO BIDP PRN for CONSTIPATION, #1 (Reported) dilute in 8 ounces of water or juice Miscellaneous Medications Albuterol Sulfate (Ventolin Hfa) 18 Gm Hfa.aer.ad, (Reported) Calcium Polycarbophil (Fiber Laxative) 625 Mg Tablet, 625 MG PO, (Reported) Hydrocodone/Acetaminophen (Hydrocodone-Acetamin 5-325 mg) 1 Each Tablet, (Reported) EVIN MAYORGA MD Dec 31, 2018 16:15
--- NOTE | 2018-12-31 16:17 | RO ---
DATE OF PROCEDURE: 12/31/2018 PREOPERATIVE DIAGNOSES: Right knee osteoarthritis, medial and lateral meniscus tear. POSTOPERATIVE DIAGNOSES: Right knee osteoarthritis, medial and lateral meniscus tear. PROCEDURE: Right knee operative arthroscopy, partial medial and lateral meniscectomy and joint debridement. SURGEON: Mickey Gambino MD DAIRY FEED WORKER: CAREY Jones ANESTHESIA: General. ESTIMATED BLOOD LOSS (EBL): Minimal. COMPLICATIONS: None. INDICATIONS: This is a 73-year-old woman with multiple medical issues who has had persistent knee pain. She wished to go ahead with surgical treatment having failed conservative management. She understood the alternatives of knee replacement, etc. She understood the risks of surgery including bleeding, infection, damage to nerves, vessels, persistent pain, blood clots, medical problems, , among others. She understood she was at significantly higher risk due to her multiple medical issues. DESCRIPTION OF PROCEDURE: The patient was taken to the operating room and placed in supine position after general anesthesia was induced. The right lower extremity was prepped and draped in usual sterile fashion. A tourniquet was inflated after time-out was performed. The inferomedial and inferolateral portals were created per routine. Identified patellofemoral joint, which had grade 3-4 changes. I proceeded down both gutters. Identified the medial compartment. She had a very large complex medial meniscus tear and this was debrided back with a combination of basket punch and a 4.2 shaver back to a stable rim. The anterior cruciate ligament (ACL) was identified. This was relatively unremarkable. was identified and there was also a large complex lateral meniscus tear that was debrided with a combination of basket punch and a shaver. I proceeded back to patellofemoral joint and the medial parapatellar plica, which was thickened, was excised. I smoothed off any articular cartilage flaps throughout the knee. There was some grade 2-3 changes on the medial compartment and grade 2 changes on the lateral compartment. I irrigated copiously, removed the instrumentation and closed the portals using #4-0 nylon suture. Injected 30 mL of Naropin with 20 mL (dictation cutting out). Sterile dressing was applied. Tourniquet was deflated. She was taken to recovery room in stable condition. There were no known complications. The plan will be routine postop for knee arthroscopy. It does look like she has to spend the night for social reasons and for pulmonary reasons. The assistant dean of students was instrumental in holding the leg in the correct position to allow access to the knee.
[2018-12-31] MEDS ORDERED: NORCO, ANEXSIA 5/325MG TABLET (HYDROcodone/ACETAMINOPHEN) As Ordered ONE (16:36)
[2018-12-31] MEDS: NORCO, ANEXSIA 5/325MG TABLET (HYDROcodone/ACETAMINOPHEN) PO PRN (16:43)
[2018-12-31 19:46] VITALS: BP 149/112
[2018-12-31] MEDS: LR 1,000 ML IV SCH (20:29)
[2018-12-31] MEDS: QUEtiapine FUMARATE 50 MG TAB PO SCH (20:29)
[2018-12-31] MEDS: DULoxetine 30 MG CAP (CYMBALTA) PO SCH (20:29)
[2018-12-31 20:30] VITALS: BP 140/69
[2018-12-31] MEDS: traMADol 50 MG TAB PO PRN (20:30)
[2018-12-31] MEDS: LEVEMIR (INSULIN DETEMIR) 1 UNITS/0.01ML SC SCH (20:30)
[2018-12-31] MEDS: HumaLOG INSULIN (NovoLOG) PER UNIT SC SCH (20:31)
[2018-12-31] MEDS: ATORVASTATIN 20 MG TAB PO SCH (20:31)
[2018-12-31] MEDS: clonazePAM 0.5 MG TAB PO SCH (20:31)
[2018-12-31] MEDS: POTASSIUM CHLORIDE 10 MEQ SR TABLET PO SCH (20:32)
[2018-12-31] MEDS: IPRATROPIUM 0.06% NASAL SPRAY 15 ML (ATROVENT) SCH (20:32)
[2018-12-31] MEDS: QUEtiapine FUMARATE **XR** 200MG TABLET PO SCH (20:32)
[2018-12-31 21:58] VITALS: BP 144/68
[2018-12-31 22:44] VITALS: BP 148/68
[2019-01-01] VITALS: BP 129/60
[2019-01-01] MEDS: traMADol 50 MG TAB PO PRN ×2 (03:04→21:40)
[2019-01-01] MEDS: zolPIDEM TARTRATE 5 MG TAB PO PRN ×2 (03:04→21:40)
[2019-01-01 04:45] VITALS: BP 168/69
[2019-01-01] MEDS: LR 1,000 ML IV SCH (05:05)
[2019-01-01] MEDS: LEVOTHYROXINE 125MCG TABLET (0.125MG) PO SCH (06:00)
--- NOTE | 2019-01-01 08:22 | IPN ---
DATE: 01/01/2019 CHIEF COMPLAINT: Postoperative day #1 right knee arthroscopy and debridement for arthritis. HISTORY OF PRESENT ILLNESS: This is a 73-year-old female who has right knee arthritis. She underwent right knee arthroscopy, partial medial and lateral meniscectomy and joint debridement by Dr. Gambino yesterday. She is doing well. She is seen today at [facility] on [address]. She has no concerns and neither do the nurses. PHYSICAL EXAMINATION: This is a well-appearing 73-year-old female in no acute distress. She is alert and oriented times three. Examination of the right knee reveals an Jony bandage. She can wiggle her toes, dorsiflex and plantar flex foot. Normal sensation throughout the foot. Her vital signs this morning: Blood pressure 168/69. Pulse rate 95. 96% on 2 liters nasal prongs. Temperature 98.6. Respiratory rate 18. ASSESSMENT/PLAN 73-year-old female maybe a little bit of a challenge in terms of disposition. We will see how physical therapy assessment goes today in terms of her ambulation. Typically, there are no specific restrictions in terms of ambulation for postop knee arthroscopy, so we will see how things go today. She does have a walker of her own to use at home when she is discharged.
[2019-01-01] MEDS: MOM 30ML SUSPENSION UDC PO SCH (09:34)
[2019-01-01] MEDS: ULTRACET TAB PO SCH ×3 (09:35→18:33)
[2019-01-01] MEDS: LEVEMIR (INSULIN DETEMIR) 1 UNITS/0.01ML SC SCH ×2 (09:35→21:39)
[2019-01-01] MEDS: CETIRIZINE (ZyrTEC) 10 MG TAB PO SCH (09:36)
[2019-01-01] MEDS: SOLIFENACIN 5 MG TAB PO SCH (09:36)
[2019-01-01] MEDS: glipiZIDE XL 5 MG TABCR PO SCH (09:38)
[2019-01-01] MEDS: DONEPEZIL 5 MG TAB PO SCH (09:38)
[2019-01-01] MEDS: DOCUSATE SODIUM 100 MG CAP PO SCH ×2 (09:39→18:32)
[2019-01-01] MEDS: lamoTRIgine 100MG TAB PO SCH (09:39)
[2019-01-01] MEDS: SITagliptin 50 MG TAB (JANUVIA) PO SCH (09:39)
[2019-01-01] MEDS: ZIPRASIDONE 80 MG CAP (GEODON) PO SCH ×2 (09:39→18:32)
[2019-01-01] MEDS: IPRATROPIUM 0.06% NASAL SPRAY 15 ML (ATROVENT) SCH ×2 (09:46→21:00)
--- NOTE | 2019-01-01 10:57 | IPNPDOC ---
Subjective Date Seen The patient was seen on 01/01/19. Subjective Chief Complaint/HPI Patient complaining of pain at the surgical site, otherwise no other complaints. As per patient, she failed the physical therapy evaluation to go home General: Denies: ROS Unobtainable, Chills, Night Sweats, Fatigue, Malaise, Normal Appetite, Other Symptoms Constitutional: Denies: Chills, Fever, Malaise, Night Sweats, Weakness, Fatigue, Weight Loss, Lethargy, Other Eyes: Denies: Pain, Vision change, Conjunctivae inflammation, Eyelid inflammation, Redness, Other ENT: Denies: Head Aches, Ear Pain, Dysphagia, Sinus Congestion, Post Nasal Drip, Sore Throat, Epistaxis, Other Symptoms Skin: Denies: Rash, Lesions, Jaundice, Bruising, Itching, Dry, Breakdown, Nail Changes, Other Pulmonary: Denies: Dyspnea, Cough, Pleuritic Chest Pain, Other Symptoms Cardiovascular: Denies: Chest Pain, Palpitations, Orthopnea, Paroxysmal Noc. Dyspnea, Edema, Lt Headedness, Other Symptoms Gastrointestinal: Denies: Nausea, Vomiting, Abdominal Pain, Diarrhea, Cons tipation, Melena, Hematochezia, Other Symptoms Musculoskeletal: Denies: Neck Pain, Back Pain, Shoulder Pain, Arm Pain, Hand Pain, Leg Pain, Foot Pain, Joint Pain, Muscle Pain, Spasms, Other Symptoms Neurological: Denies: Weakness, Numbness, Incoordination, Change in speech, Confusion, Seizures, Other Symptoms Psych: Denies: Mood Normal, Anxiety, Depression, Memory Issues, Thoughts of Self Harm, Anger, Thoughts of Harming Other, Other Psych Objective Physical Examination General Exam: Positive: Alert, Cooperative Eye Exam: Positive: PERRLA, Conjunctiva & lids normal ENT Exam: Positive: Atraumatic, Mucous membr. moist/pink Neck Exam: Positive: Supple Chest Exam: Positive: Clear to auscultation, Normal air movement Heart Exam: Positive: Rate Normal, Normal S1, Normal S2 Abdomen Exam: Positive: Normal bowel sounds, Soft Psych Exam: Positive: Mental status NL, Mood NL Assessment /Plan Problems (1) Schizoaffective disorder Status: Chronic (2) HTN (hypertension) Status: Chronic (3) Hypothyroidism, iatrogenic Status: Chronic (4) DM (diabetes mellitus), type 2 Status: Chronic (5) H/O Jose Alfredo thyroiditis Status: Chronic (6) COPD (chronic obstructive pulmonary disease) Status: Chronic Plan/VTE VTE Prophylaxis Ordered?: Yes Plan #1; status post right knee arthroscopic surgery with partial medial and lateral meniscal repair DVT prophylaxis and pain management as per orthopedic Leg elevation and dressing change as per orthopedic Physical therapyin progress DC planning as per surgery #2 diabetes mellitus Fingerstick blood sugar every before meals and at bedtime with coverage Continue all home medications Closely monitor patient's fingerstick blood sugar and adjust dose of insulin according #3 hypertension Under well control Continue home medications #4 hyperlipidemia Continue home meds #5. GERD Continue home meds #6, schizoaffective disorder Continue her regular psychiatric meds #7. Hypothyroidism And tinea home meds #8, COPD Continue nebulizer when necessary #9. Urinary incontinence Continue home meds VS, I&O, 24H, Fishbone Vital Signs/I&O Vital Signs Date Time Temp Pulse Resp B/P (MAP) Pulse Ox O2 Delivery O2 Flow Rate FiO2 01/01/19 09:40 95 168/69 01/01/19 09:35 16 01/01/19 04:45 98.6 96 2.0 I&O- Last 24 Hours up to 6 AM 01/01/19 06:00 Intake Total 1850 ml Output Total 2505 ml Balance -655 ml Laboratory Data 24H LABS Laboratory Tests 2 12/31/18 11:46: Bedside Glucose (Misc Panel) 117H 12/31/18 15:42: Bedside Glucose (Misc Panel) 85 12/31/18 19:54: Bedside Glucose (Misc Panel) 276H EVIN MAYORGA MD Jan 01, 2019 10:57
[2019-01-01] MEDS: HumaLOG INSULIN (NovoLOG) PER UNIT SC SCH ×2 (11:13→21:39)
[2019-01-01] MEDS: POTASSIUM CHLORIDE 10 MEQ SR TABLET PO SCH ×2 (11:14→21:39)
[2019-01-01] MEDS: DULoxetine 30 MG CAP (CYMBALTA) PO SCH ×2 (11:15→21:38)
[2019-01-01] MEDS: FUROSEMIDE 20 MG TAB PO SCH (11:15)
[2019-01-01 14:41] VITALS: BP 161/71
[2019-01-01] MEDS: ATORVASTATIN 20 MG TAB PO SCH (21:38)
[2019-01-01] MEDS: clonazePAM 0.5 MG TAB PO SCH (21:38)
[2019-01-01] MEDS: QUEtiapine FUMARATE **XR** 200MG TABLET PO SCH (21:39)
[2019-01-01] MEDS: QUEtiapine FUMARATE 50 MG TAB PO SCH (21:39)
[2019-01-01 22:00] VITALS: BP 152/69
[2019-01-02] MEDS: LEVOTHYROXINE 125MCG TABLET (0.125MG) PO SCH (05:51)
[2019-01-02 06:00] VITALS: BP 150/70
[2019-01-02] MEDS: glipiZIDE XL 5 MG TABCR PO SCH (08:46)
[2019-01-02] MEDS: MOM 30ML SUSPENSION UDC PO SCH (08:46)
[2019-01-02] MEDS: SOLIFENACIN 5 MG TAB PO SCH (08:46)
[2019-01-02] MEDS: lamoTRIgine 100MG TAB PO SCH (08:47)
[2019-01-02] MEDS: CETIRIZINE (ZyrTEC) 10 MG TAB PO SCH (08:47)
[2019-01-02] MEDS: DONEPEZIL 5 MG TAB PO SCH (08:47)
[2019-01-02] MEDS: SITagliptin 50 MG TAB (JANUVIA) PO SCH (08:47)
[2019-01-02] MEDS: DULoxetine 30 MG CAP (CYMBALTA) PO SCH ×2 (08:49→21:10)
[2019-01-02] MEDS: DOCUSATE SODIUM 100 MG CAP PO SCH ×2 (08:49→18:21)
[2019-01-02] MEDS: HumaLOG INSULIN (NovoLOG) PER UNIT SC SCH ×2 (08:50→21:11)
[2019-01-02] MEDS: LEVEMIR (INSULIN DETEMIR) 1 UNITS/0.01ML SC SCH ×2 (08:50→21:11)
[2019-01-02] MEDS: ZIPRASIDONE 80 MG CAP (GEODON) PO SCH ×2 (09:00→18:21)
[2019-01-02] MEDS: ULTRACET TAB PO SCH ×3 (09:00→18:21)
[2019-01-02] MEDS: IPRATROPIUM 0.06% NASAL SPRAY 15 ML (ATROVENT) SCH ×2 (09:50→21:10)
--- NOTE | 2019-01-02 11:10 | IPNPDOC ---
Subjective Date Seen The patient was seen on 01/02/19. Subjective Chief Complaint/HPI Patient offers no new complaints at the present time Landauer in bed. PT, OT in progress General: Denies: ROS Unobtainable, Chills, Night Sweats, Fatigue, Malaise, Normal Appetite, Other Symptoms Constitutional: Denies: Chills, Fever, Malaise, Night Sweats, Weakness, Fatigue, Weight Loss, Lethargy, Other Eyes: Denies: Pain, Vision change, Conjunctivae inflammation, Eyelid inflammation, Redness, Other ENT: Denies: Head Aches, Ear Pain, Dysphagia, Sinus Congestion, Post Nasal Drip, Sore Throat, Epistaxis, Other Symptoms Skin: Denies: Rash, Lesions, Jaundice, Bruising, Itching, Dry, Breakdown, Nail Changes, Other Pulmonary: Denies: Dyspnea, Cough, Pleuritic Chest Pain, Other Symptoms Cardiovascular: Denies: Chest Pain, Palpitations, Orthopnea, Paroxysmal Noc. Dyspnea, Edema, Lt Headedness, Other Symptoms Gastrointestinal: Denies: Nausea, Vomiting, Abdominal Pain, Diarrhea, Constipation, Melena, Hematochezia, Other Symptoms Musculoskeletal: Denies: Neck Pain, Back Pain, Shoulder Pain, Arm Pain, Hand Pain, Leg Pain, Foot Pain, Joint Pain, Muscle Pain, Spasms, Other Symptoms Neurological: Denies: Weakness, Numbness, Incoordination, Change in speech, Confusion, Seizures, Other Symptoms Objective Physical Examination General Exam: Positive: Alert, Cooperative Eye Exam: Positive: PERRLA, Conjunctiva & lids normal ENT Exam: Positive: Atraumatic, Mucous membr. moist/pink Neck Exam: Positive: Supple Chest Exam: Positive: Clear to auscultation, Normal air movement Heart Exam: Positive: Rate Normal, Normal S1, Normal S2 Abdomen Exam: Positive: Normal bowel sounds, Soft Psych Exam: Positive: Mental status NL, Mood NL Assessment /Plan Problems (1) Schizoaffective disorder Status: Chronic Problem Text: Stable with present medications (2) HTN (hypertension) Status: Chronic Problem Text: Under well control with home meds (3) Hypothyroidism, iatrogenic Status: Chronic Problem Text: Stable with home meds (4) DM (diabetes mellitus), type 2 Status: Chronic Problem Text: Under well control Continue home insulin dosage Fingerstick blood sugar every before meals and at bedtime with coverage Hemoglobin A1c ordered (5) H/O Jose Alfredo thyroiditis Status: Chronic Problem Text: Stable (6) COPD (chronic obstructive pulmonary disease) Status: Chronic Problem Text: Under well control Plan/VTE VTE Prophylaxis Ordered?: Yes VS, I&O, 24H, Fishbone Vital Signs/I&O Vital Signs Date Time Temp Pulse Resp B/P (MAP) Pulse Ox O2 Delivery O2 Flow Rate FiO2 01/02/19 09:00 18 01/02/19 08:47 89 150/70 01/02/19 06:00 98.3 94 01/01/19 04:45 2.0 I&O- Last 24 Hours up to 6 AM 01/02/19 06:00 Intake Total 1880 ml Output Total 1450 ml Balance 430 ml Laboratory Data 24H LABS Laboratory Tests 2 01/01/19 21:15: Bedside Glucose (Misc Panel) EVIN GLORIA MD Jan 02, 2019 11:10
[2019-01-02] MEDS: FUROSEMIDE 20 MG TAB PO SCH (12:16)
[2019-01-02] MEDS: POTASSIUM CHLORIDE 10 MEQ SR TABLET PO SCH ×2 (12:17→21:10)
[2019-01-02 14:00] VITALS: BP 144/64
[2019-01-02] MEDS: ATORVASTATIN 20 MG TAB PO SCH (21:10)
[2019-01-02] MEDS: QUEtiapine FUMARATE **XR** 200MG TABLET PO SCH (21:10)
[2019-01-02] MEDS: clonazePAM 0.5 MG TAB PO SCH (21:10)
[2019-01-02] MEDS: QUEtiapine FUMARATE 50 MG TAB PO SCH (21:10)
[2019-01-02 22:00] VITALS: BP 147/77
[2019-01-03] MEDS: LEVOTHYROXINE 125MCG TABLET (0.125MG) PO SCH (05:27)
[2019-01-03 05:50] VITALS: BP 139/72
[2019-01-03 07:00] LABS: HEMATOCRIT 30.2 % (36.0-47.0); HEMOGLOBIN 9.8 g/dl (12.0-15.5); MEAN CORPUSCULAR HEMOGLOBIN 30.8 pg (27.0-33.0); MEAN CORPUSCULAR HGB CONC 32.5 g/dl (32.0-36.5); PLATELET COUNT, AUTOMATED 210 10^3/uL (150-450); RED BLOOD COUNT 3.18 10^6/uL (4.00-5.40); WHITE BLOOD COUNT 9.2 10^3/uL (4.0-10.0)
[2019-01-03 07:32] LABS: ALBUMIN 3.6 GM/DL (3.2-5.2); BILIRUBIN,TOTAL 0.1 MG/DL (0.2-1.0); CALCIUM LEVEL 9.1 MG/DL (8.8-10.2); CREATININE FOR GFR 0.99 MG/DL (0.55-1.30); GLOMERULAR FILTRATION RATE 58.7 (>39); TOTAL PROTEIN 7.5 GM/DL (6.4-8.2)
[2019-01-03] MEDS: MOM 30ML SUSPENSION UDC PO SCH (09:25)
[2019-01-03] MEDS: glipiZIDE XL 5 MG TABCR PO SCH (09:28)
[2019-01-03] MEDS: SOLIFENACIN 5 MG TAB PO SCH (09:29)
[2019-01-03] MEDS: DULoxetine 30 MG CAP (CYMBALTA) PO SCH ×2 (09:30→21:28)
[2019-01-03] MEDS: DOCUSATE SODIUM 100 MG CAP PO SCH ×2 (09:30→17:43)
[2019-01-03] MEDS: SITagliptin 50 MG TAB (JANUVIA) PO SCH (09:30)
[2019-01-03] MEDS: DONEPEZIL 5 MG TAB PO SCH (09:30)
[2019-01-03] MEDS: ULTRACET TAB PO SCH ×3 (09:30→17:42)
[2019-01-03] MEDS: lamoTRIgine 100MG TAB PO SCH (09:31)
[2019-01-03] MEDS: CETIRIZINE (ZyrTEC) 10 MG TAB PO SCH (09:31)
[2019-01-03] MEDS: ZIPRASIDONE 80 MG CAP (GEODON) PO SCH ×2 (09:31→17:42)
[2019-01-03] MEDS: LEVEMIR (INSULIN DETEMIR) 1 UNITS/0.01ML SC SCH ×2 (09:35→21:28)
[2019-01-03] MEDS: HumaLOG INSULIN (NovoLOG) PER UNIT SC SCH ×2 (09:35→21:29)
[2019-01-03] MEDS: IPRATROPIUM 0.06% NASAL SPRAY 15 ML (ATROVENT) SCH ×2 (10:00→21:29)
[2019-01-03 10:14] LABS: HEMOGLOBIN A1c 7.2 %
--- NOTE | 2019-01-03 10:40 | IPNPDOC ---
Subjective Date Seen The patient was seen on 01/03/19. Subjective Chief Complaint/HPI Patient is progressing in physical therapy. Able to bend the knee now and do bed exercises, no other complaints General: Denies: ROS Unobtainable, Chills, Night Sweats, Fatigue, Malaise, Normal Appetite, Other Symptoms Constitutional: Denies: Chills, Fever, Malaise, Night Sweats, Weakness, Fatigue, Weight Loss, Lethargy, Other Eyes: Denies: Pain, Vision change, Conjunctivae inflammation, Eyelid inflammation, Redness, Other ENT: Denies: Head Aches, Ear Pain, Dysphagia, Sinus Congestion, Post Nasal Drip, Sore Throat, Epistaxis, Other Symptoms Skin: Denies: Rash, Lesions, Jaundice, Bruising, Itching, Dry, Breakdown, Nail Changes, Other Cardiovascular: Denies: Chest Pain, Palpitations, Orthopnea, Paroxysmal Noc. Dyspnea, Edema, Lt Headedness, Other Symptoms Gastrointestinal: Denies: Nausea, Vomiting, Abdominal Pain, Diarrhea, Constipation, Melena, Hematochezia, Other Symptoms Musculoskeletal: Denies: Neck Pain, Back Pain, Shoulder Pain, Arm Pain, Hand Pain, Leg Pain, Foot Pain, Joint Pain, Muscle Pain, Spasms, Other Symptoms Neurological: Denies: Weakness, Numbness, Incoordination, Change in speech, Confusion, Seizures, Other Symptoms Objective Physical Examination General Exam: Positive: Alert, Cooperative Eye Exam: Positive: PERRLA, Conjunctiva & lids normal ENT Exam: Positive: Atraumatic, Mucous membr. moist/pink Neck Exam: Positive: Supple Chest Exam: Positive: Clear to auscultation, Normal air movement Heart Exam: Positive: Rate Normal, Normal S1, Normal S2 Abdomen Exam: Positive: Normal bowel sounds, Soft Psych Exam: Positive: Mental status NL, Mood NL Assessment /Plan Problems (1) Schizoaffective disorder Status: Chronic Problem Text: Stable with present medications (2) HTN (hypertension) Status: Chronic Problem Text: Under well control with home meds (3) Hypothyroidism, iatrogenic Status: Chronic Problem Text: Stable with home meds (4) DM (diabetes mellitus), type 2 Status: Chronic Problem Text: Under well control Continue home insulin dosage Fingerstick blood sugar every before meals and at bedtime with coverage Hemoglobin A1c ordered (5) H/O Jose Alfredo thyroiditis Status: Chronic Problem Text: Stable (6) COPD (chronic obstructive pulmonary disease) Status: Chronic Problem Text: Under well control Plan/VTE VTE Prophylaxis Ordered?: Yes VS, I&O, 24H, Fishbone Vital Signs/I&O Vital Signs Date Time Temp Pulse Resp B/P (MAP) Pulse Ox O2 Delivery O2 Flow Rate FiO2 01/03/19 09:31 77 139/72 01/03/19 09:30 18 01/03/19 05:50 98.3 95 01/01/19 04:45 2.0 I&O- Last 24 Hours up to 6 AM 01/03/19 06:00 Intake Total 1360 ml Output Total 0 ml Balance 1360 ml Laboratory Data 24H LABS Laboratory Tests 2 01/02/19 11:36: Bedside Glucose (Misc Panel) 152H 01/02/19 16:48: Bedside Glucose (Misc Panel) 165H 01/02/19 21:01: Bedside Glucose (Misc Panel) 170H 01/03/19 06:05: Nucleated Red Blood Cells % (auto) 0.0, Anion Gap 6L, Glomerular Filtration Rate 58.7, Estimated Mean Plasma Glucose 160H, Hemoglobin A1c 7.2, Blood Urea Nitrogen 27H, Creatinine 0.99, Sodium Level 139, Potassium Level 4.0, Chloride Level 102, Carbon Dioxide Level 31, Calcium Level 9.1, Aspartate Amino Transf (AST/SGOT) 21, Alanine Aminotransferase (ALT/SGPT) 29, Alkaline Phosphatase 90, Total Bilirubin 0.1L, Total Protein 7.5, Albumin 3.6, Magnesium Level 2.0, Albumin/Globulin Ratio 0.92L 01/03/19 09:30: Bedside Glucose (Misc Panel) 238H CBC/BMP Laboratory Tests 01/03/19 06:05 Red Blood Count 3.18 L, Mean Corpuscular Volume 95.0, Mean Corpuscular Hemoglobin 30.8, Mean Corpuscular Hemoglobin Concent 32.5, Red Cell Distribution Width 13.2, Calcium Level 9.1, Aspartate Amino Transf (AST/SGOT) 21, Alanine Aminotransferase (ALT/SGPT) 29, Alkaline Phosphatase 90, Total Bilirubin 0.1 L, Total Protein 7.5, Albumin 3.6 EVNI MAYORGA MD Jan 03, 2019 10:40
[2019-01-03] MEDS: NORCO, ANEXSIA 5/325MG TABLET (HYDROcodone/ACETAMINOPHEN) PO PRN (12:03)
[2019-01-03] MEDS: FUROSEMIDE 20 MG TAB PO SCH (12:03)
[2019-01-03] MEDS: POTASSIUM CHLORIDE 10 MEQ SR TABLET PO SCH ×2 (12:04→21:28)
[2019-01-03 14:00] VITALS: BP 170/71
[2019-01-03 20:00] VITALS: BP 164/78
[2019-01-03] MEDS: QUEtiapine FUMARATE 50 MG TAB PO SCH (21:27)
[2019-01-03] MEDS: clonazePAM 0.5 MG TAB PO SCH (21:27)
[2019-01-03] MEDS: QUEtiapine FUMARATE **XR** 200MG TABLET PO SCH (21:27)
[2019-01-03] MEDS: ATORVASTATIN 20 MG TAB PO SCH (21:28)
[2019-01-03] MEDS: zolPIDEM TARTRATE 5 MG TAB PO PRN (21:30)
[2019-01-03] MEDS: traMADol 50 MG TAB PO PRN (21:34)
[2019-01-04] MEDS: LEVOTHYROXINE 125MCG TABLET (0.125MG) PO SCH (05:30)
[2019-01-04] MEDS: traMADol 50 MG TAB PO PRN (05:31)
[2019-01-04 06:00] VITALS: BP 158/77
[2019-01-04] MEDS: lamoTRIgine 100MG TAB PO SCH (08:28)
[2019-01-04] MEDS: SOLIFENACIN 5 MG TAB PO SCH (08:28)
[2019-01-04] MEDS: glipiZIDE XL 5 MG TABCR PO SCH (08:28)
[2019-01-04] MEDS: DOCUSATE SODIUM 100 MG CAP PO SCH (08:29)
[2019-01-04] MEDS: DONEPEZIL 5 MG TAB PO SCH (08:29)
[2019-01-04] MEDS: CETIRIZINE (ZyrTEC) 10 MG TAB PO SCH (08:29)
[2019-01-04] MEDS: DULoxetine 30 MG CAP (CYMBALTA) PO SCH (08:29)
[2019-01-04] MEDS: ZIPRASIDONE 80 MG CAP (GEODON) PO SCH (08:29)
[2019-01-04 08:30] VITALS: BP 158/77
[2019-01-04] MEDS: ULTRACET TAB PO SCH ×2 (08:30→14:02)
[2019-01-04] MEDS: SITagliptin 50 MG TAB (JANUVIA) PO SCH (08:30)
[2019-01-04] MEDS: IPRATROPIUM 0.06% NASAL SPRAY 15 ML (ATROVENT) SCH (08:31)
[2019-01-04] MEDS: HumaLOG INSULIN (NovoLOG) PER UNIT SC SCH (08:31)
[2019-01-04] MEDS: LEVEMIR (INSULIN DETEMIR) 1 UNITS/0.01ML SC SCH (08:31)
[2019-01-04] MEDS: MOM 30ML SUSPENSION UDC PO SCH (08:32)
--- NOTE | 2019-01-04 10:42 | IPNPDOC ---
Subjective Date Seen The patient was seen on 01/04/19. Subjective Chief Complaint/HPI Patient is ambulatory now to help a walker, physical therapy in progress, no new complaints General: Denies: ROS Unobtainable, Chills, Night Sweats, Fatigue, Malaise, Normal Appetite, Other Symptoms Constitutional: Denies: Chills, Fever, Malaise, Night Sweats, Weakness, Fatigue, Weight Loss, Lethargy, Other Eyes: Denies: Pain, Vision change, Conjunctivae inflammation, Eyelid inflammation, Redness, Other ENT: Denies: Head Aches, Ear Pain, Dysphagia, Sinus Congestion, Post Nasal Drip, Sore Throat, Epistaxis, Other Symptoms Skin: Denies: Rash, Lesions, Jaundice, Bruising, Itching, Dry, Breakdown, Nail Changes, Other Pulmonary: Denies: Dyspnea, Cough, Pleuritic Chest Pain, Other Symptoms Cardiovascular: Denies: Chest Pain, Palpitations, Orthopnea, Paroxysmal Noc. Dyspnea, Edema, Lt Headedness, Other Symptoms Gastrointestinal: Denies: Nausea, Vomiting, Abdominal Pain, Diarrhea, Constipation, Melena, Hematochezia, Other Symptoms Neurological: Denies: Weakness, Numbness, Incoordination, Change in speech, Confusion, Seizures, Other Symptoms Psych: Denies: Mood Normal, Anxiety, Depression, Memory Issues, Thoughts of Self Harm, Anger, Thoughts of Harming Other, Other Psych Objective Physical Examination General Exam: Positive: Alert, Cooperative Eye Exam: Positive: PERRLA, Conjunctiva & lids normal ENT Exam: Positive: Atraumatic, Mucous membr. moist/pink Neck Exam: Positive: Supple Chest Exam: Positive: Clear to auscultation, Normal air movement Heart Exam: Positive: Rate Normal, Normal S1, Normal S2 Abdomen Exam: Positive: Normal bowel sounds, Soft Psych Exam: Positive: Mental status NL, Mood NL Assessment /Plan Problems (1) Schizoaffective disorder Status: Chronic Problem Text: Stable with present medications (2) HTN (hypertension) Status: Chronic Problem Text: Under well control with home meds (3) Hypothyroidism, iatrogenic Status: Chronic Problem Text: Stable with home meds (4) DM (diabetes mellitus), type 2 Status: Chronic Problem Text: Under well control Continue home insulin dosage Fingerstick blood sugar every before meals and at bedtime with coverage Hemoglobin A1c ordered (5) H/O Jose Alfredo thyroiditis Status: Chronic Problem Text: Stable (6) COPD (chronic obstructive pulmonary disease) Status: Chronic Problem Text: Under well control (7) S/P right knee arthroscopy Status: Acute Problem Text: PT is in progress Discharge planning as per orthopedic Continue present meds Plan/VTE VTE Prophylaxis Ordered?: Yes VS, I&O, 24H, Fishbone Vital Signs/I&O Vital Signs Date Time Temp Pulse Resp B/P (MAP) Pulse Ox O2 Delivery O2 Flow Rate FiO2 01/04/19 08:30 18 01/04/19 08:30 80 158/77 01/04/19 06:00 97.5 94 01/01/19 04:45 2.0 I&O- Last 24 Hours up to 6 AM 01/04/19 05:59 Intake Total 2170 ml Output Total 575 ml Balance 1595 ml Laboratory Data 24H LABS Laboratory Tests 2 01/03/19 11:54: Bedside Glucose (Misc Panel) 136H 01/03/19 17:25: Bedside Glucose (Misc Panel) 196H 01/03/19 20:11: Bedside Glucose (Misc Panel) 210H 01/04/19 06:30: Bedside Glucose (Misc Panel) 151H EVIN MAYORGA MD Jan 04, 2019 10:42
[2019-01-04 14:00] VITALS: BP 146/62
[2019-01-04] MEDS: POTASSIUM CHLORIDE 10 MEQ SR TABLET PO SCH (14:02)
[2019-01-04] MEDS: FUROSEMIDE 20 MG TAB PO SCH (14:02)
--- NOTE | 2019-01-06 19:18 | DSES ---
DATE OF ADMISSION: 01/01/2019 DATE OF DISCHARGE: 01/04/2019 ADMISSION DIAGNOSIS: Medial and lateral meniscus tears of her right knee. OTHER DIAGNOSES: 1. Schizophrenia. 2. Hypertension. 3. Hypothyroidism. 4. Diabetes. 4. Chronic obstructive pulmonary disease (COPD). DISCHARGE DIAGNOSIS: Right knee medial and lateral meniscus tears status post right knee arthroscopic debridement of the medial and lateral meniscus tears and joint debridement. HISTORY: This is a 73-year-old female patient with progressively worsening knee pain and mechanical symptoms. She failed to improve with conservative management to include injections. She was admitted for elective knee scope on the right side. OPERATION PERFORMED: The right knee arthroscopic partial medial meniscus debridement and joint debridement. HOSPITAL COURSE: The patient was admitted on day of surgery, underwent a right knee scope with partial medial and lateral meniscal debridement and a joint debridement that was uneventful during the postoperative period. She did struggle with the requirements of physical therapy and ultimately, her symptoms improved. She was cleared by physical therapy to go home and she was discharged to home with services. She is weightbearing as tolerated on the right lower extremity. She will resume her preoperative medications and diet. She was given instructions to include, but not limited to, wound monitoring, activity limitations. She will follow up in our office in 7-10 days for surgical followup. She will use oral pain medications for pain control. Please refer the medical record further details.
== END 2019-01-04 15:00 | disposition home or self-care (01) | DRG 488 ==
LOC: M SDC 10:54 → M MS5PR 19:15 → M SDC 01-01 07:26 → M MS5PR 01-01 07:27
PROVIDERS: ADMIT Orthopaedic Surgery; ATTEND Orthopaedic Surgery
PROC: 0SBC4ZZ Excision of Right Knee Joint, Percutaneous Endoscopic Approach (ICD-10-PCS; principal; 2018-12-31 14:15)
DX: M23.303 Other meniscus derangements, unspecified medial meniscus, right knee (principal); Z68.41 Body mass index [BMI] 40.0-44.9, adult; F25.9 Schizoaffective disorder, unspecified; E11.9 Type 2 diabetes mellitus without complications; I12.9 Hypertensive chronic kidney disease with stage 1 through stage 4 chronic kidney disease, or unspecified chronic kidney disease; E78.5 Hyperlipidemia, unspecified; M19.90 Unspecified osteoarthritis, unspecified site; Z91.19 Patient's noncompliance with other medical treatment and regimen; K21.9 Gastro-esophageal reflux disease without esophagitis; K58.9 Irritable bowel syndrome, unspecified; J44.9 Chronic obstructive pulmonary disease, unspecified; N18.3 Chronic kidney disease, stage 3 (moderate); I27.20 Pulmonary hypertension, unspecified; I27.81 Cor pulmonale (chronic); D63.1 Anemia in chronic kidney disease; H54.8 Legal blindness, as defined in USA; Z79.899 Other long term (current) drug therapy; Z88.2 Allergy status to sulfonamides; Z79.4 Long term (current) use of insulin; Z88.6 Allergy status to analgesic agent; Z88.5 Allergy status to narcotic agent; Z87.891 Personal history of nicotine dependence; E03.9 Hypothyroidism, unspecified; M23.200 Derangement of unspecified lateral meniscus due to old tear or injury, right knee

== ENCOUNTER 2019-01-13 15:34 | Outpatient (RCR) | payer MEDICARE, MEDICAID ==
[~2019-01-13 15:34] MED LIST changes: -DULO1CAP2 PO; +DULO1CAP5 PO; -LIDOCAINE 1% MDV 20ML VIAL SQ PRN
== END 2019-02-03 ==
LOC: M PT 15:34
PROVIDERS: ATTEND Orthopaedic Surgery
DX: Z47.89 Encounter for other orthopedic aftercare (principal); Z98.890 Other specified postprocedural states; M25.561 Pain in right knee

== ENCOUNTER → 2019-03-11 | Outpatient (REF) | payer MEDICARE, MEDICAID ==
[~2019-03-11] MED LIST changes: +CLON0.5T2 PO; -CLON0.5T8 PO; +DEXI30CA2 PO; -HYDR-4571; +HYDR-4571 PO; +OXYB10TA23 PO
[2019-03-11 13:50] LABS: HEMATOCRIT 34.4 % (36.0-47.0); MEAN CORPUSCULAR VOLUME 96.9 fl (80.0-96.0); PLATELET COUNT, AUTOMATED 253 10^3/uL (150-450); RED BLOOD COUNT 3.55 10^6/uL (4.00-5.40); WHITE BLOOD COUNT 9.3 10^3/uL (4.0-10.0)
[2019-03-11 14:15] LABS: ALBUMIN 3.8 GM/DL (3.2-5.2); ALT/SGPT 34 U/L (12-78); BILIRUBIN,DIRECT < 0.1 MG/DL (0.0-0.2); BILIRUBIN,TOTAL 0.4 MG/DL (0.2-1.0); BLOOD UREA NITROGEN 22 MG/DL (7-18); CALCIUM LEVEL 9.4 MG/DL (8.8-10.2); CARBON DIOXIDE LEVEL 30 MEQ/L (21-32); CHLORIDE LEVEL 99 MEQ/L (98-107); CK-MB VALUE MASS < 1.0 NG/ML (<3.6); CPK CREATINE PHOSPHOKINASE 86 U/L (26-192); CREATININE FOR GFR 1.33 MG/DL (0.55-1.30); GLOMERULAR FILTRATION RATE 41.7 (>39); GLUCOSE, FASTING 168 MG/DL (70-100); MAGNESIUM LEVEL 1.8 MG/DL (1.8-2.4); MB/CK RELATIVE INDEX 1.16 (< OR =4); POTASSIUM SERUM 4.4 MEQ/L (3.5-5.1); SODIUM LEVEL 137 MEQ/L (136-145); TOTAL PROTEIN 7.8 GM/DL (6.4-8.2)
[2019-03-11 14:41] LABS: HEMOGLOBIN A1c 6.6 %
== END ==
LOC: SKLABADC 10:00
PROVIDERS: ATTEND Internal Medicine
DX: I12.9 Hypertensive chronic kidney disease with stage 1 through stage 4 chronic kidney disease, or unspecified chronic kidney disease (principal); D64.9 Anemia, unspecified; E11.22 Type 2 diabetes mellitus with diabetic chronic kidney disease; E83.42 Hypomagnesemia; E03.9 Hypothyroidism, unspecified

== ENCOUNTER → 2019-03-11 | Outpatient (REF) | payer MEDICARE, MEDICAID ==
[2019-03-11 15:42] LABS: BACTERIA, URINE AUTO 1+ (NEGATIVE); MUCUS, URINE SMALL (NEGATIVE); RBC, URINE AUTO 1 /HPF (0-3); SQUAMOUS EPITHELIAL CELL UR AU 1 /HPF (0-6); WBC, URINE AUTO 175 /HPF (0-3)
[2019-03-11 16:20] LABS: CREATININE, URINE 79.6 MG/DL; MALB URINE SIEMENS 14.2 MG/L; MAU/CREAT RATIO 17.8 MCG/MG (0.0-30.0)
== END ==
LOC: M LAB REF 15:05
PROVIDERS: ATTEND Internal Medicine
DX: I12.9 Hypertensive chronic kidney disease with stage 1 through stage 4 chronic kidney disease, or unspecified chronic kidney disease (principal); D64.9 Anemia, unspecified; E11.22 Type 2 diabetes mellitus with diabetic chronic kidney disease; E83.42 Hypomagnesemia; E03.9 Hypothyroidism, unspecified

== ENCOUNTER → 2019-03-11 | Outpatient (CLI) | payer MEDICARE, MEDICAID ==
--- NOTE | 2019-03-18 01:31 | ECWPNPC ---
PATIENT NAME: AZALIA COFFMAN : 1945 GENDER: FEMALE VISIT DATE: 03/11/2019 DISCHARGE DATE: 03/11/19 1229 VISIT LOCKED DATE TIME: PHYSICIAN: ULYSSES CHAN RESOURCE: ULYSSES CHAN REASON FOR APPOINTMENT 1. LOW BACK IN LINE HISTORY OF PRESENT ILLNESS HISTORY OF PRESENT ILLNESS: PAIN THE PATIENT DESCRIBES THE PAIN... 73-YEAR-OLD FEMALE IN FOR CHRONIC PAIN FOLLOW-UP. SHE RATES HER PAIN AT A 5 OUT OF 10 CURRENTLY AND DESCRIBES IT SORE. SHE FEELS MEDICATIONS ARE WORKING WELL AND DENIES BEEN SIDE EFFECTS. SHE DOES STATE THAT DR. VALVERDE WILL BE TAKING HER OFF THE HYDROCODONE AND HAS REQUESTED TO GO BACK ON THE TRAMADOL. SHE DOES ADMIT TO A UPCOMING RIGHT KNEE SURGERY. FALL RISK SCREENING: SCREENING :NO FALLS REPORTED IN THE LAST YEAR CURRENT MEDICATIONS TAKING DOCUSATE SODIUM 100 MG CAPSULE 2 CAPSULE NEEDED ORALLY BID TAKING GLUCOTROL XL 10 MG TABLET EXTENDED RELEASE 24 HOUR 1 TABLET ORALLY DAILY TAKING AMITIZA 24 MCG CAPSULE 1 CAPSULE WITH FOOD ORALLY TWICE A DAY TAKING DONEPEZIL HCL 10 MG TABLET 1 TABLET AT BEDTIME ORALLY ONCE A DAY TAKING CALCIUM CITRATE + D 315-200 MG-UNIT TABLET 1 TABLET WITH MEALS ORALLY DAILY TAKING LAMICTAL 200 MG TABLET 1 TABLET ORALLY ONCE A DAY TAKING SEROQUEL XR 50 MG TABLET EXTENDED RELEASE 24 HOUR 1 TABLET IN THE EVENING ORALLY BEFORE BEDTIME TAKING KLOR-CON 10 10 MEQ TABLET EXTENDED RELEASE 2 TABLET ORALLY BID TAKING SENNA-GEN 8.6 MG TABLET DIRECTED ORALLY BID TAKING ZOLPIDEM TARTRATE 10 MG TABLET 1 TABLET AT BEDTIME ORALLY ONCE A DAY TAKING FUROSEMIDE 20 MG TABLET 1 TABLET ORALLY ONCE DAILY TAKING CLONAZEPAM 0.25 MG TABLET DISINTEGRATING 1 TABLET ORALLY ONCE DAILY TAKING NEEDLES & SYRINGES 31 GAUGE DIRECTED TAKING LANCETS THIN MISCELLANEOUS DIRECTED TAKING GLUCOMETER DIRECTED TAKING LEVEMIR FLEXTOUCH 100 UNIT/ML SOLUTION PEN-INJECTOR SUBCUTANEOUS 50 UNITS IN AM AND 50 UNITS AT 9 PM TAKING DEXILANT 30 MG CAPSULE DELAYED RELEASE 1 CAPSULE ORALLY ONCE A DAY TAKING FIBER - CAPSULE 2 CAPSULES WITH 8 OUNCES OF LIQUID ORALLY BID TAKING ATORVASTATIN CALCIUM 40 MG TABLET 1 TABLET ORALLY ONCE A DAY TAKING QUETIAPINE FUMARATE ER 400 MG TABLET EXTENDED RELEASE 24 HOUR 1 TABLET IN THE EVENING ORALLY ONCE A DAY TAKING GLYCOLAX - POWDER ORALLY BID NEEDED TAKING MAGNESIUM 400 MG CAPSULE 2 TAB ORALLY BID TAKING CETIRIZINE HCL 10 MG TABLET 1 TABLET ORALLY ONCE A DAY TAKING SALINE NASAL SPRAY 0.65 % SOLUTION NASALLY 6-8 TIMES A DAY NEEDED TAKING NOVOLOG FLEXPEN 100 UNIT/ML SOLUTION PEN-INJECTOR 22 UNITS BEFORE BREAKFAST, 12 UNITS BEFORE DINNER SUBCUTANEOUS BID TAKING IPRATROPIUM BROMIDE 0.03 % SOLUTION 2 APPLICATIONS NASALLY TWICE A DAY TAKING MIRALAX SUSPENSION 17 GRAMS ORALLY AT HOUR OF SLEEP TAKING PROAIR HFA 108 (90 BASE) MCG/ACT AEROSOL SOLUTION 2 PUFFS NEEDED INHALATION EVERY 4 HRS TAKING NEBULIZER DEVICE DIRECTED FOUR TIMES A DAY TAKING ALBUTEROL SULFATE (2.5 MG/3ML) 0.083% NEBULIZATION SOLUTION 3 ML INHALATION FOUR TIMES PER DAY TAKING JANUMET XR 50-500 MG TABLET EXTENDED RELEASE 24 HOUR 1 TAB ORALLY BID TAKING LEVOTHYROXINE SODIUM 125 MCG TABLET 1 TABLET ON AN EMPTY STOMACH IN THE MORNING ORALLY ONCE A DAY TAKING VESICARE 10 MG TABLET 1 TABLET ORALLY ONCE A DAY TAKING GUAIFENESIN-DM 100-10 MG/5ML SYRUP 10 ML NEEDED ORALLY EVERY 4 HRS TAKING XOPENEX HFA 45 MCG/ACT AEROSOL 1 PUFF NEEDED INHALATION EVERY 4 HRS TAKING INGREZZA 80 MG CAPSULE 1 CAPSULE ORALLY ONCE A DAY TAKING ZIPRASIDONE HCL 80 MG CAPSULE 1 CAPSULE WITH FOOD ORALLY TWICE A DAY TAKING AUSTEDO 12 MG TABLET 1 TABLET WITH FOOD ORALLY TWICE A DAY TAKING AMLODIPINE BESYLATE 2.5 MG TABLET 1 TABLET ORALLY ONCE A DAY TAKING MILK OF MAGNESIA 400 MG/5ML SUSPENSION 5 ML NEEDED ORALLY FOUR TIMES A DAY TAKING BARD URETHRAL CATHETER - MISCELLANEOUS DIRECTED 14F CATHETER, CIC TWICE PER DAY TAKING CANDESARTAN CILEXETIL 32 MG TABLET 1 TABLET ORALLY ONCE A DAY TAKING OXYBUTYNIN CHLORIDE ER 10 MG TABLET EXTENDED RELEASE 24 HOUR TAKE ONE TABLET BY MOUTH ONCE DAILY TAKING CYMBALTA 30 MG CAPSULE DELAYED RELEASE PARTICLES 1 CAPSULE ORALLY TWICE DAILY NOT-TAKING OLMESARTAN MEDOXOMIL 40 MG TABLET 1 TABLET ORALLY ONCE A DAY NOT-TAKING TYLENOL EXTRA STRENGTH 500 MG TABLET 2 TABLETS NEEDED ORALLY 2-3 TIMES A DAY NEEDED NOT-TAKING ASPERCREME LIDOCAINE 4 % PATCH EXTERNALLY 2-4 TIMES A DAY NEEDED NOT-TAKING LIDODERM 5 % PATCH 1 PATCH TO SKIN REMOVE AFTER 12 HOURS EXTERNALLY ONCE A DAY NOT-TAKING TRAMADOL-ACETAMINOPHEN 37.5-325 MG TABLET 1 ORALLY Q8H PRN MDD3 NOT-TAKING LEVAQUIN 500 MG TABLET 1 TABLET ORALLY ONCE A DAY NOT-TAKING SLOW MAGNESIUM/CALCIUM 64-106 MG TABLET DELAYED RELEASE DIRECTED ORALLY NOT-TAKING TRAZODONE HCL 50 MG TABLET 2 TABLETS ORALLY THREE TIMES A DAY NOT-TAKING CIPRO 500 MG TABLET 1 TABLET ORALLY EVERY 12 HRS MEDICATION LIST REVIEWED AND RECONCILED WITH THE PATIENT PAST MEDICAL HISTORY KIDNEY DISEASE STAGE 3 MEMORY LOSS SCHIZOPHRENIA OSTEOARTHRITIS INCONTINENCE HYPERCHOLESTEROLEMIA ANEMIA DIABETES MELLITUS HYPOTHYROIDISM DUE TO DIALLO'S HYPERTENSION, BENIGN ESOPHAGEAL REFLUX LEGALLY BLIND HYPOMAGNESEMIA GERD AMNESIA OSTEOARTHRITIS URGE INCONTINENCE OG URINE BACK PAIN TORN MENISCUS RIGHT KNEE ALLERGIES SULFA (FOR ALLERGY USE ONLY): HANDS SWELL - ALLERGY ASPIRIN: STOMACH - ALLERGY MORPHINE SULFATE: RASH - ALLERGY CELEBREX: CAUSES PROBLEMS WITH KIDNEYS - ALLERGY SURGICAL HISTORY THYROID SURGERY PARTIAL HYSTERECTOMY/LIFTED BLADDER BILATERAL FOOT SURGERY HERNIA CATARACT-BILATERAL RIGHT SHOULDER SURGERY LEFT SHOULDER SURGERY RIGHT KNEE SURGERY 12/31/2018 FAMILY HISTORY FATHER: , DIAGNOSED WITH HEART DISEASE, CANCER MOTHER: , CANCER SIBLINGS: , STROKE, CANCER NO KNOWN FAMILY HISTORY OF ANY UROLOGICALLY RELATED DISEASES\\\/CANCERS.\\N FATHER-THROAT CA\\NMOTHER-LUNG CA\\NSISTER-LUNG CA\\NHAS 2 BROTHERS THAT SHE DOES NOT KNOW HISTORY ON. SOCIAL HISTORY GENERAL: TOBACCO USE ARE YOU A:FORMER SMOKER HOW LONG HAS IT BEEN SINCE YOU LAST SMOKED?> 10 YEARS OTHERS AT HOME: NONE. DIET: REGULAR. LANGUAGE LANGUAGES SPOKEN:QATARI DOMESTIC VIOLENCE DO YOU FEEL SAFE IN YOUR ENVIRONMENT?YES RECREATIONAL DRUG USE DRUG USE?NO EXERCISE: NONE. 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 HEAD OF INTEGRATED MEDIA NEEDED?NO PAIN CLINIC PFS, CLERGY, PUBLIC HEALTH REFERRALS HAS THE PATIENT BEEN EDUCATED REGARDING HIS/HER PLAN OF CARE?YES HAS THE PATIENT BEEN EDUCATED REGARDING PAIN, THE RISK FOR PAIN, THE IMPORTANCE OF EFFECTIVE PAIN MANAGEMENT, AND THE PAIN ASSESSMENT PROCESS?YES LATEX QUESTIONNAIRE LATEX ALLERGY : HAVE YOU EVER DEVELOPED ANY TYPE OF REACTION AFTER HANDLING LATEX PRODUCTS SUCH RUBBER GLOVES, CONDOMS, DIAPHRAGMS, BALLOONS, SOCKS, OR UNDERWEAR?NO LATEX ALLERGY : HAVE YOU EVER DEVELOPED ANY TYPE OF REACTION DURING OR AFTER DENTAL APPOINTMENT, VAGINAL/RECTAL EXAMINATION, SURGICAL PROCEDURE, OR ANY OTHER EXPOSURE?NO LATEX RISK : HAVE YOU EVER HAD ANY DIFFICULTY BREATHING OR HIVES AFTER EATING OR HANDLING ANY FRUITS, OR VEGETABLES; SUCH KIWI, BANANAS, STONE FRUITS, OR CHESTNUTSNO LATEX RISK : DO YOU HAVE A PREVIOUS PERSONAL HISTORY OF MORE THAN NINE SURGERIES, SPINA BIFIDA, OR REPEATED CATHERIZATIONS? NO LATEX RISK : ARE YOU FREQUENTLY EXPOSED TO LATEX PRODUCTS IN YOUR OCCUPATION?NO DATE ASKED : 02/01/2019 CAFFEINE CAFFEINE USE?YES HOW OFTEN AND HOW MUCH? 1/2 CUP OF COFFEE OR TEA A DAY ADVANCE DIRECTIVE ADVANCE DIRECTIVE DISCUSSED WITH PATIENT:YES PT STATES SHE HAS HCP 1. MAGALIE OLIVEIRA [phone](H) [phone](C) 2. GABRIELLA ARDON [phone] (H) YAZDANISM YAZDANISM NO CONFUCIANISM BELIEFS THAT WOULD IMPACT HEALTH CARE. MARITAL STATUS: . ALCOHOL SCREENING DID YOU HAVE A DRINK CONTAINING ALCOHOL IN THE PAST YEAR?NO POINTS0 INTERPRETATIONNEGATIVE SEXUAL HX HAD SEX IN THE LAST 12 MONTHS (VAGINAL, ORAL, OR ANAL)?NO HAVE YOU EVER HAD AN STD?NO 06/18/18 1027 REVIEWED WITH PT. PAMELABLANCACHARLOTTEWED WITH PATIENT 03/11/19 1206 NLJ. HOSPITALIZATION/MAJOR DIAGNOSTIC PROCEDURE SURGERY RELATED KIDNEY INFECTION 2011 BRONCHITIS X 2 2018 REVIEW OF SYSTEMS REVIEWED BY: PROVIDER: ILENE CRONIN . CONSTITUTIONAL: ANY CHANGE IN YOUR MEDICAL CONDITION? NO . CHILLS NO . FEVER NO . INFECTION: DO YOU HAVE NEW INFECTIONS? NO . DO YOU HAVE HISTORY OF MRSA? NO . MUSCULOSKELETAL: ANY NEW PATTERNS OF PAIN OR NUMBNESS? NO- STATES HER LOWER BACK AND RIGHT KNEE PAIN HAVE NOT CHANGED, PAIN IS INTERMITTENT . GASTROENTEROLOGY: ANY NEW CHANGE IN BOWEL CONTROL? NO . GENITOURINARY: ANY NEW CHANGE IN BLADDER CONTROL? YES- BUT IS NOT NEW FOR PATIENT . IS THERE A CHANCE YOU COULD BE ? NO . HEMATOLOGY/LYMPH: DO YOU TAKE ANY BLOOD THINNERS? (FOR EXAMPLE- COUMADIN, PLAVIX, AGGRENOX, PLATEL, PRADAXA, OR XARELTO) NO . WHEN WAS YOUR LAST DOSE? DATE: TIME: . NEUROLOGY: HAVE YOU FALLEN IN THE PAST 12 MONTHS? NO . ANY NEW EXTREMITY NUMBNESS OR WEAKNESS? NO . CARDIOLOGY: DO YOU HAVE A PACEMAKER OR DEFIBRILLATOR? NO . RESPIRATORY: HAVE YOU BEEN SICK IN THE PAST WEEK? NO . FEVER NO . FLU LIKE SYMPTOMS? NO . COUGH NO . INTEGUMENTARY: DO YOU HAVE ANY RASHES OR OPEN SORES? NO . ALLERGIC/IMMUNO: ARE YOU ALLERGIC TO IV DYE? NO . ANY NEW ALLERGIES? NO . PSYCHIATRIC: DO YOU HAVE THOUGHTS OF HURTING YOURSELF OR SOMEONE ELSE? NO . ARE YOU ABUSED, NEGLECTED, OR IN AN UNSAFE ENVIRONMENT? NO . ENDOCRINOLOGY: ARE YOU DIABETIC? YES . OTHER: DO YOU NEED ANY PRESCRIPTIONS? YES . IF YES, PLEASE LIST: ____TRAMADOL . ANY NEW PROBLEMS WITH YOUR MEDICATIONS? NO . WHEN DID YOU LAST EAT? ____ . WHEN DID YOU LAST DRINK? ____ . WHAT DID YOU LAST DRINK? ____ . NAME OF PERSON DRIVING YOU HOME? ____ . DO YOU HAVE ANY OTHER QUESTIONS OR CONCERNS NO- STATES HER LOWER BACK HURTS AND HER RIGHT KNEE, STATES SHE IS HAVING A REPAIR OF TORN MENISCUS ON FRIDAY . VITAL SIGNS WT 222.0 LBS, HT 63 IN, BMI 39.32 INDEX, BP 123/60 MM HG, HR 92 /MIN, RR 18 /MIN, TEMP 95.5 F, OXYGEN SAT % 92%, SAFE IN ENV? (Y/N) YES, NA INITIALS AW 1206, REVIEWED BY: TIFFANIE. EXAMINATION GENERAL EXAMINATION: GENERALNO ACUTE DISTRESS, WELL NOURISHED AND HYDRATED. PSYCHAPPROPRIATE MOOD AND AFFECT . LUNGS:CLEAR TO AUSCULTATION BILATERALLY, NO WHEEZES, RHONCHI, RALES. HEART:NO MURMURS, REGULAR RATE AND RHYTHM. ASSESSMENTS SPONDYLOSIS WITHOUT MYELOPATHY OR RADICULOPATHY, LUMBOSACRAL REGION - M47.817 (PRIMARY) TREATMENT SPONDYLOSIS WITHOUT MYELOPATHY OR RADICULOPATHY, LUMBOSACRAL REGION CLINICAL NOTES: 73-YEAR-OLD FEMALE IN FOR CHRONIC PAIN FOLLOW-UP. GIVEN PRESENTED SYMPTOMS AND RESULTS PHYSICAL EXAMINATION RECOMMENDED CONSULTING WITH DR. VALVERDE PRIOR TO THE PRESCRIBING OF TRAMADOL, AND CONTINUATION OF CURRENT MEDICATIONS WITH FOLLOW-UP IN A FEW MONTHS. PATIENT HAS EXPRESSED UNDERSTANDING OF AND WAS IN AGREEMENT WITH TREATMENT PLAN. GIVEN TIME TO ASK QUESTIONS AND EXPRESS CONCERNS. PROCEDURE CODES FA211 ESTABILISHED PATIENT [facility] CHARGE DISPOSITION & COMMUNICATION FOLLOW UP 2 MONTHS (REASON: CHRONIC PAIN) ELECTRONICALLY SIGNED BY SALBADOR PECK ON 03/12/2019 AT 08:49 AM EDT DISCLAIMER : THIS IS A VISIT SUMMARY EXTRACTED FROM THE [employer] CHART. IT IS NOT A COPY OF THE [employer] PROGRESS NOTE. SISI
== END ==
LOC: M PAIN 11:45
PROVIDERS: ATTEND Family Medicine
DX: M47.817 Spondylosis without myelopathy or radiculopathy, lumbosacral region (principal); G89.29 Other chronic pain; Z86.59 Personal history of other mental and behavioral disorders; M19.90 Unspecified osteoarthritis, unspecified site; E78.00 Pure hypercholesterolemia, unspecified; Z87.891 Personal history of nicotine dependence; Z88.2 Allergy status to sulfonamides; Z88.5 Allergy status to narcotic agent; Z88.6 Allergy status to analgesic agent; Z88.8 Allergy status to other drugs, medicaments and biological substances; Z79.4 Long term (current) use of insulin; Z79.899 Other long term (current) drug therapy; I12.9 Hypertensive chronic kidney disease with stage 1 through stage 4 chronic kidney disease, or unspecified chronic kidney disease; D64.9 Anemia, unspecified; E11.22 Type 2 diabetes mellitus with diabetic chronic kidney disease; E83.42 Hypomagnesemia; E03.9 Hypothyroidism, unspecified
CPT/HCPCS: 36415; 80048; 80076; 81015; 82043; 82553; 83036; 83735; 84443; 85027; G0463

== ENCOUNTER 2019-03-15 07:17 | Inpatient (IN) | payer MEDICARE, MEDICAID ==
[~2019-03-15] VITALS: Ht 157.5 cm; Wt 100.7 kg
[2019-03-15] VITALS (8 sets, daily range): BP systolic 116–149; BP diastolic 43–94
[~2019-03-15 07:17] MED LIST changes: -CLON0.5T2 PO; +CLON0.5T8 PO; -DEXI30CA2 PO; +LIDOCAINE 1% MDV 20ML VIAL SQ PRN; +LR 1,000 ML IV ONE; +OXYB10TA2 PO; -OXYB10TA23 PO
[2019-03-15] MEDS ORDERED: MIDAZOLAM INJ 2 MG/2 ML VIAL (J2250) As Ordered ONE (08:39)
[2019-03-15] MEDS ORDERED: fentaNYL 100 MCG/2 ML INJECTION (J3010) As Ordered ONE (08:39)
[2019-03-15] MEDS ORDERED: PROPOFOL 200 MG/20 ML VIAL As Ordered ONE (08:44)
[2019-03-15] MEDS ORDERED: LIDOCAINE 2% INJ 100 MG/5 ML SDV (FOR ANES.) As Ordered ONE (08:44)
[2019-03-15] MEDS ORDERED: dexameTHASONE 4 MG/ML 1ML VIAL (J1100) As Ordered ONE (08:56)
[2019-03-15] MEDS ORDERED: ONDANSETRON 4MG/2ML VIAL (J2405) As Ordered ONE (08:56)
[2019-03-15] MEDS ORDERED: lamoTRIgine 100MG TAB PO SCH (09:00)
[2019-03-15] MEDS ORDERED: ROPIvacaine 0.5% 30 ML INJECTION (J2795 PER 1MG) As Ordered ONE (09:01)
[2019-03-15] MEDS ORDERED: ACETAMINOPHEN 1000MG 100ML IV BTL (OFIRMEV) (J0131 PER 10MG) As Ordered ONE (09:34)
[2019-03-15] MEDS ORDERED: TRIAMCINOLONE ACETONIDE SUSP 40 MG/ML VIAL (J3301) As Ordered ONE (09:48)
[2019-03-15] MEDS ORDERED: ONDANSETRON 4MG/2ML VIAL (J2405) IV PRN (10:30)
[2019-03-15] MEDS ORDERED: fentaNYL 100 MCG/2 ML INJECTION (J3010) IV PRN (10:30)
[2019-03-15] MEDS ORDERED: LR 1,000 ML IV SCH ×2 (10:30→11:31)
--- NOTE | 2019-03-15 10:30 | RO ---
DATE OF PROCEDURE: 03/15/2019 PREOPERATIVE DIAGNOSIS: Left knee medial meniscus tear, lateral meniscus tear and osteoarthritis. POSTOPERATIVE DIAGNOSIS: Left knee medial meniscus tear, lateral meniscus tear and osteoarthritis. PROCEDURE: Left knee operative arthroscopy, partial medial and lateral meniscectomy and removal of anterolateral loose body. SURGEON: Dr. Mickey Gambino PAYROLL EXAMINER: Terri Das ANESTHESIA: General. ESTIMATED BLOOD LOSS: Less than 5. COMPLICATIONS: None. INDICATION: 73-year woman who has had gradually worsening left knee pain. She recently went through a right knee arthroscopy and got some benefit out of it. She does have quite a bit of arthritis in both her knees, but did not wish to go ahead with a knee replacement. She understood the nature of this and the risks of bleeding, infection, damage to nerves, vessels, persistent pain, blood clots, medical problems, and . DESCRIPTION OF PROCEDURE: The patient was placed in supine position after general anesthesia was induced. Left lower extremity was prepped and draped in the usual sterile fashion. Tourniquet was placed and was inflated after a time out was performed. Inferomedial and inferolateral portals were created per routine. I identified the patellofemoral joint. She had grade 3 to 4 changes in the patellofemoral joint, particularly in the trochlea. I proceeded down both gutters. The medial meniscus had a complex large posterior horn medial meniscus tear that was resected with a combination of basket punch and a 4.2 shaver back to a stable rim. I then identified the notch. The anterior cruciate ligament (ACL) seemed to be pretty unremarkable. The lateral compartment was identified. There was an anterior horn lateral meniscus attached loose body that was retrieved with the pituitary. There was an anterior midbody lateral meniscus tear that was shaved down with a 4.2 shaver back to a stable rim. The lateral joint was relatively well conserved with grade 2 changes. The medial compartment had grade 3 changes throughout and loose flaps that were carefully smoothed off. I went back to the patellofemoral joint and removed any loose flaps and debrided any plica. I then irrigated copiously, removed instrumentation and closed the portals using #3-0 nylon suture and injected 30 mL of Naropin and 20 mg of Kenalog. Sterile dressing was applied. Tourniquet was deflated. She was taken to the recovery room in stable condition. There were no known complications.
[2019-03-15] MEDS: NORCO, ANEXSIA 5/325MG TABLET (HYDROcodone/ACETAMINOPHEN) PO PRN ×2 (11:10→12:20)
[2019-03-15] MEDS ORDERED: ALBUTEROL 90 MCG/ACT 8GM HFA INHALER INH PRN (11:15)
[2019-03-15] MEDS ORDERED: guaiFENesin DM LIQ 10ML UD PO PRN (11:15)
[2019-03-15] MEDS ORDERED: IPRATROPIUM 0.5MG/ALBUTEROL 2.5MG INH SOL UD 3ML (DUONEB)(J7620) NEB PRN (11:15)
[2019-03-15] MEDS ORDERED: MIRALAX *UNIT DOSE* 17GM PACKET PO PRN (11:15)
[2019-03-15] MEDS ORDERED: NORCO, ANEXSIA 5/325MG TABLET (HYDROcodone/ACETAMINOPHEN) PO PRN (11:31)
[2019-03-15] MEDS ORDERED: FUROSEMIDE 20 MG TAB PO SCH (12:00)
[2019-03-15 12:11] LABS: BASO % 0.3 % (0.0-1.0); EOS # 0.1 10^3/uL (0.0-0.5); EOS % 1.2 % (0.0-3.0); HEMATOCRIT 30.9 % (36.0-47.0); HEMOGLOBIN 10.1 g/dl (12.0-15.5); LYMPH # 0.9 10^3/uL (1.5-5.0); LYMPH % 10.1 % (24.0-44.0); MEAN CORPUSCULAR HEMOGLOBIN 32.3 pg (27.0-33.0); MEAN CORPUSCULAR HGB CONC 32.7 g/dl (32.0-36.5); MEAN CORPUSCULAR VOLUME 98.7 fl (80.0-96.0); MONO # 0.4 10^3/uL (0.0-0.8); MONO % 4.2 % (0.0-5.0); NEUTROPHILS # 7.8 10^3/uL (1.5-8.5); NEUTROPHILS % 83.7 % (36.0-66.0); PLATELET COUNT, AUTOMATED 199 10^3/uL (150-450); RED BLOOD COUNT 3.13 10^6/uL (4.00-5.40); WHITE BLOOD COUNT 9.3 10^3/uL (4.0-10.0)
[2019-03-15 12:29] LABS: HEMOGLOBIN A1c 6.5 %
[2019-03-15 12:53] LABS: ALBUMIN 3.4 GM/DL (3.2-5.2); BILIRUBIN,TOTAL 0.3 MG/DL (0.2-1.0); CALCIUM LEVEL 8.8 MG/DL (8.8-10.2); CREATININE FOR GFR 1.15 MG/DL (0.55-1.30); GLOMERULAR FILTRATION RATE 49.4 (>39); MAGNESIUM LEVEL 1.7 MG/DL (1.8-2.4); POTASSIUM SERUM 4.6 MEQ/L (3.5-5.1); THYROID STIMULATING HORMONE 6.25 uIU/ML (0.358-3.740); TOTAL PROTEIN 7.3 GM/DL (6.4-8.2)
[2019-03-15] MEDS ORDERED: GLUCOSE 4 GM CHEW TABLET PO PRN (14:15)
[2019-03-15] MEDS ORDERED: DEXTROSE 50% 50 ML SYRINGE IV PRN (14:15)
[2019-03-15] MEDS ORDERED: GLUCAGON FOR INJ 1 MG VIAL (J1610) SC PRN (14:15)
[2019-03-15] MEDS ORDERED: DEXI30CA2 PO (15:23)
[2019-03-15] MEDS ORDERED: MAG SULF 1GM/100ML (MAG RUN) 1 GM in APPROPRIATE DILUENT 1 EA IV ONE (15:30)
--- NOTE | 2019-03-15 16:44 | CR ---
DATE OF CONSULTATION: 03/15/2019 REFERRING PHYSICIAN: Orthopedic surgery, Dr. Mickey Gambino REASON FOR CONSULTATION: Management of chronic medical problems. CHIEF COMPLAINT: Left knee pain. HISTORY OF PRESENT ILLNESS: This is a 73-year-old female who had failed outpatient therapy for left knee osteoarthritis and opted for left knee replacement. The patient is postoperative with no complications. The hospitalist was asked to consult due to many chronic issues. The patient otherwise denies any recent fevers, changes in appetite, cough, changes in vision, tinnitus, hearing loss, sore throat, chest pain, shortness of breath, palpitations, lightheadedness, dizziness, nausea, vomiting, diarrhea . She has chronic tremors, which is managed by doctors in [place]. No suicidal or homicidal ideation. No dysuria, urgency, frequency. The patient's sugar has been uncontrolled and Levemir has been increased. Otherwise, review of systems is negative aside from discomfort in the left knee postoperatively. PAST MEDICAL HISTORY: 1. Cor pulmonale with pulmonary hypertension. 2. Uterine fibroids. 3. Tubal ligation. 4. Schizoaffective disorder, follows with Dr. Bledsoe with coarse tremors. 5. Chronic obstructive pulmonary disease (COPD). 6. Type 2 diabetes. 7. Hypertension. 8. Dyslipidemia. 9. Grave's thyroiditis, status post radioactive iodine and surgery. 10. Gastroesophageal reflux disease (GERD) with achalasia, follows with Dr. Rubio with dilation. 11. Osteoarthritis. 12. 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 13. Legally blind. 14. Anemia due to renal insufficiency. 15. Chronic kidney disease stage III. PAST SURGICAL HISTORY: 1. Hysterectomy with bladder suspension in 1994. 2. Multiple foot surgeries in 2010 and 2008. Hammertoe correction and bunionectomies. 3. Cataract. 4. Appendectomy. 5. Benign breast biopsy [place] [address] Cazares. 6. Abdominal hernia repair. 7. Left rotator cuff surgery. 8. Bladder suspension in 2001 with tension free vaginal tape, posterior vaginal wall and history of Botox injections. 9. Uterine fibroids and tubal ligation in 1971. HOME MEDICATIONS: - Tylenol - tramadol - Senokot - Seroquel - potassium chloride - NovoLog 22 units with breakfast and 12 units with dinner - nocturnal oxygen - milk of magnesia as needed - Ventolin as needed - VESIcare 10 mg daily - Ziprasidone 80 mg twice a day - zolpidem 10 mg at night - Lidoderm patch as needed - Levothyroxine 125 mcg daily - Levemir insulin 50 units in the morning and 40 units in the evening - Amitiza 24 mcg daily - amlodipine 2.5 mg daily - atorvastatin 40 mg daily - Calcitrate 350 mg daily - candesartan 32 mg daily - cetirizine 10 mg daily - clonazepam 0.25 mg daily - Cymbalta 30 mg daily - Dexilant 30 mg in the morning - Lamictal 200 mg daily - Janumet twice a day - DuoNeb as needed - ipratropium nasal spray twice a day - Ingrezza 80 mg daily - GlycoLax as needed - glipizide ER 10 mg daily - Lasix 20 mg daily - fiber laxative two tablets twice a day - donepezil 10 mg daily - Colace 100 mg twice a day - diclofenac 1% gel topically as needed - Dexilant 30 mg in the morning ALLERGIES: MORPHINE, ASPIRIN, SULFA and ZELNORM. SOCIAL HISTORY: Lives alone, retired. Former smoker, quit many years ago. FAMILY HISTORY: Sister with stroke at age 47. Father with head and neck cancer. Mother's sister of lung cancer. REVIEW OF SYSTEMS: 10-point system negative aside from positive findings in history of present illness. PHYSICAL EXAMINATION Temperature 96.6, pulse 71, respiratory rate 16, blood pressure 132/70, 97% on room air. GENERAL: The patient is awake, alert, and oriented to person, place and time. Answering questions appropriately. She is edentulous. She appears her stated age. She has generalized tremors at bedside. HEENT: Pupils are round and reactive. Slight xanthomas noted. No eyeglasses at the moment. Tongue is midline. Some alopecia noted. No thyromegaly, carotid bruits or stridor noted. Posterior pharynx with no inflammation. LUNGS: Diminished but clear to auscultation. No wheezing, rales or rhonchi. HEART: S1, S2. Sinus rhythm. No murmurs, rubs or gallops. ABDOMEN: Soft, nontender, nondistended. Positive bowel sounds times four quadrants. No hepatosplenomegaly. EXTREMITIES: Postoperative left knee. Distal pulses noted -- dorsalis pedis and posterior tibialis bilaterally. Skin is warm and dry, well perfused and pink in color. NEUROLOGIC: The patient has generalized coarse tremors, bilateral upper extremities, unchanged from baseline according to the patient. LABORATORY DATA: Pending. ASSESSMENT AND PLAN: This is a 73-year-old with multiple medical problems who presents with a meniscal tear of the left knee, status post left knee arthroscopy, partial medial and lateral meniscectomy and removal of anterior and lateral loose body. IMPRESSION: 1. Left knee medial meniscal tear, lateral meniscal tear and osteoarthritis. Postoperative management per orthopedic surgery, including deep vein thrombosis (DVT) prophylaxis, pain medications, and bowel regimen, physical therapy (PT), acute rehabilitation unit consultation. 2. Type 2 diabetes. Check A1/c and resume home dose of Levemir insulin and home medications, sliding scale insulin and titrate accordingly if needed for tighter glycemic control. 3. Chronic obstructive pulmonary disease (COPD). Recent pulmonary function tests per Dr. Riddle's notes were normal. Nebulizer treatments as needed. Continue on home medications. 4. Hypertension, stable. May resume home medications. 5. Schizoaffective disorder. Resume all psychiatric medications. 6. Dyslipidemia. Check lipid profile and resume the patient's statin. 7. Reflux disease. On Dexilant. 9. Hypothyroidism. Continue levothyroxine. 10. Urine incontinence. Continue VESIcare. 11. Osteoarthritis. Topical medications. Pain medications per orthopedic surgery. 12. Constipation. Bowel regimen. MTDD
[2019-03-15] MEDS: DOCUSATE SODIUM 100 MG CAP PO SCH (17:55)
[2019-03-15] MEDS: HumaLOG INSULIN (NovoLOG) PER UNIT SC SCH ×2 (17:55→21:21)
[2019-03-15] MEDS: ENOXAPARIN 40 MG/0.4 ML SYRINGE (J1650) SC SCH (17:55)
[2019-03-15] MEDS: ZIPRASIDONE 80 MG CAP (GEODON) PO SCH (17:55)
[2019-03-15] MEDS ORDERED: ZIPRASIDONE 80 MG CAP (GEODON) PO SCH (18:00)
[2019-03-15] MEDS ORDERED: LEVEMIR (INSULIN DETEMIR) 1 UNITS/0.01ML SC SCH (21:00)
[2019-03-15] MEDS ORDERED: HumaLOG INSULIN (NovoLOG) PER UNIT SC SCH (21:00)
[2019-03-15] MEDS ORDERED: QUEtiapine FUMARATE **XR** 200MG TABLET PO SCH (21:00)
[2019-03-15] MEDS ORDERED: POTASSIUM CHLORIDE 10 MEQ SR TABLET PO SCH (21:00)
[2019-03-15] MEDS ORDERED: ATORVASTATIN 20 MG TAB PO SCH (21:00)
[2019-03-15] MEDS ORDERED: IPRATROPIUM 0.06% NASAL SPRAY 15 ML (ATROVENT) SCH (21:00)
[2019-03-15] MEDS ORDERED: clonazePAM 0.5 MG TAB PO SCH (21:00)
[2019-03-15] MEDS ORDERED: NON-FORMULARY 1 EA EA PO SCH ×2 (21:00)
[2019-03-15] MEDS: AUSTEDO 6 MG PO SCH (21:19)
[2019-03-15] MEDS: QUEtiapine FUMARATE **XR** 200MG TABLET PO SCH (21:19)
[2019-03-15] MEDS: AUSTEDO 9 MG PO SCH (21:19)
[2019-03-15] MEDS: QUEtiapine FUMERATE XR 50 MG TABER PO SCH (21:19)
[2019-03-15] MEDS: clonazePAM 0.5 MG TAB PO SCH (21:19)
[2019-03-15] MEDS: ATORVASTATIN 20 MG TAB PO SCH (21:20)
[2019-03-15] MEDS: DULoxetine 30 MG CAP (CYMBALTA) PO SCH (21:20)
[2019-03-15] MEDS: LEVEMIR (INSULIN DETEMIR) 1 UNITS/0.01ML SC SCH (21:20)
[2019-03-15] MEDS: SOLIFENACIN 5 MG TAB PO SCH (21:28)
[2019-03-16 02:00] VITALS: BP 111/75
[2019-03-16 06:00] VITALS: BP 111/74
[2019-03-16 07:12] LABS: FREE THYROXINE INDEX 1.7 % (1.3-4.8); THYROID STIMULATING HORMONE 1.11 uIU/ML (0.358-3.740); THYROXINE (T4) 5.2 UG/DL (4.5-12.0)
--- NOTE | 2019-03-16 07:58 | IPNPDOC ---
Subjective Date Seen The patient was seen on 03/16/19. Subjective Chief Complaint/HPI Feeling well this am. Eager to work with PT. Says the left knee is sore as exprected but also the right kness is sore on which she had arthroscopy in December 2018. No fever ro chills, no chest pain or sob. Objective Physical Examination General Exam: Positive: Alert, Cooperative, No Acute Distress Eye Exam: Positive: PERRLA, Conjunctiva & lids normal, EOMI; Negative: Sclera icteric ENT Exam: Positive: Atraumatic, Mucous membr. moist/pink, Pharynx Normal Neck Exam: Positive: Supple; Negative: JVD, thyromegaly Chest Exam: Positive: Rales (at both the bases), Diminished Heart Exam: Positive: Rate Normal, Regular Rhythm, Normal S1, Normal S2; Negative: Murmurs, Rubs Abdomen Exam: Positive: Normal bowel sounds, Soft; Negative: Tenderness, Hepatospenomegaly Extremity Exam: Negative: Clubbing, Cyanosis, Edema Skin Exam: Positive: Nl turgor and temperature; Negative: Rash, Breakdown Psych Exam: Positive: Memory Intact, Oriented x 3 Assessment /Plan Assessment This is a 73-year-old with multiple medical problems who presents with a meniscal tear of the left knee, status post left knee arthroscopy, partial medial and lateral meniscectomy and removal of anterior and lateral loose body. Left knee medial meniscal tear, lateral meniscal tear and osteoarthritis. Postoperative management per orthopedic surgery, including deep vein thrombosis (DVT) prophylaxis, pain medications, and bowel regimen, physical therapy (PT), acute rehabilitation unit consultation. Type 2 diabetes. resume home dose of Levemir insulin and home medications, sliding scale insulin and titrate accordingly if needed for tighter glycemic control. Chronic obstructive pulmonary disease (COPD). Recent pulmonary function tests per Dr. Riddle's notes were normal. Nebulizer treatments as needed. Continue on home medications. Morbid Obesity with pulmonary hypertension and corpulmonale no active issues at this point complicating care. Hypertension, stable. resume home medications. Schizoaffective disorder with tardive dyskinesia Resume all psychiatric medications. Static Tremor in the upper extremities ?parkinson's Dyslipidemia. statin H/o Grave's thyroiditis, status post radioactive iodine and surgery. has some proptosis still. Gastroesophageal reflux disease (GERD) with achalasia follows with Dr. Rubio with dilation Legally blind. Plan/VTE VTE Prophylaxis Ordered?: Yes VS, I&O, 24H, Fishbone Vital Signs/I&O Vital Signs Date Time Temp Pulse Resp B/P (MAP) Pulse Ox O2 Delivery O2 Flow Rate FiO2 03/16/19 02:00 97.9 95 17 111/75 (87) 93 I&O- Last 24 Hours up to 6 AM 03/16/19 06:00 Intake Total 2770 ml Output Total 1805 ml Balance 965 ml Laboratory Data 24H LABS Laboratory Tests 2 03/15/19 08:03: Bedside Glucose (Misc Panel) 144H 03/15/19 11:32: Immature Granulocyte % (Auto) 0.5, White Blood Count 9.3, Red Blood Count 3.13L, Hemoglobin 10.1L, Hematocrit 30.9L, Mean Corpuscular Volume 98.7H, Mean Corpuscular Hemoglobin 32.3, Mean Corpuscular Hemoglobin Concent 32.7, Red Cell Distribution Width 13.4, Platelet Count 199, Neutrophils (%) (Auto) 83.7H, Lymphocytes (%) (Auto) 10.1L, Monocytes (%) (Auto) 4.2, Eosinophils (%) (Auto) 1.2, Basophils (%) (Auto) 0.3, Neutrophils # (Auto) 7.8, Lymphocytes # (Auto) 0.9L, Monocytes # (Auto) 0.4, Eosinophils # (Auto) 0.1, Basophils # (Auto) 0.0, Nucleated Red Blood Cells % (auto) 0.0, Anion Gap 7L, Glomerular Filtration Rate 49.4, Estimated Mean Plasma Glucose 140H, Hemoglobin A1c 6.5, Blood Urea Nitrogen 21H, Creatinine 1.15, Sodium Level 138, Potassium Level 4.6, Chloride Level 100, Carbon Dioxide Level 31, Calcium Level 8.8, Aspartate Amino Transf (AST/SGOT) 23, Alanine Aminotransferase (ALT/SGPT) 28, Alkaline Phosphatase 108, Total Bilirubin 0.3, Total Protein 7.3, Albumin 3.4, Magnesium Level 1.7L, Albumin/Globulin Ratio 0.87L, Thyroid Stimulating Hormone (TSH) 6.250H 03/15/19 17:45: Bedside Glucose (Misc Panel) 284H 03/15/19 21:03: Bedside Glucose (Misc Panel) 259H 03/16/19 06:14: Thyroid Stimulating Hormone (TSH) 1.110, Free Thyroxine Index 1.7, Thyroxine (T4) 5.2, Triiodothyronine (T3) Uptake 32 03/16/19 06:55: Bedside Glucose (Misc Panel) 160H CBC/BMP Laboratory Tests 03/15/19 11:32 Red Blood Count 3.13 L, Mean Corpuscular Volume 98.7 H, Mean Corpuscular Hemoglobin 32.3, Mean Corpuscular Hemoglobin Concent 32.7, Red Cell Distribution Width 13.4, Neutrophils (%) (Auto) 83.7 H, Lymphocytes (%) (Auto) 10.1 L, Monocytes (%) (Auto) 4.2, Eosinophils (%) (Auto) 1.2, Basophils (%) (Auto) 0.3, Neutrophils # (Auto) 7.8, Lymphocytes # (Auto) 0.9 L, Monocytes # (Auto) 0.4, Eosinophils # (Auto) 0.1, Basophils # (Auto) 0.0, Calcium Level 8.8, Aspartate Amino Transf (AST/SGOT) 23, Alanine Aminotransferase (ALT/SGPT) 28, Alkaline Phosphatase 108, Total Bilirubin 0.3, Total Protein 7.3, Albumin 3.4 NOAH WAGONER MD Mar 16, 2019 07:58
[2019-03-16] MEDS: SOLIFENACIN 5 MG TAB PO SCH (08:46)
[2019-03-16] MEDS: PANTOPRAZOLE 40MG TAB (PROTONIX) PO SCH (08:47)
[2019-03-16] MEDS: LEVEMIR (INSULIN DETEMIR) 1 UNITS/0.01ML SC SCH ×2 (08:47→21:11)
[2019-03-16] MEDS: NORCO, ANEXSIA 5/325MG TABLET (HYDROcodone/ACETAMINOPHEN) PO PRN ×2 (08:47→23:24)
[2019-03-16] MEDS: metFORMIN XR 500MG TAB *GLUCOPHAGE XR PO SCH ×2 (08:48→17:14)
[2019-03-16] MEDS: CETIRIZINE (ZyrTEC) 10 MG TAB PO SCH (08:48)
[2019-03-16] MEDS: DULoxetine 30 MG CAP (CYMBALTA) PO SCH ×2 (08:48→21:10)
[2019-03-16] MEDS: lamoTRIgine 100MG TAB PO SCH (08:48)
[2019-03-16] MEDS: ZIPRASIDONE 80 MG CAP (GEODON) PO SCH ×2 (08:48→17:14)
[2019-03-16] MEDS: SITagliptin 50 MG TAB (JANUVIA) PO SCH ×2 (08:48→17:14)
[2019-03-16] MEDS: DOCUSATE SODIUM 100 MG CAP PO SCH ×2 (08:49→17:13)
[2019-03-16] MEDS: HumaLOG INSULIN (NovoLOG) PER UNIT SC SCH ×4 (08:49→21:23)
[2019-03-16] MEDS: ENOXAPARIN 40 MG/0.4 ML SYRINGE (J1650) SC SCH (08:50)
[2019-03-16] MEDS: AUSTEDO 9 MG PO SCH ×2 (08:50→21:11)
[2019-03-16] MEDS: AUSTEDO 6 MG PO SCH ×2 (08:50→21:11)
[2019-03-16] MEDS ORDERED: NON-FORMULARY 1 EA EA PO SCH ×3 (09:00)
[2019-03-16] MEDS ORDERED: LEVOTHYROXINE 125MCG TABLET (0.125MG) PO SCH (09:00)
[2019-03-16] MEDS ORDERED: CETIRIZINE (ZyrTEC) 10 MG TAB PO SCH (09:00)
[2019-03-16] MEDS ORDERED: glipiZIDE XL 5 MG TABCR PO SCH (09:00)
[2019-03-16] MEDS ORDERED: DONEPEZIL 5 MG TAB PO SCH (09:00)
[2019-03-16] MEDS ORDERED: HumaLOG INSULIN (NovoLOG) PER UNIT SC SCH (09:00)
[2019-03-16] MEDS ORDERED: LEVEMIR (INSULIN DETEMIR) 1 UNITS/0.01ML SC SCH (09:00)
[2019-03-16] MEDS ORDERED: SOLIFENACIN 5 MG TAB PO SCH (09:00)
[2019-03-16] MEDS ORDERED: FUROSEMIDE 20 MG TAB PO SCH (12:00)
[2019-03-16 14:00] VITALS: BP 73/51
[2019-03-16 14:05] VITALS: BP 125/70
[2019-03-16 18:00] VITALS: BP 128/81
[2019-03-16] MEDS: QUEtiapine FUMERATE XR 50 MG TABER PO SCH (21:10)
[2019-03-16] MEDS: ATORVASTATIN 20 MG TAB PO SCH (21:10)
[2019-03-16] MEDS: QUEtiapine FUMARATE **XR** 200MG TABLET PO SCH (21:10)
[2019-03-16] MEDS: clonazePAM 0.5 MG TAB PO SCH (21:10)
[2019-03-16 22:00] VITALS: BP 135/74
[2019-03-17 06:00] VITALS: BP 136/73
[2019-03-17] MEDS: LEVEMIR (INSULIN DETEMIR) 1 UNITS/0.01ML SC SCH (08:19)
[2019-03-17] MEDS: HumaLOG INSULIN (NovoLOG) PER UNIT SC SCH (08:20)
[2019-03-17] MEDS: ENOXAPARIN 40 MG/0.4 ML SYRINGE (J1650) SC SCH (08:20)
[2019-03-17] MEDS: ZIPRASIDONE 80 MG CAP (GEODON) PO SCH (08:21)
[2019-03-17] MEDS: DULoxetine 30 MG CAP (CYMBALTA) PO SCH (08:21)
[2019-03-17] MEDS: CETIRIZINE (ZyrTEC) 10 MG TAB PO SCH (08:21)
[2019-03-17] MEDS: metFORMIN XR 500MG TAB *GLUCOPHAGE XR PO SCH (08:21)
[2019-03-17] MEDS: SOLIFENACIN 5 MG TAB PO SCH (08:21)
[2019-03-17] MEDS: PANTOPRAZOLE 40MG TAB (PROTONIX) PO SCH (08:21)
[2019-03-17 08:22] VITALS: BP 136/73
[2019-03-17] MEDS: AUSTEDO 6 MG PO SCH (08:22)
[2019-03-17] MEDS: DOCUSATE SODIUM 100 MG CAP PO SCH (08:22)
[2019-03-17] MEDS: lamoTRIgine 100MG TAB PO SCH (08:22)
[2019-03-17] MEDS: SITagliptin 50 MG TAB (JANUVIA) PO SCH (08:22)
[2019-03-17] MEDS: AUSTEDO 9 MG PO SCH (08:23)
--- NOTE | 2019-03-19 09:23 | DSES ---
DATE OF ADMISSION: 03/16/2019 DATE OF DISCHARGE: 03/17/2019 PREOPERATIVE DIAGNOSIS: Left knee medial meniscal, and lateral meniscal tears with underlying osteoarthritis. POSTOPERATIVE DIAGNOSIS: Status post left knee medial meniscal and lateral meniscal tear meniscectomy and removal of anterolateral loose body. HISTORY OF PRESENT ILLNESS: This is a 73-year-old female with continuing left knee pain who consented for left knee arthroscopic debridement per Dr. Mickey Gambino. Medically, she was deemed optimized. Her imaging was consistent with meniscal tears and osteoarthritis. OPERATION PERFORMED: Left knee operative arthroscopy partial medial and lateral meniscectomies with removal of anterolateral loose body. HOSPITAL COURSE: The patient was booked to stay overnight for management of chronic medical problems. On 03/16/2019, Dr. Tubbs felt that she was alright to go home. Orthopedics instructions included weightbearing as tolerated with walker or crutches. Diet is regular, Percocet as needed pain. She will continue thromboembolic deterrent (CLARE) stockings until followup. Dressing change in 4 days' time. Followup at ortho group for wound check, potential suture removal in 7-12 days' time. The patient is encouraged to contact our office sooner with increased pain, numbness, tingling, redness, drainage, fever greater than 101 or further concerns.
== END 2019-03-17 12:25 | disposition home or self-care (01) | DRG 488 ==
LOC: M SDC 07:17 → M MS5PR 13:50 → M SDC 03-16 07:59 → M MS5PR 03-16 07:59 → UNDOADMIN 03-16 08:00 → M MS5PR 03-16 08:00 → UNDODISIN 03-17 12:25
PROVIDERS: ADMIT Orthopaedic Surgery; ATTEND Orthopaedic Surgery
PROC: 0SBD4ZZ Excision of Left Knee Joint, Percutaneous Endoscopic Approach (ICD-10-PCS; principal; 2019-03-15 09:10)
DX: M23.252 Derangement of posterior horn of lateral meniscus due to old tear or injury, left knee (principal); Z68.41 Body mass index [BMI] 40.0-44.9, adult; G24.01 Drug induced subacute dyskinesia; E66.01 Morbid (severe) obesity due to excess calories; M23.222 Derangement of posterior horn of medial meniscus due to old tear or injury, left knee; I27.20 Pulmonary hypertension, unspecified; J44.9 Chronic obstructive pulmonary disease, unspecified; E11.9 Type 2 diabetes mellitus without complications; I12.9 Hypertensive chronic kidney disease with stage 1 through stage 4 chronic kidney disease, or unspecified chronic kidney disease; E78.5 Hyperlipidemia, unspecified; K21.9 Gastro-esophageal reflux disease without esophagitis; I27.81 Cor pulmonale (chronic); F25.9 Schizoaffective disorder, unspecified; M19.90 Unspecified osteoarthritis, unspecified site; H54.8 Legal blindness, as defined in USA; D63.1 Anemia in chronic kidney disease; N18.3 Chronic kidney disease, stage 3 (moderate); Z79.899 Other long term (current) drug therapy; Z88.6 Allergy status to analgesic agent; Z88.2 Allergy status to sulfonamides; Z88.8 Allergy status to other drugs, medicaments and biological substances; Z87.891 Personal history of nicotine dependence; E03.9 Hypothyroidism, unspecified

== ENCOUNTER → 2019-03-25 | Outpatient (REF) | payer MEDICARE, MEDICAID ==
[~2019-03-25] MED LIST changes: +DEXI30CA2 PO; -LIDOCAINE 1% MDV 20ML VIAL SQ PRN; -LR 1,000 ML IV ONE
[2019-03-25 13:20] LABS: APPEARANCE, URINE CLOUDY (CLEAR); BACTERIA, URINE AUTO 2+ (NEGATIVE); BILIRUBIN, URINE AUTO NEGATIVE (NEGATIVE); BLOOD, URINE BLOOD NEGATIVE (NEGATIVE); COLOR, URINE YELLOW (YELLOW); GLUCOSE, URINE (UA) AUTO NEGATIVE (NEGATIVE); KETONE, URINE AUTO NEGATIVE (NEGATIVE); LEUKOCYTE ESTERASE, URINE AUTO 3+ (NEGATIVE); MUCUS, URINE SMALL (NEGATIVE); NITRITE, URINE AUTO NEGATIVE (NEGATIVE); PROTEIN, URINE AUTO NEGATIVE (NEGATIVE); RBC, URINE AUTO 8 /HPF (0-3); SPECIFIC GRAVITY URINE AUTO 1.015 (1.002-1.035); SQUAMOUS EPITHELIAL CELL UR AU 0 /HPF (0-6); UROBILINOGEN, URINE AUTO 0.2 mg/dL (0.0-2.0); WBC, URINE AUTO TNTC /HPF (0-3)
== END ==
LOC: SKLABADC 12:24
PROVIDERS: ATTEND Internal Medicine
DX: E11.22 Type 2 diabetes mellitus with diabetic chronic kidney disease (principal); R32 Unspecified urinary incontinence; N32.81 Overactive bladder

== ENCOUNTER → 2019-05-05 | Outpatient (REF) | payer MEDICARE, MEDICAID, OTHER ==
[2019-05-05 17:48] LABS: BACTERIA, URINE AUTO NEGATIVE (NEGATIVE); MUCUS, URINE SMALL (NEGATIVE); RBC, URINE AUTO 2 /HPF (0-3); SQUAMOUS EPITHELIAL CELL UR AU 0 /HPF (0-6); WBC, URINE AUTO 72 /HPF (0-3)
== END ==
LOC: M SMT 16:58
PROVIDERS: ATTEND Specialist
DX: R35.0 Frequency of micturition (principal); Z28.21 Immunization not carried out because of patient refusal
CPT/HCPCS: 51798; 81015; 87088; 87186; G0463

== ENCOUNTER → 2019-05-18 | Outpatient (CLI) | payer MEDICARE, MEDICAID ==
--- NOTE | 2019-05-20 02:38 | ECWPNPC ---
PATIENT NAME: AZALIA COFFMAN : 1945 GENDER: FEMALE VISIT DATE: 05/18/2019 DISCHARGE DATE: 05/18/19 1308 VISIT LOCKED DATE TIME: PHYSICIAN: ULYSSES CHAN RESOURCE: ULYSSES CHAN REASON FOR APPOINTMENT 1. CHRONIC PAIN HISTORY OF PRESENT ILLNESS HISTORY OF PRESENT ILLNESS: PAIN THE PATIENT DESCRIBES THE PAIN... 73-YEAR-OLD FEMALE IN FOR CHRONIC PAIN FOLLOW-UP. SHE RATES HER PAIN CURRENTLY AT A 7 OUT OF 10 AND DESCRIBES IT ACHING, AND SORE. SHE STATES HER UROLOGIST WOULD LIKE US TO WEAN HER OFF THE CYMBALTA THEY FEEL IT IS CAUSING HER TO HAVE URINARY RETENTION. FALL RISK SCREENING: SCREENING :NO FALLS REPORTED IN THE LAST YEAR CURRENT MEDICATIONS TAKING DOCUSATE SODIUM 100 MG CAPSULE 2 CAPSULE NEEDED ORALLY BID TAKING GLUCOTROL XL 10 MG TABLET EXTENDED RELEASE 24 HOUR 1 TABLET ORALLY DAILY TAKING AMITIZA 24 MCG CAPSULE 1 CAPSULE WITH FOOD ORALLY TWICE A DAY TAKING DONEPEZIL HCL 10 MG TABLET 1 TABLET AT BEDTIME ORALLY ONCE A DAY TAKING CALCIUM CITRATE + D 315-200 MG-UNIT TABLET 1 TABLET WITH MEALS ORALLY DAILY TAKING LAMICTAL 200 MG TABLET 1 TABLET ORALLY ONCE A DAY TAKING KLOR-CON 10 10 MEQ TABLET EXTENDED RELEASE 2 TABLET ORALLY BID TAKING SENNA-GEN 8.6 MG TABLET DIRECTED ORALLY BID TAKING ZOLPIDEM TARTRATE 10 MG TABLET 1 TABLET AT BEDTIME ORALLY ONCE A DAY TAKING FUROSEMIDE 20 MG TABLET 1 TABLET ORALLY ONCE DAILY TAKING CLONAZEPAM 0.25 MG TABLET DISINTEGRATING 1 TABLET ORALLY ONCE DAILY TAKING NEEDLES & SYRINGES 31 GAUGE DIRECTED TAKING LANCETS THIN MISCELLANEOUS DIRECTED TAKING GLUCOMETER DIRECTED TAKING LEVEMIR FLEXTOUCH 100 UNIT/ML SOLUTION PEN-INJECTOR SUBCUTANEOUS 50 UNITS IN AM AND 50 UNITS AT 9 PM TAKING DEXILANT 30 MG CAPSULE DELAYED RELEASE 1 CAPSULE ORALLY ONCE A DAY TAKING FIBER - CAPSULE 2 CAPSULES WITH 8 OUNCES OF LIQUID ORALLY BID TAKING ATORVASTATIN CALCIUM 40 MG TABLET 1 TABLET ORALLY ONCE A DAY TAKING QUETIAPINE FUMARATE ER 400 MG TABLET EXTENDED RELEASE 24 HOUR 1 TABLET IN THE EVENING ORALLY ONCE A DAY TAKING GLYCOLAX - POWDER ORALLY BID NEEDED TAKING MAGNESIUM 400 MG CAPSULE 2 TAB ORALLY BID TAKING CETIRIZINE HCL 10 MG TABLET 1 TABLET ORALLY ONCE A DAY TAKING SALINE NASAL SPRAY 0.65 % SOLUTION NASALLY 6-8 TIMES A DAY NEEDED TAKING NOVOLOG FLEXPEN 100 UNIT/ML SOLUTION PEN-INJECTOR 22 UNITS BEFORE BREAKFAST, 12 UNITS BEFORE DINNER SUBCUTANEOUS BID TAKING IPRATROPIUM BROMIDE 0.03 % SOLUTION 2 APPLICATIONS NASALLY TWICE A DAY TAKING MIRALAX SUSPENSION 17 GRAMS ORALLY AT HOUR OF SLEEP TAKING PROAIR HFA 108 (90 BASE) MCG/ACT AEROSOL SOLUTION 2 PUFFS NEEDED INHALATION EVERY 4 HRS TAKING NEBULIZER DEVICE DIRECTED FOUR TIMES A DAY TAKING ALBUTEROL SULFATE (2.5 MG/3ML) 0.083% NEBULIZATION SOLUTION 3 ML INHALATION FOUR TIMES PER DAY TAKING JANUMET XR 50-500 MG TABLET EXTENDED RELEASE 24 HOUR 1 TAB ORALLY BID TAKING LEVOTHYROXINE SODIUM 125 MCG TABLET 1 TABLET ON AN EMPTY STOMACH IN THE MORNING ORALLY ONCE A DAY TAKING GUAIFENESIN-DM 100-10 MG/5ML SYRUP 10 ML NEEDED ORALLY EVERY 4 HRS TAKING XOPENEX HFA 45 MCG/ACT AEROSOL 1 PUFF NEEDED INHALATION EVERY 4 HRS TAKING ZIPRASIDONE HCL 80 MG CAPSULE 1 CAPSULE WITH FOOD ORALLY TWICE A DAY TAKING AUSTEDO 12 MG TABLET 1 TABLET WITH FOOD ORALLY TWICE A DAY TAKING AMLODIPINE BESYLATE 2.5 MG TABLET 1 TABLET ORALLY ONCE A DAY TAKING MILK OF MAGNESIA 400 MG/5ML SUSPENSION 5 ML NEEDED ORALLY FOUR TIMES A DAY TAKING BARD URETHRAL CATHETER - MISCELLANEOUS DIRECTED 14F CATHETER, CIC TWICE PER DAY TAKING CANDESARTAN CILEXETIL 32 MG TABLET 1 TABLET ORALLY ONCE A DAY TAKING CYMBALTA 30 MG CAPSULE DELAYED RELEASE PARTICLES 1 CAPSULE ORALLY TWICE DAILY TAKING TRAMADOL-ACETAMINOPHEN 37.5-325 MG TABLET 1 ORALLY Q8H PRN MDD3 TAKING GLIPIZIDE ER 10 MG TABLET EXTENDED RELEASE 24 HOUR 1 TABLET WITH BREAKFAST ORALLY ONCE A DAY TAKING DICLOFENAC SODIUM 1 % GEL DIRECTED TRANSDERMAL 4 GRAMS TWICE A DAY NEEDED TO RIGHT KNEE TAKING ACETAMINOPHEN EXTRA STRENGTH 500 MG TABLET 2 TABLETS ORALLY 2-3 TIMES A DAY NEEDED TAKING OLMESARTAN MEDOXOMIL 40 MG TABLET 1 TABLET ORALLY ONCE A DAY NOT-TAKING SEROQUEL XR 50 MG TABLET EXTENDED RELEASE 24 HOUR 1 TABLET IN THE EVENING ORALLY BEFORE BEDTIME NOT-TAKING INGREZZA 80 MG CAPSULE 1 CAPSULE ORALLY ONCE A DAY NOT-TAKING MACROBID 100 MG CAPSULE 1 CAPSULE ORALLY BID NOT-TAKING TYLENOL EXTRA STRENGTH 500 MG TABLET 2 TABLETS NEEDED ORALLY 2-3 TIMES A DAY NEEDED NOT-TAKING ASPERCREME LIDOCAINE 4 % PATCH EXTERNALLY 2-4 TIMES A DAY NEEDED NOT-TAKING LIDODERM 5 % PATCH 1 PATCH TO SKIN REMOVE AFTER 12 HOURS EXTERNALLY ONCE A DAY NOT-TAKING LEVAQUIN 500 MG TABLET 1 TABLET ORALLY ONCE A DAY NOT-TAKING SLOW MAGNESIUM/CALCIUM 64-106 MG TABLET DELAYED RELEASE DIRECTED ORALLY NOT-TAKING TRAZODONE HCL 50 MG TABLET 2 TABLETS ORALLY THREE TIMES A DAY NOT-TAKING CIPRO 500 MG TABLET 1 TABLET ORALLY EVERY 12 HRS MEDICATION LIST REVIEWED AND RECONCILED WITH THE PATIENT PAST MEDICAL HISTORY KIDNEY DISEASE STAGE 3 MEMORY LOSS SCHIZOPHRENIA OSTEOARTHRITIS INCONTINENCE HYPERCHOLESTEROLEMIA ANEMIA DIABETES MELLITUS HYPOTHYROIDISM DUE TO DIALLO'S HYPERTENSION, BENIGN ESOPHAGEAL REFLUX LEGALLY BLIND HYPOMAGNESEMIA GERD AMNESIA OSTEOARTHRITIS URGE INCONTINENCE OG URINE BACK PAIN TORN MENISCUS RIGHT KNEE ALLERGIES SULFA (FOR ALLERGY USE ONLY): HANDS SWELL - ALLERGY ASPIRIN: STOMACH - ALLERGY MORPHINE SULFATE: RASH - ALLERGY CELEBREX: CAUSES PROBLEMS WITH KIDNEYS - ALLERGY SURGICAL HISTORY THYROID SURGERY PARTIAL HYSTERECTOMY/LIFTED BLADDER BILATERAL FOOT SURGERY HERNIA CATARACT-BILATERAL RIGHT SHOULDER SURGERY LEFT SHOULDER SURGERY RIGHT KNEE SURGERY 12/31/2018 FAMILY HISTORY FATHER: , DIAGNOSED WITH UNSPECIFIED HEART DISEASE, OTHER MALIGNANT NEOPLASM OF UNSPECIFIED SITE MOTHER: , OTHER MALIGNANT NEOPLASM OF UNSPECIFIED SITE SIBLINGS: , UNSPECIFIED CEREBRAL ARTERY OCCLUSION WITH CEREBRAL INFARCTION, OTHER MALIGNANT NEOPLASM OF UNSPECIFIED SITE NO KNOWN FAMILY HISTORY OF ANY UROLOGICALLY RELATED DISEASES\\\/CANCERS.\\N FATHER-THROAT CA\\NMOTHER-LUNG CA\\NSISTER-LUNG CA\\NHAS 2 BROTHERS THAT SHE DOES NOT KNOW HISTORY ON. SOCIAL HISTORY GENERAL: TOBACCO USE ARE YOU A:FORMER SMOKER HOW LONG HAS IT BEEN SINCE YOU LAST SMOKED?> 10 YEARS OTHERS AT HOME: NONE. DIET: REGULAR. LANGUAGE LANGUAGES SPOKEN:FRENCH DOMESTIC VIOLENCE DO YOU FEEL SAFE IN YOUR ENVIRONMENT?YES RECREATIONAL DRUG USE DRUG USE?NO EXERCISE: NONE. 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 NEEDED?NO PAIN CLINIC PFS, CLERGY, PUBLIC HEALTH REFERRALS HAS THE PATIENT BEEN EDUCATED REGARDING HIS/HER PLAN OF CARE?YES HAS THE PATIENT BEEN EDUCATED REGARDING PAIN, THE RISK FOR PAIN, THE IMPORTANCE OF EFFECTIVE PAIN MANAGEMENT, AND THE PAIN ASSESSMENT PROCESS?YES LATEX QUESTIONNAIRE LATEX ALLERGY : HAVE YOU EVER DEVELOPED ANY TYPE OF REACTION AFTER HANDLING LATEX PRODUCTS SUCH RUBBER GLOVES, CONDOMS, DIAPHRAGMS, BALLOONS, SOCKS, OR UNDERWEAR?NO LATEX ALLERGY : HAVE YOU EVER DEVELOPED ANY TYPE OF REACTION DURING OR AFTER DENTAL APPOINTMENT, VAGINAL/RECTAL EXAMINATION, SURGICAL PROCEDURE, OR ANY OTHER EXPOSURE?NO LATEX RISK : HAVE YOU EVER HAD ANY DIFFICULTY BREATHING OR HIVES AFTER EATING OR HANDLING ANY FRUITS, OR VEGETABLES; SUCH KIWI, BANANAS, STONE FRUITS, OR CHESTNUTSNO LATEX RISK : DO YOU HAVE A PREVIOUS PERSONAL HISTORY OF MORE THAN NINE SURGERIES, SPINA BIFIDA, OR REPEATED CATHERIZATIONS? NO LATEX RISK : ARE YOU FREQUENTLY EXPOSED TO LATEX PRODUCTS IN YOUR OCCUPATION?NO DATE ASKED : 05/18/2019 CAFFEINE CAFFEINE USE?YES HOW OFTEN AND HOW MUCH? 1/2 CUP OF COFFEE OR TEA A DAY ADVANCE DIRECTIVE ADVANCE DIRECTIVE DISCUSSED WITH PATIENT:YES PT STATES SHE HAS HCP 1. MAGALIE OLIVEIRA [phone](H) [phone](C) 2. GABRIELLA ARDON [phone] (H) CONFUCIANIST CONFUCIANIST [facility]. NO YAZDANISM BELIEFS THAT WOULD IMPACT HEALTH CARE. MARITAL STATUS: . ALCOHOL SCREENING DID YOU HAVE A DRINK CONTAINING ALCOHOL IN THE PAST YEAR?NO POINTS0 INTERPRETATIONNEGATIVE SEXUAL HX HAD SEX IN THE LAST 12 MONTHS (VAGINAL, ORAL, OR ANAL)?NO HAVE YOU EVER HAD AN STD?NO 06/18/18 1027 REVIEWED WITH PT. ADRBLANCAIEWED WITH PATIENT 03/11/19 1206 NLJ. HOSPITALIZATION/MAJOR DIAGNOSTIC PROCEDURE SURGERY RELATED KIDNEY INFECTION 2011 BRONCHITIS X 2 2018 REVIEW OF SYSTEMS REVIEWED BY: PROVIDER: ILENE CRONIN . CONSTITUTIONAL: ANY CHANGE IN YOUR MEDICAL CONDITION? NO . CHILLS NO . FEVER NO . INFECTION: DO YOU HAVE NEW INFECTIONS? NO . DO YOU HAVE HISTORY OF MRSA? NO . MUSCULOSKELETAL: ANY NEW PATTERNS OF PAIN OR NUMBNESS? YES . GASTROENTEROLOGY: ANY NEW CHANGE IN BOWEL CONTROL? NO . GENITOURINARY: ANY NEW CHANGE IN BLADDER CONTROL? YES . IS THERE A CHANCE YOU COULD BE ? NO . HEMATOLOGY/LYMPH: DO YOU TAKE ANY BLOOD THINNERS? (FOR EXAMPLE- COUMADIN, PLAVIX, AGGRENOX, PLATEL, PRADAXA, OR XARELTO) NO . WHEN WAS YOUR LAST DOSE? DATE: TIME: . NEUROLOGY: HAVE YOU FALLEN IN THE PAST 12 MONTHS? NO . ANY NEW EXTREMITY NUMBNESS OR WEAKNESS? NO . CARDIOLOGY: DO YOU HAVE A PACEMAKER OR DEFIBRILLATOR? NO . RESPIRATORY: HAVE YOU BEEN SICK IN THE PAST WEEK? NO . FEVER NO . FLU LIKE SYMPTOMS? NO . COUGH NO . INTEGUMENTARY: DO YOU HAVE ANY RASHES OR OPEN SORES? NO . ALLERGIC/IMMUNO: ARE YOU ALLERGIC TO IV DYE? NO . ANY NEW ALLERGIES? NO . PSYCHIATRIC: DO YOU HAVE THOUGHTS OF HURTING YOURSELF OR SOMEONE ELSE? NO . ARE YOU ABUSED, NEGLECTED, OR IN AN UNSAFE ENVIRONMENT? NO . ENDOCRINOLOGY: ARE YOU DIABETIC? YES . OTHER: DO YOU NEED ANY PRESCRIPTIONS? NO . IF YES, PLEASE LIST: ____ . ANY NEW PROBLEMS WITH YOUR MEDICATIONS? YES . WHEN DID YOU LAST EAT? ____ . WHEN DID YOU LAST DRINK? ____ . WHAT DID YOU LAST DRINK? ____ . NAME OF PERSON DRIVING YOU HOME? ____ . DO YOU HAVE ANY OTHER QUESTIONS OR CONCERNS YES . VITAL SIGNS WT 220.0 LBS, HT 63 IN, BMI 38.97 INDEX, BP 128/59 MM HG, HR 89 /MIN, RR 18 /MIN, TEMP 96.5 F, OXYGEN SAT % 94%, NA INITIALS AW 1138, REVIEWED BY: LS. EXAMINATION GENERAL EXAMINATION: GENERALNO ACUTE DISTRESS, WELL NOURISHED AND HYDRATED. PSYCHAPPROPRIATE MOOD AND AFFECT . LUNGS:CLEAR TO AUSCULTATION BILATERALLY, NO WHEEZES, RHONCHI, RALES. HEART:NO MURMURS, REGULAR RATE AND RHYTHM. ASSESSMENTS SPONDYLOSIS WITHOUT MYELOPATHY OR RADICULOPATHY, LUMBOSACRAL REGION - M47.817 (PRIMARY) TREATMENT SPONDYLOSIS WITHOUT MYELOPATHY OR RADICULOPATHY, LUMBOSACRAL REGION CONTINUE CYMBALTA CAPSULE DELAYED RELEASE PARTICLES, 30 MG, 1 CAPSULE, ORALLY, TWICE DAILY FOR 1 WEEK THEN 1 CAPSULE DAILY FOR 1 WEEK. THEN 1 CAPSULE DAILY EVERY OTHER DAY X 7 DAYS THEN STOP, 21 DAYS, 28 START GABAPENTIN CAPSULE, 100 MG, 1 CAPSULE, ORALLY, TWICE DAILY, 30 DAY(S), 60 CLINICAL NOTES: 73-YEAR-OLD FEMALE IN FOR CHRONIC PAIN FOLLOW-UP. THIS AIR CONDITIONING COIL ASSEMBLER DISCUSSED POTENTIAL TITRATION AND DISCONTINUATION OF CYMBALTA. FURTHER DISCUSSED POTENTIALLY ADDING GABAPENTIN TO HELP WITH PAIN SYMPTOMS. PATIENT HAS EXPRESSED UNDERSTANDING OF AND WAS IN AGREEMENT WITH TREATMENT PLAN. GIVEN TIME TO ASK QUESTIONS AND EXPRESS CONCERNSISTOP REGISTRY REVIEWED AND DEMONSTRATES COMPLLIANCE. (REF # [id number] ) BRINGS IN MEDICATIONS WHICH IS APPROPRIATE FOR WHAT WAS DISPENSED. RECENT URINE TOXICOLOGY REVIEWED. NO UNAUTHORIZED MEDICATIONS. NO ILLICIT SUBSTANCES AND PRESCRIBED MEDICATIONS WERE PRESENT. , . PROCEDURE CODES FA211 ESTABILISHED PATIENT [facility] CHARGE DISPOSITION & COMMUNICATION FOLLOW UP 4 WEEKS (REASON: MEDICATION CHANGE) ELECTRONICALLY SIGNED BY SALBADOR PECK ON 05/19/2019 AT 01:34 PM EST DISCLAIMER : THIS IS A VISIT SUMMARY EXTRACTED FROM THE [employer] CHART. IT IS NOT A COPY OF THE [employer] PROGRESS NOTE. SISI
== END ==
LOC: M PAIN 11:00
PROVIDERS: ATTEND Family Medicine
DX: M47.817 Spondylosis without myelopathy or radiculopathy, lumbosacral region (principal); G89.29 Other chronic pain; Z86.59 Personal history of other mental and behavioral disorders; M19.90 Unspecified osteoarthritis, unspecified site; E78.00 Pure hypercholesterolemia, unspecified; E11.9 Type 2 diabetes mellitus without complications; E03.9 Hypothyroidism, unspecified; I10 Essential (primary) hypertension; Z87.891 Personal history of nicotine dependence; Z88.2 Allergy status to sulfonamides; Z88.5 Allergy status to narcotic agent; Z88.6 Allergy status to analgesic agent; Z88.8 Allergy status to other drugs, medicaments and biological substances; Z79.4 Long term (current) use of insulin; Z79.891 Long term (current) use of opiate analgesic; Z79.899 Other long term (current) drug therapy

== ENCOUNTER → 2019-06-22 | Outpatient (REF) | payer MEDICARE, MEDICAID ==
[~2019-06-22] MED LIST changes: +CLON0.5T2 PO; -CLON0.5T8 PO; -OXYB10TA2 PO; +OXYB10TA23 PO
[2019-06-22 10:53] LABS: HEMATOCRIT 35.8 % (36.0-47.0); HEMOGLOBIN 11.2 g/dl (12.0-15.5); MEAN CORPUSCULAR HGB CONC 31.3 g/dl (32.0-36.5); MEAN CORPUSCULAR VOLUME 99.2 fl (80.0-96.0); PLATELET COUNT, AUTOMATED 249 10^3/uL (150-450); RED BLOOD COUNT 3.61 10^6/uL (4.00-5.40); WHITE BLOOD COUNT 8.9 10^3/uL (4.0-10.0)
[2019-06-22 11:19] LABS: HEMOGLOBIN A1c 7.3 %
[2019-06-22 11:25] LABS: ALBUMIN 3.9 GM/DL (3.2-5.2); BILIRUBIN,TOTAL 0.3 MG/DL (0.2-1.0); CALCIUM LEVEL 9.8 MG/DL (8.8-10.2); CHOLESTEROL RISK RATIO 4.108 (<5); CREATININE FOR GFR 1.12 MG/DL (0.55-1.30); GLOMERULAR FILTRATION RATE 50.9 (>39); MAGNESIUM LEVEL 1.6 MG/DL (1.8-2.4); POTASSIUM SERUM 4.2 MEQ/L (3.5-5.1); TOTAL PROTEIN 7.5 GM/DL (6.4-8.2)
== END ==
LOC: SKLABADC 09:42
PROVIDERS: ATTEND Internal Medicine
DX: N18.3 Chronic kidney disease, stage 3 (moderate) (principal); E11.22 Type 2 diabetes mellitus with diabetic chronic kidney disease; E78.00 Pure hypercholesterolemia, unspecified; E83.42 Hypomagnesemia

== ENCOUNTER → 2019-07-01 | Outpatient (CLI) | payer MEDICARE, MEDICAID ==
[~2019-07-01] MED LIST changes: +OXYB10TA2 PO; -OXYB10TA23 PO
--- NOTE | 2019-07-06 00:40 | ECWPNPC ---
PATIENT NAME: AZALIA COFFMAN : 1945 GENDER: FEMALE VISIT DATE: 07/01/2019 DISCHARGE DATE: 07/01/19 1048 VISIT LOCKED DATE TIME: PHYSICIAN: ULYSSES CHAN RESOURCE: ULYSSES CHAN REASON FOR APPOINTMENT 1. MED AB- NEW MED APPT HISTORY OF PRESENT ILLNESS HISTORY OF PRESENT ILLNESS: PAIN THE PATIENT DESCRIBES THE PAIN... 73-YEAR-OLD FEMALE IN FOR CHRONIC PAIN FOLLOW-UP. SHE RATES HER PAIN CURRENTLY AT A 7 OUT OF 10 AND DESCRIBES IT ACHING. SHE IS CURRENTLY ON TRAMADOL AND GABAPENTIN FOR HER PAIN AND FEELS THIS IS HELPFUL. FALL RISK SCREENING: SCREENING :NO FALLS REPORTED IN THE LAST YEAR CURRENT MEDICATIONS TAKING DOCUSATE SODIUM 100 MG CAPSULE 2 CAPSULE NEEDED ORALLY BID TAKING GLUCOTROL XL 10 MG TABLET EXTENDED RELEASE 24 HOUR 1 TABLET ORALLY DAILY TAKING AMITIZA 24 MCG CAPSULE 1 CAPSULE WITH FOOD ORALLY TWICE A DAY TAKING DONEPEZIL HCL 10 MG TABLET 1 TABLET AT BEDTIME ORALLY ONCE A DAY TAKING CALCIUM CITRATE + D 315-200 MG-UNIT TABLET 1 TABLET WITH MEALS ORALLY DAILY TAKING LAMICTAL 200 MG TABLET 1 TABLET ORALLY ONCE A DAY TAKING KLOR-CON 10 10 MEQ TABLET EXTENDED RELEASE 2 TABLET ORALLY BID TAKING SENNA-GEN 8.6 MG TABLET DIRECTED ORALLY BID TAKING ZOLPIDEM TARTRATE 10 MG TABLET 1 TABLET AT BEDTIME ORALLY ONCE A DAY TAKING FUROSEMIDE 20 MG TABLET 1 TABLET ORALLY ONCE DAILY TAKING CLONAZEPAM 0.25 MG TABLET DISINTEGRATING 1 TABLET ORALLY ONCE DAILY TAKING NEEDLES & SYRINGES 31 GAUGE DIRECTED TAKING LANCETS THIN MISCELLANEOUS DIRECTED TAKING GLUCOMETER DIRECTED TAKING LEVEMIR FLEXTOUCH 100 UNIT/ML SOLUTION PEN-INJECTOR SUBCUTANEOUS 50 UNITS IN AM AND 50 UNITS AT 9 PM TAKING DEXILANT 30 MG CAPSULE DELAYED RELEASE 1 CAPSULE ORALLY ONCE A DAY TAKING FIBER - CAPSULE 2 CAPSULES WITH 8 OUNCES OF LIQUID ORALLY BID TAKING ATORVASTATIN CALCIUM 40 MG TABLET 1 TABLET ORALLY ONCE A DAY TAKING QUETIAPINE FUMARATE ER 400 MG TABLET EXTENDED RELEASE 24 HOUR 1 TABLET IN THE EVENING ORALLY ONCE A DAY TAKING GLYCOLAX - POWDER ORALLY BID NEEDED TAKING MAGNESIUM 400 MG CAPSULE 2 TAB ORALLY BID TAKING CETIRIZINE HCL 10 MG TABLET 1 TABLET ORALLY ONCE A DAY TAKING SALINE NASAL SPRAY 0.65 % SOLUTION NASALLY 6-8 TIMES A DAY NEEDED TAKING NOVOLOG FLEXPEN 100 UNIT/ML SOLUTION PEN-INJECTOR 22 UNITS BEFORE BREAKFAST, 12 UNITS BEFORE DINNER SUBCUTANEOUS BID TAKING IPRATROPIUM BROMIDE 0.03 % SOLUTION 2 APPLICATIONS NASALLY TWICE A DAY TAKING MIRALAX SUSPENSION 17 GRAMS ORALLY AT HOUR OF SLEEP TAKING PROAIR HFA 108 (90 BASE) MCG/ACT AEROSOL SOLUTION 2 PUFFS NEEDED INHALATION EVERY 4 HRS TAKING NEBULIZER DEVICE DIRECTED FOUR TIMES A DAY TAKING ALBUTEROL SULFATE (2.5 MG/3ML) 0.083% NEBULIZATION SOLUTION 3 ML INHALATION FOUR TIMES PER DAY TAKING JANUMET XR 50-500 MG TABLET EXTENDED RELEASE 24 HOUR 1 TAB ORALLY BID TAKING LEVOTHYROXINE SODIUM 125 MCG TABLET 1 TABLET ON AN EMPTY STOMACH IN THE MORNING ORALLY ONCE A DAY TAKING GUAIFENESIN-DM 100-10 MG/5ML SYRUP 10 ML NEEDED ORALLY EVERY 4 HRS TAKING XOPENEX HFA 45 MCG/ACT AEROSOL 1 PUFF NEEDED INHALATION EVERY 4 HRS TAKING ZIPRASIDONE HCL 80 MG CAPSULE 1 CAPSULE WITH FOOD ORALLY TWICE A DAY TAKING AUSTEDO 12 MG TABLET 1 TABLET WITH FOOD ORALLY TWICE A DAY TAKING AMLODIPINE BESYLATE 2.5 MG TABLET 1 TABLET ORALLY ONCE A DAY TAKING MILK OF MAGNESIA 400 MG/5ML SUSPENSION 5 ML NEEDED ORALLY FOUR TIMES A DAY TAKING BARD URETHRAL CATHETER - MISCELLANEOUS DIRECTED 14F CATHETER, CIC TWICE PER DAY TAKING CANDESARTAN CILEXETIL 32 MG TABLET 1 TABLET ORALLY ONCE A DAY TAKING GLIPIZIDE ER 10 MG TABLET EXTENDED RELEASE 24 HOUR 1 TABLET WITH BREAKFAST ORALLY ONCE A DAY TAKING DICLOFENAC SODIUM 1 % GEL DIRECTED TRANSDERMAL 4 GRAMS TWICE A DAY NEEDED TO RIGHT KNEE TAKING ACETAMINOPHEN EXTRA STRENGTH 500 MG TABLET 2 TABLETS ORALLY 2-3 TIMES A DAY NEEDED TAKING OLMESARTAN MEDOXOMIL 40 MG TABLET 1 TABLET ORALLY ONCE A DAY TAKING CYMBALTA 30 MG CAPSULE DELAYED RELEASE PARTICLES 1 CAPSULE ORALLY TWICE DAILY FOR 1 WEEK THEN 1 CAPSULE DAILY FOR 1 WEEK. THEN 1 CAPSULE DAILY EVERY OTHER DAY X 7 DAYS THEN STOP TAKING GABAPENTIN 100 MG CAPSULE 1 CAPSULE ORALLY TWICE DAILY TAKING TRAMADOL-ACETAMINOPHEN 37.5-325 MG TABLET 1 ORALLY Q8H PRN MDD3 NOT-TAKING SEROQUEL XR 50 MG TABLET EXTENDED RELEASE 24 HOUR 1 TABLET IN THE EVENING ORALLY BEFORE BEDTIME NOT-TAKING INGREZZA 80 MG CAPSULE 1 CAPSULE ORALLY ONCE A DAY NOT-TAKING MACROBID 100 MG CAPSULE 1 CAPSULE ORALLY BID NOT-TAKING TYLENOL EXTRA STRENGTH 500 MG TABLET 2 TABLETS NEEDED ORALLY 2-3 TIMES A DAY NEEDED NOT-TAKING ASPERCREME LIDOCAINE 4 % PATCH EXTERNALLY 2-4 TIMES A DAY NEEDED NOT-TAKING LIDODERM 5 % PATCH 1 PATCH TO SKIN REMOVE AFTER 12 HOURS EXTERNALLY ONCE A DAY NOT-TAKING LEVAQUIN 500 MG TABLET 1 TABLET ORALLY ONCE A DAY NOT-TAKING SLOW MAGNESIUM/CALCIUM 64-106 MG TABLET DELAYED RELEASE DIRECTED ORALLY NOT-TAKING TRAZODONE HCL 50 MG TABLET 2 TABLETS ORALLY THREE TIMES A DAY NOT-TAKING CIPRO 500 MG TABLET 1 TABLET ORALLY EVERY 12 HRS MEDICATION LIST REVIEWED AND RECONCILED WITH THE PATIENT PAST MEDICAL HISTORY KIDNEY DISEASE STAGE 3 MEMORY LOSS SCHIZOPHRENIA OSTEOARTHRITIS INCONTINENCE HYPERCHOLESTEROLEMIA ANEMIA DIABETES MELLITUS HYPOTHYROIDISM DUE TO DIALLO'S HYPERTENSION, BENIGN ESOPHAGEAL REFLUX LEGALLY BLIND HYPOMAGNESEMIA GERD AMNESIA OSTEOARTHRITIS URGE INCONTINENCE OG URINE BACK PAIN TORN MENISCUS RIGHT KNEE ALLERGIES SULFA (FOR ALLERGY USE ONLY): HANDS SWELL - ALLERGY ASPIRIN: STOMACH - ALLERGY MORPHINE SULFATE: RASH - ALLERGY CELEBREX: CAUSES PROBLEMS WITH KIDNEYS - ALLERGY SURGICAL HISTORY THYROID SURGERY PARTIAL HYSTERECTOMY/LIFTED BLADDER BILATERAL FOOT SURGERY HERNIA CATARACT-BILATERAL RIGHT SHOULDER SURGERY LEFT SHOULDER SURGERY RIGHT KNEE SURGERY 12/31/2018 FAMILY HISTORY FATHER: , DIAGNOSED WITH UNSPECIFIED HEART DISEASE, OTHER MALIGNANT NEOPLASM OF UNSPECIFIED SITE MOTHER: , OTHER MALIGNANT NEOPLASM OF UNSPECIFIED SITE SIBLINGS: , UNSPECIFIED CEREBRAL ARTERY OCCLUSION WITH CEREBRAL INFARCTION, OTHER MALIGNANT NEOPLASM OF UNSPECIFIED SITE NO KNOWN FAMILY HISTORY OF ANY UROLOGICALLY RELATED DISEASES\\\/CANCERS.\\N FATHER-THROAT CA\\NMOTHER-LUNG CA\\NSISTER-LUNG CA\\NHAS 2 BROTHERS THAT SHE DOES NOT KNOW HISTORY ON. SOCIAL HISTORY GENERAL: TOBACCO USE ARE YOU A:FORMER SMOKER HOW LONG HAS IT BEEN SINCE YOU LAST SMOKED?> 10 YEARS OTHERS AT HOME: NONE. DIET: REGULAR. LANGUAGE LANGUAGES SPOKEN:GREEK DOMESTIC VIOLENCE DO YOU FEEL SAFE IN YOUR ENVIRONMENT?YES RECREATIONAL DRUG USE DRUG USE?NO EXERCISE: NONE. 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 NEEDED?NO PAIN CLINIC PFS, CLERGY, PUBLIC HEALTH REFERRALS HAS THE PATIENT BEEN EDUCATED REGARDING HIS/HER PLAN OF CARE?YES HAS THE PATIENT BEEN EDUCATED REGARDING PAIN, THE RISK FOR PAIN, THE IMPORTANCE OF EFFECTIVE PAIN MANAGEMENT, AND THE PAIN ASSESSMENT PROCESS?YES LATEX QUESTIONNAIRE LATEX ALLERGY : HAVE YOU EVER DEVELOPED ANY TYPE OF REACTION AFTER HANDLING LATEX PRODUCTS SUCH RUBBER GLOVES, CONDOMS, DIAPHRAGMS, BALLOONS, SOCKS, OR UNDERWEAR?NO LATEX ALLERGY : HAVE YOU EVER DEVELOPED ANY TYPE OF REACTION DURING OR AFTER DENTAL APPOINTMENT, VAGINAL/RECTAL EXAMINATION, SURGICAL PROCEDURE, OR ANY OTHER EXPOSURE?NO DATE ASKED : 05/18/2019 LATEX RISK : HAVE YOU EVER HAD ANY DIFFICULTY BREATHING OR HIVES AFTER EATING OR HANDLING ANY FRUITS, OR VEGETABLES; SUCH KIWI, BANANAS, STONE FRUITS, OR CHESTNUTSNO LATEX RISK : DO YOU HAVE A PREVIOUS PERSONAL HISTORY OF MORE THAN NINE SURGERIES, SPINA BIFIDA, OR REPEATED CATHERIZATIONS? NO LATEX RISK : ARE YOU FREQUENTLY EXPOSED TO LATEX PRODUCTS IN YOUR OCCUPATION?NO CAFFEINE CAFFEINE USE?YES HOW OFTEN AND HOW MUCH? 1/2 CUP OF COFFEE OR TEA A DAY ADVANCE DIRECTIVE ADVANCE DIRECTIVE DISCUSSED WITH PATIENT:YES PT STATES SHE HAS HCP 1. MAGALIE OLIVEIRA [phone](H) [phone](C) 2. GABRIELLA ARDON [phone] (H) [facility]. NO DRUZE BELIEFS THAT WOULD IMPACT HEALTH CARE. MARITAL STATUS: . ALCOHOL SCREENING DID YOU HAVE A DRINK CONTAINING ALCOHOL IN THE PAST YEAR?NO POINTS0 INTERPRETATIONNEGATIVE SEXUAL HX HAD SEX IN THE LAST 12 MONTHS (VAGINAL, ORAL, OR ANAL)?NO HAVE YOU EVER HAD AN STD?NO 06/18/18 1027 REVIEWED WITH PT. ADRBLANCAIEWED WITH PATIENT 03/11/19 1206 NLJ. HOSPITALIZATION/MAJOR DIAGNOSTIC PROCEDURE SURGERY RELATED KIDNEY INFECTION 2011 BRONCHITIS X 2 2018 REVIEW OF SYSTEMS REVIEWED BY: PROVIDER: ILENE CHAN ISOBUTYLENE OPERATOR CHIEF-C . CONSTITUTIONAL: ANY CHANGE IN YOUR MEDICAL CONDITION? NO . CHILLS NO . FEVER NO . INFECTION: DO YOU HAVE NEW INFECTIONS? NO . DO YOU HAVE HISTORY OF MRSA? NO . MUSCULOSKELETAL: ANY NEW PATTERNS OF PAIN OR NUMBNESS? NO . GASTROENTEROLOGY: ANY NEW CHANGE IN BOWEL CONTROL? NO . GENITOURINARY: ANY NEW CHANGE IN BLADDER CONTROL? NO . IS THERE A CHANCE YOU COULD BE ? NO . HEMATOLOGY/LYMPH: DO YOU TAKE ANY BLOOD THINNERS? (FOR EXAMPLE- COUMADIN, PLAVIX, AGGRENOX, PLATEL, PRADAXA, OR XARELTO) NO . WHEN WAS YOUR LAST DOSE? DATE: TIME: . NEUROLOGY: HAVE YOU FALLEN IN THE PAST 12 MONTHS? YES, RECENTLY FELL, PT IS A POOR HISTORIAN, LIVING IN ASSISTED LIVING . ANY NEW EXTREMITY NUMBNESS OR WEAKNESS? NO . CARDIOLOGY: DO YOU HAVE A PACEMAKER OR DEFIBRILLATOR? NO . RESPIRATORY: HAVE YOU BEEN SICK IN THE PAST WEEK? NO . FEVER NO . FLU LIKE SYMPTOMS? NO . COUGH NO . INTEGUMENTARY: DO YOU HAVE ANY RASHES OR OPEN SORES? NO . ALLERGIC/IMMUNO: ARE YOU ALLERGIC TO IV DYE? NO . ANY NEW ALLERGIES? NO . PSYCHIATRIC: DO YOU HAVE THOUGHTS OF HURTING YOURSELF OR SOMEONE ELSE? NO . ARE YOU ABUSED, NEGLECTED, OR IN AN UNSAFE ENVIRONMENT? NO . ENDOCRINOLOGY: ARE YOU DIABETIC? NO . OTHER: DO YOU NEED ANY PRESCRIPTIONS? NO . IF YES, PLEASE LIST: ____ . ANY NEW PROBLEMS WITH YOUR MEDICATIONS? NO . WHEN DID YOU LAST EAT? ____ . WHEN DID YOU LAST DRINK? ____ . WHAT DID YOU LAST DRINK? ____ . NAME OF PERSON DRIVING YOU HOME? ____ . DO YOU HAVE ANY OTHER QUESTIONS OR CONCERNS NO . VITAL SIGNS WT 218.0 LBS, HT 63 IN, BMI 38.61 INDEX, BP 140/65 MM HG, HR 87 /MIN, RR 18 /MIN, TEMP 96.0 F, OXYGEN SAT % 91%, NA INITIALS AW 1013, REVIEWED BY: EM. EXAMINATION GENERAL EXAMINATION: GENERALNO ACUTE DISTRESS, WELL NOURISHED AND HYDRATED. PSYCHAPPROPRIATE MOOD AND AFFECT . LUNGS:CLEAR TO AUSCULTATION BILATERALLY, NO WHEEZES, RHONCHI, RALES. HEART:NO MURMURS, REGULAR RATE AND RHYTHM. ASSESSMENTS SPONDYLOSIS WITHOUT MYELOPATHY OR RADICULOPATHY, LUMBOSACRAL REGION - M47.817 (PRIMARY) TREATMENT SPONDYLOSIS WITHOUT MYELOPATHY OR RADICULOPATHY, LUMBOSACRAL REGION CLINICAL NOTES: 73-YEAR-OLD FEMALE IN FOR CHRONIC PAIN FOLLOW-UP. GIVEN PRESENTING SYMPTOMS AND RESULTS OF PHYSICAL EXAMINATION RECOMMENDED CONTINUATION OF CURRENT MEDICATION REGIMEN WITH FOLLOW-UP IN 3 MONTHS. PATIENT HAS EXPRESSED UNDERSTANDING OF AND WAS IN AGREEMENT WITH TREATMENT PLAN. GIVEN TIME TO ASK QUESTIONS AND EXPRESS CONCERNS., ISTOP REGISTRY REVIEWED AND DEMONSTRATES COMPLLIANCE. (REF # [id number] ) BRINGS IN MEDICATIONS WHICH IS APPROPRIATE FOR WHAT WAS DISPENSED. RECENT URINE TOXICOLOGY REVIEWED. NO UNAUTHORIZED MEDICATIONS. NO ILLICIT SUBSTANCES AND PRESCRIBED MEDICATIONS WERE PRESENT. PROCEDURE CODES [id number] ESTABILISHED PATIENT [facility] CHARGE DISPOSITION & COMMUNICATION FOLLOW UP 3 MONTHS (REASON: BACK PAIN) ELECTRONICALLY SIGNED BY SALBADOR PECK ON 07/05/2019 AT 03:20 PM EST DISCLAIMER : THIS IS A VISIT SUMMARY EXTRACTED FROM THE [employer] CHART. IT IS NOT A COPY OF THE [employer] PROGRESS NOTE. SISI
== END ==
LOC: M PAIN 10:30
PROVIDERS: ATTEND Family Medicine
DX: M47.817 Spondylosis without myelopathy or radiculopathy, lumbosacral region (principal)

== ENCOUNTER → 2019-09-17 | Outpatient (REF) | payer MEDICARE, MEDICAID ==
[~2019-09-17] MED LIST changes: -OXYB10TA2 PO; +OXYB10TA23 PO
[2019-09-17 10:18] LABS: HEMATOCRIT 35.1 % (36.0-47.0); HEMOGLOBIN 11.1 g/dl (12.0-15.5); MEAN CORPUSCULAR HEMOGLOBIN 30.9 pg (27.0-33.0); MEAN CORPUSCULAR HGB CONC 31.6 g/dl (32.0-36.5); MEAN CORPUSCULAR VOLUME 97.8 fl (80.0-96.0); PLATELET COUNT, AUTOMATED 256 10^3/uL (150-450); RED BLOOD COUNT 3.59 10^6/uL (4.00-5.40); WHITE BLOOD COUNT 8.1 10^3/uL (4.0-10.0)
[2019-09-17 10:53] LABS: CHOLESTEROL RISK RATIO 4.906 (<5); CREATININE FOR GFR 1.11 MG/DL (0.55-1.30); GLOMERULAR FILTRATION RATE 51.4 (>39); MAGNESIUM LEVEL 1.8 MG/DL (1.8-2.4); POTASSIUM SERUM 4.2 MEQ/L (3.5-5.1); THYROID STIMULATING HORMONE 4.56 uIU/ML (0.358-3.740)
[2019-09-17 10:56] LABS: HEMOGLOBIN A1c 6.3 %
== END ==
LOC: SKLABADC 08:52
PROVIDERS: ATTEND Internal Medicine
DX: E11.22 Type 2 diabetes mellitus with diabetic chronic kidney disease (principal); N18.3 Chronic kidney disease, stage 3 (moderate); E03.9 Hypothyroidism, unspecified; E83.42 Hypomagnesemia

== ENCOUNTER → 2019-09-30 | Outpatient (CLI) | payer MEDICARE, MEDICAID ==
--- NOTE | 2019-10-02 05:39 | ECWPNPC ---
PATIENT NAME: AZALIA COFFMAN : 1945 GENDER: FEMALE VISIT DATE: 09/30/2019 DISCHARGE DATE: 09/30/19 1131 VISIT LOCKED DATE TIME: PHYSICIAN: ULYSSES CHAN RESOURCE: ULYSSES CHAN REASON FOR APPOINTMENT 1. BACK PAIN HISTORY OF PRESENT ILLNESS HISTORY OF PRESENT ILLNESS: PAIN THE PATIENT DESCRIBES THE PAIN... 73-YEAR-OLD FEMALE IN FOR CHRONIC PAIN FOLLOW-UP. SHE RATES HER PAIN CURRENTLY AT A 5 OUT OF 10 AND DESCRIBES IT SORE. SHE FEELS HER MEDICATIONS ARE WORKING WELL AND DENIES MED SIDE EFFECTS AT THIS TIME. FALL RISK SCREENING: SCREENING :NO FALLS REPORTED IN THE LAST YEAR CURRENT MEDICATIONS TAKING DOCUSATE SODIUM 100 MG CAPSULE 2 CAPSULE NEEDED ORALLY BID TAKING GLUCOTROL XL 10 MG TABLET EXTENDED RELEASE 24 HOUR 1 TABLET ORALLY DAILY TAKING AMITIZA 24 MCG CAPSULE 1 CAPSULE WITH FOOD ORALLY TWICE A DAY TAKING DONEPEZIL HCL 10 MG TABLET 1 TABLET AT BEDTIME ORALLY ONCE A DAY TAKING CALCIUM CITRATE + D 315-200 MG-UNIT TABLET 1 TABLET WITH MEALS ORALLY DAILY TAKING LAMICTAL 200 MG TABLET 1 TABLET ORALLY ONCE A DAY TAKING KLOR-CON 10 10 MEQ TABLET EXTENDED RELEASE 2 TABLET ORALLY BID TAKING SENNA-GEN 8.6 MG TABLET DIRECTED ORALLY BID TAKING ZOLPIDEM TARTRATE 10 MG TABLET 1 TABLET AT BEDTIME ORALLY ONCE A DAY TAKING FUROSEMIDE 20 MG TABLET 1 TABLET ORALLY ONCE DAILY TAKING CLONAZEPAM 0.25 MG TABLET DISINTEGRATING 1 TABLET ORALLY ONCE DAILY TAKING NEEDLES & SYRINGES 31 GAUGE DIRECTED TAKING LANCETS THIN MISCELLANEOUS DIRECTED TAKING GLUCOMETER DIRECTED TAKING LEVEMIR FLEXTOUCH 100 UNIT/ML SOLUTION PEN-INJECTOR SUBCUTANEOUS 50 UNITS IN AM AND 50 UNITS AT 9 PM TAKING DEXILANT 30 MG CAPSULE DELAYED RELEASE 1 CAPSULE ORALLY ONCE A DAY TAKING FIBER - CAPSULE 2 CAPSULES WITH 8 OUNCES OF LIQUID ORALLY BID TAKING ATORVASTATIN CALCIUM 40 MG TABLET 1 TABLET ORALLY ONCE A DAY TAKING QUETIAPINE FUMARATE ER 400 MG TABLET EXTENDED RELEASE 24 HOUR 1 TABLET IN THE EVENING ORALLY ONCE A DAY TAKING GLYCOLAX - POWDER ORALLY BID NEEDED TAKING MAGNESIUM 400 MG CAPSULE 2 TAB ORALLY BID TAKING CETIRIZINE HCL 10 MG TABLET 1 TABLET ORALLY ONCE A DAY TAKING SALINE NASAL SPRAY 0.65 % SOLUTION NASALLY 6-8 TIMES A DAY NEEDED TAKING NOVOLOG FLEXPEN 100 UNIT/ML SOLUTION PEN-INJECTOR 22 UNITS BEFORE BREAKFAST, 12 UNITS BEFORE DINNER SUBCUTANEOUS BID TAKING IPRATROPIUM BROMIDE 0.03 % SOLUTION 2 APPLICATIONS NASALLY TWICE A DAY TAKING MIRALAX SUSPENSION 17 GRAMS ORALLY AT HOUR OF SLEEP TAKING PROAIR HFA 108 (90 BASE) MCG/ACT AEROSOL SOLUTION 2 PUFFS NEEDED INHALATION EVERY 4 HRS TAKING NEBULIZER DEVICE DIRECTED FOUR TIMES A DAY TAKING ALBUTEROL SULFATE (2.5 MG/3ML) 0.083% NEBULIZATION SOLUTION 3 ML INHALATION FOUR TIMES PER DAY TAKING JANUMET XR 50-500 MG TABLET EXTENDED RELEASE 24 HOUR 1 TAB ORALLY BID TAKING LEVOTHYROXINE SODIUM 125 MCG TABLET 1 TABLET ON AN EMPTY STOMACH IN THE MORNING ORALLY ONCE A DAY TAKING GUAIFENESIN-DM 100-10 MG/5ML SYRUP 10 ML NEEDED ORALLY EVERY 4 HRS TAKING XOPENEX HFA 45 MCG/ACT AEROSOL 1 PUFF NEEDED INHALATION EVERY 4 HRS TAKING ZIPRASIDONE HCL 80 MG CAPSULE 1 CAPSULE WITH FOOD ORALLY TWICE A DAY TAKING AUSTEDO 12 MG TABLET 1 TABLET WITH FOOD ORALLY TWICE A DAY TAKING AMLODIPINE BESYLATE 2.5 MG TABLET 1 TABLET ORALLY ONCE A DAY TAKING MILK OF MAGNESIA 400 MG/5ML SUSPENSION 5 ML NEEDED ORALLY FOUR TIMES A DAY TAKING BARD URETHRAL CATHETER - MISCELLANEOUS DIRECTED 14F CATHETER, CIC TWICE PER DAY TAKING CANDESARTAN CILEXETIL 32 MG TABLET 1 TABLET ORALLY ONCE A DAY TAKING GLIPIZIDE ER 10 MG TABLET EXTENDED RELEASE 24 HOUR 1 TABLET WITH BREAKFAST ORALLY ONCE A DAY TAKING DICLOFENAC SODIUM 1 % GEL DIRECTED TRANSDERMAL 4 GRAMS TWICE A DAY NEEDED TO RIGHT KNEE TAKING ACETAMINOPHEN EXTRA STRENGTH 500 MG TABLET 2 TABLETS ORALLY 2-3 TIMES A DAY NEEDED TAKING OLMESARTAN MEDOXOMIL 40 MG TABLET 1 TABLET ORALLY ONCE A DAY TAKING CYMBALTA 30 MG CAPSULE DELAYED RELEASE PARTICLES 1 CAPSULE ORALLY TWICE DAILY FOR 1 WEEK THEN 1 CAPSULE DAILY FOR 1 WEEK. THEN 1 CAPSULE DAILY EVERY OTHER DAY X 7 DAYS THEN STOP TAKING TRAMADOL-ACETAMINOPHEN 37.5-325 MG TABLET 1 ORALLY Q8H PRN MDD3 TAKING GABAPENTIN 100 MG CAPSULE 1 CAPSULE ORALLY TWICE DAILY NOT-TAKING SEROQUEL XR 50 MG TABLET EXTENDED RELEASE 24 HOUR 1 TABLET IN THE EVENING ORALLY BEFORE BEDTIME NOT-TAKING INGREZZA 80 MG CAPSULE 1 CAPSULE ORALLY ONCE A DAY NOT-TAKING MACROBID 100 MG CAPSULE 1 CAPSULE ORALLY BID NOT-TAKING TYLENOL EXTRA STRENGTH 500 MG TABLET 2 TABLETS NEEDED ORALLY 2-3 TIMES A DAY NEEDED NOT-TAKING ASPERCREME LIDOCAINE 4 % PATCH EXTERNALLY 2-4 TIMES A DAY NEEDED NOT-TAKING LIDODERM 5 % PATCH 1 PATCH TO SKIN REMOVE AFTER 12 HOURS EXTERNALLY ONCE A DAY NOT-TAKING LEVAQUIN 500 MG TABLET 1 TABLET ORALLY ONCE A DAY NOT-TAKING SLOW MAGNESIUM/CALCIUM 64-106 MG TABLET DELAYED RELEASE DIRECTED ORALLY NOT-TAKING TRAZODONE HCL 50 MG TABLET 2 TABLETS ORALLY THREE TIMES A DAY NOT-TAKING CIPRO 500 MG TABLET 1 TABLET ORALLY EVERY 12 HRS MEDICATION LIST REVIEWED AND RECONCILED WITH THE PATIENT PAST MEDICAL HISTORY KIDNEY DISEASE STAGE 3 MEMORY LOSS SCHIZOPHRENIA OSTEOARTHRITIS INCONTINENCE HYPERCHOLESTEROLEMIA ANEMIA DIABETES MELLITUS HYPOTHYROIDISM DUE TO DIALLO'S HYPERTENSION, BENIGN ESOPHAGEAL REFLUX LEGALLY BLIND HYPOMAGNESEMIA GERD AMNESIA OSTEOARTHRITIS URGE INCONTINENCE OG URINE BACK PAIN TORN MENISCUS RIGHT KNEE ALLERGIES SULFA (FOR ALLERGY USE ONLY): HANDS SWELL - ALLERGY ASPIRIN: STOMACH - ALLERGY MORPHINE SULFATE: RASH - ALLERGY CELEBREX: CAUSES PROBLEMS WITH KIDNEYS - ALLERGY SURGICAL HISTORY THYROID SURGERY PARTIAL HYSTERECTOMY/LIFTED BLADDER BILATERAL FOOT SURGERY HERNIA CATARACT-BILATERAL RIGHT SHOULDER SURGERY LEFT SHOULDER SURGERY RIGHT KNEE SURGERY 12/31/2018 FAMILY HISTORY FATHER: , DIAGNOSED WITH UNSPECIFIED HEART DISEASE, OTHER MALIGNANT NEOPLASM OF UNSPECIFIED SITE MOTHER: , OTHER MALIGNANT NEOPLASM OF UNSPECIFIED SITE SIBLINGS: , UNSPECIFIED CEREBRAL ARTERY OCCLUSION WITH CEREBRAL INFARCTION, OTHER MALIGNANT NEOPLASM OF UNSPECIFIED SITE NO KNOWN FAMILY HISTORY OF ANY UROLOGICALLY RELATED DISEASES\\\/CANCERS.\\N FATHER-THROAT CA\\NMOTHER-LUNG CA\\NSISTER-LUNG CA\\NHAS 2 BROTHERS THAT SHE DOES NOT KNOW HISTORY ON. SOCIAL HISTORY GENERAL: TOBACCO USE ARE YOU A:FORMER SMOKER HOW LONG HAS IT BEEN SINCE YOU LAST SMOKED?> 10 YEARS OTHERS AT HOME: NONE. DIET: REGULAR. LANGUAGE LANGUAGES SPOKEN:[place] R[place] DOMESTIC VIOLENCE DO YOU FEEL SAFE IN YOUR ENVIRONMENT?YES NEW PATIENT PAIN DIARY TODAY'S VISIT 09/30/2019 PATIENT DESCRIBES PAIN :IT COMES AND GOES, TENDER, SORE FROM 0-10, WHAT LEVEL IS YOUR PAIN TODAY?5 NAME OF PERSON DRIVING YOU HOME IS THERE A CHANCE YOU COULD BE ?NO HAVE YOU BEEN SICK IN THE LAST WEEK (COLD, COUGH, FEVER, FLU, ETC)NO DO YOU TAKE ANY BLOOD THINNERS?NO DO YOU HAVE ANY RASHES OR OPEN SORES?NO ANY CHANGE IN BOWEL OR BLADDER CONTROL?NO ARE YOU ALLERGIC TO SHELLFISH OR IV DYE?NO ARE YOU DIABETIC?NO DO YOU HAVE A PACEMAKER OR DEFIBRILLATOR?NO ANY NEW PROBLEMS WITH MEDICINES OR NEW ALLERGIESNO ANY NEW PATTERNS OF PAIN OR NUMBNESS?NO ANY CHANGE IN YOUR MEDICAL CONDITION?NO HAVE YOU FALLEN IN THE LAST 6 MONTHS?NO DO YOU USE ANY TYPE OF TOBACCO (SMOKE, SMOKELESS, CHEW, ETC.)NO ARE YOU ABUSED, NEGLECTED, OR IN AN UNSAFE ENVIRONMENT?NO DO YOU HAVE THOUGHTS OF HURTING YOURSELF OR SOMEONE ELSE?NO DO YOU NEED ANY PRESCRIPTIONS?NO DO YOU HAVE ANY OTHER QUESTIONS OR CONCERNS?NO INTENSITY SCALE REVIEWEDNUMBER RECREATIONAL DRUG USE DRUG USE?NO EXERCISE: NONE. 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 PRESIDENT AND CHIEF COMMERCIAL OFFICER NEEDED?NO PAIN CLINIC PFS, CLERGY, PUBLIC HEALTH REFERRALS WAS THE PROVIDER NOTIFIED OF ANY PERTINENT INFO?YES HAS THE PATIENT BEEN EDUCATED REGARDING HIS/HER PLAN OF CARE?YES HAS THE PATIENT BEEN EDUCATED REGARDING PAIN, THE RISK FOR PAIN, THE IMPORTANCE OF EFFECTIVE PAIN MANAGEMENT, AND THE PAIN ASSESSMENT PROCESS?YES LATEX QUESTIONNAIRE LATEX ALLERGY : HAVE YOU EVER DEVELOPED ANY TYPE OF REACTION AFTER HANDLING LATEX PRODUCTS SUCH RUBBER GLOVES, CONDOMS, DIAPHRAGMS, BALLOONS, SOCKS, OR UNDERWEAR?NO LATEX ALLERGY : HAVE YOU EVER DEVELOPED ANY TYPE OF REACTION DURING OR AFTER DENTAL APPOINTMENT, VAGINAL/RECTAL EXAMINATION, SURGICAL PROCEDURE, OR ANY OTHER EXPOSURE?NO LATEX RISK : HAVE YOU EVER HAD ANY DIFFICULTY BREATHING OR HIVES AFTER EATING OR HANDLING ANY FRUITS, OR VEGETABLES; SUCH KIWI, BANANAS, STONE FRUITS, OR CHESTNUTSNO LATEX RISK : DO YOU HAVE A PREVIOUS PERSONAL HISTORY OF MORE THAN NINE SURGERIES, SPINA BIFIDA, OR REPEATED CATHERIZATIONS? NO LATEX RISK : ARE YOU FREQUENTLY EXPOSED TO LATEX PRODUCTS IN YOUR OCCUPATION?NO DATE ASKED : 09/30/2019 CAFFEINE CAFFEINE USE?YES HOW OFTEN AND HOW MUCH? 1/2 CUP OF COFFEE OR TEA A DAY ADVANCE DIRECTIVE ADVANCE DIRECTIVE DISCUSSED WITH PATIENT:YES PT STATES SHE HAS HCP 1. MAGALIE OLIVEIRA [phone](H) [phone](C) 2. GABRIELLA ARDON [phone] (H) [facility]. NO SHINTO BELIEFS THAT WOULD IMPACT HEALTH CARE. MARITAL STATUS: . ALCOHOL SCREENING DID YOU HAVE A DRINK CONTAINING ALCOHOL IN THE PAST YEAR?NO POINTS0 INTERPRETATIONNEGATIVE SEXUAL HX HAD SEX IN THE LAST 12 MONTHS (VAGINAL, ORAL, OR ANAL)?NO HAVE YOU EVER HAD AN STD?NO HOSPITALIZATION/MAJOR DIAGNOSTIC PROCEDURE SURGERY RELATED KIDNEY INFECTION 2011 BRONCHITIS X 2 2018 REVIEW OF SYSTEMS REVIEWED BY: PROVIDER: ILENE CRONIN . CONSTITUTIONAL: ANY CHANGE IN YOUR MEDICAL CONDITION? NO . CHILLS NO . FEVER NO . INFECTION: DO YOU HAVE NEW INFECTIONS? NO . DO YOU HAVE HISTORY OF MRSA? NO . MUSCULOSKELETAL: ANY NEW PATTERNS OF PAIN OR NUMBNESS? NO . GASTROENTEROLOGY: ANY NEW CHANGE IN BOWEL CONTROL? NO . GENITOURINARY: ANY NEW CHANGE IN BLADDER CONTROL? NO . IS THERE A CHANCE YOU COULD BE ? NO . HEMATOLOGY/LYMPH: DO YOU TAKE ANY BLOOD THINNERS? (FOR EXAMPLE- COUMADIN, PLAVIX, AGGRENOX, PLATEL, PRADAXA, OR XARELTO) NO . WHEN WAS YOUR LAST DOSE? DATE: TIME: . NEUROLOGY: HAVE YOU FALLEN IN THE PAST 12 MONTHS? NO . ANY NEW EXTREMITY NUMBNESS OR WEAKNESS? NO . CARDIOLOGY: DO YOU HAVE A PACEMAKER OR DEFIBRILLATOR? NO . RESPIRATORY: HAVE YOU BEEN SICK IN THE PAST WEEK? NO . FEVER NO . FLU LIKE SYMPTOMS? NO . COUGH NO . INTEGUMENTARY: DO YOU HAVE ANY RASHES OR OPEN SORES? NO . ALLERGIC/IMMUNO: ARE YOU ALLERGIC TO IV DYE? NO . ANY NEW ALLERGIES? NO . PSYCHIATRIC: DO YOU HAVE THOUGHTS OF HURTING YOURSELF OR SOMEONE ELSE? NO . ARE YOU ABUSED, NEGLECTED, OR IN AN UNSAFE ENVIRONMENT? NO . ENDOCRINOLOGY: ARE YOU DIABETIC? NO . OTHER: DO YOU NEED ANY PRESCRIPTIONS? NO . IF YES, PLEASE LIST: ____ . ANY NEW PROBLEMS WITH YOUR MEDICATIONS? NO . WHEN DID YOU LAST EAT? ____ . WHEN DID YOU LAST DRINK? ____ . WHAT DID YOU LAST DRINK? ____ . NAME OF PERSON DRIVING YOU HOME? ____ . DO YOU HAVE ANY OTHER QUESTIONS OR CONCERNS NO . VITAL SIGNS WT 212.8 LBS, HT 63 IN, BMI 37.69 INDEX, BP 165/63 MM HG, HR 110 /MIN, RR 18 /MIN, TEMP 97 F,1 F, OXYGEN SAT % 96.0, SAFE IN ENV? (Y/N) Y, NA INITIALS AW 1017, REVIEWED BY: PETE. EXAMINATION GENERAL EXAMINATION: GENERALNO ACUTE DISTRESS, WELL NOURISHED AND HYDRATED. PSYCHAPPROPRIATE MOOD AND AFFECT . LUNGS:CLEAR TO AUSCULTATION BILATERALLY, NO WHEEZES, RHONCHI, RALES. HEART:NO MURMURS, REGULAR RATE AND RHYTHM. ASSESSMENTS SPONDYLOSIS WITHOUT MYELOPATHY OR RADICULOPATHY, LUMBOSACRAL REGION - M47.817 (PRIMARY) TREATMENT SPONDYLOSIS WITHOUT MYELOPATHY OR RADICULOPATHY, LUMBOSACRAL REGION CLINICAL NOTES: 73-YEAR-OLD FEMALE IN FOR CHRONIC PAIN FOLLOW-UP. GIVEN PRESENTING SYMPTOMS AND RESULTS OF PHYSICAL EXAMINATION RECOMMENDED CONTINUATION OF CURRENT MEDICATION REGIMEN WITH FOLLOW-UP IN 3 MONTHS. PATIENT HAS EXPRESSED UNDERSTANDING OF AND WAS IN AGREEMENT WITH TREATMENT PLAN. GIVEN TIME TO ASK QUESTIONS AND EXPRESS CONCERNS., ISTOP REGISTRY REVIEWED AND DEMONSTRATES COMPLLIANCE. (REF # [id number] ) BRINGS IN MEDICATIONS WHICH IS APPROPRIATE FOR WHAT WAS DISPENSED. RECENT URINE TOXICOLOGY REVIEWED. NO UNAUTHORIZED MEDICATIONS. NO ILLICIT SUBSTANCES AND PRESCRIBED MEDICATIONS WERE PRESENT. PREVENTIVE MEDICINE PAIN CLINIC TEACHING: THE PATIENT HAS BEEN EDUCATED REGARDING PAIN, THE RISK FOR PAIN, THE IMPORTANCE OF EFFECTIVE PAIN MANAGEMENT, AND THE PAIN ASSESSMENT PROCESS. : REVIEWED WRITTEN AND VERBAL INSTRUCTIONS FOR DISCHARGE INSTRUCTIONS, PT ACKNOWLEDGED UNDERSTANING. PETE DISPOSITION & COMMUNICATION FOLLOW UP 3 MONTHS (REASON: BACK PAIN) ELECTRONICALLY SIGNED BY SALBADOR PECK ON 10/01/2019 AT 09:13 AM EDT DISCLAIMER : THIS IS A VISIT SUMMARY EXTRACTED FROM THE [employer] CHART. IT IS NOT A COPY OF THE [employer] PROGRESS NOTE. SISI
== END ==
LOC: M PAIN 10:30
PROVIDERS: ATTEND Family Medicine
DX: M47.817 Spondylosis without myelopathy or radiculopathy, lumbosacral region (principal)

== ENCOUNTER → 2019-11-29 | Outpatient (CLI) | payer MEDICARE, MEDICAID ==
[~2019-11-29] MED LIST changes: +TRAM37.53 PO; +[UNRECOGNIZED DRUG - CODE] PO
[2019-11-29 11:38] LABS: APPEARANCE, URINE CLEAR (CLEAR); BACTERIA, URINE AUTO 1+ (NEGATIVE); BILIRUBIN, URINE AUTO NEGATIVE (NEGATIVE); BLOOD, URINE BLOOD NEGATIVE (NEGATIVE); COLOR, URINE YELLOW (YELLOW); GLUCOSE, URINE (UA) AUTO NEGATIVE (NEGATIVE); KETONE, URINE AUTO NEGATIVE (NEGATIVE); LEUKOCYTE ESTERASE, URINE AUTO NEGATIVE (NEGATIVE); NITRITE, URINE AUTO NEGATIVE (NEGATIVE); PROTEIN, URINE AUTO NEGATIVE (NEGATIVE); RBC, URINE AUTO 1 /HPF (0-3); SPECIFIC GRAVITY URINE AUTO 1.017 (1.002-1.035); SQUAMOUS EPITHELIAL CELL UR AU 2 /HPF (0-6); UROBILINOGEN, URINE AUTO 0.2 mg/dL (0.0-2.0); WBC, URINE AUTO 1 /HPF (0-3)
--- NOTE | 2019-11-30 08:48 | REP ---
CHEST X-RAY: Two views. HISTORY: Preoperative testing. COMPARISON CHEST X-RAY: April 13, 2018. FINDINGS: The lungs are symmetrically aerated and free of infiltrate. Mild fibrotic changes in the right lung apex unchanged. Heart is not enlarged. Pleural angles are sharp. The aorta is slightly tortuous and calcific. Pulmonary vasculature is not increased. No significant bony abnormality. IMPRESSION: No acute disease. Electronically Signed by Toan Lafleur MD 11/30/2019 11:00 A
== END ==
LOC: M RAD 11:06
PROVIDERS: ATTEND Nurse Practitioner Family
DX: Z01.818 Encounter for other preprocedural examination (principal); R32 Unspecified urinary incontinence

== ENCOUNTER → 2019-11-30 | Outpatient (REF) | payer MEDICARE, MEDICAID ==
[2019-11-30 14:34] LABS: INR 0.95; PROTHROMBIN TIME 12.4 SECONDS (11.8-14.0)
[2019-11-30 14:35] LABS: PARTIAL THROMBOPLASTIN TIME 27.1 SECONDS (25.0-38.4)
== END ==
LOC: M LAB REF 13:50
PROVIDERS: ATTEND Internal Medicine
DX: Z01.818 Encounter for other preprocedural examination (principal); Z79.01 Long term (current) use of anticoagulants

== ENCOUNTER → 2019-12-05 | Outpatient (CLI) | payer MEDICARE, MEDICAID | LOC: M LABSMTC 09:21 | PROVIDERS: ATTEND Anesthesiology | DX: Z01.818 Encounter for other preprocedural examination (principal); Z11.59 Encounter for screening for other viral diseases | CPT/HCPCS: C9803; U0003 ==

== ENCOUNTER 2019-12-08 09:06 | Day surgery (SDC) | payer MEDICARE, MEDICAID ==
--- NOTE | 2019-12-01 11:12 | CR ---
DATE: 11/30/[address] Vásquez for bladder Botox 12/08/2019. Dear Dr. Vásquez: Thank you for asking me to see Ms. Geri Keyes in consultation prior to her urologic procedure. Ms. Keyes is a as you know a 74-year-old female with past medical history of type 2 diabetes, schizoaffective disorder, renal insufficiency, hypertension, hyperlipidemia, who reports that she has been in her usual state of health [id number] any fevers or chills, chest pain or shortness of breath, nausea or vomiting, change in bowels. The patient is quite arthritic. She walks with a walker. Activity limited by her lower extremity and back arthritis. The patient denies any recent falls or change in her mobility. The patient has type 2 diabetes. She reports worsening incontinence but denies any polyphagia, polydipsia. She is checking her blood sugars reporting that they have been in the 120s to150 range. She reports compliance with her insulin. The patient has gastroesophageal reflux disease (GERD). She denies any dyspepsia. She is complaint with Dexilant. The patient has irritable bowel syndrome (IBS), constipation and is compliant with Amitiza. The patient has known schizoaffective disorder. She follows with Dr. Bledsoe. She wonders if one of her medicines are making her salivate. This has been ongoing for several years. She feels that she her behavior health is stable. The patient has had bladder injections with Botox previously with good results. The patient reports dysthymia related to COVID pandemic, unable to socialize or go to [facility] daycare, which she usually does several times a week as well as take piano lessons. The patient is in a new apartment in the last 6 months and is pleased with the disability assist the apartment has. Review of systems is otherwise negative. PAST MEDICAL HISTORY: 1. Type 2 diabetes. 2. Hypertension. 3. Hyperlipidemia. 4. Graves thyroiditis status post surgery and radioactive iodine. 5. Osteoarthritis (OA) degenerative joint disease (DJD) of the back and knees. 6. GERD with achalasia status post dilatation esophagogastroduodenoscopy (EGD) 2010. 7. Chronic obstructive pulmonary disease (COPD), mild. 8. Schizophrenia affective disorder, follows with Dr. Bledsoe. 9. Status post hysterectomy with bladder suspension 1994. 10. Uterine fibroids with tubal ligation 1971. 11. Cor pulmonale with echo 2000 showing pulmonary hypertension. 12. Bladder suspension 2001 with tension-free vaginal tape posterior vaginal wall and history of Botox injections, biopsies March 2017, August 2018. 13. Abdominal wall hernia repair. 14. Chronic renal insufficiency, stage III. 15. Anemia felt secondary to renal insufficiency. 16. Legally blind. 17. Multiple foot surgeries 2008- for hammertoe correction and bunionectomies. 18. Abnormal mammograms 2014 with benign biopsy, Dr. Cazares. 19. Status post appendectomy. 20. Status post cataract extraction. MEDICATIONS: - levothyroxine 125 mcg daily - furosemide 20 mg daily - cetirizine 10 mg daily - magnesium oxide 400 mg two twice a day - atorvastatin 40 mg daily - Fiber-Tabs two tablets twice a day - Levemir 56 units twice a day - NovoLog 30 units before breakfast and dinner - Senna one twice a day - docusate two twice a day - Calcitrate 315 mg daily. - potassium chloride 10 mEq two tablets twice a day - Amitiza 24 mcg twice a day - Janumet XR 50/500 one twice a day - Dexilant 30 mg daily - candesartan 32 mg daily - Tylenol as needed - diclofenac topically as needed - Lidoderm patch 12 hours on, 12 hours off - nocturnal oxygen - clonazepam 0.5 mg twice a day - albuterol nebulizer as needed - olmesartan 40 mg daily - donepezil 10 mg daily - Vesicare 10 mg daily - Aspercreme with lidocaine as needed - tramadol three times a day - zolpidem 10 mg at bedtime - GlycoLax twice a day - ziprasidone 80 mg twice a day - Seroquel ER 400 mg at bedtime - ipratropium-albuterol nebulizer as needed - Seroquel ER 50 mg at bedtime - ipratropium nasal spray as needed - amlodipine 2.5 mg daily - gabapentin 100 mg twice a day - Austedo 18 mg twice a day for tardive dyskinesia DRUG ALLERGIES: Are to SULFA (her hands swell), ASPIRIN (upsets her stomach), MORPHINE (rash). SOCIAL HISTORY: Lives alone. Retired. Former smoker, quit over 30 years ago. FAMILY HISTORY: Father of cancer of the head and neck. Mother and a sister of lung cancer. A sister had a premature stroke at 47. PHYSICAL EXAMINATION: Overweight female, no acute distress. Vital signs are weight 212 pounds, blood pressure 130/68, pulse is 88. Oxygen saturation at rest is 98%. Body mass index (BMI) 40. HEENT: Head is normocephalic. Neck is supple. Pupils equal and reactive to light. Extraocular movements are intact. She has exophthalmos. She wears eyeglasses. Conjunctive are not injected. Sclerae anicteric. Vision decreased. Tympanic membranes bilateral dull, scant amount of cerumen right greater than left. Tongue is midline. Posterior pharynx without inflammation. She has alopecia. Neck is supple, well-healed anterior neck incision. No thyromegaly, carotid bruits or cervical lymphadenopathy. Respiratory: Decreased breath sounds. Cardiovascular: Regular rate rhythm. No murmur, rub, gallop. Breasts: Exam deferred. Gynecologic: Deferred. Abdomen: Protuberant, obese, soft, nontender. No hepatosplenomegaly. Extremities: Arthritic. Trace pretibial edema. Neurologic: Some mild tremor. LABORATORY DATA: EKG normal sinus rhythm, rate of 88, axis of -14. Normal ND, QRS, QTC. Normal R wave progression. Some subtle nonspecific ST-T wave changes but overall unchanged from previous EKG. The patient had labs 11/30/2019. Normal PT/PTT, CBC. Hemoglobin/hematocrit (H/H) is 11.1 and 33. A1c 6.6. Med profile significant for a sugar of 82, GFR of 44. TSH is 5. IMPRESSION: Mrs. Geri Keyes, 74-year-old female, multiple cardiovascular risk factors including type 2 diabetes, hypertension, hyperlipidemia, age, and family history is felt to be optimized and at low risk for cardiovascular complications for the proposed surgical intervention. Risks can be further minimized by the following. 1. Type 2 diabetes. She will take half of her Levemir and half of her NovoLog evening prior to surgery and morning of surgery. Otherwise, she will take all of her oral meds. 2. Hypertension. She will take her usual morning meds a.m. of surgery. 3. Hyperlipidemia. Continue statin the evening prior to surgery. 4. Schizoaffective disorder. Continue usual psychiatric meds perioperatively. 5. Gastroesophageal reflux disease. Take Dexilant a.m. of surgery. 6. Hypothyroid. Levothyroxine dose will be increased to 137 mcg a day and she will taken it a.m. of surgery. 7. Chronic obstructive pulmonary disease. She uses her nebulizer puffers only as needed. 8. Urinary incontinence. She will take her VESIcare as usual the a.m. of surgery. 9. Constipation. Continued bowel meds perioperatively. 10. Osteoarthritis. Continue topicals and tramadol perioperatively. Thank you very much for this consultation. Please call with questions or concerns.
[~2019-12-08] VITALS: Ht 157.5 cm; Wt 98.3 kg
[~2019-12-08 09:06] MED LIST changes: +LIDOCAINE 1% MDV 20ML VIAL SQ PRN; +LR 1,000 ML IV ONE; +ceFAZolin SOD 2 GM in IV 1 EA IV ONE
[2019-12-08] MEDS ORDERED: DEXTROSE 50% 50 ML SYRINGE As Ordered ONE (10:45)
[2019-12-08] MEDS ORDERED: DEXTROSE 50% 50 ML VIAL IV ONE (11:00)
[2019-12-08] MEDS ORDERED: MIDAZOLAM INJ 2MG/2ML VIAL (J2250 PER 1MG) As Ordered ONE (11:13)
[2019-12-08] MEDS ORDERED: fentaNYL 100 MCG/2 ML INJECTION (J3010) As Ordered ONE (11:14)
[2019-12-08] MEDS ORDERED: LIDOCAINE 2% 100MG/5ML SDV (FOR ANES.) As Ordered ONE (11:15)
[2019-12-08] MEDS ORDERED: propofoL 200 MG/20 ML VIAL As Ordered ONE (11:15)
[2019-12-08] MEDS ORDERED: LIDOCAINE 2% 5ML JELLY UROJET As Ordered ONE (11:35)
[2019-12-08] MEDS ORDERED: BOTOX THERAPEUTIC 100 UNIT VIAL (J0585 PER 1 UNIT) As Ordered ONE ×2 (11:36→12:14)
[2019-12-08] MEDS ORDERED: ONDANSETRON 4MG/2ML VIAL IV PRN (13:00)
[2019-12-08] MEDS ORDERED: LR 1,000 ML IV SCH (13:00)
[2019-12-08] MEDS ORDERED: fentaNYL 100 MCG/2 ML INJECTION (J3010) IV PRN (13:00)
[2019-12-08] MEDS ORDERED: ACETAMINOPHEN TAB 650MG DOSE (2X325MG) PO PRN (13:00)
[2019-12-08 14:36] VITALS: BP 149/94
--- NOTE | 2019-12-08 14:55 | ROOPDOC ---
[facility] Report Of Operation Report of Operation DATE OF PROCEDURE: 12/08/19 PREPROCEDURE DIAGNOSIS: Urge Urinary Incontinence. POSTPROCEDURE DIAGNOSIS: Urge Urinary Incontinence. PROCEDURE: Cystoscopy with bladder Botox injections. SURGEON: Dr. Ida Churchill CORRECTION WORKER: None. ANESTHESIA: MAC. OPERATIVE INDICATIONS: This is a 74-year-old female with urge urinary incontinence that has responded well previously to bladder Botox injections. She was brought to the operating room today for the above listed procedures. DESCRIPTION OF PROCEDURE: The patient was brought to the operating room and MAC anesthesia was administered. Prophylactic antibiotics were infused. She was then placed in dorsal lithotomy position and prepped and draped in the usual sterile fashion. At this point, a rigid cystoscope was inserted into the urethral meatus and advanced into the bladder. The bladder was thoroughly examined and there were no abnormalities. At this point, I injected a total of 200 units of Botox dissolved in 20 mL of normal saline in several areas of the bladder. I injected approximately 20 sites. I made sure not to inject on top of the ureteral orifices. Once done injecting all the Botox, the bladder was emptied of all fluids. There was good hemostasis. This marked the conclusion of the procedure. The patient was taken out of the dorsal lithotomy position, awakened from anesthesia and transported to the recovery room in stable condition. Estimated blood loss: 5 mL. Complications: None. Specimen: None. Plan: The patient will follow up in the clinic in a few weeks for a postoperative visit. IDA CHURCHILL MD Dec 08, 2019 14:55
== END 2019-12-08 14:48 | disposition home or self-care (01) ==
LOC: M SDC 09:06
PROVIDERS: ATTEND Urology
DX: N39.3 Stress incontinence (female) (male) (principal); N31.8 Other neuromuscular dysfunction of bladder; I10 Essential (primary) hypertension; E10.9 Type 1 diabetes mellitus without complications; Z79.4 Long term (current) use of insulin; E78.00 Pure hypercholesterolemia, unspecified; E78.49 Other hyperlipidemia; K58.8 Other irritable bowel syndrome; E03.9 Hypothyroidism, unspecified; E05.90 Thyrotoxicosis, unspecified without thyrotoxic crisis or storm; F31.9 Bipolar disorder, unspecified; F43.10 Post-traumatic stress disorder, unspecified; F41.0 Panic disorder [episodic paroxysmal anxiety]; Z79.899 Other long term (current) drug therapy; Z88.2 Allergy status to sulfonamides; Z88.5 Allergy status to narcotic agent; Z88.8 Allergy status to other drugs, medicaments and biological substances
CPT/HCPCS: 52287; J0585; J0690; J2250; J3010

== ENCOUNTER → 2019-12-16 | Outpatient (CLI) | payer MEDICARE, MEDICAID ==
[~2019-12-16] MED LIST changes: -LIDOCAINE 1% MDV 20ML VIAL SQ PRN; -LR 1,000 ML IV ONE; -ceFAZolin SOD 2 GM in IV 1 EA IV ONE
--- NOTE | 2019-12-21 04:58 | ECWPNPC ---
PATIENT NAME: AZALIA COFFMAN : 1945 GENDER: FEMALE VISIT DATE: 12/16/2019 DISCHARGE DATE: 12/16/19 1112 VISIT LOCKED DATE TIME: PHYSICIAN: ULYSSES CHAN RESOURCE: ULYSSES CHAN REASON FOR APPOINTMENT 1. 3 MONTHS PAT DONE HISTORY OF PRESENT ILLNESS GENERAL: -PERMISSION REQUESTED AND RECEIVED FROM PATIENT TO PERFORM TELEPHONE VISIT. 74-YEAR-OLD FEMALE IN FOR CHRONIC PAIN FOLLOW-UP. SHE RATES HER PAIN CURRENTLY AT A 5 OUT OF 10 AND DESCRIBES IT SORE. SHE FEELS HER MEDICATIONS ARE HELPFUL AND DENIES MED SIDE EFFECTS AT THIS TIME. PAIN SCREENING: PATIENT HAS A COMPLAINT OF ACUTE OR CHRONIC PAIN :YES LOCATION OF PAIN:LOW BACK, KNEES RIGHT INTENSITY OF PAIN (SCALE OF 1 TO 10):5 WHAT DOES YOUR PAIN FEEL LIKE:SORE DURATION:INTERMITTENT PAIN IS INCREASED BY:ACTIVITIES, PROLONGED STANDING PAIN IS DECREASED BY:USE OF PAIN MEDICATIONS PAIN HAS INTERFERED WITH THE FOLLOWING:MOOD, WALKING ABILITY, HOUSEWORK, RELATIONSHIP WITH OTHERS, ENJOYMENT OF LIFE PLAN/GOALS/TREATMENT/INTERVENTION/FOLLOW UP:SEE PLAN FALL RISK SCREENING: SCREENING :NO FALLS REPORTED IN THE LAST YEAR NURSING NOTE: -. PAIN CENTER INTAKE QUESTIONS: DO YOU HAVE A HISTORY OF MRSA? :NO DO YOU TAKE A BLOOD THINNERS? :NO DO YOU HAVE ANY BLEEDING DISORDERS? :NO ANY NEW NUMBNESS OR WEAKNESS IN YOUR LEGS OR ARMS? :NO ANY PACEMAKER,DEFIBRILLATOR, OR DORSAL COLUMN STIMULATOR? :NO DO YOU HAVE ANY RASHES OR OPEN SORES? :NO ARE YOU ALLERGIC TO IV DYE? :NO ARE YOU DIABETIC? :YES ANY NEW PROBLEMS WITH YOUR MEDICATIONS? :NO HAVE YOU RECEIVED A VACCINE IN THE PAST 30 DAYS? :NO DO YOU PLAN TO RECEIVE A VACCINE IN THE NEXT 21 DAYS? :NO DO YOU NEED ANY PRESCRIPTION? :NO DO YOU TAKE ANY IMMUNOSUPPRESSIVE MEDICATIONS? :NO IS THERE A CHANCE YOU COULD BE ? :NO ARE YOU BREAST FEEDING? :NO CURRENT MEDICATIONS TAKING DOCUSATE SODIUM 100 MG CAPSULE 2 CAPSULE NEEDED ORALLY BID TAKING GLUCOTROL XL 10 MG TABLET EXTENDED RELEASE 24 HOUR 1 TABLET ORALLY DAILY TAKING AMITIZA 24 MCG CAPSULE 1 CAPSULE WITH FOOD ORALLY TWICE A DAY TAKING DONEPEZIL HCL 10 MG TABLET 1 TABLET AT BEDTIME ORALLY ONCE A DAY TAKING CALCIUM CITRATE + D 315-200 MG-UNIT TABLET 1 TABLET WITH MEALS ORALLY DAILY TAKING LAMICTAL 200 MG TABLET 1 TABLET ORALLY ONCE A DAY TAKING KLOR-CON 10 10 MEQ TABLET EXTENDED RELEASE 2 TABLET ORALLY BID TAKING SENNA-GEN 8.6 MG TABLET DIRECTED ORALLY BID TAKING ZOLPIDEM TARTRATE 10 MG TABLET 1 TABLET AT BEDTIME ORALLY ONCE A DAY TAKING FUROSEMIDE 20 MG TABLET 1 TABLET ORALLY ONCE DAILY TAKING CLONAZEPAM 0.25 MG TABLET DISINTEGRATING 1 TABLET ORALLY ONCE DAILY TAKING NEEDLES & SYRINGES 31 GAUGE DIRECTED TAKING LANCETS THIN MISCELLANEOUS DIRECTED TAKING GLUCOMETER DIRECTED TAKING LEVEMIR FLEXTOUCH 100 UNIT/ML SOLUTION PEN-INJECTOR SUBCUTANEOUS 50 UNITS IN AM AND 50 UNITS AT 9 PM TAKING DEXILANT 30 MG CAPSULE DELAYED RELEASE 1 CAPSULE ORALLY ONCE A DAY TAKING FIBER - CAPSULE 2 CAPSULES WITH 8 OUNCES OF LIQUID ORALLY BID TAKING ATORVASTATIN CALCIUM 40 MG TABLET 1 TABLET ORALLY ONCE A DAY TAKING QUETIAPINE FUMARATE ER 400 MG TABLET EXTENDED RELEASE 24 HOUR 1 TABLET IN THE EVENING ORALLY ONCE A DAY TAKING GLYCOLAX - POWDER ORALLY BID NEEDED TAKING MAGNESIUM 400 MG CAPSULE 2 TAB ORALLY BID TAKING CETIRIZINE HCL 10 MG TABLET 1 TABLET ORALLY ONCE A DAY TAKING SALINE NASAL SPRAY 0.65 % SOLUTION NASALLY 6-8 TIMES A DAY NEEDED TAKING NOVOLOG FLEXPEN 100 UNIT/ML SOLUTION PEN-INJECTOR 22 UNITS BEFORE BREAKFAST, 12 UNITS BEFORE DINNER SUBCUTANEOUS BID TAKING IPRATROPIUM BROMIDE 0.03 % SOLUTION 2 APPLICATIONS NASALLY TWICE A DAY TAKING MIRALAX SUSPENSION 17 GRAMS ORALLY AT HOUR OF SLEEP TAKING PROAIR HFA 108 (90 BASE) MCG/ACT AEROSOL SOLUTION 2 PUFFS NEEDED INHALATION EVERY 4 HRS TAKING NEBULIZER DEVICE DIRECTED FOUR TIMES A DAY TAKING ALBUTEROL SULFATE (2.5 MG/3ML) 0.083% NEBULIZATION SOLUTION 3 ML INHALATION FOUR TIMES PER DAY TAKING JANUMET XR 50-500 MG TABLET EXTENDED RELEASE 24 HOUR 1 TAB ORALLY BID TAKING LEVOTHYROXINE SODIUM 125 MCG TABLET 1 TABLET ON AN EMPTY STOMACH IN THE MORNING ORALLY ONCE A DAY TAKING GUAIFENESIN-DM 100-10 MG/5ML SYRUP 10 ML NEEDED ORALLY EVERY 4 HRS TAKING XOPENEX HFA 45 MCG/ACT AEROSOL 1 PUFF NEEDED INHALATION EVERY 4 HRS TAKING ZIPRASIDONE HCL 80 MG CAPSULE 1 CAPSULE WITH FOOD ORALLY TWICE A DAY TAKING AUSTEDO 12 MG TABLET 1 TABLET WITH FOOD ORALLY TWICE A DAY TAKING AMLODIPINE BESYLATE 2.5 MG TABLET 1 TABLET ORALLY ONCE A DAY TAKING MILK OF MAGNESIA 400 MG/5ML SUSPENSION 5 ML NEEDED ORALLY FOUR TIMES A DAY TAKING BARD URETHRAL CATHETER - MISCELLANEOUS DIRECTED 14F CATHETER, CIC TWICE PER DAY TAKING CANDESARTAN CILEXETIL 32 MG TABLET 1 TABLET ORALLY ONCE A DAY TAKING GLIPIZIDE ER 10 MG TABLET EXTENDED RELEASE 24 HOUR 1 TABLET WITH BREAKFAST ORALLY ONCE A DAY TAKING DICLOFENAC SODIUM 1 % GEL DIRECTED TRANSDERMAL 4 GRAMS TWICE A DAY NEEDED TO RIGHT KNEE TAKING ACETAMINOPHEN EXTRA STRENGTH 500 MG TABLET 2 TABLETS ORALLY 2-3 TIMES A DAY NEEDED TAKING OLMESARTAN MEDOXOMIL 40 MG TABLET 1 TABLET ORALLY ONCE A DAY TAKING CYMBALTA 30 MG CAPSULE DELAYED RELEASE PARTICLES 1 CAPSULE ORALLY TWICE DAILY FOR 1 WEEK THEN 1 CAPSULE DAILY FOR 1 WEEK. THEN 1 CAPSULE DAILY EVERY OTHER DAY X 7 DAYS THEN STOP TAKING TRAMADOL-ACETAMINOPHEN 37.5-325 MG TABLET 1 ORALLY Q8H PRN MDD3 TAKING GABAPENTIN 100 MG CAPSULE 1 CAPSULE ORALLY TWICE DAILY TAKING MACROBID 100 MG CAPSULE 1 CAP ORALLY BID NOT-TAKING SEROQUEL XR 50 MG TABLET EXTENDED RELEASE 24 HOUR 1 TABLET IN THE EVENING ORALLY BEFORE BEDTIME NOT-TAKING INGREZZA 80 MG CAPSULE 1 CAPSULE ORALLY ONCE A DAY NOT-TAKING MACROBID 100 MG CAPSULE 1 CAPSULE ORALLY BID NOT-TAKING TYLENOL EXTRA STRENGTH 500 MG TABLET 2 TABLETS NEEDED ORALLY 2-3 TIMES A DAY NEEDED NOT-TAKING ASPERCREME LIDOCAINE 4 % PATCH EXTERNALLY 2-4 TIMES A DAY NEEDED NOT-TAKING LIDODERM 5 % PATCH 1 PATCH TO SKIN REMOVE AFTER 12 HOURS EXTERNALLY ONCE A DAY NOT-TAKING LEVAQUIN 500 MG TABLET 1 TABLET ORALLY ONCE A DAY NOT-TAKING SLOW MAGNESIUM/CALCIUM 64-106 MG TABLET DELAYED RELEASE DIRECTED ORALLY NOT-TAKING TRAZODONE HCL 50 MG TABLET 2 TABLETS ORALLY THREE TIMES A DAY NOT-TAKING CIPRO 500 MG TABLET 1 TABLET ORALLY EVERY 12 HRS MEDICATION LIST REVIEWED AND RECONCILED WITH THE PATIENT PAST MEDICAL HISTORY KIDNEY DISEASE STAGE 3 MEMORY LOSS SCHIZOPHRENIA OSTEOARTHRITIS INCONTINENCE HYPERCHOLESTEROLEMIA ANEMIA DIABETES MELLITUS HYPOTHYROIDISM DUE TO DIALLO'S HYPERTENSION, BENIGN ESOPHAGEAL REFLUX LEGALLY BLIND HYPOMAGNESEMIA GERD AMNESIA OSTEOARTHRITIS URGE INCONTINENCE OG URINE BACK PAIN TORN MENISCUS RIGHT KNEE ALLERGIES SULFA (FOR ALLERGY USE ONLY): HANDS SWELL - CONTRAINDICATION ASPIRIN: STOMACH - CONTRAINDICATION MORPHINE SULFATE: RASH - ALLERGY CELEBREX: CAUSES PROBLEMS WITH KIDNEYS - CONTRAINDICATION SURGICAL HISTORY THYROID SURGERY PARTIAL HYSTERECTOMY/LIFTED BLADDER BILATERAL FOOT SURGERY HERNIA CATARACT-BILATERAL RIGHT SHOULDER SURGERY LEFT SHOULDER SURGERY RIGHT KNEE SURGERY 12/31/2018 FAMILY HISTORY FATHER: , DIAGNOSED WITH OTHER MALIGNANT NEOPLASM OF UNSPECIFIED SITE, UNSPECIFIED HEART DISEASE MOTHER: , OTHER MALIGNANT NEOPLASM OF UNSPECIFIED SITE SIBLINGS: , UNSPECIFIED CEREBRAL ARTERY OCCLUSION WITH CEREBRAL INFARCTION, OTHER MALIGNANT NEOPLASM OF UNSPECIFIED SITE NO KNOWN FAMILY HISTORY OF ANY UROLOGICALLY RELATED DISEASES\\\/CANCERS.\\N FATHER-THROAT CA\\NMOTHER-LUNG CA\\NSISTER-LUNG CA\\NHAS 2 BROTHERS THAT SHE DOES NOT KNOW HISTORY ON. SOCIAL HISTORY GENERAL: TOBACCO USE ARE YOU A:FORMER SMOKER HOW LONG HAS IT BEEN SINCE YOU LAST SMOKED?> 10 YEARS LATEX QUESTIONNAIRE LATEX ALLERGY : HAVE YOU EVER DEVELOPED ANY TYPE OF REACTION AFTER HANDLING LATEX PRODUCTS SUCH RUBBER GLOVES, CONDOMS, DIAPHRAGMS, BALLOONS, SOCKS, OR UNDERWEAR?NO LATEX ALLERGY : HAVE YOU EVER DEVELOPED ANY TYPE OF REACTION DURING OR AFTER DENTAL APPOINTMENT, VAGINAL/RECTAL EXAMINATION, SURGICAL PROCEDURE, OR ANY OTHER EXPOSURE?NO LATEX RISK : HAVE YOU EVER HAD ANY DIFFICULTY BREATHING OR HIVES AFTER EATING OR HANDLING ANY FRUITS, OR VEGETABLES; SUCH KIWI, BANANAS, STONE FRUITS, OR CHESTNUTSNO LATEX RISK : DO YOU HAVE A PREVIOUS PERSONAL HISTORY OF MORE THAN NINE SURGERIES, SPINA BIFIDA, OR REPEATED CATHERIZATIONS? NO LATEX RISK : ARE YOU FREQUENTLY EXPOSED TO LATEX PRODUCTS IN YOUR OCCUPATION?NO DATE ASKED : 12/16/2019 ALCOHOL SCREENING DID YOU HAVE A DRINK CONTAINING ALCOHOL IN THE PAST YEAR?NO POINTS0 INTERPRETATIONNEGATIVE RECREATIONAL DRUG USE DRUG USE?NO CAFFEINE CAFFEINE USE?YES HOW OFTEN AND HOW MUCH? 1/2 CUP OF COFFEE OR TEA A DAY SEXUAL HX HAD SEX IN THE LAST 12 MONTHS (VAGINAL, ORAL, OR ANAL)?NO HAVE YOU EVER HAD AN STD?NO MOSQUE MOSQUE [facility]. NO RASTAFARIAN BELIEFS THAT WOULD IMPACT HEALTH CARE. LANGUAGE LANGUAGES SPOKEN:KYRGYZ LEARNING BARRIERS / SPECIAL NEEDS BARRIERS TO LEARNING?NO HEARING IMPAIRED?NO VISION IMPAIRED?YES COGNITIVELY IMPAIRED?NO :CORRECTIVE LENSES READINESS TO LEARN?YES LEARNING PREFERENCES?NO LEARNING CAPABILITIES PRESENT?YES EMOTIONAL BARRIERS?NO SPECIAL DEVICES?YES :[employer] CONSULTANT NEEDED?NO DOMESTIC VIOLENCE DO YOU FEEL SAFE IN YOUR ENVIRONMENT?YES DIET: REGULAR. EXERCISE: NONE. MARITAL STATUS: . OTHERS AT HOME: NONE. NEW PATIENT PAIN DIARY TODAY'S VISIT 09/30/2019 PATIENT DESCRIBES PAIN :IT COMES AND GOES, TENDER, SORE FROM 0-10, WHAT LEVEL IS YOUR PAIN TODAY?5 NAME OF PERSON DRIVING YOU HOME IS THERE A CHANCE YOU COULD BE ?NO HAVE YOU BEEN SICK IN THE LAST WEEK (COLD, COUGH, FEVER, FLU, ETC)NO DO YOU TAKE ANY BLOOD THINNERS?NO DO YOU HAVE ANY RASHES OR OPEN SORES?NO ANY CHANGE IN BOWEL OR BLADDER CONTROL?NO ARE YOU ALLERGIC TO SHELLFISH OR IV DYE?NO ARE YOU DIABETIC?NO DO YOU HAVE A PACEMAKER OR DEFIBRILLATOR?NO ANY NEW PROBLEMS WITH MEDICINES OR NEW ALLERGIESNO ANY NEW PATTERNS OF PAIN OR NUMBNESS?NO ANY CHANGE IN YOUR MEDICAL CONDITION?NO HAVE YOU FALLEN IN THE LAST 6 MONTHS?NO DO YOU USE ANY TYPE OF TOBACCO (SMOKE, SMOKELESS, CHEW, ETC.)NO ARE YOU ABUSED, NEGLECTED, OR IN AN UNSAFE ENVIRONMENT?NO DO YOU HAVE THOUGHTS OF HURTING YOURSELF OR SOMEONE ELSE?NO DO YOU NEED ANY PRESCRIPTIONS?NO DO YOU HAVE ANY OTHER QUESTIONS OR CONCERNS?NO INTENSITY SCALE REVIEWEDNUMBER PAIN CLINIC PFS, CLERGY, PUBLIC HEALTH REFERRALS WAS THE PROVIDER NOTIFIED OF ANY PERTINENT INFO?YES HAS THE PATIENT BEEN EDUCATED REGARDING HIS/HER PLAN OF CARE?YES HAS THE PATIENT BEEN EDUCATED REGARDING PAIN, THE RISK FOR PAIN, THE IMPORTANCE OF EFFECTIVE PAIN MANAGEMENT, AND THE PAIN ASSESSMENT PROCESS?YES ADVANCE DIRECTIVE ADVANCE DIRECTIVE DISCUSSED WITH PATIENT:YES PT STATES SHE HAS HCP 1. MAGALIE OLIVEIRA [phone](H) [phone](C) 2. GABRIELLA ARDON [phone] (H) HOSPITALIZATION/MAJOR DIAGNOSTIC PROCEDURE SURGERY RELATED KIDNEY INFECTION 2011 BRONCHITIS X 2 2018 REVIEW OF SYSTEMS CONSTITUTIONAL: ANY RECENT FEVER OR ILLNESS NO . CHILLS NO . GASTROENTEROLOGY: BOWEL INCONTINENCE NO . ANY NEW CHANGE IN BOWEL CONTROL? NO . ABDOMINAL PAIN NO . CONSTIPATION NO . GENITOURINARY: ANY NEW CHANGE IN BLADDER CONTROL? NO . URINARY INCONTINENCE NO . CARDIOLOGY: CHEST PRESSURE NO . CHEST PAIN NO . RESPIRATORY: COUGH NO . SHORTNESS OF BREATH NO . EXAMINATION GENERAL EXAMINATION: PSYCHAPPROPRIATE MOOD AND AFFECT , ORIENTED X 3. ASSESSMENTS SPONDYLOSIS WITHOUT MYELOPATHY OR RADICULOPATHY, LUMBOSACRAL REGION - M47.817 (PRIMARY) TREATMENT SPONDYLOSIS WITHOUT MYELOPATHY OR RADICULOPATHY, LUMBOSACRAL REGION CLINICAL NOTES: 74-YEAR-OLD FEMALE IN FOR CHRONIC PAIN FOLLOW-UP. GIVEN PRESENTING SYMPTOMS RECOMMENDED CONTINUATION OF CURRENT MEDICATION REGIMEN WITH FOLLOW-UP IN 3 MONTHS. PATIENT HAS EXPRESSED UNDERSTANDING OF AND WAS IN AGREEMENT WITH TREATMENT PLAN. GIVEN TIME TO ASK QUESTIONS AND EXPRESS CONCERNS. , ISTOP REGISTRY REVIEWED AND DEMONSTRATES COMPLLIANCE. (REF # [id number] ) BRINGS IN MEDICATIONS WHICH IS APPROPRIATE FOR WHAT WAS DISPENSED. RECENT URINE TOXICOLOGY REVIEWED. NO UNAUTHORIZED MEDICATIONS. NO ILLICIT SUBSTANCES AND PRESCRIBED MEDICATIONS WERE PRESENT. VISIT TO BE BILLED BASED ON TIME SPENT WITH PATIENT. TIME SPENT WITH PATIENT 11 MINUTES. DISPOSITION & COMMUNICATION FOLLOW UP 3 MONTHS (REASON: BACK PAIN) ELECTRONICALLY SIGNED BY SALBADOR PECK ON 12/20/2019 AT 08:26 AM EDT DISCLAIMER : THIS IS A VISIT SUMMARY EXTRACTED FROM THE [employer] CHART. IT IS NOT A COPY OF THE [employer] PROGRESS NOTE. ISSI
== END ==
LOC: M PAIN 10:45
PROVIDERS: ATTEND Family Medicine
DX: M47.817 Spondylosis without myelopathy or radiculopathy, lumbosacral region (principal)

== ENCOUNTER → 2020-03-24 | Outpatient (CLI) | payer MEDICARE, MEDICAID ==
[~2020-03-24] MED LIST changes: +ACET650T61 PO; -TYLE650T35 PO
== END ==
LOC: M PAIN 09:56
PROVIDERS: ATTEND Family Medicine
DX: M47.817 Spondylosis without myelopathy or radiculopathy, lumbosacral region (principal)

== ENCOUNTER 2020-03-28 15:58 | Emergency (ER) | payer MEDICARE, MEDICAID ==
[~2020-03-28] VITALS: Ht 157.5 cm; Wt 95.0 kg
[2020-03-28 16:10] VITALS: BP_DIAS 88
--- NOTE | 2020-03-28 16:47 | REPVR ---
PROCEDURE INFORMATION: Exam: XR Abdomen, 1 View Exam date and time: 03/28/2020 4:39 PM Age: 74 years old Clinical indication: Abdominal pain; Other: Rectal pain; Additional info: Abdominal distention TECHNIQUE: Imaging protocol: XR of the abdomen. Views: Frontal supine view of the abdomen. 1 View. COMPARISON: CR Abdomen,Flat Upright,PA CHEST 07/07/2017 11:39 AM FINDINGS: Gastrointestinal tract: Moderate colonic fecal load. Intraperitoneal space: Surgical clips are seen in the right lower quadrant. Bones/joints: Unremarkable. Soft tissues: Multiple skin aubrie in the left lower quadrant. IMPRESSION: Moderate colonic fecal load. Clinical correlation with constipation. Electronically signed by: Carmelo Ni On 03/28/2020 16:47:33 PM
[2020-03-28 18:32] VITALS: BP_SYST 143
== END 2020-03-28 18:32 | disposition home or self-care (01) ==
LOC: EDBD 15:58 → M ED 15:58
DX: K59.00 Constipation, unspecified (principal); N18.3 Chronic kidney disease, stage 3 (moderate); E11.9 Type 2 diabetes mellitus without complications; Z88.1 Allergy status to other antibiotic agents; Z88.6 Allergy status to analgesic agent; Z88.8 Allergy status to other drugs, medicaments and biological substances

== ENCOUNTER → 2020-04-06 | Outpatient (REF) | payer MEDICARE, MEDICAID ==
[2020-04-07 12:36] LABS: PERCENT SATURATION 11.5 % (13.2-45.0)
== END ==
LOC: M LAB REF 11:14
PROVIDERS: ATTEND Internal Medicine
DX: N18.9 Chronic kidney disease, unspecified (principal); D63.1 Anemia in chronic kidney disease

== ENCOUNTER 2020-06-06 11:00 | Inpatient (IN) | payer MEDICARE, MEDICAID ==
[~2020-06-06] VITALS: Ht 157.5 cm; Wt 87.3 kg
[2020-06-06 12:47] LABS: BASO % 0.4 % (0.0-1.0); EOS % 0.2 % (0.0-3.0); HEMATOCRIT 33.9 % (36.0-47.0); HEMOGLOBIN 10.7 g/dl (12.0-15.5); LYMPH # 0.8 10^3/uL (1.5-5.0); LYMPH % 14.1 % (24.0-44.0); MEAN CORPUSCULAR HEMOGLOBIN 31.4 pg (27.0-33.0); MEAN CORPUSCULAR HGB CONC 31.6 g/dl (32.0-36.5); MEAN CORPUSCULAR VOLUME 99.4 fl (80.0-96.0); MONO # 0.7 10^3/uL (0.0-0.8); MONO % 12.3 % (0.0-5.0); NEUTROPHILS # 4.1 10^3/uL (1.5-8.5); NEUTROPHILS % 72.3 % (36.0-66.0); PLATELET COUNT, AUTOMATED 162 10^3/uL (150-450); RED BLOOD COUNT 3.41 10^6/uL (4.00-5.40); WHITE BLOOD COUNT 5.6 10^3/uL (4.0-10.0)
[2020-06-06 13:21] LABS: INR 0.96
[2020-06-06 13:23] LABS: ALBUMIN 3.8 GM/DL (3.2-5.2); ALT/SGPT 32 U/L (12-78); BILIRUBIN,DIRECT < 0.1 MG/DL (0.0-0.2); BILIRUBIN,TOTAL 0.2 MG/DL (0.2-1.0); BLOOD UREA NITROGEN 25 MG/DL (7-18); CALCIUM LEVEL 9.6 MG/DL (8.8-10.2); CARBON DIOXIDE LEVEL 30 MEQ/L (21-32); CHLORIDE LEVEL 102 MEQ/L (98-107); CK-MB VALUE MASS < 1.0 NG/ML (<3.6); CPK CREATINE PHOSPHOKINASE 110 U/L (26-192); CREATININE FOR GFR 1.25 MG/DL (0.55-1.30); GLOMERULAR FILTRATION RATE 44.7 (>39); GLUCOSE, FASTING 122 MG/DL (70-100); MB/CK RELATIVE INDEX 0.91 (< OR =4); NT-PRO BNP 153 PG/ML (<125); POTASSIUM SERUM 4.3 MEQ/L (3.5-5.1); SODIUM LEVEL 136 MEQ/L (136-145); THYROXINE (T4) 6.3 UG/DL (4.5-12.0); TOTAL PROTEIN 7.1 GM/DL (6.4-8.2); TROPONIN I < 0.02 NG/ML (< 0.10)
--- NOTE | 2020-06-06 13:57 | REP ---
INDICATION: DYSPNEA/COUGH. COMPARISON: Comparison study November 29, 2019.. TECHNIQUE: Sitting AP portable radiograph. FINDINGS: Patient is rotated somewhat to the left for the current exposure. Monitoring electrodes are seen. The aorta is calcific. Heart is not felt to be enlarged. Pulmonary vasculature appears somewhat cephalized. There is increased pleuroparenchymal opacity at the left base laterally and I cannot exclude a infiltrate versus slight blunting of the left lateral pleural angle. There are degenerative changes in the shoulders. The distal clavicle on the right appears to have been resected in the past. This is unchanged. IMPRESSION: Pleuroparenchymal opacity left base and lateral pleural angle question small focal infiltrate versus is pleural angle blunting. Patient is rotated somewhat. Vascular cephalization. Otherwise negative. <Electronically signed by Carroll Lafleur > 06/06/20 [id number]
[2020-06-06] MEDS ORDERED: RA S8.6T3 PO (15:17)
[2020-06-06] MEDS ORDERED: LEVO137T14 PO (15:17)
[2020-06-06] MEDS ORDERED: CAND32TA9 PO (15:17)
[2020-06-06] MEDS ORDERED: MAGN400T3 PO (15:17)
[2020-06-06] MEDS ORDERED: SERO50TA4 PO (15:17)
[2020-06-06] MEDS ORDERED: FERR324T2 PO (15:17)
[2020-06-06] MEDS ORDERED: CALC500C15 PO (15:17)
[2020-06-06] MEDS ORDERED: CLON1TAB8 PO (15:17)
[2020-06-06] MEDS ORDERED: GABA-1171 PO (15:17)
[2020-06-06] MEDS ORDERED: CENT1TAB PO (15:17)
[2020-06-06] MEDS ORDERED: MIRALAX *UNIT DOSE* 17GM PACKET PO PRN (15:30)
[2020-06-06] MEDS ORDERED: ALBUTEROL 90 MCG/ACT 8GM HFA INHALER INH PRN (15:30)
--- NOTE | 2020-06-06 15:30 | HPEPDOC ---
General Date of Admission 06/06/20 Date of Service: Jun 06, 2020 Chief Complaint The patient is a 74-year-old female admitted with a reason for visit of Weakness,Cough. Source: Patient Exam Limitations: No limitations Timing/Duration: Day(s) Severity: Moderate Associated Symptoms: Malaise History of Present Illness Patient is 74 years old female with past medical history of schizophrenia, osteoarthritis, hyperlipidemia, diabetes, hypothyroidism presented hospital with generalized weakness. Patient stated that she's been having generalized weakness associated with cough about one week ago. Patient had contact with [employer] was tested positive for Covid 19. In ER patient was found to have positive test for Covid 19. Oxygen saturation on 1 L of oxygen was 100%. Chest x-ray showed P leuroparenchymal opacity left base and lateral pleural angle question small focal infiltrate versus is pleural angle blunting Home Medications Scheduled Atorvastatin Calcium (Atorvastatin Calcium) 40 Mg Tab, 40 MG PO QHS, (Reported) Calcium Carbonate (Antacid) 200 Mg Tab.chew, 200 MG PO DAILY, (Reported) Candesartan Cilexetil (Candesartan Cilexetil) 32 Mg Tablet, 32 MG PO DAILY, (Reported) NOON Cetirizine HCl (Cetirizine HCl) 10 Mg Tab, 10 MG PO DAILY, (Reported) Clonazepam (Clonazepam) 1 Mg Tablet, 1 MG PO QHS, (Reported) Deutetrabenazine (Austedo) 12 Mg Tablet, 24 MG PO BID, (Reported) Dexlansoprazole (Dexilant) 30 Mg Cap.bp, 30 MG PO DAILY, (Reported) Docusate Sodium (Colace) 100 Mg Cap, 200 MG PO BID, (Reported) AM, DINNERTIME Donepezil HCl (Aricept) 10 Mg Tab, 10 MG PO DAILY, (Reported) Ferrous Sulfate (Ferrous Sulfate) 324 Mg Tablet.dr, 324 MG PO Q2D, (Reported) NOON Furosemide (Furosemide) 20 Mg Tab, 20 MG PO DAILY, (Reported) NOON Gabapentin (Gabapentin) 100 Mg Capsule, 100 MG PO BID, (Reported) Insulin Detemir (Levemir) 1 Units/0.01 Ml Susp, 56 UNITS SC BID, (Reported) Insulin Human Lispro (Novolog) 100 U/Ml Inj, 25 UNITS SC BID, (Reported) Lamotrigine (Lamictal) 200 Mg Tab, 200 MG PO DAILY, (Reported) TAKES AT NOON Levothyroxine Sodium (Levoxyl) 137 Mcg Tablet, 137 MCG PO DAILY, (Reported) Lubiprostone (Amitiza) 24 Mcg Cap, 24 MCG PO BID, (Reported) AM, HS Magnesium Oxide (Magnesium Oxide) 400 Mg Tablet, 800 MG PO BID, (Reported) NOON & HS Multivit-Min/FA/Lycopen/Lutein (Centrum Silver Tablet) 1 Each Tablet, 1 TAB PO DAILY, (Reported) Potassium Chloride (K-Tab ER) 10 Meq Tab, 20 MEQ PO BID, (Reported) NOON, HS Quetiapine Fumarate (Seroquel Xr) 400 Mg Tab, 400 MG PO QHS, (Reported) 450MG TOTAL QHS Quetiapine Fumarate (Seroquel Xr) 50 Mg Tab.er.24h, 50 MG PO QHS, (Reported) 450MG TOTAL QHS Sennosides (Senna Lax) 8.6 Mg Tablet, 8.6 MG PO BID, (Reported) NOON AND HS Sitagliptin Phos/Metformin HCl (Janumet Xr 50-500 mg Tablet) 1 Tab Tab, 1 TAB PO BID, (Reported) Tramadol HCl/Acetaminophen (Tramadol-Acetaminophn 37.5-325) 1 Each Tablet, 1 TAB PO TID, (Reported) Ziprasidone HCl (Ziprasidone HCl) 80 Mg Cap, 80 MG PO BID, (Reported) AM, DINNERTIME Zolpidem Tartrate (Zolpidem Tartrate) 10 Mg Tab, 10 MG PO QHS, (Reported) Scheduled PRN Albuterol Sulfate (Proair Hfa) 108 Mcg/Act Aer, 2 PUFF INH Q4H PRN for SHORTNESS OF BREATH, (Reported) Polyethylene Glycol 3350 (Miralax) 1 Pow Pow, 17 GM PO DAILY PRN for CONSTIPATION, (Reported) Allergies Coded Allergies: Sulfa (Sulfonamide Antibiotics) (Verified Allergy, Intermediate, rash, hand swelling, 06/06/20) celecoxib (Verified Adverse Reaction, Intermediate, kidney failure, 06/06/20) morphine (Verified Adverse Reaction, Intermediate, respiratory depression, 06/06/20) oxycodone (Verified Adverse Reaction, Intermediate, altered mental status, 06/06/20) NSAIDS (Non-Steroidal Anti-Inflamma (Verified Adverse Reaction, Mild, gi upset, 06/06/20) aspirin (Verified Adverse Reaction, Mild, gi upset, 06/06/20) Past Medical History Medical History KIDNEY DISEASE STAGE 3 MEMORY LOSS SCHIZOPHRENIA OSTEOARTHRITIS INCONTINENCE HYPERCHOLESTEROLEMIA ANEMIA DIABETES MELLITUS HYPOTHYROIDISM DUE TO DIALLO'S HYPERTENSION, BENIGN ESOPHAGEAL REFLUX LEGALLY BLIND HYPOMAGNESEMIA GERD AMNESIA OSTEOARTHRITIS URGE INCONTINENCE OG URINE BACK PAIN Surgical History THYROID SURGERY PARTIAL HYSTERECTOMY/LIFTED BLADDER BILATERAL FOOT SURGERY HERNIA CATARACT-BILATERAL RIGHT SHOULDER SURGERY LEFT SHOULDER SURGERY Family History FATHER: , DIAGNOSED WITH UNSPECIFIED HEART DISEASE, OTHER MALIGNANT NEOPLASM OF UNSPECIFIED SITE MOTHER: , OTHER MALIGNANT NEOPLASM OF UNSPECIFIED SITE SIBLINGS: , UNSPECIFIED CEREBRAL ARTERY OCCLUSION WITH CEREBRAL INFARCTION, OTHER MALIGNANT NEOPLASM OF UNSPECIFIED SITE NO KNOWN FAMILY HISTORY OF ANY UROLOGICALLY RELATED DISEASES\\\/CANCERS.\\N FATHER-THROAT CA\\NMOTHER-LUNG CA\\NSISTER-LUNG CA\\NHAS 2 BROTHERS THAT SHE DOES NOT KNOW HISTORY ON. Social History * Smoker: former Smoker Alcohol: Denies Drugs: denies A-FIB/CHADSVASC A-FIB History Current/History of A-Fib/PAF?: No Current PO Anticoag Therapy: No Review of Systems Constitutional: Reports: Malaise, Weakness; Denies: Fever Eyes: Denies: Pain ENT: Denies: Head Aches Skin: Denies: Rash Pulmonary: Reports: Cough Cardiovascular: Denies: Chest Pain Gastrointestinal: Denies: Nausea, Vomiting Genitourinary: Denies: Dysuria Hematologic: Denies: Bruising Endocrine: Denies: Polydipsia Musculoskeletal: Denies: Neck Pain Neurological: Denies: Weakness Psych: Reports: Mood Normal Physical Examination General Exam: Positive: Alert, Cooperative Eye Exam: Positive: PERRLA ENT Exam: Positive: Atraumatic Neck Exam: Positive: Supple; Negative: JVD Chest Exam: Positive: Rhonchi; Negative: Clear to auscultation Heart Exam: Positive: Rate Normal Telemetry: Positive: No significant arrhythmia Abdomen Exam: Positive: Normal bowel sounds Extremity Exam: Negative: Clubbing, Cyanosis Skin Exam: Positive: Nl turgor and temperature Neuro Exam: Positive: Cranial Nerves 3-12 NL, Reflexes 2+, Other (left hand tremor) Psych Exam: Positive: Mental status NL Vital Signs Vital Signs Date Time Temp Pulse Resp B/P (MAP) Pulse Ox O2 Delivery O2 Flow Rate FiO2 06/06/20 13:00 70 126/58 (80) 100 Nasal Cannula 1.0 06/06/20 11:09 98.4 20 Laboratory Data Labs 24H Laboratory Tests 2 06/06/20 11:39: Immature Granulocyte % (Auto) 0.7, Neutrophils (%) (Auto) 72.3H, Lymphocytes (%) (Auto) 14.1L, Monocytes (%) (Auto) 12.3H, Eosinophils (%) (Auto) 0.2, Basophils (%) (Auto) 0.4, Neutrophils # (Auto) 4.1, Lymphocytes # (Auto) 0.8L, Monocytes # (Auto) 0.7, Eosinophils # (Auto) 0.0, Basophils # (Auto) 0.0, Nucleated Red Blood Cells % (auto) 0.0, Prothrombin Time 13.0, Prothromb Time International Ratio 0.96, Anion Gap 4L, Glomerular Filtration Rate 44.7, Lactic Acid Level 1.2, Calcium Level 9.6, Total Bilirubin 0.2, Direct Bilirubin < 0.1, Aspartate Amino Transf (AST/SGOT) 27, Alanine Aminotransferase (ALT/SGPT) 32, Alkaline Phosphatase 92, Total Creatine Kinase 110, Creatine Kinase MB < 1.0, Creatine Kinase MB Relative Index 0.91, Troponin I < 0.02, JW-Gvs-X-Type Natriuretic Peptide 153H, Total Protein 7.1, Albumin 3.8, Albumin/Globulin Ratio 1.2, Thyroid Stimulating Hormone (TSH) 1.240, Thyroxine (T4) 6.3 06/06/20 12:01: CBC/BMP Laboratory Tests 06/06/20 11:39 Microbiology Microbiology 06/06/20 Respiratory Virus Panel (PCR) ([facility]) - Final, Complete SARS-CoV-2 (COVID 19) 06/06/20 Blood Culture, Received Pending Assessment/Plan Patient is 74 years old female with past medical history of schizophrenia, osteoarthritis, hyperlipidemia, diabetes, hypothyroidism presented hospital with generalized weakness. Patient stated that she's been having generalized weakness associated with cough about one week ago. Patient had contact with landlord was tested positive for Covid 19. In ER patient was found to have positive test for Covid 19. Oxygen saturation on 1 L of oxygen was 100%. Chest x-ray showed Pleuroparenchymal opacity left base and lateral pleural angle question small focal infiltrate versus is pleural angle blunting Problems (1) COVID-19 Status: Acute Problem Text: Labs ordered according to COVID protocol Isolation Patient has a good oxygen saturation Continue to mind (2) COPD (chronic obstructive pulmonary disease) Status: Chronic Problem Text: Continue inhalers Patient complains of cough Will check pro calcitonin Patient doesn't have leukocytosis I will hold antibiotics for now (3) DM (diabetes mellitus), type 2 Status: Chronic Problem Text: Diabetes diet Levemir Insulin sliding scale (4) HTN (hypertension) Status: Chronic Problem Text: Continue home cardioprotective medications (5) Schizoaffective disorder Status: Chronic Problem Text: Continue home meds Not psychotic (6) Hypothyroidism, iatrogenic Status: Chronic Problem Text: Continue Synthroid Plan / VTE VTE Prophylaxis Ordered?: Yes BRIAN LUNA DO Jun 06, 2020 15:29
[2020-06-06] MEDS ORDERED: guaiFENesin/CODEINE SYRUP 5 ML UDC PO PRN (15:45)
[2020-06-06] MEDS: NS 1,000 ML IV SCH (15:50)
[2020-06-06] MEDS ORDERED: GLUCAGON INJ 1MG VIAL SC PRN (16:00)
[2020-06-06] MEDS ORDERED: GLUCOSE 4GM CHEW TABLET PO PRN (16:00)
[2020-06-06] MEDS ORDERED: DEXTROSE 50% 50 ML SYRINGE IV PRN (16:00)
[2020-06-06 16:45] VITALS: BP 102/52
[2020-06-06 16:48] LABS: INR 0.98; PROTHROMBIN TIME 13.2 SECONDS (12.5-14.3)
[2020-06-06 16:49] LABS: PARTIAL THROMBOPLASTIN TIME 34.3 SECONDS (24.2-38.5)
[2020-06-06 16:52] LABS: D-DIMER QUANT 732.68 ng/ml (<500)
--- NOTE | 2020-06-06 17:07 | ECGEPIP ---
[facility] - ED Test Date: 2020-06-06 Pat Name: AZALIA COFFMAN Department: Room: - Gender: Female Cytogenetic Technician: CORRINE : 1945 Requested By: MELIVN Davis Order Number: [id number] Reading MD: Varsha Phillips Measurements Intervals Cost Rate: 75 P: 40 GA: 174 QRS: -7 QRSD: 86 T: 41 QT: 318 QTc: 355 Interpretive Statements SINUS RHYTHM POSSIBLE RIGHT VENTRICULAR CONDUCTION DELAY NONSPECIFIC T-WAVE ABNORMALITY SIMILAR 04/13/18 Electronically Signed on 06-06-2020 17:07:14 EST by Varsha Phillips
[2020-06-06] MEDS: DOCUSATE SODIUM 100MG CAPSULE PO SCH (17:25)
[2020-06-06] MEDS: ZIPRASIDONE 80 MG CAP (GEODON) PO SCH (17:25)
[2020-06-06] MEDS: ACETAMINOPHEN TAB 650MG DOSE (2X325MG) PO PRN (17:26)
[2020-06-06] MEDS: HumaLOG INSULIN (NovoLOG) PER UNIT SC SCH ×2 (17:26→20:33)
[2020-06-06 17:29] LABS: C REACTIVE PROTEIN QUANTITATIV 3.56 MG/DL (0.00-0.30); CK-MB VALUE MASS < 1.0 NG/ML (<3.6); CPK CREATINE PHOSPHOKINASE 141 U/L (26-192); FERRITIN 50 NG/ML (8-252); HEPATITIS B SURFACE ANTIGEN NEGATIVE (NEGATIVE); HIV 1&2 SCREEN CENTAUR NEGATIVE (NEGATIVE); LDH LACTATE DEHYDROGENASE 169 U/L (84-246); MB/CK RELATIVE INDEX 0.71 (< OR =4); NT-PRO BNP 128 PG/ML (<125); TRIGLYCERIDES LEVEL 169 MG/DL (<150); TROPONIN I < 0.02 NG/ML (< 0.10)
[2020-06-06 17:30] VITALS: O2SAT 93
[2020-06-06 20:00] VITALS: BP 135/60; O2SAT 93
[2020-06-06] MEDS ORDERED: LEVEMIR (INSULIN DETEMIR) 1 UNITS/0.01ML SC ONE (21:00)
[2020-06-06] MEDS ORDERED: LEVEMIR (INSULIN DETEMIR) 1 UNITS/0.01ML SC SCH (21:00)
[2020-06-06] MEDS: clonazePAM 1 MG TAB PO SCH (21:29)
[2020-06-06] MEDS: GABAPENTIN 100 MG CAP PO SCH (21:29)
[2020-06-06] MEDS: QUEtiapine FUMARATE **XR** 200MG TABLET PO SCH (21:29)
[2020-06-06] MEDS: ULTRACET TAB PO SCH (21:30)
[2020-06-06] MEDS: SENNA 8.6 MG TAB (SENOKOT) PO SCH (21:31)
[2020-06-06] MEDS: MAGNESIUM OXIDE 400 MG TAB (MAG-OX) PO SCH (21:31)
[2020-06-06] MEDS: FIBER-CON 625 MG TAB PO SCH (21:31)
[2020-06-06] MEDS: QUEtiapine FUMERATE XR 50 MG TABER PO SCH (21:31)
[2020-06-06] MEDS: ATORVASTATIN 20 MG TAB PO SCH (21:31)
[2020-06-06] MEDS: POTASSIUM CHLORIDE 10 MEQ SR TABLET PO SCH (21:35)
[2020-06-06] MEDS: zolPIDEM TARTRATE 5 MG TAB PO PRN (21:49)
[2020-06-07] VITALS (7 sets, daily range): BP systolic 121–135; BP diastolic 56–61; O2SAT 91–95
[2020-06-07] MEDS: NS 1,000 ML IV SCH ×3 (02:34→20:31)
[2020-06-07] MEDS: ACETAMINOPHEN TAB 650MG DOSE (2X325MG) PO PRN ×2 (02:34→21:38)
[2020-06-07] MEDS: LEVOTHYROXINE 137MCG TABLET (0.137MG) PO SCH (06:04)
[2020-06-07 06:27] LABS: HEMATOCRIT 30.3 % (36.0-47.0); HEMOGLOBIN 9.6 g/dl (12.0-15.5); MEAN CORPUSCULAR HEMOGLOBIN 31.2 pg (27.0-33.0); MEAN CORPUSCULAR HGB CONC 31.7 g/dl (32.0-36.5); MEAN CORPUSCULAR VOLUME 98.4 fl (80.0-96.0); PLATELET COUNT, AUTOMATED 133 10^3/uL (150-450); RED BLOOD COUNT 3.08 10^6/uL (4.00-5.40); WHITE BLOOD COUNT 8.8 10^3/uL (4.0-10.0)
[2020-06-07 06:57] LABS: ALBUMIN 3.2 GM/DL (3.2-5.2); BILIRUBIN,TOTAL 0.1 MG/DL (0.2-1.0); CALCIUM LEVEL 8.4 MG/DL (8.8-10.2); CREATININE FOR GFR 1.15 MG/DL (0.55-1.30); GLOMERULAR FILTRATION RATE 49.2 (>39); POTASSIUM SERUM 4.3 MEQ/L (3.5-5.1); TOTAL PROTEIN 6.5 GM/DL (6.4-8.2)
[2020-06-07] MEDS: HumaLOG INSULIN (NovoLOG) PER UNIT SC SCH ×4 (09:31→20:22)
[2020-06-07] MEDS: ENOXAPARIN 40MG/0.4ML SYRINGE (J1650 PER 10MG) SC SCH (09:32)
[2020-06-07] MEDS: CALCIUM CARBONATE 500 MG CHEW U/D PO SCH (09:33)
[2020-06-07] MEDS: GABAPENTIN 100 MG CAP PO SCH ×2 (09:33→20:20)
[2020-06-07] MEDS: ZIPRASIDONE 80 MG CAP (GEODON) PO SCH ×2 (09:33→17:37)
[2020-06-07] MEDS: CETIRIZINE (ZyrTEC) 10 MG TAB PO SCH (09:33)
[2020-06-07] MEDS: ULTRACET TAB PO SCH ×3 (09:34→20:21)
[2020-06-07] MEDS: DONEPEZIL 5 MG TAB PO SCH (09:35)
[2020-06-07] MEDS: DOCUSATE SODIUM 100MG CAPSULE PO SCH ×2 (09:35→17:37)
[2020-06-07] MEDS: MULTIVITAMINS/MINERALS THERAP 1 TAB PO SCH (09:35)
--- NOTE | 2020-06-07 10:20 | IPNPDOC ---
Text Note Date of Service The patient was seen on 06/07/20. NOTE Subjective: Patient continues to complain of generalized weakness and fatigue. She has intermittent dry cough. Objective: GENERAL APPEARANCE: NAD HEENT: no scleral icterus, no JVD, EOMI CARDIOVASCULAR: S1S2 LUNGS: Bilateral rhonchi ABDOMEN: soft & not tender w palpitation MUSCULOSKELETAL: no cyanosis, no swelling INTEGUMENT: no generalized palor NEUROLOGICAL: cranial nerve function from 2-12 intact intact, follows commands, speech not dysarthric Assessment/Plan Patient is 74 years old female with past medical history of schizophrenia, osteoarthritis, hyperlipidemia, diabetes, hypothyroidism presented hospital with generalized weakness. Patient stated that she's been having generalized weakness associated with cough about one week ago. Patient had contact with landlord was tested positive for Covid 19. In ER patient was found to have positive test for Covid 19. Oxygen saturation on 1 L of oxygen was 100%. Chest x-ray showed Pleuroparenchymal opacity left base and lateral pleural angle question small focal infiltrate versus is pleural angle blunting Problems (1) COVID-19 Labs ordered according to COVID protocol Isolation Patient has a good oxygen saturation Continue to mind (2) COPD (chronic obstructive pulmonary disease) Continue inhalers Patient complains of cough pro calcitonin negative Patient doesn't have leukocytosis. Antibiotics are not indicated (3) DM (diabetes mellitus), type 2 Diabetes diet Levemir Insulin sliding scale (4) HTN (hypertension) Continue home cardioprotective medications (5) Schizoaffective disorder Continue home meds Not psychotic (6) Hypothyroidism, iatrogenic Continue Synthroid VS,Fishbone, I+O VS, Fishbone, I+O Laboratory Tests 06/06/20 11:39 06/07/20 05:59 Vital Signs Date Time Temp Pulse Resp B/P (MAP) Pulse Ox O2 Delivery O2 Flow Rate FiO2 06/07/20 09:34 20 06/07/20 08:00 100.3 85 121/58 (79) 94 Nasal Cannula 1.0 I&O- Last 24 Hours up to 6 AM 06/07/20 06:00 Intake Total 1805 ml Output Total 900 ml Balance 905 ml BRIAN LUNA DO Jun 07, 2020 10:20
[2020-06-07] MEDS ORDERED: LEVEMIR (INSULIN DETEMIR) 1 UNITS/0.01ML As Ordered ONE (11:08)
[2020-06-07] MEDS: LEVEMIR (INSULIN DETEMIR) 1 UNITS/0.01ML SC SCH ×2 (11:15→20:21)
[2020-06-07] MEDS: FUROSEMIDE 20 MG TAB PO SCH (12:53)
[2020-06-07] MEDS: POTASSIUM CHLORIDE 10 MEQ SR TABLET PO SCH ×2 (12:53→20:20)
[2020-06-07] MEDS: FIBER-CON 625 MG TAB PO SCH ×2 (12:53→20:18)
[2020-06-07] MEDS: CANDESARTAN 16 MG TABLET PO SCH (12:54)
[2020-06-07] MEDS: lamoTRIgine 100MG TAB PO SCH (12:54)
[2020-06-07] MEDS: SENNA 8.6 MG TAB (SENOKOT) PO SCH ×2 (12:54→20:19)
[2020-06-07] MEDS: MAGNESIUM OXIDE 400 MG TAB (MAG-OX) PO SCH ×2 (12:54→20:19)
[2020-06-07] MEDS: QUEtiapine FUMARATE **XR** 200MG TABLET PO SCH (20:19)
[2020-06-07] MEDS: clonazePAM 1 MG TAB PO SCH (20:19)
[2020-06-07] MEDS: ATORVASTATIN 20 MG TAB PO SCH (20:20)
[2020-06-07] MEDS: QUEtiapine FUMERATE XR 50 MG TABER PO SCH (20:20)
[2020-06-07] MEDS: zolPIDEM TARTRATE 5 MG TAB PO PRN (20:31)
[2020-06-07] MEDS ORDERED: LEVEMIR (INSULIN DETEMIR) 1 UNITS/0.01ML SC SCH (21:00)
[2020-06-08] VITALS: O2SAT 96
[2020-06-08 04:00] VITALS: BP 108/53; O2SAT 97
[2020-06-08] MEDS: LEVOTHYROXINE 137MCG TABLET (0.137MG) PO SCH (05:03)
[2020-06-08] MEDS: NS 1,000 ML IV SCH ×2 (05:03→13:31)
[2020-06-08 05:10] VITALS: BP 108/53
[2020-06-08 07:01] LABS: BASO % 0.2 % (0.0-1.0); EOS % 0.1 % (0.0-3.0); HEMATOCRIT 30.2 % (36.0-47.0); HEMOGLOBIN 9.9 g/dl (12.0-15.5); LYMPH # 1.9 10^3/uL (1.5-5.0); LYMPH % 21.1 % (24.0-44.0); MEAN CORPUSCULAR HEMOGLOBIN 32.8 pg (27.0-33.0); MEAN CORPUSCULAR HGB CONC 32.8 g/dl (32.0-36.5); MONO # 0.7 10^3/uL (0.0-0.8); MONO % 7.7 % (0.0-5.0); NEUTROPHILS # 6.4 10^3/uL (1.5-8.5); NEUTROPHILS % 70.5 % (36.0-66.0); PLATELET COUNT, AUTOMATED 106 10^3/uL (150-450); RED BLOOD COUNT 3.02 10^6/uL (4.00-5.40); WHITE BLOOD COUNT 9.1 10^3/uL (4.0-10.0)
[2020-06-08 07:26] LABS: ALBUMIN 2.8 GM/DL (3.2-5.2); BILIRUBIN,TOTAL 0.1 MG/DL (0.2-1.0); CALCIUM LEVEL 7.9 MG/DL (8.8-10.2); CREATININE FOR GFR 1.12 MG/DL (0.55-1.30); GLOMERULAR FILTRATION RATE 50.8 (>39); POTASSIUM SERUM 4.5 MEQ/L (3.5-5.1)
[2020-06-08] MEDS: HumaLOG INSULIN (NovoLOG) PER UNIT SC SCH ×4 (07:30→22:08)
[2020-06-08] MEDS: CALCIUM CARBONATE 500 MG CHEW U/D PO SCH (08:54)
[2020-06-08] MEDS: GABAPENTIN 100 MG CAP PO SCH ×2 (08:54→20:35)
[2020-06-08] MEDS: MULTIVITAMINS/MINERALS THERAP 1 TAB PO SCH (08:54)
[2020-06-08] MEDS: DONEPEZIL 5 MG TAB PO SCH (08:55)
[2020-06-08] MEDS: ULTRACET TAB PO SCH ×3 (08:56→20:35)
[2020-06-08] MEDS: ENOXAPARIN 40MG/0.4ML SYRINGE (J1650 PER 10MG) SC SCH (08:56)
[2020-06-08] MEDS: DOCUSATE SODIUM 100MG CAPSULE PO SCH ×2 (08:56→18:05)
[2020-06-08] MEDS: ZIPRASIDONE 80 MG CAP (GEODON) PO SCH ×2 (08:56→18:05)
[2020-06-08] MEDS: CETIRIZINE (ZyrTEC) 10 MG TAB PO SCH (08:56)
[2020-06-08] MEDS: LEVEMIR (INSULIN DETEMIR) 1 UNITS/0.01ML SC SCH ×2 (08:57→20:36)
[2020-06-08] MEDS: lamoTRIgine 100MG TAB PO SCH (13:28)
[2020-06-08] MEDS: FUROSEMIDE 20 MG TAB PO SCH (13:29)
[2020-06-08] MEDS: MAGNESIUM OXIDE 400 MG TAB (MAG-OX) PO SCH ×2 (13:29→20:37)
[2020-06-08] MEDS: FIBER-CON 625 MG TAB PO SCH ×2 (13:30→20:37)
[2020-06-08] MEDS: SENNA 8.6 MG TAB (SENOKOT) PO SCH ×2 (13:30→20:35)
[2020-06-08] MEDS: CANDESARTAN 16 MG TABLET PO SCH (13:30)
[2020-06-08] MEDS: POTASSIUM CHLORIDE 10 MEQ SR TABLET PO SCH ×2 (13:30→20:37)
[2020-06-08] MEDS: ACETAMINOPHEN TAB 650MG DOSE (2X325MG) PO PRN (13:39)
[2020-06-08 14:00] VITALS: BP 112/53
--- NOTE | 2020-06-08 14:52 | IPNPDOC ---
Text Note Date of Service The patient was seen on 06/08/20. NOTE Subjective: Patient continues to complain of generalized weakness. She stated that she has a frequent cough. Her oxygen saturation 97% on 1 L of oxygen. Objective: GENERAL APPEARANCE: NAD HEENT: no scleral icterus, no JVD, EOMI CARDIOVASCULAR: S1S2 LUNGS: Bilateral rhonchi ABDOMEN: soft & not tender w palpitation MUSCULOSKELETAL: no cyanosis, no swelling INTEGUMENT: no generalized palor NEUROLOGICAL: cranial nerve function from 2-12 intact intact, follows commands, speech not dysarthric Assessment/Plan Patient is 74 years old female with past medical history of schizophrenia, osteoarthritis, hyperlipidemia, diabetes, hypothyroidism presented hospital with generalized weakness. Patient stated that she's been having generalized weakness associated with cough about one week ago. Patient had contact with landlord was tested positive for Covid 19. In ER patient was found to have positive test for Covid 19. Oxygen saturation on 1 L of oxygen was 100%. Chest x-ray showed Pleuroparenchymal opacity left base and lateral pleural angle question small focal infiltrate versus is pleural angle blunting Problems (1) COVID-19 Labs ordered according to COVID protocol Isolation Patient has a good oxygen saturation PT/OT (2) COPD (chronic obstructive pulmonary disease) exacerbation Secondary to COVID-19 Continue inhalers Patient complains of cough pro calcitonin negative Patient doesn't have leukocytosis. Antibiotics are not indicated (3) DM (diabetes mellitus), type 2 Diabetes diet Levemir Insulin sliding scale (4) HTN (hypertension) Continue home cardioprotective medications (5) Schizoaffective disorder Continue home meds Not psychotic (6) Hypothyroidism, iatrogenic Continue Synthroid Intermittent cough Robitussin VS,Fishbone, I+O VS, Fishbone, I+O Laboratory Tests 06/08/20 06:41 Vital Signs Date Time Temp Pulse Resp B/P (MAP) Pulse Ox O2 Delivery O2 Flow Rate FiO2 06/08/20 09:00 1.0 06/08/20 08:56 18 06/08/20 05:10 98.0 70 108/53 (71) 97 Nasal Cannula I&O- Last 24 Hours up to 6 AM 06/08/20 06:00 Intake Total 2700 ml Output Total 600 ml Balance 2100 ml BRIAN LUNA DO Jun 08, 2020 14:52
[2020-06-08 19:36] VITALS: BP 115/79
[2020-06-08] MEDS: ATORVASTATIN 20 MG TAB PO SCH (20:34)
[2020-06-08] MEDS: QUEtiapine FUMERATE XR 50 MG TABER PO SCH (20:35)
[2020-06-08] MEDS: QUEtiapine FUMARATE **XR** 200MG TABLET PO SCH (20:35)
[2020-06-08] MEDS: guaiFENesin SYRUP 200 MG/10 ML UDC PO PRN (20:36)
[2020-06-08] MEDS: clonazePAM 1 MG TAB PO SCH (20:37)
[2020-06-08] MEDS: zolPIDEM TARTRATE 5 MG TAB PO PRN (20:46)
[2020-06-09] MEDS: LEVOTHYROXINE 137MCG TABLET (0.137MG) PO SCH (06:15)
[2020-06-09 06:26] VITALS: BP 123/58
[2020-06-09 06:42] LABS: BASO % 0.2 % (0.0-1.0); EOS % 0.5 % (0.0-3.0); HEMATOCRIT 28.8 % (36.0-47.0); HEMOGLOBIN 9.3 g/dl (12.0-15.5); LYMPH # 1.3 10^3/uL (1.5-5.0); LYMPH % 23.4 % (24.0-44.0); MEAN CORPUSCULAR HGB CONC 32.3 g/dl (32.0-36.5); MONO # 0.4 10^3/uL (0.0-0.8); MONO % 7.3 % (0.0-5.0); NEUTROPHILS # 3.9 10^3/uL (1.5-8.5); NEUTROPHILS % 68.2 % (36.0-66.0); PLATELET COUNT, AUTOMATED 115 10^3/uL (150-450); RED BLOOD COUNT 2.91 10^6/uL (4.00-5.40); WHITE BLOOD COUNT 5.7 10^3/uL (4.0-10.0)
[2020-06-09 07:02] LABS: ALBUMIN 2.6 GM/DL (3.2-5.2); ALT/SGPT 20 U/L (12-78); BILIRUBIN,TOTAL < 0.1 MG/DL (0.2-1.0); BLOOD UREA NITROGEN 17 MG/DL (7-18); CALCIUM LEVEL 7.8 MG/DL (8.8-10.2); CARBON DIOXIDE LEVEL 26 MEQ/L (21-32); CHLORIDE LEVEL 107 MEQ/L (98-107); CREATININE FOR GFR 0.96 MG/DL (0.55-1.30); GLOMERULAR FILTRATION RATE > 60.0 (>39); GLUCOSE, FASTING 118 MG/DL (70-100); POTASSIUM SERUM 4.8 MEQ/L (3.5-5.1); SODIUM LEVEL 137 MEQ/L (136-145); TOTAL PROTEIN 5.8 GM/DL (6.4-8.2)
[2020-06-09] MEDS: ULTRACET TAB PO SCH ×3 (09:10→21:23)
[2020-06-09] MEDS: LEVEMIR (INSULIN DETEMIR) 1 UNITS/0.01ML SC SCH ×2 (09:10→21:22)
[2020-06-09] MEDS: CETIRIZINE (ZyrTEC) 10 MG TAB PO SCH (09:11)
[2020-06-09] MEDS: MULTIVITAMINS/MINERALS THERAP 1 TAB PO SCH (09:11)
[2020-06-09] MEDS: CALCIUM CARBONATE 500 MG CHEW U/D PO SCH (09:11)
[2020-06-09] MEDS: GABAPENTIN 100 MG CAP PO SCH ×2 (09:11→21:23)
[2020-06-09] MEDS: HumaLOG INSULIN (NovoLOG) PER UNIT SC SCH ×4 (09:11→21:00)
[2020-06-09] MEDS: ZIPRASIDONE 80 MG CAP (GEODON) PO SCH ×2 (09:12→18:13)
[2020-06-09] MEDS: ENOXAPARIN 40MG/0.4ML SYRINGE (J1650 PER 10MG) SC SCH (09:12)
[2020-06-09] MEDS: DONEPEZIL 5 MG TAB PO SCH (09:12)
[2020-06-09] MEDS: DOCUSATE SODIUM 100MG CAPSULE PO SCH ×2 (09:12→18:11)
[2020-06-09] MEDS: lamoTRIgine 100MG TAB PO SCH (11:27)
[2020-06-09] MEDS: CANDESARTAN 16 MG TABLET PO SCH (11:27)
[2020-06-09] MEDS: MAGNESIUM OXIDE 400 MG TAB (MAG-OX) PO SCH ×2 (11:27→21:24)
[2020-06-09] MEDS: POTASSIUM CHLORIDE 10 MEQ SR TABLET PO SCH ×2 (11:27→21:23)
[2020-06-09] MEDS: FIBER-CON 625 MG TAB PO SCH ×2 (11:27→21:22)
[2020-06-09] MEDS: SENNA 8.6 MG TAB (SENOKOT) PO SCH ×2 (11:27→21:26)
[2020-06-09] MEDS: FUROSEMIDE 20 MG TAB PO SCH (11:27)
[2020-06-09 14:00] VITALS: BP 127/65
--- NOTE | 2020-06-09 14:45 | IPNPDOC ---
Text Note Date of Service The patient was seen on 06/09/20. NOTE Subjective: Patient stated that today her breathing worse and she has more dry cough. I took report from the nurse, reviewed the chart and talked to the patient by phone Assessment/Plan Patient is 74 years old female with past medical history of schizophrenia, o steoarthritis, hyperlipidemia, diabetes, hypothyroidism presented hospital with generalized weakness. Patient stated that she's been having generalized weakness associated with cough about one week ago. Patient had contact with landlord was tested positive for Covid 19. In ER patient was found to have positive test for Covid 19. Oxygen saturation on 1 L of oxygen was 100%. Chest x-ray showed Pleur oparenchymal opacity left base and lateral pleural angle question small focal infiltrate versus is pleural angle blunting Problems (1) COVID-19 Labs ordered according to COVID protocol Isolation Patient has a good oxygen saturation on 2 l PT/OT (2) COPD (chronic obstructive pulmonary disease) exacerbation Secondary to COVID-19 Continue inhalers Patient complains of cough pro calcitonin negative Patient doesn't have leukocytosis. Antibiotics are not indicated (3) DM (diabetes mellitus), type 2 Diabetes diet Levemir Insulin sliding scale (4) HTN (hypertension) Continue home cardioprotective medications (5) Schizoaffective disorder Continue home meds Not psychotic (6) Hypothyroidism, iatrogenic Continue Synthroid Intermittent cough Robitussin VS,Fishbone, I+O VS, Fishbone, I+O Laboratory Tests 06/09/20 06:09 Vital Signs Date Time Temp Pulse Resp B/P (MAP) Pulse Ox O2 Delivery O2 Flow Rate FiO2 06/09/20 09:10 20 06/09/20 09:00 2.0 06/09/20 06:36 91 Nasal Cannula 06/09/20 06:26 98.7 69 123/58 (79) I&O- Last 24 Hours up to 6 AM 06/09/20 06:00 Intake Total 1530 ml Output Total 850 ml Balance 680 ml BRIAN LUNA DO Jun 09, 2020 14:44
[2020-06-09] MEDS: guaiFENesin SYRUP 200 MG/10 ML UDC PO PRN ×2 (15:31→21:24)
[2020-06-09 16:51] LABS: D-DIMER QUANT 560.09 ng/ml (<500)
[2020-06-09 20:00] VITALS: BP 111/54
[2020-06-09] MEDS: zolPIDEM TARTRATE 5 MG TAB PO PRN (21:22)
[2020-06-09] MEDS: ATORVASTATIN 20 MG TAB PO SCH (21:23)
[2020-06-09] MEDS: clonazePAM 1 MG TAB PO SCH (21:24)
[2020-06-09] MEDS: QUEtiapine FUMERATE XR 50 MG TABER PO SCH (21:24)
[2020-06-09] MEDS: QUEtiapine FUMARATE **XR** 200MG TABLET PO SCH (21:24)
[2020-06-09 22:00] VITALS: O2SAT 92
[2020-06-10 04:00] VITALS: BP 105/55; O2SAT 94
[2020-06-10] MEDS: LEVOTHYROXINE 137MCG TABLET (0.137MG) PO SCH (06:14)
[2020-06-10] MEDS: ACETAMINOPHEN TAB 650MG DOSE (2X325MG) PO PRN (06:14)
[2020-06-10] MEDS: HumaLOG INSULIN (NovoLOG) PER UNIT SC SCH ×4 (07:30→21:00)
[2020-06-10 07:35] LABS: BASO % 0.4 % (0.0-1.0); EOS % 0.7 % (0.0-3.0); HEMATOCRIT 27.9 % (36.0-47.0); HEMOGLOBIN 8.9 g/dl (12.0-15.5); LYMPH # 1.4 10^3/uL (1.5-5.0); LYMPH % 31.6 % (24.0-44.0); MEAN CORPUSCULAR HEMOGLOBIN 31.2 pg (27.0-33.0); MEAN CORPUSCULAR HGB CONC 31.9 g/dl (32.0-36.5); MEAN CORPUSCULAR VOLUME 97.9 fl (80.0-96.0); MONO # 0.6 10^3/uL (0.0-0.8); MONO % 12.8 % (0.0-5.0); NEUTROPHILS # 2.4 10^3/uL (1.5-8.5); NEUTROPHILS % 52.5 % (36.0-66.0); PLATELET COUNT, AUTOMATED 128 10^3/uL (150-450); RED BLOOD COUNT 2.85 10^6/uL (4.00-5.40); WHITE BLOOD COUNT 4.5 10^3/uL (4.0-10.0)
[2020-06-10 07:57] LABS: ALBUMIN 2.7 GM/DL (3.2-5.2); BILIRUBIN,TOTAL 0.2 MG/DL (0.2-1.0); CALCIUM LEVEL 8.1 MG/DL (8.8-10.2); CREATININE FOR GFR 1.24 MG/DL (0.55-1.30); GLOMERULAR FILTRATION RATE 45.1 (>39); POTASSIUM SERUM 4.7 MEQ/L (3.5-5.1); TOTAL PROTEIN 5.8 GM/DL (6.4-8.2)
[2020-06-10 08:00] VITALS: BP 103/55
[2020-06-10] MEDS: GABAPENTIN 100 MG CAP PO SCH ×2 (09:30→23:05)
[2020-06-10] MEDS: CALCIUM CARBONATE 500 MG CHEW U/D PO SCH (09:30)
[2020-06-10] MEDS: ZIPRASIDONE 80 MG CAP (GEODON) PO SCH ×2 (09:30→17:15)
[2020-06-10] MEDS: ULTRACET TAB PO SCH ×3 (09:30→23:05)
[2020-06-10] MEDS: CETIRIZINE (ZyrTEC) 10 MG TAB PO SCH (09:30)
[2020-06-10] MEDS: DOCUSATE SODIUM 100MG CAPSULE PO SCH ×2 (09:30→17:15)
[2020-06-10] MEDS: MULTIVITAMINS/MINERALS THERAP 1 TAB PO SCH (09:31)
[2020-06-10] MEDS: DONEPEZIL 5 MG TAB PO SCH (09:31)
[2020-06-10] MEDS: ENOXAPARIN 40MG/0.4ML SYRINGE (J1650 PER 10MG) SC SCH (09:31)
[2020-06-10] MEDS: LEVEMIR (INSULIN DETEMIR) 1 UNITS/0.01ML SC SCH ×2 (09:32→23:07)
[2020-06-10] MEDS: lamoTRIgine 100MG TAB PO SCH (11:29)
[2020-06-10] MEDS: FIBER-CON 625 MG TAB PO SCH ×2 (11:29→23:04)
[2020-06-10] MEDS: POTASSIUM CHLORIDE 10 MEQ SR TABLET PO SCH ×2 (11:29→23:05)
[2020-06-10] MEDS: SENNA 8.6 MG TAB (SENOKOT) PO SCH ×2 (11:29→23:04)
[2020-06-10] MEDS: MAGNESIUM OXIDE 400 MG TAB (MAG-OX) PO SCH ×2 (11:30→23:07)
[2020-06-10] MEDS: CANDESARTAN 16 MG TABLET PO SCH (11:30)
[2020-06-10] MEDS: FUROSEMIDE 20 MG TAB PO SCH (11:31)
--- NOTE | 2020-06-10 13:55 | IPNPDOC ---
Text Note Date of Service The patient was seen on 06/10/20. NOTE Subjective: Patient was febrile overnight with fever of 101 subsided after Ty lenol. Her oxygen requirement started increasing to 3 L I took report from the nurse, reviewed the chart and talked to the patient by phone Assessment/Plan Patient is 74 years old female with past medical history of schizophrenia, osteoarthritis, hyperlipidemia, diabetes, hypothyroidism presented hospital with generalized weakness. Patient stated that she's been having generalized weakness associated with cough about one week ago. Patient had contact with [employer] was tested positive for Covid 19. In ER patient was found to have positive test for Covid 19. Oxygen saturation on 1 L of oxygen was 100%. Chest x-ray showed Pleuroparenchymal opacity left base and lateral pleural angle question small focal infiltrate versus is pleural angle blunting Problems (1) COVID-19 Isolation Patient has a good oxygen saturation on 3l. PT/OT (2) COPD (chronic obstructive pulmonary disease) exacerbation Secondary to COVID-19 Continue inhalers Patient complains of cough pro calcitonin negative Patient doesn't have leukocytosis. Antibiotics are not indicated (3) DM (diabetes mellitus), type 2 Diabetes diet Levemir Insulin sliding scale (4) HTN (hypertension) Continue home cardioprotective medications (5) Schizoaffective disorder Continue home meds Not psychotic (6) Hypothyroidism, iatrogenic Continue Synthroid Intermittent cough Robitussin VS,Fishbone, I+O VS, Fishbone, I+O Laboratory Tests 06/10/20 06:50 Vital Signs Date Time Temp Pulse Resp B/P (MAP) Pulse Ox O2 Delivery O2 Flow Rate FiO2 06/10/20 09:30 22 Nasal Cannula 3.0 06/10/20 06:30 101.7 06/10/20 04:00 94 06/10/20 04:00 60 105/55 (72) I&O- Last 24 Hours up to 6 AM 06/10/20 06:00 Intake Total 870 ml Output Total 300 ml Balance 570 ml BRIAN LUNA DO Jun 10, 2020 13:55
[2020-06-10 16:00] VITALS: BP 138/61
[2020-06-10 20:00] VITALS: BP 140/63; O2SAT 94
[2020-06-10] MEDS: QUEtiapine FUMARATE **XR** 200MG TABLET PO SCH (23:04)
[2020-06-10] MEDS: ATORVASTATIN 20 MG TAB PO SCH (23:05)
[2020-06-10] MEDS: clonazePAM 1 MG TAB PO SCH (23:06)
[2020-06-10] MEDS: zolPIDEM TARTRATE 5 MG TAB PO PRN (23:06)
[2020-06-10] MEDS: QUEtiapine FUMERATE XR 50 MG TABER PO SCH (23:06)
[2020-06-11] VITALS: O2SAT 95
[2020-06-11 04:00] VITALS: BP 129/61; O2SAT 96
[2020-06-11] MEDS: LEVOTHYROXINE 137MCG TABLET (0.137MG) PO SCH (06:05)
[2020-06-11] MEDS: HumaLOG INSULIN (NovoLOG) PER UNIT SC SCH ×4 (06:48→22:34)
[2020-06-11] MEDS: MULTIVITAMINS/MINERALS THERAP 1 TAB PO SCH (08:01)
[2020-06-11] MEDS: CETIRIZINE (ZyrTEC) 10 MG TAB PO SCH (08:01)
[2020-06-11] MEDS: LEVEMIR (INSULIN DETEMIR) 1 UNITS/0.01ML SC SCH ×2 (08:01→22:33)
[2020-06-11] MEDS: ZIPRASIDONE 80 MG CAP (GEODON) PO SCH ×2 (08:01→17:20)
[2020-06-11] MEDS: ULTRACET TAB PO SCH ×3 (08:02→22:31)
[2020-06-11] MEDS: DOCUSATE SODIUM 100MG CAPSULE PO SCH ×2 (08:02→17:20)
[2020-06-11] MEDS: CALCIUM CARBONATE 500 MG CHEW U/D PO SCH (08:02)
[2020-06-11] MEDS: ENOXAPARIN 40MG/0.4ML SYRINGE (J1650 PER 10MG) SC SCH (08:02)
[2020-06-11] MEDS: GABAPENTIN 100 MG CAP PO SCH ×2 (08:03→22:30)
[2020-06-11] MEDS: DONEPEZIL 5 MG TAB PO SCH (08:03)
[2020-06-11] MEDS: dexameTHASONE 4 MG/ML 1ML VIAL (J1100 PER 1MG) IV SCH (09:53)
[2020-06-11 10:10] LABS: BASO % 0.4 % (0.0-1.0); EOS % 0.4 % (0.0-3.0); HEMATOCRIT 29.4 % (36.0-47.0); HEMOGLOBIN 9.5 g/dl (12.0-15.5); LYMPH # 1.2 10^3/uL (1.5-5.0); LYMPH % 24.7 % (24.0-44.0); MEAN CORPUSCULAR HEMOGLOBIN 31.8 pg (27.0-33.0); MEAN CORPUSCULAR HGB CONC 32.3 g/dl (32.0-36.5); MEAN CORPUSCULAR VOLUME 98.3 fl (80.0-96.0); MONO # 0.7 10^3/uL (0.0-0.8); MONO % 14.3 % (0.0-5.0); NEUTROPHILS # 2.9 10^3/uL (1.5-8.5); NEUTROPHILS % 58.6 % (36.0-66.0); PLATELET COUNT, AUTOMATED 158 10^3/uL (150-450); RED BLOOD COUNT 2.99 10^6/uL (4.00-5.40)
[2020-06-11 10:37] LABS: ALBUMIN 2.8 GM/DL (3.2-5.2); BILIRUBIN,TOTAL 0.4 MG/DL (0.2-1.0); CALCIUM LEVEL 8.8 MG/DL (8.8-10.2); CREATININE FOR GFR 1.29 MG/DL (0.55-1.30); GLOMERULAR FILTRATION RATE 43.1 (>39); MAGNESIUM LEVEL 2.2 MG/DL (1.8-2.4); POTASSIUM SERUM 4.9 MEQ/L (3.5-5.1); TOTAL PROTEIN 6.4 GM/DL (6.4-8.2)
[2020-06-11 12:00] VITALS: BP 109/86
[2020-06-11] MEDS: SENNA 8.6 MG TAB (SENOKOT) PO SCH ×2 (12:00→22:32)
--- NOTE | 2020-06-11 12:51 | IPNPDOC ---
Text Note Date of Service The patient was seen on 06/11/20. NOTE Subjective: Patient had low grade fever overnight. She complains of more intense cough and congested chest I took report from the nurse, reviewed the chart and talked to the patient by phone Assessment/Plan Patient is 74 years old female with past medical history of schizophrenia, osteoarthritis, hyperlipidemia, diabetes, hypothyroidism presented hospital with generalized weakness. Patient stated that she's been having generalized weakness associated with cough about one week ago. Patient had contact with landlord was tested positive for Covid 19. In ER patient was found to have positive test for Covid 19. Oxygen saturation on 1 L of oxygen was 100%. Chest x-ray showed Pleuroparenchymal opacity left base and lateral pleural angle question small focal infiltrate versus is pleural angle blunting Problems (1) COVID-19 Isolation Patient requires 4 L of oxygen PT/OT (2) COPD (chronic obstructive pulmonary disease) exacerbation Secondary to COVID-19 Continue inhalers Patient complains of cough pro calcitonin negative Patient doesn't have leukocytosis. Antibiotics are not indicated Started steroids (3) DM (diabetes mellitus), type 2 Diabetes diet Levemir Insulin sliding scale (4) HTN (hypertension) Continue home cardioprotective medications (5) Schizoaffective disorder Continue home meds Not psychotic (6) Hypothyroidism, iatrogenic Continue Synthroid Intermittent cough Robitussin VS,Fishbone, I+O VS, Fishbone, I+O Laboratory Tests 06/11/20 09:07 Vital Signs Date Time Temp Pulse Resp B/P (MAP) Pulse Ox O2 Delivery O2 Flow Rate FiO2 06/11/20 08:39 4.0 06/11/20 08:02 18 Nasal Cannula 06/11/20 04:00 100.4 88 129/61 (83) 96 I&O- Last 24 Hours up to 6 AM 06/11/20 06:00 Intake Total 1240 ml Output Total 400 ml Balance 840 ml BRIAN LUNA DO Jun 11, 2020 12:51
[2020-06-11] MEDS: lamoTRIgine 100MG TAB PO SCH (12:52)
[2020-06-11] MEDS: MAGNESIUM OXIDE 400 MG TAB (MAG-OX) PO SCH ×2 (12:53→22:31)
[2020-06-11] MEDS: POTASSIUM CHLORIDE 10 MEQ SR TABLET PO SCH ×2 (12:54→22:32)
[2020-06-11] MEDS: FIBER-CON 625 MG TAB PO SCH ×2 (12:54→22:32)
[2020-06-11] MEDS: CANDESARTAN 16 MG TABLET PO SCH (12:54)
[2020-06-11] MEDS: FUROSEMIDE 20 MG TAB PO SCH (12:55)
[2020-06-11] MEDS: guaiFENesin SYRUP 200 MG/10 ML UDC PO PRN (17:24)
[2020-06-11 20:00] VITALS: BP 108/63; O2SAT 93
[2020-06-11] MEDS: QUEtiapine FUMERATE XR 50 MG TABER PO SCH (22:30)
[2020-06-11] MEDS: QUEtiapine FUMARATE **XR** 200MG TABLET PO SCH (22:30)
[2020-06-11] MEDS: ATORVASTATIN 20 MG TAB PO SCH (22:31)
[2020-06-11] MEDS: zolPIDEM TARTRATE 5 MG TAB PO PRN (22:31)
[2020-06-11] MEDS: clonazePAM 1 MG TAB PO SCH (22:32)
[2020-06-12] VITALS (7 sets, daily range): BP systolic 107–124; BP diastolic 56–73; O2SAT 88–97
[2020-06-12] MEDS ORDERED: SODIUM CHLORIDE 0.9% INJ 10 ML SYR IV SCH (00:45)
[2020-06-12] MEDS ORDERED: SODIUM CHLORIDE NASAL 0.65% SPRAY BTL (OCEAN) PRN (05:45)
[2020-06-12 06:02] LABS: ABG BASE EXCESS 2.4 (-2.0-2.0); ABG HCO3 27.5 MEQ/L (22.0-26.0); ABG O2 SATURATION 88.6 % (95.0-99.0); ABG PARTIAL PRESSURE CO2 44.4 mmHg (35.0-45.0); ABG PARTIAL PRESSURE O2 56.7 mmHg (75.0-100.0); ABG STANDARD HCO3 26.4 MEQ/L (22.0-26.0); ABG TOTAL CO2 28.9 MEQ/L (23.0-31.0)
[2020-06-12 06:21] LABS: BASO % 0.3 % (0.0-1.0); HEMATOCRIT 29.7 % (36.0-47.0); HEMOGLOBIN 9.7 g/dl (12.0-15.5); LYMPH # 1.1 10^3/uL (1.5-5.0); LYMPH % 17.3 % (24.0-44.0); MEAN CORPUSCULAR HEMOGLOBIN 31.1 pg (27.0-33.0); MEAN CORPUSCULAR HGB CONC 32.7 g/dl (32.0-36.5); MEAN CORPUSCULAR VOLUME 95.2 fl (80.0-96.0); MONO # 0.7 10^3/uL (0.0-0.8); MONO % 10.6 % (0.0-5.0); NEUTROPHILS # 4.2 10^3/uL (1.5-8.5); NEUTROPHILS % 69.3 % (36.0-66.0); PLATELET COUNT, AUTOMATED 184 10^3/uL (150-450); RED BLOOD COUNT 3.12 10^6/uL (4.00-5.40); WHITE BLOOD COUNT 6.1 10^3/uL (4.0-10.0)
[2020-06-12 06:43] LABS: C REACTIVE PROTEIN QUANTITATIV 15.1 MG/DL (0.00-0.30)
[2020-06-12 06:47] LABS: ALBUMIN 2.6 GM/DL (3.2-5.2); ALT/SGPT 23 U/L (12-78); BILIRUBIN,TOTAL 0.1 MG/DL (0.2-1.0); BLOOD UREA NITROGEN 24 MG/DL (7-18); CALCIUM LEVEL 9.5 MG/DL (8.8-10.2); CARBON DIOXIDE LEVEL 29 MEQ/L (21-32); CHLORIDE LEVEL 105 MEQ/L (98-107); CREATININE FOR GFR 1.06 MG/DL (0.55-1.30); GLOMERULAR FILTRATION RATE 54.1 (>39); GLUCOSE, FASTING 233 MG/DL (70-100); MAGNESIUM LEVEL 2.5 MG/DL (1.8-2.4); POTASSIUM SERUM 4.8 MEQ/L (3.5-5.1); SODIUM LEVEL 136 MEQ/L (136-145); TOTAL PROTEIN 7.2 GM/DL (6.4-8.2)
--- NOTE | 2020-06-12 07:00 | REPVR ---
PROCEDURE INFORMATION: Exam: XR Chest, 1 View Exam date and time: 06/12/20 (6:05am) Age: 74 years old Clinical indication: SOB. Hypoxia. TECHNIQUE: Imaging protocol: XR of the chest Views: 1 view COMPARISON: Portable CXR of 06/06/20 FINDINGS: Comparison is made with a portable CXR done on 06/06/20. The patient is slightly rotated to an DOMINGUEZ projection, once again. Diffuse hazy opacities, with worsening RUL disease. Persistent hazy disease at the left lung base. A small left pleural effusion may be present. Stable heart size. No pneumothorax. IMPRESSION: Worsening hazy and streaky RUL pulmonary opacities. In general, no significant improvement is evident. Persistent airspace disease at the left lung base. Continued follow-up is suggested. Electronically signed by: Liz Morejon On 06/12/2020 07:01:28 AM
[2020-06-12] MEDS ORDERED: SODIUM CHLORIDE 0.9% INJ 10 ML SYR IV ONE (08:00)
[2020-06-12 08:06] LABS: INR 0.97; PROTHROMBIN TIME 13.1 SECONDS (12.5-14.3)
[2020-06-12 08:07] LABS: PARTIAL THROMBOPLASTIN TIME 41.8 SECONDS (24.2-38.5)
[2020-06-12 08:09] LABS: D-DIMER QUANT 774.3 ng/ml (<500)
[2020-06-12 08:21] LABS: BILIRUBIN,DIRECT < 0.1 MG/DL (0.0-0.2); CK-MB VALUE MASS < 1.0 NG/ML (<3.6); CPK CREATINE PHOSPHOKINASE 112 U/L (26-192); LDH LACTATE DEHYDROGENASE 320 U/L (84-246); MB/CK RELATIVE INDEX 0.89 (< OR =4); NT-PRO BNP 491 PG/ML (<125); TRIGLYCERIDES LEVEL 140 MG/DL (<150); TROPONIN I < 0.02 NG/ML (< 0.10)
[2020-06-12] MEDS ORDERED: VANCOMYCIN HCL 1,000 MG, VIAL MATE ADAPTER 1 EACH in D5W 250 ML IV SCH (08:45)
[2020-06-12] MEDS: dexameTHASONE 4 MG/ML 1ML VIAL (J1100 PER 1MG) IV SCH (09:00)
[2020-06-12] MEDS: HumaLOG INSULIN (NovoLOG) PER UNIT SC SCH ×4 (09:01→21:23)
[2020-06-12] MEDS: LEVEMIR (INSULIN DETEMIR) 1 UNITS/0.01ML SC SCH ×2 (09:01→21:24)
[2020-06-12] MEDS: LEVOTHYROXINE 137MCG TABLET (0.137MG) PO SCH (09:02)
[2020-06-12] MEDS: ZIPRASIDONE 80 MG CAP (GEODON) PO SCH ×2 (09:03→17:07)
[2020-06-12] MEDS: CALCIUM CARBONATE 500 MG CHEW U/D PO SCH (09:03)
[2020-06-12] MEDS: MULTIVITAMINS/MINERALS THERAP 1 TAB PO SCH (09:03)
[2020-06-12] MEDS: DONEPEZIL 5 MG TAB PO SCH (09:03)
[2020-06-12] MEDS: CETIRIZINE (ZyrTEC) 10 MG TAB PO SCH (09:05)
[2020-06-12] MEDS: ULTRACET TAB PO SCH ×3 (09:05→21:21)
[2020-06-12] MEDS: DOCUSATE SODIUM 100MG CAPSULE PO SCH ×2 (09:05→17:07)
[2020-06-12] MEDS: PIPERACILLIN/TAZOBACTAM SOD 3.375 GM in D5W MINI-BAG PLUS 50 ML IV SCH ×3 (10:40→21:22)
[2020-06-12] MEDS: MAGNESIUM OXIDE 400 MG TAB (MAG-OX) PO SCH (12:00)
[2020-06-12] MEDS ORDERED: VANCOMYCIN HCL 1,000 MG, VIAL MATE ADAPTER 1 EACH in D5W 250 ML IV ONE ×2 (12:00→13:00)
[2020-06-12] MEDS: CANDESARTAN 16 MG TABLET PO SCH (12:32)
[2020-06-12] MEDS: FIBER-CON 625 MG TAB PO SCH ×2 (12:32→21:22)
[2020-06-12] MEDS: SENNA 8.6 MG TAB (SENOKOT) PO SCH ×2 (12:33→21:22)
[2020-06-12] MEDS: FUROSEMIDE 20 MG TAB PO SCH (12:33)
[2020-06-12] MEDS: POTASSIUM CHLORIDE 10 MEQ SR TABLET PO SCH ×2 (12:33→21:21)
[2020-06-12] MEDS: ALBUTEROL 90 MCG/ACT 8GM HFA INHALER INH SCH ×3 (12:59→19:55)
[2020-06-12] MEDS: lamoTRIgine 100MG TAB PO SCH (13:00)
--- NOTE | 2020-06-12 13:08 | CR ---
CONSULTATION Telemedicine pulmonary consult. HISTORY OF PRESENT ILLNESS: Miss Keyes is a 74-year-old female with a past medical history of schizophrenia, osteoarthritis, hyperlipidemia, diabetes, hypothyroidism, who presented initially on 06/06/20 with symptoms of generalized weakness as well as cough for about one week prior to admission. The patient was found to be COVID-19 positive and initially had required oxygen supplementation of one liter a minute. The patient was admitted to the [facility] for further monitoring and evaluation. She was started inhaled therapy for possible COPD. On admission, she was febrile and her initial chest x-ray had shown a possible pleural parenchymal opacity in the left base as well as lateral pleural angle with some evidence of increased interstitial markings with pulmonary vascular congestion. Her initial procalcitonin was negative and the patient was not started on antibiotics. During her hospitalization, she was noted to have continued fevers and was treated with Tylenol. In the past few days, she also had increasing oxygen requirements on her nasal cannula oxygen and had also been complaining of more cough and congestion. Overnight, the patient had an episode of desaturation. Earlier in the day, she was on four liters nasal cannula oxygen and then overnight was placed on Vapotherm given her desaturation. The patient had a chest x-ray done as well overnight given decompensation. She was started as well on steroids and remdesivir. MEDICAL AND SURGICAL HISTORY: 1. CKD. 2. Schizophrenia. 3. Hyperlipidemia. 4. Diabetes. 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 6. Hypertension. 7. GERD. 8. Osteoarthritis. 9. Thyroid surgery. 10. Partial hysterectomy/lift of bladder. 11. Bilateral foot surgery. 12. Hernia surgery. 13. Cataract surgery. 14. Right shoulder surgery. 15. Left shoulder surgery. FAMILY HISTORY: Father with history of heart disease and cancer. Mother with history of unspecified cancer. Siblings with a history of stroke. SOCIAL HISTORY: Former smoker, no alcohol use or other drug use. HOME MEDICATIONS: 1. Atorvastatin. 2. Calcium carbonate. 3. Candesartan. 4. Cetirizine. 5. Clonazepam. 6. Austedo. 7. Dexilant. 8. Colace. 9. Donepezil. 10. Furosemide. 11. Gabapentin. 12. Levemir. 13. NovoLog. 14. Lamictal. 15. Levothyroxine. 16. Amitiza. 17. Magnesium oxide. 18. Potassium chloride. 19. Multivitamin. 20. Seroquel. 21. Senna. 22. Janumet. 23. Tramadol/acetaminophen. 24. Ziprasidone. 25. Zolpidem. 26. Albuterol p.r.n. ALLERGIES: SULFA, MORPHINE, OXYCODONE, NSAIDS AND ASPIRIN. VITALS: T max the 6th was 100.4, T current is 98.6, pulse 79, respirations 20, blood pressure 108/63. O2 sat 88% on four liters nasal cannula, now 91% on Vapotherm at 25 liters a minute and 75% FiO2. LABORATORY DATA: WBC 6.1, hemoglobin 9.7, platelets of 184. Chemistries: Sodium is 136. Potassium is 4.8. Chloride is 105. Bicarb is 29, BUN 24. Creatinine is 1.06. Glucose is 233. Magnesium is 2.5. AST, ALT within normal limits. LDH 320. BNP trended up slightly to 491. CRP increasing to 15.10, procalcitonin negative. Ferritin increasing to 293. INR is 0.97. Fibrinogen increased to 718 and D-dimer increased is 774.3. ABG: pH 7.410, pCO2 of 44.4, pO2 of 56.7. IMAGING: Chest x-ray 06/12/20: There are increased interstitial markings with increased hazy opacity in the right upper lobe with some mild air bronchogram suggestion. There are some persistent pleural parenchymal changes in the left base and questionable blunting of the angle. ASSESSMENT AND PLAN: Miss Keyes is a 74-year-old female with a past medical history of schizophrenia, hyperlipidemia, diabetes, hypothyroidism, who presented initially with complaints of weakness and cough. The patient was found to be COVID-19 positive and initially had required only one liter nasal cannula oxygen supplementation. She was febrile initially. However, her procalcitonin was negative. Her initial chest x-ray did show evidence of some pleural parenchymal opacity in the left lower lobe but patient was monitored off of antibiotics. She continued to have fever during the course of her stay over the next few days as well as increasing hypoxia with increased oxygen requirements. She also reportedly complained of increased cough and congestion. Overnight, the patient appeared to have worsening hypoxia and required placement of a high-flow nasal cannula oxygen supplementation with Vapotherm. Her repeat imaging done with a chest x-ray showed some increased hazy opacity particularly in the right upper lobe with suggestion of air bronchograms. There are also some increased interstitial markings and she initially did have evidence of some mild pulmonary vascular congestion. There is also a persistent pleural parenchymal opacity in the left lower lobe as well. The patient's procalcitonin repeat is still negative. However, her inflammatory markers are increasing including her ferritin, CRP as well as D-dimer and fibrinogen. Suspect patient likely has superimposed bacterial pneumonia in addition to her COVID pneumonia. She is on many medications with her history of schizophrenia which can be sedating including benzodiazepine as well as Seroquel and Ambien. With the finding in the right upper lobe, suspect she may have had aspiration event while she was sleeping or lying down overnight which may have also contributed to her worsening hypoxia overnight. Would start broad-spectrum antibiotics particularly with coverage for anaerobic organisms given concern for aspiration with Zosyn. Would get a MRSA screen as well. Would hold some of her sedating medication, particularly the Ambien and consider holding her p.m. dose of Seroquel tonight depending on her mental status. Can continue her other antipsychotic medications with close monitoring and holding if any evidence of altered mental status or lethargy. Would place aspiration precautions with head of bed elevation. Would also start incentive spirometer and also Acapella device as well to help with pulmonary clearance in addition to her bronchodilators that she is currently on. will change albuterol to standing Would continue with nasal cannula oxygen supplementation and wean down as tolerated. Given patient's obesity, would increase her prophylactic Lovenox to weight-based dose at 0.5 mg per kilogram b.i.d. The patient is apparently on Lasix as a home medication. She does have some mild increase in her BNP so would continue to closely monitor and consider increasing her dose of Lasix if evidence of increasing fluid overload, however, would be cautious given likely sepsis with pneumonia currently. Can continue with her home p.o. Lasix for now. Would continue with dexamethasone given her worsening hypoxia 6 mg IV daily for a ten day course. Would continue with remdesivir with close monitoring of LFTs for transaminitis given her other medications. DVT prophylaxis: Lovenox. Code Status: FULL CODE. Please do not hesitate to call if any further questions or concerns. MTDD
--- NOTE | 2020-06-12 15:15 | IPNPDOC ---
Text Note Date of Service The patient was seen on 06/12/20. NOTE Subjective: Patient developed severe hypoxia overnight requiring Vapotherm 25 L 75 % oxygen. Patient continues to have cough and generalized weakness Objective: GENERAL APPEARANCE: In moderate distress HEENT: no scleral icterus, no JVD, EOMI CARDIOVASCULAR: S1S2 LUNGS: Bilateral rhonchi at bases, diminished lung sounds ABDOMEN: soft & not tender w palpitation MUSCULOSKELETAL: no cyanosis, no swelling INTEGUMENT: no generalized palor NEUROLOGICAL: cranial nerve function from 2-12 intact intact, follows commands, speech not dysarthric Assessment/Plan Patient is 74 years old female with past medical history of schizophrenia, osteoarthritis, hyperlipidemia, diabetes, hypothyroidism presented hospital with generalized weakness. Patient stated that she's been having generalized weakness associated with cough about one week ago. Patient had contact with landlord was tested positive for Covid 19. In ER patient was found to have positive test for Covid 19. Oxygen saturation on 1 L of oxygen was 100%. Chest x-ray showed Pleuroparenchymal opacity left base and lateral pleural angle question small focal infiltrate versus is pleural angle blunting Problems Acute hypoxemic respiratory failure Secondary to COVID-19 superimposed with possible bacterial components with possible aspiration Repeated x-ray showed hazy opacity in the right upper lobe with suggestion of air bronchograms and pleural parenchymal opacity in the left lower lobe. There is concern for aspiration. Aspiration precaution Will discontinue Ambien and hold Seroquel daily at bedtime for today Continue Vapotherm Continue IV steroids Sepsis Secondary to COVID-19 Patient has tachycardia, fever, dyspnea and elevated inflammatory markers Lovenox 45 mg twice a day COVID-19 See above COPD (chronic obstructive pulmonary disease) exacerbation/ HCAP Secondary to COVID-19 superimposed with bacterial component Continue inhalers Incentive spirometry Dr. Payton recommended to start Vancomycin IV, Zosyn IV, however procalcitonin remains negative. continue Remdesevir, will monitor LFT MRSA screen negative, DC vancomycin IV DM (diabetes mellitus), type 2 Diabetes diet Levemir Insulin sliding scale HTN (hypertension) Continue home cardioprotective medications Schizoaffective disorder Continue home meds Not psychotic Hypothyroidism, iatrogenic Continue Synthroid Intermittent cough Robitussin VS,Fishbone, I+O VS, Fishbone, I+O Laboratory Tests 06/12/20 06:00 06/12/20 06:01 Vital Signs Date Time Temp Pulse Resp B/P (MAP) Pulse Ox O2 Delivery O2 Flow Rate FiO2 06/12/20 14:11 91 HVNI-Vapotherm 40.0 80 06/12/20 12:30 96.0 80 20 107/63 (78) I&O- Last 24 Hours up to 6 AM 06/12/20 06:00 Intake Total 360 ml Output Total 0 ml Balance 360 ml BRIAN LUNA DO Jun 12, 2020 15:15
[2020-06-12] MEDS: QUEtiapine FUMARATE **XR** 200MG TABLET PO SCH (20:31)
[2020-06-12] MEDS: guaiFENesin SYRUP 200 MG/10 ML UDC PO PRN (21:17)
[2020-06-12] MEDS: ATORVASTATIN 20 MG TAB PO SCH (21:19)
[2020-06-12] MEDS: clonazePAM 1 MG TAB PO SCH (21:19)
[2020-06-12] MEDS: ENOXAPARIN 60MG/0.6ML SYRINGE (J1650 PER 10MG) SC SCH (21:23)
[2020-06-13] VITALS (44 sets, daily range): BP systolic 83–142; BP diastolic 37–97; O2SAT 93–97
[2020-06-13] MEDS: ALBUTEROL 90 MCG/ACT 8GM HFA INHALER INH SCH ×2 (00:10→04:10)
[2020-06-13] MEDS ORDERED: BENZONATATE 100 MG CAP PO ONE (02:30)
[2020-06-13 02:31] LABS: ABG BASE EXCESS 2.6 (-2.0-2.0); ABG O2 SATURATION 90.6 % (95.0-99.0); ABG PARTIAL PRESSURE CO2 40.9 mmHg (35.0-45.0); ABG PARTIAL PRESSURE O2 60.6 mmHg (75.0-100.0); ABG STANDARD HCO3 26.7 MEQ/L (22.0-26.0); ABG TOTAL CO2 28.3 MEQ/L (23.0-31.0); ABG pH (ARTERIAL) 7.438 UNITS (7.350-7.450)
[2020-06-13] MEDS: COMBIVENT RESPIMAT 100-20MCG INHALER 4GM INH SCH ×7 (02:38→20:05)
[2020-06-13] MEDS: PIPERACILLIN/TAZOBACTAM SOD 3.375 GM in D5W MINI-BAG PLUS 50 ML IV SCH ×4 (02:38→21:05)
[2020-06-13 03:01] LABS: BASO % 0.2 % (0.0-1.0); HEMATOCRIT 31.2 % (36.0-47.0); HEMOGLOBIN 9.9 g/dl (12.0-15.5); LYMPH # 1.1 10^3/uL (1.5-5.0); LYMPH % 8.5 % (24.0-44.0); MEAN CORPUSCULAR HEMOGLOBIN 30.8 pg (27.0-33.0); MEAN CORPUSCULAR HGB CONC 31.7 g/dl (32.0-36.5); MEAN CORPUSCULAR VOLUME 97.2 fl (80.0-96.0); MONO # 0.7 10^3/uL (0.0-0.8); MONO % 5.9 % (0.0-5.0); NEUTROPHILS # 10.3 10^3/uL (1.5-8.5); NEUTROPHILS % 83.5 % (36.0-66.0); PLATELET COUNT, AUTOMATED 264 10^3/uL (150-450); RED BLOOD COUNT 3.21 10^6/uL (4.00-5.40); WHITE BLOOD COUNT 12.4 10^3/uL (4.0-10.0)
[2020-06-13 03:18] LABS: PROTHROMBIN TIME 13.4 SECONDS (12.5-14.3)
[2020-06-13 03:19] LABS: PARTIAL THROMBOPLASTIN TIME 29.7 SECONDS (24.2-38.5)
[2020-06-13 03:40] LABS: ALBUMIN 2.9 GM/DL (3.2-5.2); ALT/SGPT 26 U/L (12-78); BILIRUBIN,DIRECT < 0.1 MG/DL (0.0-0.2); BILIRUBIN,TOTAL 0.2 MG/DL (0.2-1.0); BLOOD UREA NITROGEN 25 MG/DL (7-18); CALCIUM LEVEL 9.6 MG/DL (8.8-10.2); CARBON DIOXIDE LEVEL 30 MEQ/L (21-32); CHLORIDE LEVEL 102 MEQ/L (98-107); CREATININE FOR GFR 1.01 MG/DL (0.55-1.30); FERRITIN 317 NG/ML (8-252); GLOMERULAR FILTRATION RATE 57.2 (>39); GLUCOSE, FASTING 110 MG/DL (70-100); MAGNESIUM LEVEL 1.9 MG/DL (1.8-2.4); NT-PRO BNP 695 PG/ML (<125); SODIUM LEVEL 137 MEQ/L (136-145); TOTAL PROTEIN 7.1 GM/DL (6.4-8.2)
[2020-06-13] MEDS ORDERED: hydrOXYzine 25 MG TAB PO ONE (03:45)
[2020-06-13] MEDS ORDERED: FUROSEMIDE 40MG/4ML VIAL (J1940) IV ONE (03:45)
[2020-06-13] MEDS ORDERED: ACETAMINOPHEN *IV* 1,000 MG in IV 1 EA IV ONE (04:30)
[2020-06-13 04:42] LABS: ABG BASE EXCESS 2.9 (-2.0-2.0); ABG HCO3 28.1 MEQ/L (22.0-26.0); ABG O2 SATURATION 98.7 % (95.0-99.0); ABG PARTIAL PRESSURE CO2 45.6 mmHg (35.0-45.0); ABG PARTIAL PRESSURE O2 147.8 mmHg (75.0-100.0); ABG STANDARD HCO3 27.1 MEQ/L (22.0-26.0); ABG TOTAL CO2 29.5 MEQ/L (23.0-31.0); ABG pH (ARTERIAL) 7.407 UNITS (7.350-7.450)
[2020-06-13] MEDS: LEVOTHYROXINE 137MCG TABLET (0.137MG) PO SCH (06:00)
[2020-06-13 06:12] LABS: HEMATOCRIT 28.7 % (36.0-47.0); HEMOGLOBIN 9.3 g/dl (12.0-15.5); MEAN CORPUSCULAR HEMOGLOBIN 31.2 pg (27.0-33.0); MEAN CORPUSCULAR HGB CONC 32.4 g/dl (32.0-36.5); MEAN CORPUSCULAR VOLUME 96.3 fl (80.0-96.0); PLATELET COUNT, AUTOMATED 254 10^3/uL (150-450); RED BLOOD COUNT 2.98 10^6/uL (4.00-5.40); WHITE BLOOD COUNT 10.1 10^3/uL (4.0-10.0)
[2020-06-13] MEDS ORDERED: NS 1,000 ML IV SCH ×2 (06:15→11:18)
[2020-06-13] MEDS: SODIUM CHLORIDE 0.9% INJ 10 ML SYR IV SCH (06:42)
[2020-06-13] MEDS ORDERED: SODIUM CHLORIDE 0.9% 1000ML IV ONE (06:45)
[2020-06-13] MEDS: LEVEMIR (INSULIN DETEMIR) 1 UNITS/0.01ML SC SCH (08:58)
[2020-06-13] MEDS: HumaLOG INSULIN (NovoLOG) PER UNIT SC SCH ×4 (08:59→20:31)
[2020-06-13] MEDS: MULTIVITAMINS/MINERALS THERAP 1 TAB PO SCH (09:00)
[2020-06-13] MEDS: DOCUSATE SODIUM 100MG CAPSULE PO SCH ×2 (09:00→18:00)
[2020-06-13] MEDS: ULTRACET TAB PO SCH ×3 (09:00→20:28)
[2020-06-13] MEDS: CALCIUM CARBONATE 500 MG CHEW U/D PO SCH (09:00)
[2020-06-13] MEDS: ZIPRASIDONE 80 MG CAP (GEODON) PO SCH ×2 (09:00→18:00)
[2020-06-13] MEDS: DONEPEZIL 5 MG TAB PO SCH (09:00)
[2020-06-13] MEDS: dexameTHASONE 4 MG/ML 1ML VIAL (J1100 PER 1MG) IV SCH (09:01)
[2020-06-13] MEDS: ENOXAPARIN 60MG/0.6ML SYRINGE (J1650 PER 10MG) SC SCH ×2 (09:09→21:05)
[2020-06-13] MEDS ORDERED: VANCOMYCIN HCL 1,000 MG, VIAL MATE ADAPTER 1 EACH in D5W 250 ML IV SCH (10:00)
[2020-06-13] MEDS ORDERED: VANCOMYCIN HCL 500 MG in D5W MINI-BAG PLUS 100 ML IV SCH (11:00)
--- NOTE | 2020-06-13 11:32 | IPNPDOC ---
Text Note Date of Service The patient was seen on 06/13/20. NOTE Subjective: Patient continues to have high oxygen requirements. Patient was t ransferred to ICU overnight. Patient continues to have cough and generalized weakness Objective: GENERAL APPEARANCE: In moderate distress HEENT: no scleral icterus, no JVD, EOMI CARDIOVASCULAR: S1S2 LUNGS: Bilateral rhonchi at bases, diminished lung sounds ABDOMEN: soft & not tender w palpitation MUSCULOSKELETAL: no cyanosis, no swelling INTEGUMENT: no generalized palor NEUROLOGICAL: cranial nerve function from 2-12 intact intact, follows commands, speech not dysarthric Assessment/Plan Patient is 74 years old female with past medical history of schizophrenia, osteoarthritis, hyperlipidemia, diabetes, hypothyroidism presented hospital with generalized weakness. Patient stated that she's been having generalized weakness associated with cough about one week ago. Patient had contact with landlord was tested positive for Covid 19. In ER patient was found to have positive test for Covid 19. Oxygen saturation on 1 L of oxygen was 100%. Chest x-ray showed Pleuroparenchymal opacity left base and lateral pleural angle question small focal infiltrate versus is pleural angle blunting Problems Acute hypoxemic respiratory failure Secondary to COVID-19 superimposed with possible bacterial components with possible aspiration Repeated x-ray showed hazy opacity in the right upper lobe with suggestion of air bronchograms and pleural parenchymal opacity in the left lower lobe. There is concern for aspiration. Aspiration precaution Prone position Sepsis Secondary to COVID-19 Patient has tachycardia, fever, dyspnea and elevated inflammatory markers Lovenox 45 mg twice a day COVID-19 See above COPD (chronic obstructive pulmonary disease) exacerbation/ HCAP Secondary to COVID-19 superimposed with bacterial component Continue inhalers Incentive spirometry Dr. Payton recommended to start Vancomycin IV, Zosyn IV, however procalcitonin remains negative. continue Remdesevir, will monitor LFT MRSA screen negative, DC vancomycin IV DM (diabetes mellitus), type 2 Diabetes diet Levemir Insulin sliding scale HTN (hypertension) Continue home cardioprotective medications Schizoaffective disorder Not psychotic for now Hypothyroidism, iatrogenic Continue Synthroid Intermittent cough Robitussin VS,Fishbone, I+O VS, Fishbone, I+O Laboratory Tests 06/13/20 02:50 06/13/20 05:57 Vital Signs Date Time Temp Pulse Resp B/P (MAP) Pulse Ox O2 Delivery O2 Flow Rate FiO2 06/13/20 09:45 74 107/54 (71) 99 NIPPV (BIPAP/CPAP) 80 06/13/20 09:00 99.0 06/13/20 07:40 34 06/13/20 00:12 40.0 I&O- Last 24 Hours up to 6 AM 06/13/20 06:00 Intake Total 1680 ml Output Total 350 ml Balance 1330 ml BRIAN LUNA DO Jun 13, 2020 11:32
[2020-06-13] MEDS: CANDESARTAN 16 MG TABLET PO SCH (11:33)
[2020-06-13] MEDS: FIBER-CON 625 MG TAB PO SCH ×2 (11:33→20:26)
[2020-06-13] MEDS: SENNA 8.6 MG TAB (SENOKOT) PO SCH ×2 (11:34→20:28)
[2020-06-13] MEDS: lamoTRIgine 100MG TAB PO SCH (12:00)
[2020-06-13] MEDS: BENZONATATE 100 MG CAP PO SCH ×2 (13:15→21:39)
[2020-06-13] MEDS: NS 1,000 ML IV SCH (13:20)
--- NOTE | 2020-06-13 13:29 | CCN ---
CRITICAL CARE NOTE DATE: 06/13/2020 SUBJECTIVE: Patient was seen and examined this morning during bedside rounds. Overnight on the Vapotherm, patient had episodes of desaturation in the setting of increased coughing fits. While she had these episodes, she did also appear to have a poor waveform on her SpO2 monitor so there was question on the accuracy of her documented O2 sat. She did have an ABG while on Vapotherm, and she was increased to 100% FiO2 overnight. Patient was placed afterwards on CPAP as well as transferred to the ICU for further monitoring. Yesterday patient had difficulty complying with being prone as well as not using her incentive spirometer. She was started on the antibiotics as well as the steroids and Remdesivir yesterday. Overnight she did have a fever with a T-max of 102.5. This morning after being given cough medication as well as Tessalon Perles and bronchodilator, and she states her cough has improved. The patient was also given Lasix 40 mg IV overnight. This morning she had some hypotension and was given fluid bolus and started on normal saline maintenance fluids. On the CPAP and while prone, her oxygenation has also improved, and she was able to be weaned down to 50% FiO2. She does have some tachypnea still and some shortness of breath that she reports. She has also been complaining of some more back pain as well. PHYSICAL EXAMINATION: Vitals: Temperature: T-max 102.5, T-current 100.9. Pulse 81, respirations 38, blood pressure 86/41, O2 sat 97% on 50% FiO2. Ins 1.4 liters, out 2.1 liters. General: Patient is an obese female. Is lying prone in the bed. She is tachypneic and using some accessory muscles for respiration but is able to speak in short sentences and is responding appropriately. HEENT: Limited as she is prone. Pupils appear reactive, and there are moist mucous membranes noted. Unable to evaluate her neck. Cardiovascular: Limited exam as she is prone. Pulmonary: There are diminished breath sounds bilaterally. No wheezes noted. No rhonchi. Few minimal crackles. Abdomen: Unable to evaluate as she is lying prone. Lower extremities: There is no significant lower extremity pitting edema bilaterally. LABORATORY DATA: WBC 10.1, hemoglobin 9.3, platelets 254. Chemistries: Sodium 137, potassium 5.0, chloride 102, bicarb 30, BUN 25, creatinine 1.01, glucose 110. Ferritin is 317. Magnesium 1.9. AST 35, ALT 26. Albumin 2.9. Troponins are negative. Fibrinogen 658. INR 1.00. ABG early this morning on Vapotherm was pH 7.407, pCO2 45.6, pO2 147.8. ASSESSMENT AND PLAN: Ms. Keyes is a 74-year-old female with a past medical history of schizophrenia, hyperlipidemia, diabetes, and hypothyroidism who presented initially with complaints of weakness and cough. Patient was found to be COVID-19 positive and initially was only mildly hypoxemic with requiring just 1 liter nasal cannula oxygen supplementation. Patient during her stay had continued fevers, and her initial chest x-ray showed pleuroparenchymal opacity of the left lower lobe as well as some increased pulmonary vascular congestion markings. She continued to have persistent fevers as well as worsening hypoxia and increased oxygen requirements. Her repeat imaging showed some increased hazy opacity particularly in the right upper lobe with suggestion of air bronchograms as well as increased interstitial markings. There was also a persistent pleuroparenchymal opacity in the left lower lobe as well. Patient also had increasing inflammatory markers including her CRP and ferritin as well as D-dimer. Patient was thought to have superimposed bacterial pneumonia in addition to her COVID-19 pneumonia and likely had some episodes of aspiration given that she is on multiple sedating medication with her psychiatric history as well as on chronic pain medication. - Patient was started on broad spectrum antibiotics with Zosyn. Patient did receive one dose of vancomycin, but her MRSA screen was negative, and vancomycin was discontinued. If she does have persistent fevers, would consider broadening antibiotics again with the vancomycin in addition to the Zosyn. For now, would continue with Zosyn for broad spectrum including anaerobic organisms. - Patient will also continue with dexamethasone 6mg daily given her worsening hypoxemic respiratory failure as well as Remdesivir with monitoring of LFTs. - Would continue to encourage patient to be prone with cycles of minimum one hour prone and then two hours supine for 6-8 times a day while awake. - Patient can continue with CPAP while supine and QHS and give breaks to Vapotherm as needed during the day. When she is prone, would change her to Vapotherm. On CPAP she is at 15 cm of water and would continue to wean down her FiO2 on CPAP and Vapotherm to maintain O2 sat above 90% with a good waveform. - While she is on Vapotherm would continue incentive spirometer as well and Acapella device. - Will continue with bronchodilators. She was added ipratropium to her albuterol that she was on already. - Patient was on p.o. Lasix and overnight was given a dose of IV Lasix. She was then given a bolus of fluid for hypotension. Would discontinue her ARB that she is on currently and hold further doses of Lasix and hold her IV maintenance fluids. If she has hypotension, would then give p.r.n. fluid boluses as needed. - Will discontinue her potassium chloride supplementation as she is hyperkalemic today on labs. Her ARB will also be discontinued, and her Lasix will continue to be held for now. She is having good urine output in the [place] currently. will cont to monitor I/O and renal function - Would continue with Lovenox at the higher weight based dose at 0.5 mg/kg b.i.d. If her D-dimer continues to increase, would consider empiric anticoagulation with full dose Lovenox. CODE STATUS: Full code. Total critical care time spent not including procedures approximately 45 minutes. MTDD
[2020-06-13] MEDS: MORPHINE 2 MG/ML 1ML VIAL (J2270) IV PRN (15:11)
[2020-06-13] MEDS: clonazePAM 1 MG TAB PO SCH (20:26)
[2020-06-13] MEDS: QUEtiapine FUMARATE **XR** 200MG TABLET PO SCH (20:26)
[2020-06-13] MEDS: ATORVASTATIN 20 MG TAB PO SCH (20:28)
[2020-06-13] MEDS ORDERED: ZIPRASIDONE 80 MG CAP (GEODON) PO ONE (21:45)
[2020-06-13] MEDS ORDERED: lamoTRIgine 100MG TAB PO ONE (21:45)
[2020-06-14] VITALS (21 sets, daily range): BP systolic 97–128; BP diastolic 49–93; O2SAT 90–96
[2020-06-14] MEDS: MORPHINE 2 MG/ML 1ML VIAL (J2270) IV PRN ×3 (00:22→08:58)
[2020-06-14] MEDS: COMBIVENT RESPIMAT 100-20MCG INHALER 4GM INH SCH ×6 (00:46→20:02)
[2020-06-14 01:34] LABS: CK-MB VALUE MASS < 1.0 NG/ML (<3.6); CPK CREATINE PHOSPHOKINASE 94 U/L (26-192); MB/CK RELATIVE INDEX 1.06 (< OR =4); TROPONIN I < 0.02 NG/ML (< 0.10)
[2020-06-14] MEDS: BENZONATATE 100 MG CAP PO SCH ×3 (02:14→21:51)
[2020-06-14] MEDS: guaiFENesin/CODEINE SYRUP 5 ML UDC PO PRN (02:14)
[2020-06-14] MEDS: PIPERACILLIN/TAZOBACTAM SOD 3.375 GM in D5W MINI-BAG PLUS 50 ML IV SCH ×4 (03:19→20:12)
[2020-06-14 05:15] LABS: BASO % 0.3 % (0.0-1.0); EOS % 0.1 % (0.0-3.0); HEMATOCRIT 26.8 % (36.0-47.0); HEMOGLOBIN 8.3 g/dl (12.0-15.5); LYMPH # 1.3 10^3/uL (1.5-5.0); LYMPH % 12.6 % (24.0-44.0); MEAN CORPUSCULAR HEMOGLOBIN 30.2 pg (27.0-33.0); MEAN CORPUSCULAR VOLUME 97.5 fl (80.0-96.0); MONO # 0.7 10^3/uL (0.0-0.8); MONO % 6.9 % (0.0-5.0); NEUTROPHILS # 8.2 10^3/uL (1.5-8.5); NEUTROPHILS % 78.4 % (36.0-66.0); PLATELET COUNT, AUTOMATED 282 10^3/uL (150-450); RED BLOOD COUNT 2.75 10^6/uL (4.00-5.40); WHITE BLOOD COUNT 10.4 10^3/uL (4.0-10.0)
[2020-06-14 05:26] LABS: INR 1.12; PROTHROMBIN TIME 14.7 SECONDS (12.5-14.3)
[2020-06-14 05:27] LABS: PARTIAL THROMBOPLASTIN TIME 38.1 SECONDS (24.2-38.5)
[2020-06-14 05:39] LABS: ALBUMIN 2.4 GM/DL (3.2-5.2); BILIRUBIN,DIRECT 0.1 MG/DL (0.0-0.2); BILIRUBIN,TOTAL 0.3 MG/DL (0.2-1.0); CALCIUM LEVEL 8.2 MG/DL (8.8-10.2); GLOMERULAR FILTRATION RATE 57.9 (>39); MAGNESIUM LEVEL 2.1 MG/DL (1.8-2.4); POTASSIUM SERUM 4.3 MEQ/L (3.5-5.1); TOTAL PROTEIN 6.1 GM/DL (6.4-8.2)
[2020-06-14] MEDS ORDERED: LEVOTHYROXINE 100MCG (0.1MG) VIAL IV SCH (06:00)
[2020-06-14 08:19] LABS: D-DIMER QUANT 1594.56 ng/ml (<500)
[2020-06-14] MEDS: ZIPRASIDONE 80 MG CAP (GEODON) PO SCH ×2 (08:20→17:40)
[2020-06-14] MEDS: CALCIUM CARBONATE 500 MG CHEW U/D PO SCH (08:21)
[2020-06-14] MEDS: DONEPEZIL 5 MG TAB PO SCH (08:21)
[2020-06-14] MEDS: ULTRACET TAB PO SCH ×3 (08:23→19:42)
[2020-06-14] MEDS: DOCUSATE SODIUM 100MG CAPSULE PO SCH ×2 (08:24→17:40)
[2020-06-14] MEDS: MULTIVITAMINS/MINERALS THERAP 1 TAB PO SCH (08:24)
[2020-06-14] MEDS: SODIUM CHLORIDE 0.9% INJ 10 ML SYR IV SCH (08:25)
[2020-06-14] MEDS: guaiFENesin SYRUP 200 MG/10 ML UDC PO PRN (08:25)
[2020-06-14] MEDS: ENOXAPARIN 60MG/0.6ML SYRINGE (J1650 PER 10MG) SC SCH (08:25)
[2020-06-14] MEDS: LEVOTHYROXINE 137MCG TABLET (0.137MG) PO SCH (08:28)
[2020-06-14] MEDS: FUROSEMIDE 20MG/2ML VIAL (J1940) IV SCH ×2 (08:59→17:40)
[2020-06-14] MEDS: lamoTRIgine 100MG TAB PO SCH (10:32)
[2020-06-14] MEDS: FIBER-CON 625 MG TAB PO SCH ×2 (10:33→19:40)
[2020-06-14] MEDS: SENNA 8.6 MG TAB (SENOKOT) PO SCH ×2 (10:33→19:41)
--- NOTE | 2020-06-14 10:38 | IPNPDOC ---
Text Note Date of Service The patient was seen on 06/14/20. NOTE Subjective: Patient doing better today, she states that her breathing improved. No fever overnight Objective: GENERAL APPEARANCE: In moderate distress HEENT: no scleral icterus, no JVD, EOMI CARDIOVASCULAR: S1S2 LUNGS: Bilateral rhonchi at bases, diminished lung sounds ABDOMEN: soft & not tender w palpitation MUSCULOSKELETAL: no cyanosis, no swelling INTEGUMENT: no generalized pallor NEUROLOGICAL: cranial nerve function from 2-12 intact intact, follows commands, speech not dysarthric Assessment/Plan Patient is 74 years old female with past medical history of schizophrenia, osteoarthritis, hyperlipidemia, diabetes, hypothyroidism presented hospital with generalized weakness. Patient stated that she's been having generalized weakness associated with cough about one week ago. Patient had contact with landlord was tested positive for Covid 19. In ER patient was found to have positive test for Covid 19. Oxygen saturation on 1 L of oxygen was 100%. Chest x-ray showed Pleuroparenchymal opacity left base and lateral pleural angle question small focal infiltrate versus is pleural angle blunting Problems Acute hypoxemic respiratory failure Secondary to COVID-19 superimposed with possible bacterial components with possible aspiration Repeated x-ray showed hazy opacity in the right upper lobe with suggestion of air bronchograms and pleural parenchymal opacity in the left lower lobe. There is concern for aspiration. Aspiration precaution Encourage patient for Prone position Continue CPAP daily at bedtime and Vapotherm in the daytime Continue incentive spirometry Sepsis Secondary to COVID-19 Patient has tachycardia, fever, dyspnea and elevated inflammatory markers Lovenox 45 mg twice a day. I will discuss therapeutic dose with Dr Payton, d- dimer continues increasing. COVID-19 See above COPD (chronic obstructive pulmonary disease) exacerbation/ HCAP Secondary to COVID-19 superimposed with bacterial component Continue inhalers Incentive spirometry Dr. Payton recommended to start Vancomycin IV, Zosyn IV, however procalcitonin remains negative. continue Remdesevir, will monitor LFT. LFT function unremarkable MRSA screen negative, DC vancomycin IV DM (diabetes mellitus), type 2 Diabetes diet Levemir Insulin sliding scale HTN (hypertension) Continue home cardioprotective medications Schizoaffective disorder Not psychotic for now Hypothyroidism, iatrogenic Continue Synthroid Intermittent cough Robitussin VS,Fishbone, I+O VS, Fishbone, I+O Laboratory Tests 06/14/20 04:51 Vital Signs Date Time Temp Pulse Resp B/P (MAP) Pulse Ox O2 Delivery O2 Flow Rate FiO2 06/14/20 09:08 99.3 75 24 128/60 88 HVNI-Vapotherm 40.0 95 I&O- Last 24 Hours up to 6 AM 06/14/20 06:00 Intake Total 965 ml Output Total 2335 ml Balance -1370 ml BRIAN LUNA DO Jun 14, 2020 10:38
[2020-06-14] MEDS: NS 1,000 ML IV SCH (14:34)
[2020-06-14] MEDS: clonazePAM 1 MG TAB PO SCH (19:40)
[2020-06-14] MEDS: ATORVASTATIN 20 MG TAB PO SCH (19:41)
[2020-06-14] MEDS: QUEtiapine FUMARATE **XR** 200MG TABLET PO SCH (19:41)
[2020-06-14] MEDS: LEVEMIR (INSULIN DETEMIR) 1 UNITS/0.01ML SC SCH (20:11)
[2020-06-14] MEDS: ENOXAPARIN 100MG/1ML SYRINGE (J1650 PER 10MG) SC SCH (20:11)
[2020-06-15] VITALS (25 sets, daily range): BP systolic 92–131; BP diastolic 43–58; O2SAT 83–97
[2020-06-15] MEDS: COMBIVENT RESPIMAT 100-20MCG INHALER 4GM INH SCH ×6 (00:26→19:38)
[2020-06-15] MEDS: ACETAMINOPHEN TAB 650MG DOSE (2X325MG) PO PRN (00:55)
[2020-06-15] MEDS: PIPERACILLIN/TAZOBACTAM SOD 3.375 GM in D5W MINI-BAG PLUS 50 ML IV SCH ×4 (02:34→20:50)
[2020-06-15 05:18] LABS: HEMATOCRIT 27.9 % (36.0-47.0); HEMOGLOBIN 8.9 g/dl (12.0-15.5); MEAN CORPUSCULAR HEMOGLOBIN 30.8 pg (27.0-33.0); MEAN CORPUSCULAR HGB CONC 31.9 g/dl (32.0-36.5); MEAN CORPUSCULAR VOLUME 96.5 fl (80.0-96.0); PLATELET COUNT, AUTOMATED 302 10^3/uL (150-450); RED BLOOD COUNT 2.89 10^6/uL (4.00-5.40)
[2020-06-15 05:29] LABS: INR 1.19; PROTHROMBIN TIME 15.4 SECONDS (12.5-14.3)
[2020-06-15 05:30] LABS: PARTIAL THROMBOPLASTIN TIME 41.5 SECONDS (24.2-38.5)
[2020-06-15] MEDS: BENZONATATE 100 MG CAP PO SCH ×3 (05:38→20:21)
[2020-06-15] MEDS: LEVOTHYROXINE 137MCG TABLET (0.137MG) PO SCH (05:38)
[2020-06-15 05:57] LABS: ALBUMIN 2.4 GM/DL (3.2-5.2); BILIRUBIN,DIRECT 0.2 MG/DL (0.0-0.2); BILIRUBIN,TOTAL 0.4 MG/DL (0.2-1.0); CALCIUM LEVEL 8.3 MG/DL (8.8-10.2); CREATININE FOR GFR 1.13 MG/DL (0.55-1.30); GLOMERULAR FILTRATION RATE 50.2 (>39); TOTAL PROTEIN 5.9 GM/DL (6.4-8.2)
[2020-06-15] MEDS: SODIUM CHLORIDE 0.9% INJ 10 ML SYR IV SCH (06:21)
[2020-06-15] MEDS: FUROSEMIDE 20MG/2ML VIAL (J1940) IV SCH ×2 (08:32→15:58)
[2020-06-15] MEDS: CALCIUM CARBONATE 500 MG CHEW U/D PO SCH (08:33)
[2020-06-15] MEDS: DOCUSATE SODIUM 100MG CAPSULE PO SCH ×2 (08:33→18:15)
[2020-06-15] MEDS: ENOXAPARIN 100MG/1ML SYRINGE (J1650 PER 10MG) SC SCH ×2 (08:33→20:22)
[2020-06-15] MEDS: MULTIVITAMINS/MINERALS THERAP 1 TAB PO SCH (08:33)
[2020-06-15] MEDS: ULTRACET TAB PO SCH ×3 (08:34→20:21)
[2020-06-15] MEDS: ZIPRASIDONE 80 MG CAP (GEODON) PO SCH ×2 (08:35→18:16)
[2020-06-15] MEDS: DONEPEZIL 5 MG TAB PO SCH (08:35)
[2020-06-15] MEDS: LEVEMIR (INSULIN DETEMIR) 1 UNITS/0.01ML SC SCH ×2 (09:00→20:23)
[2020-06-15 09:32] LABS: D-DIMER QUANT 2222.13 ng/ml (<500)
[2020-06-15] MEDS: MORPHINE 2 MG/ML 1ML VIAL (J2270) IV PRN (10:20)
--- NOTE | 2020-06-15 11:02 | IPNPDOC ---
Text Note Date of Service The patient was seen on 06/15/20. NOTE Subjective: No any acute events overnight. Patient stated that she feels unc omfortable in the prone position. Objective: GENERAL APPEARANCE: In moderate distress HEENT: no scleral icterus, no JVD, EOMI CARDIOVASCULAR: S1S2 LUNGS: Bilateral rhonchi at bases, diminished lung sounds ABDOMEN: soft & not tender w palpitation MUSCULOSKELETAL: no cyanosis, no swelling INTEGUMENT: no generalized pallor NEUROLOGICAL: cranial nerve function from 2-12 intact intact, follows commands, speech not dysarthric Assessment/Plan Patient is 74 years old female with past medical history of schizophrenia, osteoarthritis, hyperlipidemia, diabetes, hypothyroidism presented hospital with generalized weakness. Patient stated that she's been having generalized weakness associated with cough about one week ago. Patient had contact with landlord was tested positive for Covid 19. In ER patient was found to have positive test for Covid 19. Oxygen saturation on 1 L of oxygen was 100%. Chest x-ray showed Pleuroparenchymal opacity left base and lateral pleural angle question small focal infiltrate versus is pleural angle blunting Problems Acute hypoxemic respiratory failure Secondary to COVID-19 superimposed with possible bacterial components with possible aspiration Repeated x-ray showed hazy opacity in the right upper lobe with suggestion of air bronchograms and pleural parenchymal opacity in the left lower lobe. There is concern for aspiration. Aspiration precaution Encourage patient for Prone position Continue CPAP daily at bedtime and Vapotherm in the daytime Continue incentive spirometry Encourage patient for prone position Sepsis Secondary to COVID-19 Patient has tachycardia, fever, dyspnea and elevated inflammatory markers Lovenox therapeutic dose Inflammatory markers continues to rise COVID-19 See above COPD (chronic obstructive pulmonary disease) exacerbation/ HCAP Secondary to COVID-19 superimposed with bacterial component Continue inhalers Incentive spirometry Dr. Payton recommended to start Vancomycin IV, Zosyn IV, however procalcitonin remains negative. continue Remdesevir, will monitor LFT. LFT function unremarkable MRSA screen negative, DC vancomycin IV DM (diabetes mellitus), type 2 Diabetes diet Levemir Insulin sliding scale HTN (hypertension) Continue home cardioprotective medications Schizoaffective disorder Not psychotic for now Hypothyroidism, iatrogenic Continue Synthroid Intermittent cough Robitussin VS,Fishbone, I+O VS, Fishbone, I+O Laboratory Tests 06/15/20 05:07 Vital Signs Date Time Temp Pulse Resp B/P (MAP) Pulse Ox O2 Delivery O2 Flow Rate FiO2 06/15/20 10:20 24 HVNI-Vapotherm 40.0 100 06/15/20 09:00 72 107/51 (69) 88 06/15/20 08:00 99.0 I&O- Last 24 Hours up to 6 AM 06/15/20 06:00 Intake Total 1285 ml Output Total 2400 ml Balance -1115 ml BRIAN LUNA DO Jun 15, 2020 11:02
--- NOTE | 2020-06-15 11:22 | CCN ---
CRITICAL CARE NOTE DATE: 06/15/2020 SUBJECTIVE: The patient was seen and examined this morning during bedside rounds. Yesterday during the day, the patient had done well on Vapotherm alternating with CPAP during the day. She had been down to 65% on the CPAP during the day, particularly when prone. On the Vapotherm, she does require more oxygen supplementation, but she was able to take her pills and swallow with no difficulty. Overnight, the patient had difficulty with proning and had only been prone for approximately 30 minutes overnight. She was supine for almost the entirety of the night and did require FiO2 on her CPAP up to 75% or 80% FiO2. This morning, she was on 75% FiO2 on the CPAP, but was able to be taken off to Vapotherm in the morning and she did tolerate proning this morning. She does need a lot of encouragement to continue with proning. She complains of back pain, which limits some of her proning. She does have morphine p.r.n., as well as Ultracet for pain medication. Overnight, the patient did not have any fevers. She does continue to have some occasional cough, although productive of clear mucous. OBJECTIVE: VITAL SIGNS: Temperature 99.5, pulse 69, respirations 25, blood pressure 107/54, O2 saturation 93% to 95% on CPAP at 75% FiO2. INTAKE/OUTPUT: In 1.3, out 2 liters, net negative 685 mL. GENERAL: The patient is an obese female who is lying prone in the bed currently. She appears comfortable. She is answering questions appropriately and does not appear to be using accessory muscles for aspiration. HEENT: Limited as the patient is prone. Her pupils appear small, but reactive. There are moist mucous membranes noted. NECK: Unable to evaluate her neck. CARDIOVASCULAR: Limited exam as she is prone. PULMONARY: She has generalized diminished breath sounds bilaterally with no wheezes, rales, or rhonchi appreciated. ABDOMEN: Unable to evaluate as she is lying prone. EXTREMITIES: She does not have any calf tenderness bilaterally and no significant lower extremity edema noted currently. LABORATORY DATA: WBC 10.0, hemoglobin 8.9, platelets 302,000. Chemistries: Sodium 140, potassium 4.0, chloride 102, bicarb 31, BUN 31, creatinine 1.13, glucose 158, calcium 8.3, ferritin 281, AST and ALT 33 and 18, alkaline phosphatase 86, albumin 2.4. CRP 22. BNP 286. PTT 41.5. Fibrinogen is 740. D-dimer is 222.13. Procalcitonin 0.12. ASSESSMENT AND PLAN: Ms. Keyes is a 74-year-old female with a history of schizophrenia, hyperlipidemia, diabetes, and hypothyroidism who presented initially with complaints of weakness and cough. The patient was found to be COVID-19 positive and initially was only mildly hypoxemic on admission. During her stay, she had continued fevers and worsening hypoxemic respiratory failure requiring increasing oxygen requirements. Her imaging also showed increased hazy opacity, particularly the right upper lobe, suggestive of air bronchograms, as well as some increased interstitial markings. There was also a persistent pleural parenchymal opacity in the left lower lobe, which was noted as well. The patient was thought to have superimposed bacterial pneumonia in addition to her COVID-19 pneumonia, as well as some possible aspiration as she is on multiple medications that can be sedating with her antipsychotic medication, as well as the chronic pain medication. She was started on broad-spectrum antibiotics and did have defervescence. - The patient is on Zosyn for broad-spectrum antibiotic. Her vancomycin was discontinued as her methicillin-resistant Staphylococcus aureus (MRSA) screen was negative. Would continue with antibiotic for a 7-day course. If she continues to improve clinically with improvement in her CRP, would consider de-escalation; however, would need to closely monitor the antibiotics that she is on given her other medications, which are QTc prolonging. - Continue dexamethasone 6 mg daily for a 10-day course given her hypoxemic respiratory failure. Continue remdesivir as well for a 10-day course. Her LFTs have remained normal. - The patient's oxygenation was improving while she was doing more awake proning during the day. Overnight, she did require increased FiO2 while on CPAP, although she was not proning as she previously was. Will continue the patient to continue with awake proning cycles as much as tolerated and will attempt to transition the patient between Vapotherm particularly while prone and CPAP while supine, and wean down FiO2 as tolerated. - The patient was doing well yesterday on the Vapotherm during the day in terms of swallowing her medications and water. If she is able to tolerate being on the Vapotherm later in the day, would attempt to have her drink some liquids for her diet. - Will continue with incentive spirometer, as well as Acapella device for mucous clearance and with bronchodilators. - Will continue her p.o. Lasix and monitor renal function, ins and outs closely. Her BNP does appear to be improving and her previous trace lower extremity edema appears improved. - The patient's potassium has improved with the discontinuation of her angiotensin receptor clive (ARB) and with her low-dose diuretic. Will continue to monitor her electrolytes. - The patient was started on full dose Lovenox for anticoagulation yesterday, given her increasing D-dimer. Her D-dimer today has mildly increased further, will continue to monitor and cont with full dose Lovenox with close monitoring for signs of bleeding. Her hemoglobin has been trending down during her stay, but this is likely in the setting of her frequent blood draws; as she does not appear to have any acute signs of bleeding currently. CODE STATUS: FULL CODE. Total critical care time spent not including procedures approximately 40 minutes. Please do not hesitate to all for any further questions or concerns. SISI
[2020-06-15] MEDS: FIBER-CON 625 MG TAB PO SCH ×2 (12:26→20:22)
[2020-06-15] MEDS: SENNA 8.6 MG TAB (SENOKOT) PO SCH ×2 (12:26→20:20)
[2020-06-15] MEDS: lamoTRIgine 100MG TAB PO SCH (12:27)
[2020-06-15] MEDS: guaiFENesin/CODEINE SYRUP 5 ML UDC PO PRN (12:49)
[2020-06-15] MEDS: NS 1,000 ML IV SCH (14:02)
[2020-06-15] MEDS: ATORVASTATIN 20 MG TAB PO SCH (20:20)
[2020-06-15] MEDS: QUEtiapine FUMARATE **XR** 200MG TABLET PO SCH (20:21)
[2020-06-15] MEDS: clonazePAM 1 MG TAB PO SCH (20:21)
--- NOTE | 2020-06-15 22:39 | ECGEPIP ---
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 Electronically Signed on 06-15-2020 22:39:34 EST by Emre Robles
[2020-06-16] VITALS (23 sets, daily range): BP systolic 92–139; BP diastolic 46–88
[2020-06-16] MEDS: COMBIVENT RESPIMAT 100-20MCG INHALER 4GM INH SCH ×7 (00:36→23:49)
[2020-06-16 02:08] LABS: ABG BASE EXCESS 7.2 (-2.0-2.0); ABG HCO3 32.4 MEQ/L (22.0-26.0); ABG O2 SATURATION 96.3 % (95.0-99.0); ABG PARTIAL PRESSURE CO2 50.1 mmHg (35.0-45.0); ABG PARTIAL PRESSURE O2 92.1 mmHg (75.0-100.0); ABG pH (ARTERIAL) 7.429 UNITS (7.350-7.450)
[2020-06-16] MEDS: PIPERACILLIN/TAZOBACTAM SOD 3.375 GM in D5W MINI-BAG PLUS 50 ML IV SCH ×4 (03:20→20:16)
--- NOTE | 2020-06-16 03:29 | REPVR ---
PROCEDURE INFORMATION: Exam: XR Chest, 1 View Exam date and time: 06/16/2020 2:51 AM Age: 74 years old Clinical indication: Shortness of breath; Additional info: Decrease spo2 and decreased lung sounds R TECHNIQUE: Imaging protocol: XR of the chest Views: 1 view. COMPARISON: CR PORTABLE CHEST X-RAY 06/12/2020 5:59 AM FINDINGS: Lungs: Patchy bilateral pulmonary infiltrates which are slightly increased overall since the prior study with decreased delineation of the left hemidiaphragm. Pleural space: Unremarkable. No pleural effusion. No pneumothorax. Heart/Mediastinum: The heart and mediastinum are unchanged. Bones/joints: Unremarkable. IMPRESSION: Patchy bilateral pulmonary infiltrates which are slightly increased overall since 06/12/2020, particularly in the left base. Electronically signed by: Terrance Monsalve On 06/16/2020 03:29:30 AM
[2020-06-16 05:17] LABS: HEMATOCRIT 26.8 % (36.0-47.0); HEMOGLOBIN 8.4 g/dl (12.0-15.5); MEAN CORPUSCULAR HEMOGLOBIN 30.3 pg (27.0-33.0); MEAN CORPUSCULAR HGB CONC 31.3 g/dl (32.0-36.5); MEAN CORPUSCULAR VOLUME 96.8 fl (80.0-96.0); PLATELET COUNT, AUTOMATED 324 10^3/uL (150-450); RED BLOOD COUNT 2.77 10^6/uL (4.00-5.40); WHITE BLOOD COUNT 11.1 10^3/uL (4.0-10.0)
[2020-06-16 05:31] LABS: INR 1.18; PROTHROMBIN TIME 15.3 SECONDS (12.5-14.3)
[2020-06-16 05:32] LABS: PARTIAL THROMBOPLASTIN TIME 43.4 SECONDS (24.2-38.5)
[2020-06-16] MEDS: BENZONATATE 100 MG CAP PO SCH ×3 (05:50→20:16)
[2020-06-16] MEDS: LEVOTHYROXINE 137MCG TABLET (0.137MG) PO SCH (05:51)
[2020-06-16] MEDS: SODIUM CHLORIDE 0.9% INJ 10 ML SYR IV SCH (05:51)
[2020-06-16 05:53] LABS: ALBUMIN 2.2 GM/DL (3.2-5.2); BILIRUBIN,DIRECT 0.1 MG/DL (0.0-0.2); BILIRUBIN,TOTAL 0.3 MG/DL (0.2-1.0); CALCIUM LEVEL 8.5 MG/DL (8.8-10.2); CREATININE FOR GFR 1.27 MG/DL (0.55-1.30); GLOMERULAR FILTRATION RATE 43.9 (>39); POTASSIUM SERUM 3.9 MEQ/L (3.5-5.1)
[2020-06-16] MEDS: DOCUSATE SODIUM 100MG CAPSULE PO SCH ×3 (08:00→17:19)
[2020-06-16 08:21] LABS: D-DIMER QUANT 2343.31 ng/ml (<500)
[2020-06-16] MEDS: FUROSEMIDE 20MG/2ML VIAL (J1940) IV SCH ×2 (08:25→17:19)
[2020-06-16] MEDS: ZIPRASIDONE 80 MG CAP (GEODON) PO SCH ×2 (08:25→17:19)
[2020-06-16] MEDS: DONEPEZIL 5 MG TAB PO SCH (08:26)
[2020-06-16] MEDS: CALCIUM CARBONATE 500 MG CHEW U/D PO SCH (08:26)
[2020-06-16] MEDS: MULTIVITAMINS/MINERALS THERAP 1 TAB PO SCH ×2 (08:26→09:00)
[2020-06-16] MEDS: ULTRACET TAB PO SCH ×3 (08:27→20:17)
[2020-06-16] MEDS: ENOXAPARIN 100MG/1ML SYRINGE (J1650 PER 10MG) SC SCH ×2 (08:27→20:16)
[2020-06-16] MEDS: LEVEMIR (INSULIN DETEMIR) 1 UNITS/0.01ML SC SCH ×2 (09:00→20:14)
--- NOTE | 2020-06-16 10:35 | IPNPDOC ---
Text Note Date of Service The patient was seen on 06/16/20. NOTE Subjective: Patient continues to have intermittent dry cough. Oxygen require ments continues to be high. Objective: GENERAL APPEARANCE: In moderate distress HEENT: no scleral icterus, no JVD, EOMI CARDIOVASCULAR: S1S2 LUNGS: Bilateral rhonchi at bases, diminished lung sounds ABDOMEN: soft & not tender w palpitation MUSCULOSKELETAL: no cyanosis, no swelling INTEGUMENT: no generalized pallor NEUROLOGICAL: cranial nerve function from 2-12 intact intact, follows commands, speech not dysarthric Assessment/Plan Patient is 74 years old female with past medical history of schizophrenia, osteoarthritis, hyperlipidemia, diabetes, hypothyroidism presented hospital with generalized weakness. Patient stated that she's been having generalized weakness associated with cough about one week ago. Patient had contact with landlord was tested positive for Covid 19. In ER patient was found to have positive test for Covid 19. Oxygen saturation on 1 L of oxygen was 100%. Chest x-ray showed Pleuroparenchymal opacity left base and lateral pleural angle question small focal infiltrate versus is pleural angle blunting Problems Acute hypoxemic respiratory failure Secondary to COVID-19 superimposed with possible bacterial components with possible aspiration Repeated x-ray showed hazy opacity in the right upper lobe with suggestion of air bronchograms and pleural parenchymal opacity in the left lower lobe. There is concern for aspiration. Aspiration precaution Encourage patient for Prone position Continue CPAP daily at bedtime and Vapotherm in the daytime Continue incentive spirometry Encourage patient for prone position Sepsis Secondary to COVID-19 Patient has tachycardia, fever, dyspnea and elevated inflammatory markers Lovenox therapeutic dose Inflammatory markers mildly decreased today COVID-19 See above COPD (chronic obstructive pulmonary disease) exacerbation/ HCAP Secondary to COVID-19 superimposed with bacterial component Continue inhalers Incentive spirometry Dr. Payton recommended to start Vancomycin IV, Zosyn IV, however procalcitonin remains negative. continue Remdesevir, will monitor LFT. LFT function unremarkable MRSA screen negative, DC vancomycin IV DM (diabetes mellitus), type 2 Diabetes diet Levemir Insulin sliding scale HTN (hypertension) Continue home cardioprotective medications Schizoaffective disorder Not psychotic for now Hypothyroidism, iatrogenic Continue Synthroid Intermittent cough Robitussin VS,Fishbone, I+O VS, Fishbone, I+O Laboratory Tests 06/16/20 05:07 Vital Signs Date Time Temp Pulse Resp B/P (MAP) Pulse Ox O2 Delivery O2 Flow Rate FiO2 06/16/20 08:27 30 91 NIPPV (BIPAP/CPAP) 90 06/16/20 06:00 73 97/46 (63) 06/16/20 04:00 99.3 06/16/20 00:00 40.0 I&O- Last 24 Hours up to 6 AM 06/16/20 06:00 Intake Total 2485 ml Output Total 1555 ml Balance 930 ml BRIAN LUNA DO Jun 16, 2020 10:35
[2020-06-16] MEDS ORDERED: GLUCAGON INJ 1MG VIAL SC PRN (11:00)
[2020-06-16] MEDS ORDERED: GLUCOSE 4GM CHEW TABLET PO PRN (11:00)
[2020-06-16] MEDS ORDERED: DEXTROSE 50% 50 ML SYRINGE IV PRN (11:00)
[2020-06-16] MEDS: dexameTHASONE 20MG/5ML VIAL (J1100 PER 1MG) IV SCH (12:44)
[2020-06-16] MEDS: lamoTRIgine 100MG TAB PO SCH (12:45)
[2020-06-16] MEDS: HumaLOG INSULIN (NovoLOG) PER UNIT SC SCH ×2 (12:45→18:08)
[2020-06-16] MEDS: SENNA 8.6 MG TAB (SENOKOT) PO SCH ×2 (12:46→20:17)
[2020-06-16] MEDS: FIBER-CON 625 MG TAB PO SCH ×2 (12:46→20:17)
[2020-06-16 13:07] LABS: C REACTIVE PROTEIN QUANTITATIV 29.6 MG/DL (0.00-0.30)
[2020-06-16] MEDS: NS 1,000 ML IV SCH (14:45)
[2020-06-16] MEDS: ATORVASTATIN 20 MG TAB PO SCH (20:17)
[2020-06-16] MEDS: clonazePAM 1 MG TAB PO SCH (20:17)
[2020-06-16] MEDS: QUEtiapine FUMARATE **XR** 200MG TABLET PO SCH (20:19)
[2020-06-17] VITALS (23 sets, daily range): BP systolic 86–127; BP diastolic 44–86
[2020-06-17] MEDS: PIPERACILLIN/TAZOBACTAM SOD 3.375 GM in D5W MINI-BAG PLUS 50 ML IV SCH ×4 (03:00→20:16)
[2020-06-17] MEDS: guaiFENesin/CODEINE SYRUP 5 ML UDC PO PRN ×3 (03:48→20:22)
[2020-06-17] MEDS: COMBIVENT RESPIMAT 100-20MCG INHALER 4GM INH SCH ×5 (04:00→20:26)
[2020-06-17] MEDS: BENZONATATE 100 MG CAP PO SCH ×3 (05:20→20:12)
[2020-06-17] MEDS: LEVOTHYROXINE 137MCG TABLET (0.137MG) PO SCH (05:20)
[2020-06-17] MEDS: HumaLOG INSULIN (NovoLOG) PER UNIT SC SCH ×4 (05:25→17:51)
[2020-06-17 05:37] LABS: HEMATOCRIT 26.7 % (36.0-47.0); HEMOGLOBIN 8.4 g/dl (12.0-15.5); MEAN CORPUSCULAR HEMOGLOBIN 30.8 pg (27.0-33.0); MEAN CORPUSCULAR HGB CONC 31.5 g/dl (32.0-36.5); MEAN CORPUSCULAR VOLUME 97.8 fl (80.0-96.0); PLATELET COUNT, AUTOMATED 381 10^3/uL (150-450); RED BLOOD COUNT 2.73 10^6/uL (4.00-5.40); WHITE BLOOD COUNT 11.4 10^3/uL (4.0-10.0)
[2020-06-17 05:47] LABS: INR 1.19; PROTHROMBIN TIME 15.4 SECONDS (12.5-14.3)
[2020-06-17 05:48] LABS: PARTIAL THROMBOPLASTIN TIME 51.9 SECONDS (24.2-38.5)
[2020-06-17 06:01] LABS: D-DIMER QUANT 1829.28 ng/ml (<500)
[2020-06-17 06:12] LABS: ALBUMIN 2.3 GM/DL (3.2-5.2); BILIRUBIN,DIRECT 0.1 MG/DL (0.0-0.2); BILIRUBIN,TOTAL 0.3 MG/DL (0.2-1.0); CREATININE FOR GFR 1.21 MG/DL (0.55-1.30); GLOMERULAR FILTRATION RATE 46.4 (>39); TOTAL PROTEIN 6.2 GM/DL (6.4-8.2)
[2020-06-17] MEDS: LEVEMIR (INSULIN DETEMIR) 1 UNITS/0.01ML SC SCH ×2 (08:31→20:15)
[2020-06-17] MEDS: dexameTHASONE 20MG/5ML VIAL (J1100 PER 1MG) IV SCH (08:32)
[2020-06-17] MEDS: ENOXAPARIN 100MG/1ML SYRINGE (J1650 PER 10MG) SC SCH ×2 (08:32→20:15)
[2020-06-17] MEDS: ZIPRASIDONE 80 MG CAP (GEODON) PO SCH ×2 (08:33→17:12)
[2020-06-17] MEDS: CALCIUM CARBONATE 500 MG CHEW U/D PO SCH (08:34)
[2020-06-17] MEDS: DOCUSATE SODIUM 100MG CAPSULE PO SCH ×2 (08:34→17:12)
[2020-06-17] MEDS: ULTRACET TAB PO SCH ×3 (08:34→20:13)
[2020-06-17] MEDS: DONEPEZIL 5 MG TAB PO SCH (08:34)
[2020-06-17] MEDS: MULTIVITAMINS/MINERALS THERAP 1 TAB PO SCH (08:34)
[2020-06-17] MEDS: FUROSEMIDE 20MG/2ML VIAL (J1940) IV SCH ×2 (08:39→17:13)
[2020-06-17] MEDS: SENNA 8.6 MG TAB (SENOKOT) PO SCH ×2 (13:11→20:13)
[2020-06-17] MEDS: FIBER-CON 625 MG TAB PO SCH ×2 (13:11→20:13)
[2020-06-17] MEDS: lamoTRIgine 100MG TAB PO SCH (13:11)
[2020-06-17] MEDS: NS 1,000 ML IV SCH (13:31)
[2020-06-17] MEDS: NYSTATIN 500,000 U/5 ML SUSP UDC SS SCH ×2 (15:21→20:14)
[2020-06-17] MEDS: guaiFENesin SYRUP 200 MG/10 ML UDC PO PRN (16:04)
--- NOTE | 2020-06-17 20:02 | IPNPDOC ---
Text Note Date of Service The patient was seen on 06/17/20. NOTE Subjective: The patient continues to require noninvasive ventilation, currently wearing NIPPV mask during my assessment. She does not have any acute complaints at this time, she is only asking when she will be able to go home, I informed her that she certainly is not appropriate for discharge at this time. Apparently she has been tolerating the prone position better yesterday and today than previously. She is also been able to go on Vapotherm for a few hours at a time which is also an improvement. Objective: GENERAL APPEARANCE: Does not appear to be in any acute distress at this time. HEENT: no scleral icterus, EOMI CARDIOVASCULAR: Distant heart sounds although it appears that she has regular rate and rhythm with no murmurs, rubs, or gallops. LUNGS: Bilateral rhonchi at bases, diminished lung sounds ABDOMEN: soft & not tender w palpitation MUSCULOSKELETAL: no cyanosis, no swelling INTEGUMENT: no generalized pallor Assessment/Plan Patient is 74 years old female with past medical history of schizophrenia, osteoarthritis, hyperlipidemia, diabetes, hypothyroidism presented hospital with generalized weakness. Patient stated that she's been having generalized weakness associated with cough about one week ago. Patient had contact with [employer] was tested positive for Covid 19. In ER patient was found to have positive test for Covid 19. Chest x-ray showed Pleuroparenchymal opacity left base and lateral pleural angle question small focal infiltrate versus is pleural angle blunting Problems Acute hypoxemic respiratory failure Secondary to COVID-19 superimposed with possible bacterial components with possible aspiration Repeated x-ray showed hazy opacity in the right upper lobe with suggestion of air bronchograms and pleural parenchymal opacity in the left lower lobe. There is concern for aspiration. Aspiration precaution Encourage patient for Prone position Continue CPAP daily at bedtime and Vapotherm in the daytime Continue incentive spirometry Pulmonology has been consulted, and their input matters greatly appreciated. Sepsis Secondary to COVID-19 Patient has tachycardia, fever, dyspnea and elevated inflammatory markers Lovenox therapeutic dose COVID-19 See above COPD (chronic obstructive pulmonary disease) exacerbation/ HCAP Secondary to COVID-19 superimposed with bacterial component Continue inhalers Incentive spirometry Continue empiric antibiotic Zosyn, vancomycin has been discontinued since MRSA screen was negative continue Remdesevir, will monitor LFT DM (diabetes mellitus), type 2 Diabetes diet Levemir Insulin sliding scale HTN (hypertension) Continue home cardioprotective medications Schizoaffective disorder Not psychotic for now Hypothyroidism, iatrogenic Continue Synthroid Intermittent cough Robitussin VS,Fishbone, I+O VS, Fishbone, I+O Laboratory Tests 06/17/20 05:30 06/17/20 05:50 Vital Signs Date Time Temp Pulse Resp B/P (MAP) Pulse Ox O2 Delivery O2 Flow Rate FiO2 06/17/20 18:00 76 28 115/53 (73) 91 NIPPV (BIPAP/CPAP) 65 06/17/20 17:00 40.0 06/17/20 16:00 98.2 I&O- Last 24 Hours up to 6 AM 06/17/20 06:00 Intake Total 1545 ml Output Total 1255 ml Balance 290 ml MACHO WALLS DO Jun 17, 2020 20:02
[2020-06-17] MEDS: QUEtiapine FUMARATE **XR** 200MG TABLET PO SCH (20:12)
[2020-06-17] MEDS: ATORVASTATIN 20 MG TAB PO SCH (20:13)
[2020-06-17] MEDS: clonazePAM 1 MG TAB PO SCH (20:23)
[2020-06-18] VITALS (21 sets, daily range): BP systolic 91–159; BP diastolic 49–69; O2SAT 91–93
[2020-06-18] MEDS: COMBIVENT RESPIMAT 100-20MCG INHALER 4GM INH SCH ×6 (00:52→20:32)
[2020-06-18] MEDS: guaiFENesin SYRUP 200 MG/10 ML UDC PO PRN (02:00)
[2020-06-18] MEDS: PIPERACILLIN/TAZOBACTAM SOD 3.375 GM in D5W MINI-BAG PLUS 50 ML IV SCH ×4 (03:48→19:59)
[2020-06-18 05:26] LABS: ABG BASE EXCESS 8.7 (-2.0-2.0); ABG HCO3 33.8 MEQ/L (22.0-26.0); ABG O2 SATURATION 97.7 % (95.0-99.0); ABG PARTIAL PRESSURE CO2 49.4 mmHg (35.0-45.0); ABG PARTIAL PRESSURE O2 108.1 mmHg (75.0-100.0); ABG STANDARD HCO3 32.5 MEQ/L (22.0-26.0); ABG TOTAL CO2 35.3 MEQ/L (23.0-31.0); ABG pH (ARTERIAL) 7.453 UNITS (7.350-7.450)
[2020-06-18 05:35] LABS: MEAN CORPUSCULAR HEMOGLOBIN 31.7 pg (27.0-33.0); MEAN CORPUSCULAR HGB CONC 32.3 g/dl (32.0-36.5); MEAN CORPUSCULAR VOLUME 98.4 fl (80.0-96.0); PLATELET COUNT, AUTOMATED 464 10^3/uL (150-450); RED BLOOD COUNT 3.15 10^6/uL (4.00-5.40); WHITE BLOOD COUNT 18.7 10^3/uL (4.0-10.0)
--- NOTE | 2020-06-18 06:00 | REPVR ---
PROCEDURE INFORMATION: Exam: CT Head Without Contrast Exam date and time: 06/18/2020 5:34 AM Age: 74 years old Clinical indication: Injury or trauma; Fall; Blunt trauma (contusions or hematomas); Additional info: S/P fall TECHNIQUE: Imaging protocol: Computed tomography of the head without contrast. Radiation optimization: All CT scans at this facility use at least one of these dose optimization techniques: automated exposure control; mA and/or kV adjustment per patient size (includes targeted exams where dose is matched to clinical indication); or iterative reconstruction. COMPARISON: No relevant prior studies available. FINDINGS: Brain: The brain demonstrates diffuse volume loss. There is white matter hypodensity most consistent with chronic small vessel ischemic change. Cerebral ventricles: The ventricles and CSF spaces are proportionately enlarged. Bones/joints: No acute fracture. Paranasal sinuses: Visualized sinuses are unremarkable. No fluid levels. Mastoid air cells: There is some fluid in the inferior aspect the right mastoid air cells. Vasculature: There is atherosclerotic disease involving the vertebral basilar system and cavernous ICAs. Soft tissues: Unremarkable. IMPRESSION: 1. Atrophy and the sequela prior small vessel ischemia. 2. No sequela of acute intracranial trauma. Electronically signed by: Augie Lyn On 06/18/2020 05:59:32 AM
[2020-06-18] MEDS: LEVOTHYROXINE 137MCG TABLET (0.137MG) PO SCH (06:07)
[2020-06-18] MEDS: HumaLOG INSULIN (NovoLOG) PER UNIT SC SCH ×5 (06:07→23:22)
[2020-06-18] MEDS: BENZONATATE 100 MG CAP PO SCH ×3 (06:07→19:56)
--- NOTE | 2020-06-18 06:12 | REPVR ---
PROCEDURE INFORMATION: Exam: CT Cervical Spine Without Contrast Exam date and time: 06/18/2020 5:34 AM Age: 74 years old Clinical indication: Injury or trauma; Fall; Blunt trauma; Additional info: S/P fall TECHNIQUE: Imaging protocol: Computed tomography images of the cervical spine without contrast. Radiation optimization: All CT scans at this facility use at least one of these dose optimization techniques: automated exposure control; mA and/or kV adjustment per patient size (includes targeted exams where dose is matched to clinical indication); or iterative reconstruction. COMPARISON: No relevant prior studies available. FINDINGS: Bones/joints: There is a mild dextroscoliosis. There is 1-2 mm of anterolisthesis of C3 upon C4 C4 upon C5. There is no fracture. Discs/Spinal canal/Neural foramina: There are degenerative changes of the anterior C1-C2 articulation without erosive change. Soft tissues: Unremarkable. Lungs: There may be right upper lobe consolidation. Vasculature: There is atherosclerotic disease of carotid arteries not fully assessed. IMPRESSION: There is no fracture. Electronically signed by: Augie Lyn On 06/18/2020 06:12:56 AM
--- NOTE | 2020-06-18 06:21 | IPNPDOC ---
Date Seen The patient was seen on 06/18/20. Progress Note INTERIM PROGRESS NOTE: I was called by nursing around 0430 regarding the patient having just been found on the floor of her room. Per nursing, they had gone to check on the patient around 0400 and she was proning at that time. The siderails on the bed were up. The patient slid off the bed from behind the back railing and landed on her backside on the floor. She called for help at that time. Nursing found her laying on her back on the floor. The patient denies hitting her head. After securing her cervical spine, nursing was able to get the patient back into bed without issue. The patient denied any pain after getting back into bed. She was put back on BiPAP at that time. The patient was examined for any bruising or breaks in the skin and there were no concerning findings. Vitals stable. Morning labs pending. I ordered STAT CT HEAD, cervical/lumbar/thoracic spine as well as pelvis. Will follow up results once they are read. VS, I&O, [facility] Sign[facility]/I&O Vital Signs Date Time Temp Pulse Resp B/P (MAP) Pulse Ox O2 Delivery O2 Flow Rate FiO2 06/18/20 04:50 100 06/18/20 04:50 93 BIPAP/CPAP 06/18/20 01:00 79 138/62 (87) 06/18/20 00:00 98.6 27 06/17/20 20:13 40.0 I&O- Last 24 Hours up to 6 AM 06/18/20 06:00 Intake Total 1715 ml Output Total 1250 ml Balance 465 ml Laboratory Data 24H LABS Laboratory Tests 2 06/17/20 05:24: Bedside Glucose (Misc Panel) 165H 06/17/20 05:30: Nucleated Red Blood Cells % (auto) 0.0, Prothrombin Time 15.4H, Prothromb Time International Ratio 1.19, Activated Partial Thromboplast Time 51.9H, Fibrinogen 844H, D-Dimer, Quantitative 1829.28H 06/17/20 05:50: Anion Gap 7L, Glomerular Filtration Rate 46.4, Calcium Level 9.0, Ferritin 258H, Total Bilirubin 0.3, Direct Bilirubin 0.1, Aspartate Amino Transf (AST/SGOT) 24, Alanine Aminotransferase (ALT/SGPT) 17, Alkaline Phosphatase 104, C-Reactive Pr otein, Quantitative 24.00H, SU-Glm-V-Type Natriuretic Peptide 432H, Total Protein 6.2L, Albumin 2.3L, Albumin/Globulin Ratio 0.6L 06/17/20 13:09: Bedside Glucose (Misc Panel) 226H 06/17/20 17:32: Bedside Glucose (Misc Panel) 204H CBC/BMP Laboratory Tests 06/17/20 05:30 06/17/20 05:50 GME ATTESTATION GME ATTESTATION My faculty preceptor for this patient encounter was physically present during the encounter and was fully available. All aspects of the patient interview, examination, medical decision making process, and medical care plan development were reviewed and approved by the faculty preceptor. The faculty preceptor is aware and concurs with the plan as stated in the body of this note and will a ttest to such by his/her cosignature. BRADLEY BLOOD MD Jun 18, 2020 05:19
[2020-06-18 06:28] LABS: ALBUMIN 2.6 GM/DL (3.2-5.2); BILIRUBIN,TOTAL 0.3 MG/DL (0.2-1.0); C REACTIVE PROTEIN QUANTITATIV 16.6 MG/DL (0.00-0.30); CALCIUM LEVEL 9.8 MG/DL (8.8-10.2); CREATININE FOR GFR 1.17 MG/DL (0.55-1.30); GLOMERULAR FILTRATION RATE 48.3 (>39); POTASSIUM SERUM 4.1 MEQ/L (3.5-5.1); TOTAL PROTEIN 7.2 GM/DL (6.4-8.2)
--- NOTE | 2020-06-18 06:29 | REPVR ---
PROCEDURE INFORMATION: Exam: CT Pelvis Without Contrast; Skeletal Exam date and time: 06/18/2020 5:34 AM Age: 74 years old Clinical indication: Injury or trauma; Fall; Blunt trauma (contusions or hematomas); Does not apply; Pelvic region; Additional info: S/P fall TECHNIQUE: Imaging protocol: Computed tomography images of the pelvis without contrast. Exam focused on the skeletal structures. Radiation optimization: All CT scans at this facility use at least one of these dose optimization techniques: automated exposure control; mA and/or kV adjustment per patient size (includes targeted exams where dose is matched to clinical indication); or iterative reconstruction. COMPARISON: CT ABD/PEL W/IV CONTRAST ONLY 09/19/2016 1:19 PM FINDINGS: Stomach and bowel: There are scattered diverticula of the sigmoid. Bladder: There is a Walls catheter with its balloon inflated within the decompressed bladder. There is some gas seen within the bladder. Reproductive: The uterus is surgically absent. Vasculature: There is athrosclerotic disease involving the visualized abdominal aorta and pelvis vessels without an aneurysm. Bones/joints: There is articular cartilage loss of osteophyte formation involving the SI joints. There is no acute pelvis or proximal femoral fracture. There are degenerative changes of the lower lumbar spine. Soft tissues: Unremarkable. IMPRESSION: No acute findings. Electronically signed by: Augie Lyn On 06/18/2020 06:29:05 AM
--- NOTE | 2020-06-18 06:31 | REPVR ---
PROCEDURE INFORMATION: Exam: CT Thoracic Spine Without Contrast Exam date and time: 06/18/2020 5:34 AM Age: 74 years old Clinical indication: Injury or trauma; Fall; Blunt trauma (contusions or hematomas); Additional info: S/P fall TECHNIQUE: Imaging protocol: Computed tomography images of the thoracic spine without contrast. Radiation optimization: All CT scans at this facility use at least one of these dose optimization techniques: automated exposure control; mA and/or kV adjustment per patient size (includes targeted exams where dose is matched to clinical indication); or iterative reconstruction. COMPARISON: No relevant prior studies available. FINDINGS: Vertebrae: No acute fracture. Normal alignment. Discs/Spinal canal/Neural foramina: There is loss of disc space height throughout, related to degenerative disc disease. Soft tissues: Unremarkable. Vasculature: There is atherosclerotic disease of the thoracic aorta without aneurysmal dilatation. Lungs: There is extensive bilateral patchy airspace disease consistent with an atypical pneumonia, including viral pneumonia. Mediastinum: There is a small hiatal hernia. IMPRESSION: 1. There is no acute fracture or subluxation. 2. There is extensive bilateral patchy airspace disease consistent with an atypical pneumonia, including viral pneumonia. Electronically signed by: Augie Lyn On 06/18/2020 06:31:33 AM
--- NOTE | 2020-06-18 06:33 | REPVR ---
PROCEDURE INFORMATION: Exam: CT Lumbar Spine Without Contrast Exam date and time: 06/18/2020 5:34 AM Age: 74 years old Clinical indication: Injury or trauma; Fall; Blunt trauma (contusions or hematomas); Additional info: S/P fall TECHNIQUE: Imaging protocol: Computed tomography images of the lumbar spine without contrast. Radiation optimization: All CT scans at this facility use at least one of these dose optimization techniques: automated exposure control; mA and/or kV adjustment per patient size (includes targeted exams where dose is matched to clinical indication); or iterative reconstruction. COMPARISON: MRI-Spine, L.S. without con 03/06/2017 10:23 AM FINDINGS: Vertebrae: There is ankylosis of the C4-C5 vertebral bodies. There is no subluxation or fracture. Discs/Spinal canal/Neural foramina: There is central stenosis from L3-L4 through L5-S1. Vasculature: There is athrosclerotic disease involving the abdominal aorta and pelvis vessels without an aneurysm. Soft tissues: Unremarkable. IMPRESSION: There is no subluxation or fracture. Electronically signed by: Augie Lyn On 06/18/2020 06:33:32 AM
[2020-06-18] MEDS: ACETAMINOPHEN TAB 650MG DOSE (2X325MG) PO PRN (06:45)
--- NOTE | 2020-06-18 08:34 | IPN ---
ICU PROGRESS NOTE DATE: 06/18/2020 SUBJECTIVE: Geri is seen by the Hospitalist, admitted to the Intensive Care Unit with COVID associated pneumonia. Earlier this morning it was documented that Dr. Mckeon's note. Imaging studies done from the fall showed no acute trauma or fracture. PHYSICAL EXAMINATION: GENERAL APPEARANCE: The patient is resting comfortably, she does not seem to be in pain or short of breath. She has BiPAP on. She is alert. VITAL SIGNS: Per flow sheet. O2 saturation 93% on BiPAP. LUNGS: Scattered rhonchi, a few wheezes. HEART: Regular rhythm. ABDOMEN: Soft, nontender. EXTREMITIES: There is no peripheral edema. No bruising on the skin. The back is nontender to palpate. LABS: White count is up to 18.7, hemoglobin 10, platelets 464,000, sodium 139, potassium 4.1, BUN 39, creatinine 0.11, glucose 150. CRP is down to 16. ASSESSMENT: 1. Acute hypoxic respiratory failure secondary to COVID pneumonia. She is on Vapotherm. Pulmonology has been consulted. She is on IV Dexamethasone, completed five days of Remdesivir. 2. Suspected aspiration per nursing staff. She was reportedly having some aspirations. She is on Zosyn for this for suspected aspiration with pneumonia superimposed on COVID pneumonia. Vancomycin had been discontinued earlier. 3. Diabetes. She is on insulin sliding scale insulin for coverage, blood sugars are elevated from the steroids. Will increase the dose of her Levemir. 4. Hypertension, blood pressures under good control. 5. Schizoaffective disorder, this seems to be stable despite the steroids and severe illness. 6. Hypothyroidism. Continue levothyroxine. TSH was within normal range on admission.
[2020-06-18] MEDS: ENOXAPARIN 100MG/1ML SYRINGE (J1650 PER 10MG) SC SCH ×2 (09:02→19:53)
[2020-06-18] MEDS: dexameTHASONE 20MG/5ML VIAL (J1100 PER 1MG) IV SCH (09:02)
[2020-06-18] MEDS: FUROSEMIDE 20MG/2ML VIAL (J1940) IV SCH ×2 (09:07→16:17)
[2020-06-18] MEDS: MULTIVITAMINS/MINERALS THERAP 1 TAB PO SCH (09:07)
[2020-06-18] MEDS: ULTRACET TAB PO SCH ×3 (09:07→19:54)
[2020-06-18] MEDS: DONEPEZIL 5 MG TAB PO SCH (09:07)
[2020-06-18] MEDS: DOCUSATE SODIUM 100MG CAPSULE PO SCH ×2 (09:08→17:58)
[2020-06-18] MEDS: NYSTATIN 500,000 U/5 ML SUSP UDC SS SCH ×3 (09:08→19:53)
[2020-06-18] MEDS: ZIPRASIDONE 80 MG CAP (GEODON) PO SCH ×2 (09:15→17:58)
[2020-06-18] MEDS: LEVEMIR (INSULIN DETEMIR) 1 UNITS/0.01ML SC SCH ×2 (10:52→20:37)
[2020-06-18] MEDS: FIBER-CON 625 MG TAB PO SCH ×2 (13:51→19:53)
[2020-06-18] MEDS: lamoTRIgine 100MG TAB PO SCH (13:51)
[2020-06-18] MEDS: SENNA 8.6 MG TAB (SENOKOT) PO SCH ×2 (13:51→19:53)
[2020-06-18] MEDS: NS 1,000 ML IV SCH (14:11)
[2020-06-18] MEDS: ATORVASTATIN 20 MG TAB PO SCH (19:53)
[2020-06-18] MEDS: QUEtiapine FUMARATE **XR** 200MG TABLET PO SCH (19:55)
[2020-06-18] MEDS: clonazePAM 1 MG TAB PO SCH (19:58)
[2020-06-19] VITALS (24 sets, daily range): BP systolic 116–147; BP diastolic 53–74; O2SAT 89–90
[2020-06-19] MEDS: COMBIVENT RESPIMAT 100-20MCG INHALER 4GM INH SCH ×7 (00:50→23:50)
[2020-06-19] MEDS: ACETAMINOPHEN TAB 650MG DOSE (2X325MG) PO PRN (01:44)
[2020-06-19] MEDS: guaiFENesin/CODEINE SYRUP 5 ML UDC PO PRN ×2 (01:44→20:10)
[2020-06-19] MEDS: PIPERACILLIN/TAZOBACTAM SOD 3.375 GM in D5W MINI-BAG PLUS 50 ML IV SCH ×4 (02:12→20:12)
[2020-06-19 02:35] LABS: ABG BASE EXCESS 6.3 (-2.0-2.0); ABG O2 SATURATION 88.5 % (95.0-99.0); ABG PARTIAL PRESSURE CO2 45.7 mmHg (35.0-45.0); ABG PARTIAL PRESSURE O2 54.7 mmHg (75.0-100.0); ABG STANDARD HCO3 30.1 MEQ/L (22.0-26.0); ABG TOTAL CO2 32.5 MEQ/L (23.0-31.0)
--- NOTE | 2020-06-19 02:47 | IPNPDOC ---
Text Note Date of Service The patient was seen on 06/19/20 at 0230. NOTE I was called by nursing staff from the [facility] ICU as they are concerned that Ms. Keyes O2 sats have been dropping into the mid-80s despite being on CPAP basically 100% of the time now. She also had an increase in her temperature to 99.7. I requested an ABG to see what is happening on the "other side" of the lungs. When I responded to the floor, they report that her O2 sats have been in the upper 80s since we spoke. The nurse also noted that she seems to have slight dips each night. I assessed the patient. Her only complaint is that her mouth is dry from the constant CPAP. She wanted to take the mask off to take a drink. Her lung exam shows poor movement of air, there are course, Velcro-like crackles noted throughout. There doesn't appear to be any significant change from her previously documented examination. The ABG returned 7.45/45.7/31.0/54.7. The efrain or change from the previous one was a lower pO2. Based on this, I don't see a reason to change anything substantially at this time. I suspect some of this has to do with the presumed aspiration event and not COVID. I did speak briefly with Dr. Moreno. I requested he be on official consult for the patient. We agreed that there was nothing urgent that required his presence immediately. I think it is interesting that there is a cyclical nocturnal dip in her O2. I wonder if she has some MISSY, though she is already on CPAP. Perhaps it has to do with steroid physiology. It is an interesting question, but not something that requires any acute adjustment to her regimen. VS,Fishbone, I+O VS, Fishbone, I+O Laboratory Tests 06/18/20 05:08 Vital Signs Date Time Temp Pulse Resp B/P (MAP) Pulse Ox O2 Delivery O2 Flow Rate FiO2 06/19/20 02:00 99.7 86 34 147/74 (98) 82 NIPPV (BIPAP/CPAP) 100 06/17/20 20:13 40.0 I&O- Last 24 Hours up to 6 AM 06/19/20 06:00 Intake Total 1150 ml Output Total 1400 ml Balance -250 ml Terrence Slater MD Jun 19, 2020 02:47
[2020-06-19] MEDS: LEVOTHYROXINE 137MCG TABLET (0.137MG) PO SCH (05:04)
[2020-06-19] MEDS: BENZONATATE 100 MG CAP PO SCH ×3 (05:04→20:14)
[2020-06-19] MEDS: HumaLOG INSULIN (NovoLOG) PER UNIT SC SCH ×4 (06:21→23:52)
[2020-06-19 07:11] LABS: HEMATOCRIT 28.7 % (36.0-47.0); HEMOGLOBIN 9.1 g/dl (12.0-15.5); MEAN CORPUSCULAR HEMOGLOBIN 31.4 pg (27.0-33.0); MEAN CORPUSCULAR HGB CONC 31.7 g/dl (32.0-36.5); PLATELET COUNT, AUTOMATED 443 10^3/uL (150-450); WHITE BLOOD COUNT 15.7 10^3/uL (4.0-10.0)
[2020-06-19 07:53] LABS: ALBUMIN 2.1 GM/DL (3.2-5.2); ALT/SGPT 16 U/L (12-78); BILIRUBIN,TOTAL 0.3 MG/DL (0.2-1.0); BLOOD UREA NITROGEN 33 MG/DL (7-18); CALCIUM LEVEL 9.7 MG/DL (8.8-10.2); CARBON DIOXIDE LEVEL 34 MEQ/L (21-32); CHLORIDE LEVEL 98 MEQ/L (98-107); CREATININE FOR GFR 0.92 MG/DL (0.55-1.30); GLOMERULAR FILTRATION RATE > 60.0 (>39); GLUCOSE, FASTING 195 MG/DL (70-100); POTASSIUM SERUM 3.8 MEQ/L (3.5-5.1); SODIUM LEVEL 139 MEQ/L (136-145); TOTAL PROTEIN 7.4 GM/DL (6.4-8.2)
[2020-06-19] MEDS: NYSTATIN 500,000 U/5 ML SUSP UDC SS SCH ×3 (08:47→20:10)
[2020-06-19] MEDS: LEVEMIR (INSULIN DETEMIR) 1 UNITS/0.01ML SC SCH ×2 (08:47→20:11)
[2020-06-19] MEDS: ZIPRASIDONE 80 MG CAP (GEODON) PO SCH ×2 (08:47→17:28)
[2020-06-19] MEDS: ULTRACET TAB PO SCH ×3 (08:48→20:10)
[2020-06-19] MEDS: DOCUSATE SODIUM 100MG CAPSULE PO SCH ×2 (08:48→17:29)
[2020-06-19] MEDS: dexameTHASONE 20MG/5ML VIAL (J1100 PER 1MG) IV SCH (08:48)
[2020-06-19] MEDS: DONEPEZIL 5 MG TAB PO SCH (08:48)
[2020-06-19] MEDS: MULTIVITAMINS/MINERALS THERAP 1 TAB PO SCH (08:48)
[2020-06-19] MEDS: FUROSEMIDE 20MG/2ML VIAL (J1940) IV SCH ×2 (08:49→16:15)
[2020-06-19] MEDS: ENOXAPARIN 100MG/1ML SYRINGE (J1650 PER 10MG) SC SCH ×2 (08:50→20:11)
--- NOTE | 2020-06-19 08:50 | IPN ---
PROGRESS NOTE DATE: 06/19/2020 SUBJECTIVE: Geri had a rough evening. She had some hypoxemia overnight and critical care is involved again. The patient had been seen by Dr. Payton earlier in the hospitalization. Dr. Slater communicated with Dr. Moreno last evening who was on formal consultation. At this time clinically, the patient is only complaining of back pain. She apparently slipped out of bed from her prone position yesterday. She feels her breathlessness is about the same as yesterday. OBJECTIVE: VITAL SIGNS: Temperature 99.7, blood pressure 122/57, O2 saturation 98% on BiPAP. GENERAL APPEARANCE: Dyspneic appearing. HEENT: Unremarkable under a mask. LUNGS: Scattered rhonchi and wheezes. Breath sounds more course than yesterday. HEART: Regular rhythm. ABDOMEN: Soft and nontender. EXTREMITIES: Trace peripheral edema. LABORATORY DATA: White count 15.7, hemoglobin 9.1, platelets 443,000. Sodium 139, potassium 3.8, BUN 33, creatinine 0.9, glucose 195. C-reactive protein is up somewhat from yesterday has gone from 16 to 22. ASSESSMENT/PLAN: 1. COVID-associate pneumonia. The patient's clinical status remains tenuous. She is on intravenous (IV) Decadron. She completed five days of remdesivir. 2. Suspected aspiration pneumonia. She is on Zosyn for the suspected superimposed aspiration pneumonia on COVID pneumonia. Vancomycin was discontinued when her methicillin-resistant Staphylococcus aureus (MRSA) screen came back negative. 3. Diabetes. We added a basal insulin to her sliding scale yesterday. 4. Hypothyroidism. TSH in normal range with current Levothyroxine. 5. Hypertension. Blood pressure controlled. 6. Hyperlipidemia. Continue dose of atorvastatin. 7. Schizoaffective disorder stable despite steroids and the severe illness. Clinically she looks tenuous. Appreciate critical care assistance.
[2020-06-19] MEDS: FIBER-CON 625 MG TAB PO SCH ×2 (12:00→20:09)
--- NOTE | 2020-06-19 12:30 | CCN ---
CRITICAL CARE NOTE DATE: 06/19/2020 SUBJECTIVE: The patient is seen in the intensive care unit on noninvasive ventilatory support, tachypneic, borderline saturations. This is hospital day #15, ICU day #6. OBJECTIVE: VITAL SIGNS: At bedside her temperature is 99.9, T-max for the past 24 hours 100.2, pulse rate 89, respiratory rate 32, blood pressure 120/60. I and O for the past 24 hours 1880 in, 2000 out; since midnight 720 in, 1000 out. GENERAL APPEARANCE: She is ill-appearing. Currently in the prone position. Her CPAP mask is in place. NECK: Supple. HEART: Sounds regular. LUNGS: Breath sounds coarse diminished. ABDOMEN: Soft and obese. EXTREMITIES: Pulses x4. DIAGNOSTIC STUDIES: Her white cell count is 15.7 down from 18.7, hemoglobin is down to 9.1, hematocrit 28.7, platelet count 443,000. Electrolytes are sodium 139, potassium 3.8, chloride 98, CO2 of 34, BUN 33, creatinine 0.92, glucose 195. Her calcium level is 9.7. Most recent ferritin on the was 258. Her AST is 25, ALT 16, alkaline phosphatase 156. C-reactive protein is 22.5. Procalcitonin on the 12th was 0.1. Albumin is 2.1. Arterial blood gases show a pH of 7.45, pCO2 of 45, pO2 of 54 on high flow oxygen via Vapotherm at 100%. Her D-dimer is 4000. Most recent fibrinogen on 06/17 was 844. Most recent chest imaging was reviewed and shows diffuse bilateral infiltrates, this was several days ago. MEDICATIONS: On review, she is receiving detemir insulin 15 units b.i.d., Decadron 6 mg daily, Lovenox 90 mg b.i.d., Lasix 20 mg b.i.d., Synthroid 125 mcg daily, Combivent every four hours, Zosyn 3.375 every six hours this is day #6, Lamictal 200 mg a day, Aricept 10 mg a day, multivitamin, Lipitor 40 mg a day, Klonopin 1 mg at bedtime, Ultracet t.i.d. p.r.n. ASSESSMENT AND PLAN: The primary problem requiring critical attention is acute hypoxic respiratory failure. Saturations are shown to improve when she is in the prone posture. We will encourage her to increase time in the prone posture. Tidal volume is acceptable on the current noninvasive ventilation. We will continue to encourage its use more consistently. On review with nursing, her symptoms tend to be worse at night. I will decrease the dose of Klonopin at bedtime as it may be a respiratory suppressant. COVID pneumonia: She has received five days of remdesivir. She is currently receiving dexamethasone and we will recheck her inflammatory markers to determine if she is a candidate for IL-6 monoclonal antibody therapy. Hypercoagulability: The patient is currently on weight-based Lovenox. There is no peripheral evidence of thrombus. Infectious disease: Procalcitonin level was low. Her white cell count is coming down. I will discontinue the Zosyn at seven days. Chronic obstructive pulmonary disease: The patient is on bronchodilator therapy and IV steroids. Ulcer prophylaxis would be appropriate given the critical nature of the patient's illness and the use of steroids. Will add Protonix. The patient's condition is critical. Prognosis is guarded. One hour and 15 minutes was spent in the provision of bedside critical care and coordination exclusive of procedure time. [facility]
[2020-06-19 12:35] LABS: FERRITIN 282 NG/ML (8-252)
[2020-06-19] MEDS: SENNA 8.6 MG TAB (SENOKOT) PO SCH ×2 (12:59→20:09)
[2020-06-19] MEDS: lamoTRIgine 100MG TAB PO SCH (12:59)
[2020-06-19] MEDS: NS 1,000 ML IV SCH (13:14)
--- NOTE | 2020-06-19 13:28 | REP ---
INDICATION: Covid Pn. COMPARISON: Portable chest dated 06/16/2020. TECHNIQUE: Single AP view of the chest performed portably with the patient semi upright. FINDINGS: There diffuse bilateral alveolar and interstitial infiltrates that have worsened. No definite pleural effusions. Cardiac size is normal. The alex, mediastinum, and skeletal structures are unremarkable. Respirator artifacts are superimposed over the left hemithorax. IMPRESSION: Worsening diffuse bilateral interstitial and alveolar infiltrates. Cardiac size is normal. <Electronically signed by Davin Starks > 06/19/20 [id number]
[2020-06-19] MEDS: PANTOPRAZOLE 40MG TAB (PROTONIX) PO SCH (14:28)
[2020-06-19] MEDS: ATORVASTATIN 20 MG TAB PO SCH (20:09)
[2020-06-19] MEDS: QUEtiapine FUMARATE **XR** 200MG TABLET PO SCH (20:10)
[2020-06-19] MEDS: MORPHINE 2 MG/ML 1ML VIAL (J2270) IV PRN (20:12)
[2020-06-19] MEDS: clonazePAM 0.5 MG TAB PO SCH (20:16)
[2020-06-20] VITALS (18 sets, daily range): BP systolic 117–151; BP diastolic 58–70
[2020-06-20] MEDS: PIPERACILLIN/TAZOBACTAM SOD 3.375 GM in D5W MINI-BAG PLUS 50 ML IV SCH ×2 (02:48→08:54)
[2020-06-20] MEDS: COMBIVENT RESPIMAT 100-20MCG INHALER 4GM INH SCH ×6 (04:12→23:18)
[2020-06-20] MEDS: LEVOTHYROXINE 137MCG TABLET (0.137MG) PO SCH (05:00)
[2020-06-20] MEDS: BENZONATATE 100 MG CAP PO SCH ×3 (05:00→20:37)
[2020-06-20] MEDS: HumaLOG INSULIN (NovoLOG) PER UNIT SC SCH ×3 (05:15→18:08)
[2020-06-20 05:27] LABS: BASO % 0.3 % (0.0-1.0); EOS # 0.3 10^3/uL (0.0-0.5); HEMATOCRIT 28.6 % (36.0-47.0); LYMPH # 1.1 10^3/uL (1.5-5.0); LYMPH % 7.9 % (24.0-44.0); MEAN CORPUSCULAR HGB CONC 31.5 g/dl (32.0-36.5); MEAN CORPUSCULAR VOLUME 98.6 fl (80.0-96.0); MONO % 6.8 % (0.0-5.0); NEUTROPHILS # 11.6 10^3/uL (1.5-8.5); NEUTROPHILS % 81.2 % (36.0-66.0); PLATELET COUNT, AUTOMATED 393 10^3/uL (150-450); WHITE BLOOD COUNT 14.2 10^3/uL (4.0-10.0)
[2020-06-20 05:42] LABS: FIBRINOGEN 875 MG/DL (221-452)
[2020-06-20 05:56] LABS: ALBUMIN 2.1 GM/DL (3.2-5.2); ALT/SGPT 18 U/L (12-78); BILIRUBIN,TOTAL 0.3 MG/DL (0.2-1.0); BLOOD UREA NITROGEN 35 MG/DL (7-18); CARBON DIOXIDE LEVEL 37 MEQ/L (21-32); CHLORIDE LEVEL 99 MEQ/L (98-107); CHOLESTEROL LEVEL 96 MG/DL (< 200); CPK CREATINE PHOSPHOKINASE 32 U/L (26-192); CREATININE FOR GFR 0.89 MG/DL (0.55-1.30); FERRITIN 316 NG/ML (8-252); GLOMERULAR FILTRATION RATE > 60.0 (>39); GLUCOSE, FASTING 127 MG/DL (70-100); LDH LACTATE DEHYDROGENASE 386 U/L (84-246); PHOSPHORUS LEVEL 2.8 MG/DL (2.5-4.9); POTASSIUM SERUM 3.9 MEQ/L (3.5-5.1); SODIUM LEVEL 141 MEQ/L (136-145); TOTAL PROTEIN 6.6 GM/DL (6.4-8.2); TRIGLYCERIDES LEVEL 208 MG/DL (<150)
[2020-06-20 06:18] LABS: D-DIMER QUANT > 4000 ng/ml (<500)
[2020-06-20] MEDS: ULTRACET TAB PO SCH ×3 (08:50→20:39)
[2020-06-20] MEDS: ZIPRASIDONE 80 MG CAP (GEODON) PO SCH ×2 (08:50→18:08)
[2020-06-20] MEDS: ENOXAPARIN 100MG/1ML SYRINGE (J1650 PER 10MG) SC SCH ×2 (08:51→20:41)
[2020-06-20] MEDS: LEVEMIR (INSULIN DETEMIR) 1 UNITS/0.01ML SC SCH ×2 (08:51→20:40)
[2020-06-20] MEDS: NYSTATIN 500,000 U/5 ML SUSP UDC SS SCH ×3 (08:51→20:39)
[2020-06-20] MEDS: DOCUSATE SODIUM 100MG CAPSULE PO SCH ×2 (08:51→18:09)
[2020-06-20] MEDS: FUROSEMIDE 20MG/2ML VIAL (J1940) IV SCH ×2 (08:52→16:16)
[2020-06-20] MEDS: DONEPEZIL 5 MG TAB PO SCH (08:52)
[2020-06-20] MEDS: dexameTHASONE 20MG/5ML VIAL (J1100 PER 1MG) IV SCH (08:52)
[2020-06-20] MEDS: MULTIVITAMINS/MINERALS THERAP 1 TAB PO SCH (08:53)
[2020-06-20] MEDS: PANTOPRAZOLE 40MG TAB (PROTONIX) PO SCH (08:53)
[2020-06-20] MEDS: lamoTRIgine 100MG TAB PO SCH (13:45)
[2020-06-20] MEDS: FIBER-CON 625 MG TAB PO SCH ×2 (13:46→20:37)
[2020-06-20] MEDS: SENNA 8.6 MG TAB (SENOKOT) PO SCH ×2 (13:46→20:37)
--- NOTE | 2020-06-20 15:26 | CCN ---
CRITICAL CARE NOTE DATE: 06/20/2020 Patient is seen in the intensive care unit on noninvasive ventilation. With change to a bilevel approach her work of breathing appeared improved. At bedside, her temperature is 99.5, pulse rate 81, respirations 24, blood pressure 130/58, saturation of oxygen 87%. Intake and output for the past 24 hours: 2115 in, 1825 out, since midnight 290 in, 285 out. She is ill appearing. Mucosae are pink. Bilevel pressure therapy mask is in place. Heart sounds are regular, breath sounds diminished. Abdomen soft. Extremities: Pulses times four. DIAGNOSTIC STUDIES: White cell count is 14.2, hemoglobin is stable at 9, hematocrit 28.6, platelet count is 393,000. Differential white cell count shows 81% neutrophils. The electrolytes are sodium 141, potassium 3.9, chloride 99, CO2 of 37, BUN 35, creatinine 0.89, glucose 127. Calcium is 9. Albumin 2.1. AST 28, ALT 18. LDH 386. Her ferritin is slightly elevated at 316. C-reactive protein is stable at 22.2. The fibrinogen is down at 875. Most recent arterial blood gas showed a pH of 7.45, pCO2 of 45, pO2 of 54. Review of her chest imaging shows bilateral infiltrates, slightly heavier in the right base than previous images. On medications reviewer, she is receiving: - Lipitor 40 mg a day - Aricept 10 mg a day - Lamictal 200 mg a day - multivitamins - Seroquel 400 mg at bedtime - Senokot twice a day - Ultracet three times a day - Geodon 80 mg twice a day - Zosyn 3.375 every 6 hours - Combivent - Lasix 20 mg a day - Lovenox 95 mg twice a day - dexamethasone 6 mg daily - detemir 15 mg twice a day - Klonopin 0.5 mg at bedtime - Protonix 40 mg daily The primary problem requiring critical attention is hypoxic respiratory failure. Her gas exchange is tenuous. Will continue with noninvasive positive pressure ventilation. Work of breathing does appear to be somewhat improved on bilevel approach. COVID pneumonia: Inflammatory markers are variable. She has received remdesivir and is continuing to receive dexamethasone. Will continue with supportive care. Hypercoagulable state secondary to COVID: The patient is on weight-based Lovenox. There is no evidence of thrombotic disease. From an infectious disease standpoint, Zosyn will be discontinued, as the procalcitonin was negative and white count has remained low. Chronic obstructive pulmonary disease: Will continue with beta agonists and steroids. Ulcer prophylaxis is being addressed with Protonix. Case has been reviewed with the primary service. Patient's condition is critical. Prognosis is guarded. Intensive care unit (ICU) care is most appropriate at this point, as any deterioration would require immediate intubation and formal mechanical ventilatory support. One hour and 15 minutes was spent in the provision of bedside critical care and coordination exclusive of any procedure time. SISI
[2020-06-20] MEDS: QUEtiapine FUMARATE **XR** 200MG TABLET PO SCH (20:37)
[2020-06-20] MEDS: ATORVASTATIN 20 MG TAB PO SCH (20:41)
--- NOTE | 2020-06-20 21:08 | IPNPDOC ---
Subjective Date Seen The patient was seen on 06/20/20. Subjective Chief Complaint/HPI Mrs. Keyes is a 74 year old female with CKD stage 3, schizophrenia, and DM here with COVID pneumonia requiring BIPAP. This afternoon, she was feeling thirsty. Otherwise she has been afebrile. She feels that she is breathing better on the Bipap. Otherwise denies chest pain or abdominal pain. Objective Physical Examination General Exam: Positive: Alert, Cooperative Eye Exam: Positive: PERRLA ENT Exam: Positive: Atraumatic Neck Exam: Positive: Supple; Negative: JVD Chest Exam: Positive: Rhonchi; Negative: Clear to auscultation Heart Exam: Positive: Rate Normal Telemetry: Positive: No significant arrhythmia Abdomen Exam: Positive: Normal bowel sounds Extremity Exam: Negative: Clubbing, Cyanosis Skin Exam: Positive: Nl turgor and temperature Neuro Exam: Positive: Cranial Nerves 3-12 NL, Reflexes 2+ Psych Exam: Positive: Mental status NL Assessment /Plan Assessment Mrs. Keyes is a 74 year old female with CKD stage 3, schizophrenia, and DM here with COVID pneumonia requiring BIPAP. She completed a 5 day course of remdesivir and continues on IV Decadron. Oxygen requirements have not improved. She still requires Bipap. Pulmonology following, recommendations appreciated Plan/VTE VTE Prophylaxis Ordered?: Yes Plan 1. COVID pneumonia -Pulmonary/Critical care following, recommendations appreciated -Patient still requiring Bipap, no improvement in respiratory status despite 5 days of remdesivir and IV decadron -Procalcitonin low, antibiotics discontinued -Continue IV decadron and weight based lovenox (1mg/kg BID) 2. DM -Continue insulin sliding scale and Levemir 3. Hypothyroidism -Continue Levothyroxine 4. Hyperlipidemia -Continue atorvastatin 5. Schizophrenia -Continue antipsychotics 6. DVT ppx -Currently on weight based Lovenox (1mg/kg BID) VS, I&O, 24H, Fishbone Vital Signs/I&O Vital Signs Date Time Temp Pulse Resp B/P (MAP) Pulse Ox O2 Delivery O2 Flow Rate FiO2 06/20/20 20:39 30 88 NIPPV (BIPAP/CPAP) 90 06/20/20 18:00 86 133/63 (86) 06/20/20 16:00 99.0 06/19/20 09:00 40.0 I&O- Last 24 Hours up to 6 AM 06/20/20 06:00 Intake Total 2115 ml Output Total 1550 ml Balance 565 ml Laboratory Data 24H LABS Laboratory Tests 2 06/19/20 23:49: Bedside Glucose (Misc Panel) 176H 06/20/20 05:13: Bedside Glucose (Misc Panel) 118H 06/20/20 05:14: Immature Granulocyte % (Auto) 1.8, Neutrophils (%) (Auto) 81.2H, Lymphocytes (%) (Auto) 7.9L, Monocytes (%) (Auto) 6.8H, Eosinophils (%) (Auto) 2.0, Basophils (%) (Auto) 0.3, Neutrophils # (Auto) 11.6H, Lymphocytes # (Auto) 1.1L, Monocytes # (Auto) 1.0H, Eosinophils # (Auto) 0.3, Basophils # (Auto) 0.0, Nucleated Red Blood Cells % (auto) 0.0, Fibrinogen 875H, D-Dimer, Quantitative > 4000H, Anion Gap 5L, Glomerular Filtration Rate > 60.0, Calcium Level 9.0, Phosphorus Level 2.8, Ferritin 316H, Total Bilirubin 0.3, Aspartate Amino Transf (AST/SGOT) 28, A lanine Aminotransferase (ALT/SGPT) 18, Alkaline Phosphatase 188H, Lactate Dehydrogenase 386H, Total Creatine Kinase 32, C-Reactive Protein, Quantitative 22.20H, Total Protein 6.6, Albumin 2.1L, Albumin/Globulin Ratio 0.5L, Triglycerides Level 208H, Cholesterol Level 96 06/20/20 13:43: Bedside Glucose (Misc Panel) 237H 06/20/20 18:04: Bedside Glucose (Misc Panel) 220H CBC/BMP Laboratory Tests 06/20/20 05:14 SHANE FLORES DO Jun 20, 2020 21:08
[2020-06-20] MEDS: clonazePAM 0.5 MG TAB PO SCH (21:24)
[2020-06-20] MEDS: guaiFENesin/CODEINE SYRUP 5 ML UDC PO PRN (21:35)
[2020-06-20] MEDS: MORPHINE 2 MG/ML 1ML VIAL (J2270) IV PRN (22:50)
[2020-06-21] VITALS (15 sets, daily range): BP systolic 108–143; BP diastolic 50–63; O2SAT 92
[2020-06-21] MEDS: HumaLOG INSULIN (NovoLOG) PER UNIT SC SCH ×5 (00:56→23:28)
[2020-06-21] MEDS: COMBIVENT RESPIMAT 100-20MCG INHALER 4GM INH SCH ×6 (03:21→23:35)
[2020-06-21 05:18] LABS: BASO # 0.1 10^3/uL (0.0-0.2); BASO % 0.4 % (0.0-1.0); EOS # 0.2 10^3/uL (0.0-0.5); EOS % 1.2 % (0.0-3.0); HEMATOCRIT 27.6 % (36.0-47.0); HEMOGLOBIN 8.5 g/dl (12.0-15.5); LYMPH # 1.3 10^3/uL (1.5-5.0); LYMPH % 8.5 % (24.0-44.0); MEAN CORPUSCULAR HEMOGLOBIN 30.2 pg (27.0-33.0); MEAN CORPUSCULAR HGB CONC 30.8 g/dl (32.0-36.5); MEAN CORPUSCULAR VOLUME 98.2 fl (80.0-96.0); MONO # 0.9 10^3/uL (0.0-0.8); MONO % 5.8 % (0.0-5.0); NEUTROPHILS # 12.8 10^3/uL (1.5-8.5); NEUTROPHILS % 82.5 % (36.0-66.0); PLATELET COUNT, AUTOMATED 440 10^3/uL (150-450); RED BLOOD COUNT 2.81 10^6/uL (4.00-5.40); WHITE BLOOD COUNT 15.5 10^3/uL (4.0-10.0)
[2020-06-21 05:36] LABS: FIBRINOGEN 1079 MG/DL (221-452)
[2020-06-21] MEDS: LEVOTHYROXINE 137MCG TABLET (0.137MG) PO SCH (05:44)
[2020-06-21] MEDS: BENZONATATE 100 MG CAP PO SCH ×3 (05:45→22:07)
[2020-06-21 05:51] LABS: ALBUMIN 2.2 GM/DL (3.2-5.2); ALT/SGPT 21 U/L (12-78); BILIRUBIN,TOTAL 0.4 MG/DL (0.2-1.0); BLOOD UREA NITROGEN 34 MG/DL (7-18); CALCIUM LEVEL 9.6 MG/DL (8.8-10.2); CARBON DIOXIDE LEVEL 41 MEQ/L (21-32); CHLORIDE LEVEL 97 MEQ/L (98-107); CHOLESTEROL LEVEL 112 MG/DL (< 200); CPK CREATINE PHOSPHOKINASE 52 U/L (26-192); CREATININE FOR GFR 0.79 MG/DL (0.55-1.30); FERRITIN 414 NG/ML (8-252); GLOMERULAR FILTRATION RATE > 60.0 (>39); GLUCOSE, FASTING 109 MG/DL (70-100); LDH LACTATE DEHYDROGENASE 411 U/L (84-246); PHOSPHORUS LEVEL 2.9 MG/DL (2.5-4.9); SODIUM LEVEL 139 MEQ/L (136-145); TOTAL PROTEIN 6.7 GM/DL (6.4-8.2); TRIGLYCERIDES LEVEL 217 MG/DL (<150)
[2020-06-21 06:40] LABS: D-DIMER QUANT > 4000 ng/ml (<500)
[2020-06-21] MEDS: ENOXAPARIN 100MG/1ML SYRINGE (J1650 PER 10MG) SC SCH ×2 (08:07→20:54)
[2020-06-21] MEDS: FUROSEMIDE 20MG/2ML VIAL (J1940) IV SCH ×2 (08:08→17:11)
[2020-06-21] MEDS: NYSTATIN 500,000 U/5 ML SUSP UDC SS SCH ×3 (08:09→20:52)
[2020-06-21] MEDS: LEVEMIR (INSULIN DETEMIR) 1 UNITS/0.01ML SC SCH ×2 (08:09→20:54)
[2020-06-21] MEDS: dexameTHASONE 20MG/5ML VIAL (J1100 PER 1MG) IV SCH (08:09)
[2020-06-21] MEDS: ULTRACET TAB PO SCH ×3 (08:11→20:53)
[2020-06-21] MEDS: DOCUSATE SODIUM 100MG CAPSULE PO SCH ×2 (08:11→17:11)
[2020-06-21] MEDS: MULTIVITAMINS/MINERALS THERAP 1 TAB PO SCH (08:12)
[2020-06-21] MEDS: ZIPRASIDONE 80 MG CAP (GEODON) PO SCH ×2 (08:12→17:11)
[2020-06-21] MEDS: DONEPEZIL 5 MG TAB PO SCH (08:12)
[2020-06-21] MEDS: PANTOPRAZOLE 40MG TAB (PROTONIX) PO SCH (08:12)
[2020-06-21] MEDS ORDERED: TOCILIZUMAB IV ONE (10:00)
[2020-06-21] MEDS ORDERED: NS IV ONE (10:00)
[2020-06-21] MEDS: SENNA 8.6 MG TAB (SENOKOT) PO SCH ×2 (12:39→20:52)
[2020-06-21] MEDS: lamoTRIgine 100MG TAB PO SCH (12:39)
[2020-06-21] MEDS: FIBER-CON 625 MG TAB PO SCH ×2 (12:39→20:53)
--- NOTE | 2020-06-21 16:36 | CCN ---
CRITICAL CARE NOTE DATE: 06/21/2020 The patient is seen in the intensive care unit profoundly hypoxemic. This is hospital day #16, intensive care unit (ICU) day #9. In the night her saturations fell further, and oxygen levels have been maximized now at 100%. Her temperature is 98.6, pulse rate 99, respirations 32, blood pressure 125/60. Intake and output for the past 24 hours: 1870 in, 1500 out, since midnight 320 in, 275 out. At bedside she is ill appearing. Tolerating noninvasive positive pressure mask reasonably well. Her neck is supple. Heart sounds are regular. Breath sounds diminished, coarse. Abdomen soft. Bowel sounds in the right lower quadrant. Extremities cool. DIAGNOSTIC STUDIES: Her white cell count is up slightly at 15.5. Hemoglobin is down at 8.5. Hematocrit is down at 27.6, and her platelet count is stable at 440,000. Differential white cell count shows 82% neutrophils. The electrolytes are sodium 139, potassium 4.0, chloride 97, CO2 of 41, BUN 34. Creatinine is down to 0.79. Glucose 109. Her ferritin level is 414. Alkaline phosphatase is up at 232. Fibrinogen is up at 1079, and CRP is up at 22.9. AST 33, ALT 21, albumin 2.2. There is no new chest imaging performed today. On medications review, she is receiving: - Klonopin 0.5 mg at bedtime - Protonix 40 mg by mouth daily - nystatin 5 mg three times a day - insulin coverage - Decadron 6 mg daily - Lovenox 95 mg twice a day - Lasix 20 mg a day - Synthroid 137 mcg a day - morphine 1 mg as needed - Combivent four times a day - Lamictal 200 mg a day - Fioricet 10 mg a day - multivitamins daily - Lipitor 40 mg a day - FiberCon one twice a day - Seroquel 400 mg at bedtime - Ultracet 37.5/325 three times a day - Colace 200 mg a day - Geodon 80 mg twice a day - MiraLax daily - Tylenol as needed The primary problem requiring critical attention is progressive hypoxic respiratory failure. The patient's gas exchange is worse today. We will encourage increased time in the prone posture. Thankfully, she is tolerating noninvasive ventilation. We will continue with this approach, attempting to avoid intubation if at all possible. TAMIE pneumonia: All inflammatory markers are up. Patient has received remdesivir and is receiving dexamethasone. We will administer a dose of tocilizumab in an effort to reduce inflammatory drive. Hypercoagulable state secondary to COVID: The patient is on weight-based Lovenox. There is no obvious evidence of thrombotic disease. Infectious disease. The patient's white count is stable. There has been no fever or signs of secondary bacterial infection. We will continue close monitoring. Chronic obstructive pulmonary disease: The patient is on beta agonists and steroids. Ulcer prophylaxis is being addressed with Protonix. We will change the dosing to intravenous (IV) to reduce time off noninvasive ventilation. The patient's critical condition was discussed with the attending service. She is very critically ill and unfortunately has made little progress over the past 24 hours. I am hopeful that with reducing inflammatory markers we may see some improvement in her gas exchange. Condition is critical. Prognosis is guarded. One hour and 15 minutes was spent in the provision of bedside critical care and coordination exclusive of procedure time. SISI
--- NOTE | 2020-06-21 20:21 | IPNPDOC ---
Subjective Date Seen The patient was seen on 06/21/20. Subjective Chief Complaint/HPI Mrs. Keyes is a 74 year old female with CKD stage 3, schizophrenia, and DM here with COVID pneumonia requiring BIPAP. She has not been able to be weaned off bipap. She is requiring 100%FiO2. Trying Tocilizumab today. Otherwise she has been afebrile. When I spoke with her, she was feeling thirsty, but she requires being on the bipap 24/ due to hypoxia. Objective Physical Examination General Exam: Positive: Alert, Cooperative Eye Exam: Positive: PERRLA ENT Exam: Positive: Atraumatic Neck Exam: Positive: Supple; Negative: JVD Chest Exam: Positive: Rhonchi; Negative: Clear to auscultation Heart Exam: Positive: Rate Normal Telemetry: Positive: No significant arrhythmia Abdomen Exam: Positive: Normal bowel sounds Extremity Exam: Negative: Clubbing, Cyanosis Skin Exam: Positive: Nl turgor and temperature Neuro Exam: Positive: Cranial Nerves 3-12 NL, Reflexes 2+ Psych Exam: Positive: Mental status NL Assessment /Plan Assessment Mrs. Keyes is a 74 year old female with CKD stage 3, schizophrenia, and DM here with COVID pneumonia requiring BIPAP. She completed a 5 day course of remdesivir and continues on IV Decadron. Oxygen requirements have not improved and still requires Bipap. Pulmonology/CritCare following, recommendations appreciated. She was given a dose of tocilizumab today (06/21/2020) Plan/VTE VTE Prophylaxis Ordered?: Yes Plan 1. COVID pneumonia -Pulmonary/Critical care following, recommendations appreciated -Patient still requiring Bipap, no improvement in respiratory status despite 5 days of remdesivir and IV decadron -Procalcitonin low, antibiotics discontinued -Continue IV decadron and weight based lovenox (1mg/kg BID) -Tociluzumab given on 06/21/2020 2. DM -Continue insulin sliding scale and Levemir 3. Hypothyroidism -Continue Levothyroxine 4. Hyperlipidemia -Continue atorvastatin 5. Schizophrenia -Continue antipsychotics 6. DVT ppx -Currently on weight based Lovenox (1mg/kg BID) VS, I&O, 24H, Fishbone Vital Signs/I&O Vital Signs Date Time Temp Pulse Resp B/P (MAP) Pulse Ox O2 Delivery O2 Flow Rate FiO2 06/21/20 20:03 92 BIPAP/CPAP 100 06/21/20 17:00 98.2 83 28 125/57 (79) 06/20/20 22:50 100.0 I&O- Last 24 Hours up to 6 AM 06/21/20 06:00 Intake Total 1900 ml Output Total 1500 ml Balance 400 ml Laboratory Data 24H LABS Laboratory Tests 2 06/21/20 00:51: Bedside Glucose (Misc Panel) 167H 06/21/20 04:39: Immature Granulocyte % (Auto) 1.6, Neutrophils (%) (Auto) 82.5H, Lymphocytes (%) (Auto) 8.5L, Monocytes (%) (Auto) 5.8H, Eosinophils (%) (Auto) 1.2, Basophils (%) (Auto) 0.4, Neutrophils # (Auto) 12.8H, Lymphocytes # (Auto) 1.3L, Monocytes # (Auto) 0.9H, Eosinophils # (Auto) 0.2, Basophils # (Auto) 0.1, Nucleated Red Blood Cells % (auto) 0.0, Fibrinogen 1079H, D-Dimer, Quantitative > 4000H, Anion Gap 1L, Glomerular Filtration Rate > 60.0, Calcium Level 9.6, Phosphorus Level 2.9, Ferritin 414H, Total Bilirubin 0.4, Aspartate Amino Transf (AST/SGOT) 33, Alanine Aminotransferase (ALT/SGPT) 21, Alkaline Phosphatase 232H, Lactate Dehydrogenase 411H, Total Creatine Kinase 52, C-Reactive Protein, Quantitative 22.90H, Total Protein 6.7, Albumin 2.2L, Albumin/Globulin Ratio 0.5L, Triglycerides Level 217H, Cholesterol Level 112 06/21/20 05:43: Bedside Glucose (Misc Panel) 124H 06/21/20 12:16: Bedside Glucose (Misc Panel) 188H 06/21/20 17:00: Bedside Glucose (Misc Panel) 163H CBC/BMP Laboratory Tests 06/21/20 04:39 SHANE FLORES DO Jun 21, 2020 20:21
[2020-06-21] MEDS: QUEtiapine FUMARATE **XR** 200MG TABLET PO SCH (20:53)
[2020-06-22] VITALS (14 sets, daily range): BP systolic 102–148; BP diastolic 55–69; O2SAT 89
[2020-06-22] MEDS: guaiFENesin/CODEINE SYRUP 5 ML UDC PO PRN ×3 (01:05→22:47)
[2020-06-22] MEDS: MORPHINE 2 MG/ML 1ML VIAL (J2270) IV PRN ×3 (04:12→23:53)
[2020-06-22] MEDS: COMBIVENT RESPIMAT 100-20MCG INHALER 4GM INH SCH ×5 (04:20→19:16)
[2020-06-22 04:52] LABS: BASO # 0.1 10^3/uL (0.0-0.2); BASO % 0.6 % (0.0-1.0); EOS # 0.2 10^3/uL (0.0-0.5); EOS % 2.7 % (0.0-3.0); HEMATOCRIT 28.5 % (36.0-47.0); LYMPH # 1.5 10^3/uL (1.5-5.0); LYMPH % 16.4 % (24.0-44.0); MEAN CORPUSCULAR HEMOGLOBIN 31.6 pg (27.0-33.0); MEAN CORPUSCULAR HGB CONC 31.6 g/dl (32.0-36.5); MONO # 0.5 10^3/uL (0.0-0.8); MONO % 5.8 % (0.0-5.0); NEUTROPHILS # 6.5 10^3/uL (1.5-8.5); NEUTROPHILS % 72.9 % (36.0-66.0); PLATELET COUNT, AUTOMATED 444 10^3/uL (150-450); RED BLOOD COUNT 2.85 10^6/uL (4.00-5.40); WHITE BLOOD COUNT 8.9 10^3/uL (4.0-10.0)
[2020-06-22 05:31] LABS: ALBUMIN 2.2 GM/DL (3.2-5.2); ALT/SGPT 26 U/L (12-78); BILIRUBIN,TOTAL 0.1 MG/DL (0.2-1.0); BLOOD UREA NITROGEN 35 MG/DL (7-18); CALCIUM LEVEL 9.6 MG/DL (8.8-10.2); CARBON DIOXIDE LEVEL 40 MEQ/L (21-32); CHLORIDE LEVEL 99 MEQ/L (98-107); CHOLESTEROL LEVEL 122 MG/DL (< 200); CPK CREATINE PHOSPHOKINASE 46 U/L (26-192); CREATININE FOR GFR 0.89 MG/DL (0.55-1.30); FERRITIN 459 NG/ML (8-252); GLOMERULAR FILTRATION RATE > 60.0 (>39); GLUCOSE, FASTING 133 MG/DL (70-100); LDH LACTATE DEHYDROGENASE 444 U/L (84-246); PHOSPHORUS LEVEL 3.3 MG/DL (2.5-4.9); POTASSIUM SERUM 4.1 MEQ/L (3.5-5.1); SODIUM LEVEL 142 MEQ/L (136-145); TOTAL PROTEIN 7.1 GM/DL (6.4-8.2); TRIGLYCERIDES LEVEL 288 MG/DL (<150)
[2020-06-22] MEDS: LEVOTHYROXINE 137MCG TABLET (0.137MG) PO SCH (05:42)
[2020-06-22] MEDS: HumaLOG INSULIN (NovoLOG) PER UNIT SC SCH ×4 (05:42→23:52)
[2020-06-22] MEDS: BENZONATATE 100 MG CAP PO SCH ×3 (05:42→22:46)
[2020-06-22] MEDS: dexameTHASONE 20MG/5ML VIAL (J1100 PER 1MG) IV SCH (08:35)
[2020-06-22] MEDS: ULTRACET TAB PO SCH ×3 (08:35→20:22)
[2020-06-22] MEDS: ZIPRASIDONE 80 MG CAP (GEODON) PO SCH ×2 (08:36→17:53)
[2020-06-22] MEDS: FUROSEMIDE 20MG/2ML VIAL (J1940) IV SCH ×2 (08:36→17:53)
[2020-06-22] MEDS: PANTOPRAZOLE 40MG VIAL (C9113 PER 1) IV SCH (08:36)
[2020-06-22] MEDS: DOCUSATE SODIUM 100MG CAPSULE PO SCH ×2 (08:37→17:53)
[2020-06-22] MEDS: NYSTATIN 500,000 U/5 ML SUSP UDC SS SCH ×3 (08:46→20:21)
[2020-06-22] MEDS: MULTIVITAMINS/MINERALS THERAP 1 TAB PO SCH (08:46)
[2020-06-22] MEDS: LEVEMIR (INSULIN DETEMIR) 1 UNITS/0.01ML SC SCH ×2 (08:46→20:22)
[2020-06-22] MEDS: ENOXAPARIN 100MG/1ML SYRINGE (J1650 PER 10MG) SC SCH ×2 (08:46→20:21)
[2020-06-22] MEDS: lamoTRIgine 100MG TAB PO SCH (11:50)
[2020-06-22] MEDS: SENNA 8.6 MG TAB (SENOKOT) PO SCH ×2 (11:51→20:22)
[2020-06-22] MEDS: FIBER-CON 625 MG TAB PO SCH ×2 (11:51→20:21)
--- NOTE | 2020-06-22 12:49 | CCN ---
CRITICAL CARE NOTE DATE: 06/22/2020 SUBJECTIVE: The patient is seen in the intensive care unit on noninvasive ventilation. She is quite dependent on noninvasive ventilation at this point with borderline saturations, which plummet significantly when the mask is removed. This is hospital day #17, ICU day #10. OBJECTIVE: GENERAL APPEARANCE: At bedside, she is ill-appearing. VITAL SIGNS: Temperature 97.9, T-max over the past 24 hours 98.7, pulse rate 82, respirations 22, blood pressure 142/69. I and O for the past 24 hours 550 in, 1675 out; since midnight 0 in, 550 out. HEENT: Her oral mucosa is pink. NECK: Supple. HEART: Sounds regular. RESPIRATORY: Breath sounds diminished. Crepitant rales. ABDOMEN: Soft. EXTREMITIES: Cool. Pulses palpable x4. DIAGNOSTIC STUDIES: Her white cell count is 8.9, hemoglobin is up to 9.0, hematocrit is up to 28.5, platelet count is up to 444,000. Differential white cell count shows 72.9% neutrophils. Her electrolytes are sodium 142, potassium 4.1, chloride 99, CO2 of 40, BUN 35, creatinine is up slightly at 0.89, and glucose is acceptable at 133 with range 109 to 188. Her calcium is 9.6, phosphorus is 3.3, ferritin 459, alkaline phosphatase is up slightly at 258. The fibrinogen, however, is down from 1079 to 740. LDH is up slightly at 444 and the C-reactive protein is down at 22.2 from 22.9. AST is 37, ALT 26. MEDICATIONS: On review, she is receiving Lamictal 200 mg daily, multivitamins, MiraLAX, Senokot, Geodon, Combivent, Lasix 20 mg a day b.i.d., Lovenox 95 mg b.i.d., Decadron 6 mg daily, detemir insulin 15 mg b.i.d., and Protonix 40 mg a day. ASSESSMENT/PLAN: The primarily problem requiring critical attention is COVID pneumonia with hypoxemic respiratory failure. The patient is quite dependent on noninvasive positive pressure ventilation. Her minute ventilation is acceptable. She does better in the prone position, but is reluctant to assume the prone position for any period of time. She had received remdesivir and dexamethasone is continuing. A dose of tocilizumab was given on 06/21 with a mixed response in her inflammatory markers. We have changed her oral medications to IV so much as we are able. We will continue maximal supportive care. Hypercoagulable state: The patient is on weight-based Lovenox and there is no evidence of thrombosis. Infectious disease: White blood cell count is down and there is no obvious source of secondary infection. Underlying obstructive lung disease: The patient is receiving beta agonist and steroids. Ulcer prophylaxis: Being addressed with Protonix. The patient has other underlying psychiatric issues, which are being addressed by the primary care service, as well as her diabetes. The patient's condition remains critical. Prognosis is very guarded. Acute care remains appropriate. One hour and 32 minutes were spent in the provision of bedside critical care and coordination excluding procedure time. SISI
--- NOTE | 2020-06-22 18:40 | IPNPDOC ---
Subjective Date Seen The patient was seen on 06/22/20. Subjective Chief Complaint/HPI Mrs. Keyes is a 74 year old female with CKD stage 3, schizophrenia, and DM here with COVID pneumonia requiring BIPAP. She has required 100% FiO2 Bipap. Patient told nurse she did not want to be intubated and wanted her HCP (Tammy Coleman) contacted. Spoke with Tammy today and notified her poor prognosis and about intubation and ventilator. Patient was seen in the afternoon. She feels dyspneic. Discussed about code status and she decided to be DNR/DNI. Nurse was present during this conversation. Patient was made DNR/DNI Objective Physical Examination General Exam: Positive: Alert, Cooperative Eye Exam: Positive: PERRLA ENT Exam: Positive: Atraumatic Neck Exam: Positive: Supple; Negative: JVD Chest Exam: Positive: Rhonchi; Negative: Clear to auscultation Heart Exam: Positive: Rate Normal Telemetry: Positive: No significant arrhythmia Abdomen Exam: Positive: Normal bowel sounds Extremity Exam: Negative: Clubbing, Cyanosis Skin Exam: Positive: Nl turgor and temperature Neuro Exam: Positive: Cranial Nerves 3-12 NL, Reflexes 2+ Psych Exam: Positive: Mental status NL Assessment /Plan Assessment Mrs. Keyes is a 74 year old female with CKD stage 3, schizophrenia, and DM here with COVID pneumonia requiring BIPAP. She completed a 5 day course of remdesivir and continues on IV Decadron. Oxygen requirements have not improved and still requires Bipap. Pulmonology/CritCare following, recommendations appreciated. She was given a dose of tocilizumab on 06/21/2020. Discussed possibility of intubation with patient. Patient decided DNR/DNI Plan/VTE VTE Prophylaxis Ordered?: Yes Plan 1. COVID pneumonia -Pulmonary/Critical care following, recommendations appreciated -Patient still requiring Bipap, no improvement in respiratory status despite 5 days of remdesivir and IV decadron -Procalcitonin low, antibiotics discontinued -Continue IV decadron and weight based lovenox (1mg/kg BID) -Tociluzumab given on 06/21/2020 2. DM -Continue insulin sliding scale and Levemir 3. Hypothyroidism -Continue Levothyroxine 4. Hyperlipidemia -Continue atorvastatin 5. Schizophrenia -Continue antipsychotics 6. DVT ppx -Currently on weight based Lovenox (1mg/kg BID) VS, I&O, 24H, [facility] Vital Signs/I&O Vital Signs Date Time Temp Pulse Resp B/P (MAP) Pulse Ox O2 Delivery O2 Flow Rate FiO2 06/22/20 18:05 30 06/22/20 18:00 79 146/67 (93) 87 NIPPV (BIPAP/CPAP) 90 06/22/20 16:00 97.8 06/20/20 22:50 100.0 I&O- Last 24 Hours up to 6 AM 06/22/20 06:00 Intake Total 230 ml Output Total 1950 ml Balance -1720 ml Laboratory Data 24H LABS Laboratory Tests 2 06/21/20 23:16: Bedside Glucose (Misc Panel) 109 06/22/20 04:40: Immature Granulocyte % (Auto) 1.6, Neutrophils (%) (Auto) 72.9H, Lymphocytes (%) (Auto) 16.4L, Monocytes (%) (Auto) 5.8H, Eosinophils (%) (Auto) 2.7, Basophils (%) (Auto) 0.6, Neutrophils # (Auto) 6.5, Lymphocytes # (Auto) 1.5, Monocytes # (Auto) 0.5, Eosinophils # (Auto) 0.2, Basophils # (Auto) 0.1, Nucleated Red Blood Cells % (auto) 0.0, Fibrinogen 740H, Anion Gap 3L, Glomerular Filtration Rate > 60.0, Calcium Level 9.6, Phosphorus Level 3.3, Ferritin 459H, Total Bilirubin 0.1#L, Aspartate Amino Transf (AST/SGOT) 37, Alanine Aminotransferase (ALT/SGPT) 26, Alkaline Phosphatase 258H, Lactate Dehydrogenase 444H, Total Creatine Kinase 46, C-Reactive Protein, Quantitative 22.20H, Total Protein 7.1, Albumin 2.2L, Albumin/Globulin Ratio 0.4L, Triglycerides Level 288H, Cholesterol Level 122 06/22/20 11:17: Bedside Glucose (Misc Panel) 186H 06/22/20 17:50: Bedside Glucose (Misc Panel) 126H CBC/BMP Laboratory Tests 06/22/20 04:40 SHANE FLORES DO Jun 22, 2020 18:40
[2020-06-22] MEDS: QUEtiapine FUMARATE **XR** 200MG TABLET PO SCH (20:20)
[2020-06-23] VITALS (12 sets, daily range): BP systolic 122–145; BP diastolic 57–65
[2020-06-23] MEDS: COMBIVENT RESPIMAT 100-20MCG INHALER 4GM INH SCH ×7 (00:56→23:47)
[2020-06-23] MEDS: LEVOTHYROXINE 137MCG TABLET (0.137MG) PO SCH (04:29)
[2020-06-23] MEDS: BENZONATATE 100 MG CAP PO SCH ×3 (04:29→20:06)
[2020-06-23 04:40] LABS: BASO # 0.1 10^3/uL (0.0-0.2); BASO % 0.5 % (0.0-1.0); EOS # 0.3 10^3/uL (0.0-0.5); EOS % 2.8 % (0.0-3.0); HEMATOCRIT 29.7 % (36.0-47.0); HEMOGLOBIN 9.2 g/dl (12.0-15.5); LYMPH # 1.4 10^3/uL (1.5-5.0); LYMPH % 14.9 % (24.0-44.0); MEAN CORPUSCULAR HEMOGLOBIN 31.1 pg (27.0-33.0); MEAN CORPUSCULAR VOLUME 100.3 fl (80.0-96.0); MONO # 0.8 10^3/uL (0.0-0.8); NEUTROPHILS # 6.9 10^3/uL (1.5-8.5); NEUTROPHILS % 72.2 % (36.0-66.0); PLATELET COUNT, AUTOMATED 461 10^3/uL (150-450); RED BLOOD COUNT 2.96 10^6/uL (4.00-5.40); WHITE BLOOD COUNT 9.5 10^3/uL (4.0-10.0)
[2020-06-23 04:51] LABS: FIBRINOGEN 802 MG/DL (221-452)
[2020-06-23 05:09] LABS: D-DIMER QUANT > 4000 ng/ml (<500)
[2020-06-23 05:23] LABS: ALBUMIN 2.4 GM/DL (3.2-5.2); ALT/SGPT 29 U/L (12-78); BILIRUBIN,TOTAL 0.2 MG/DL (0.2-1.0); BLOOD UREA NITROGEN 44 MG/DL (7-18); CALCIUM LEVEL 8.9 MG/DL (8.8-10.2); CARBON DIOXIDE LEVEL 37 MEQ/L (21-32); CHLORIDE LEVEL 97 MEQ/L (98-107); CHOLESTEROL LEVEL 145 MG/DL (< 200); CPK CREATINE PHOSPHOKINASE 43 U/L (26-192); CREATININE FOR GFR 0.95 MG/DL (0.55-1.30); FERRITIN 473 NG/ML (8-252); GLOMERULAR FILTRATION RATE > 60.0 (>39); GLUCOSE, FASTING 165 MG/DL (70-100); LDH LACTATE DEHYDROGENASE 435 U/L (84-246); PHOSPHORUS LEVEL 3.4 MG/DL (2.5-4.9); POTASSIUM SERUM 4.1 MEQ/L (3.5-5.1); SODIUM LEVEL 140 MEQ/L (136-145); TOTAL PROTEIN 7.1 GM/DL (6.4-8.2); TRIGLYCERIDES LEVEL 419 MG/DL (<150)
[2020-06-23] MEDS: HumaLOG INSULIN (NovoLOG) PER UNIT SC SCH ×3 (05:32→18:23)
[2020-06-23] MEDS: PANTOPRAZOLE 40MG VIAL (C9113 PER 1) IV SCH (08:59)
[2020-06-23] MEDS: FUROSEMIDE 20MG/2ML VIAL (J1940) IV SCH ×2 (09:00→16:29)
[2020-06-23] MEDS: LEVEMIR (INSULIN DETEMIR) 1 UNITS/0.01ML SC SCH ×2 (09:00→20:03)
[2020-06-23] MEDS: MULTIVITAMINS/MINERALS THERAP 1 TAB PO SCH (09:00)
[2020-06-23] MEDS: dexameTHASONE 20MG/5ML VIAL (J1100 PER 1MG) IV SCH (09:00)
[2020-06-23] MEDS: ENOXAPARIN 100MG/1ML SYRINGE (J1650 PER 10MG) SC SCH ×2 (09:01→20:04)
[2020-06-23] MEDS: NYSTATIN 500,000 U/5 ML SUSP UDC SS SCH ×3 (09:02→20:04)
[2020-06-23] MEDS: ZIPRASIDONE 80 MG CAP (GEODON) PO SCH ×2 (09:03→18:22)
[2020-06-23] MEDS: ULTRACET TAB PO SCH ×3 (09:03→20:05)
[2020-06-23] MEDS: DOCUSATE SODIUM 100MG CAPSULE PO SCH ×2 (09:03→18:22)
[2020-06-23] MEDS: SENNA 8.6 MG TAB (SENOKOT) PO SCH ×2 (11:16→20:07)
[2020-06-23] MEDS: lamoTRIgine 100MG TAB PO SCH (11:16)
[2020-06-23] MEDS: FIBER-CON 625 MG TAB PO SCH (11:33)
[2020-06-23] MEDS: guaiFENesin/CODEINE SYRUP 5 ML UDC PO PRN ×2 (11:34→20:02)
--- NOTE | 2020-06-23 16:32 | CCN ---
CRITICAL CARE NOTE DATE: 06/23/2020 Critical care time was 31 minutes. I Austin Pryor had a discussion with the ICU nurse at the patient's bedside outside the door. I did not enter the room for examination due to the patient being COVID positive and the fact that she has a primary care physician that is conducting daily exams. I did review the chart and medications, noninvasive ventilatory settings and plan. The patient has expressed that she does not want to be intubated. She is DO NOT RESUSCITATE, DO NOT INTUBATE, is on noninvasive ventilation. With any withdrawal from the machine she automatically desaturates very quickly. She is getting tired of it. She is expressing this to the nurse. She is awake, alert, oriented, able to talk. OBJECTIVE: Vital signs: Temperature is 98.4, blood pressure 122/58 with a mean arterial pressure of 79, pulse 87, respiratory rate 30, input and output 880 in, 1900 out. She remains on Protonix, Levemir, nystatin, Lispro, Decadron, Lovenox, Lasix, levothyroxine, Tessalon Perles, Morphine, Robitussin, Lamictal, FiberCon, Seroquel, Senna, Tramadol, Colace, Geodon and MiraLax. Laboratory evaluation shows a white blood cell count of 9.5, hemoglobin 9.2, platelet count of 461. CRP is down to 10.8 from 22. D-dimer is still above 4,000. Fibrinogen is still elevated at 802, slightly higher than yesterday. Arterial blood gas from the shows a pH of 7.45, pCO2 of 45, PaO2 of 55, sodium 140, potassium 4.1, chloride 97, bicarb 37, BUN 44, creatinine 0.95, with a glucose of 473. Chest x-ray, impression: Severe hypoxic respiratory failure from COVID pneumonia. Remains on noninvasive ventilation with very tenuous oxygen saturations. Unable to be converted to oxygen or high flow cannula at this point in time because of the severity of her hypoxia. She remains in the ICU for monitoring. At this point in time she remains DO NOT RESUSCITATE/DO NOT INTUBATE. Therefore no further resuscitation will be performed short of a trial of noninvasive ventilation. She has already received COVID-appropriate therapy with remdesivir. She is on high dose Decadron. She is also on Lovenox 95 mg subcu twice a day. The patient's prognosis is extremely guarded. We will continue noninvasive ventilation until the patient either decompensates or refuses therapy. There is a small chance of recovery. We will continue to monitor for potential complications such as concomitant infection.
--- NOTE | 2020-06-23 20:00 | IPNPDOC ---
Subjective Date Seen The patient was seen on 06/23/20. Subjective Chief Complaint/HPI Mrs. Keyes is a 74 year old female with CKD stage 3, schizophrenia, and DM here with COVID pneumonia requiring BIPAP. She continues to require 100% FiO2 Bipap. When removed to take medication or Ensure, she rapidly desaturates. While in the room patient reports dyspnea and cough. She asks me if she would be able to eat again, which may not be possible while she is requiring 24/7 Bipap. Otherwise, she told me she was thirsty. Objective Physical Examination General Exam: Positive: Alert, Cooperative Eye Exam: Positive: PERRLA ENT Exam: Positive: Atraumatic Neck Exam: Positive: Supple; Negative: JVD Chest Exam: Positive: Rhonchi; Negative: Clear to auscultation Heart Exam: Positive: Rate Normal Telemetry: Positive: No significant arrhythmia Abdomen Exam: Positive: Normal bowel sounds Extremity Exam: Negative: Clubbing, Cyanosis Skin Exam: Positive: Nl turgor and temperature Neuro Exam: Positive: Cranial Nerves 3-12 NL, Reflexes 2+ Psych Exam: Positive: Mental status NL Assessment /Plan Assessment Mrs. Keyes is a 74 year old female with CKD stage 3, schizophrenia, and DM here with COVID pneumonia requiring BIPAP. She completed a 5 day course of remdesivir and continues on IV Decadron. Oxygen requirements have not improved and still requires Bipap. Pulmonology/CritCare following, recommendations appreciated. She was given a dose of tocilizumab on 06/21/2020. Discussed possibility of intubation with patient. Patient decided DNR/DNI. Poor prognosis Plan/VTE VTE Prophylaxis Ordered?: Yes Plan 1. COVID pneumonia -Pulmonary/Critical care following, recommendations appreciated -Patient still requiring Bipap, no improvement in respiratory status despite 5 days of remdesivir and IV decadron -Procalcitonin low, antibiotics discontinued -Continue IV decadron and weight based lovenox (1mg/kg BID) -Tociluzumab given on 06/21/2020 2. DM -Continue insulin sliding scale and Levemir 3. Hypothyroidism -Continue Levothyroxine 4. Constipation -Continue bowel regimen 5. Schizophrenia -Continue antipsychotics 6. DVT ppx -Currently on weight based Lovenox (1mg/kg BID) VS, I&O, 24H, Fishbone Vital Signs/I&O Vital Signs Date Time Temp Pulse Resp B/P (MAP) Pulse Ox O2 Delivery O2 Flow Rate FiO2 06/23/20 18:00 93 32 138/62 (87) 87 NIPPV (BIPAP/CPAP) 100 06/23/20 16:00 99.1 06/20/20 22:50 100.0 I&O- Last 24 Hours up to 6 AM 06/23/20 06:00 Intake Total 1120 ml Output Total 1900 ml Balance -780 ml Laboratory Data 24H LABS Laboratory Tests 2 06/22/20 23:44: Bedside Glucose (Misc Panel) 115H 06/23/20 04:23: Immature Granulocyte % (Auto) 1.6, Neutrophils (%) (Auto) 72.2H, Lymphocytes (%) (Auto) 14.9L, Monocytes (%) (Auto) 8.0H, Eosinophils (%) (Auto) 2.8, Basophils (%) (Auto) 0.5, Neutrophils # (Auto) 6.9, Lymphocytes # (Auto) 1.4L, Monocytes # (Auto) 0.8, Eosinophils # (Auto) 0.3, Basophils # (Auto) 0.1, Nucleated Red Blood Cells % (auto) 0.0, Fibrinogen 802H, D-Dimer, Quantitative > 4000H, Anion Gap 6L, Glomerular Filtration Rate > 60.0, Calcium Level 8.9, Phosphorus Level 3.4, Ferritin 473H, Total Bilirubin 0.2#, Aspartate Amino Transf (AST/SGOT) 39H, Alanine Aminotransferase (ALT/SGPT) 29, Alkaline Phosphatase 282H, Lactate Dehydrogenase 435H, Total Creatine Kinase 43, C-Reactive Protein, Quantitative 10.80H, Total Protein 7.1, Albumin 2.4L, Albumin/Globulin Ratio 0.5L, Triglycerides Level 419H, Cholesterol Level 145 06/23/20 11:23: Bedside Glucose (Misc Panel) 181H 06/23/20 18:13: Bedside Glucose (Misc Panel) 168H CBC/BMP Laboratory Tests 06/23/20 04:23 SHANE FLORES DO Jun 23, 2020 20:00
[2020-06-23] MEDS: QUEtiapine FUMARATE **XR** 200MG TABLET PO SCH (20:07)
[2020-06-23] MEDS: MORPHINE 2 MG/ML 1ML VIAL (J2270) IV PRN (22:15)
[2020-06-24] VITALS (8 sets, daily range): BP systolic 118–150; BP diastolic 58–74
[2020-06-24] MEDS: MORPHINE 2 MG/ML 1ML VIAL (J2270) IV PRN ×2 (03:25→11:26)
[2020-06-24] MEDS: COMBIVENT RESPIMAT 100-20MCG INHALER 4GM INH SCH (03:34)
[2020-06-24] MEDS: LEVOTHYROXINE 137MCG TABLET (0.137MG) PO SCH (05:47)
[2020-06-24] MEDS: BENZONATATE 100 MG CAP PO SCH (05:48)
[2020-06-24] MEDS: HumaLOG INSULIN (NovoLOG) PER UNIT SC SCH ×2 (05:56)
[2020-06-24 06:15] LABS: BASO # 0.1 10^3/uL (0.0-0.2); BASO % 0.6 % (0.0-1.0); EOS # 0.3 10^3/uL (0.0-0.5); EOS % 3.1 % (0.0-3.0); HEMATOCRIT 30.5 % (36.0-47.0); HEMOGLOBIN 9.4 g/dl (12.0-15.5); LYMPH # 1.5 10^3/uL (1.5-5.0); LYMPH % 13.5 % (24.0-44.0); MEAN CORPUSCULAR HEMOGLOBIN 30.6 pg (27.0-33.0); MEAN CORPUSCULAR HGB CONC 30.8 g/dl (32.0-36.5); MEAN CORPUSCULAR VOLUME 99.3 fl (80.0-96.0); MONO # 0.9 10^3/uL (0.0-0.8); MONO % 7.8 % (0.0-5.0); NEUTROPHILS % 72.5 % (36.0-66.0); PLATELET COUNT, AUTOMATED 448 10^3/uL (150-450); RED BLOOD COUNT 3.07 10^6/uL (4.00-5.40); WHITE BLOOD COUNT 11.1 10^3/uL (4.0-10.0)
[2020-06-24 06:26] LABS: FIBRINOGEN 565 MG/DL (221-452)
[2020-06-24 06:44] LABS: ALBUMIN 2.7 GM/DL (3.2-5.2); ALT/SGPT 32 U/L (12-78); BILIRUBIN,TOTAL 0.2 MG/DL (0.2-1.0); BLOOD UREA NITROGEN 46 MG/DL (7-18); C REACTIVE PROTEIN QUANTITATIV 5.46 MG/DL (0.00-0.30); CALCIUM LEVEL 9.7 MG/DL (8.8-10.2); CARBON DIOXIDE LEVEL 39 MEQ/L (21-32); CHLORIDE LEVEL 95 MEQ/L (98-107); CHOLESTEROL LEVEL 178 MG/DL (< 200); CPK CREATINE PHOSPHOKINASE 70 U/L (26-192); CREATININE FOR GFR 0.95 MG/DL (0.55-1.30); GLOMERULAR FILTRATION RATE > 60.0 (>39); GLUCOSE, FASTING 177 MG/DL (70-100); LDH LACTATE DEHYDROGENASE 484 U/L (84-246); PHOSPHORUS LEVEL 3.4 MG/DL (2.5-4.9); POTASSIUM SERUM 4.1 MEQ/L (3.5-5.1); SODIUM LEVEL 137 MEQ/L (136-145); TOTAL PROTEIN 7.4 GM/DL (6.4-8.2); TRIGLYCERIDES LEVEL 603 MG/DL (<150)
[2020-06-24 06:53] LABS: D-DIMER QUANT > 4000 ng/ml (<500)
[2020-06-24] MEDS: MULTIVITAMINS/MINERALS THERAP 1 TAB PO SCH (08:34)
[2020-06-24] MEDS: DOCUSATE SODIUM 100MG CAPSULE PO SCH (08:34)
[2020-06-24] MEDS: PANTOPRAZOLE 40MG VIAL (C9113 PER 1) IV SCH (08:35)
[2020-06-24] MEDS: ULTRACET TAB PO SCH (08:35)
[2020-06-24] MEDS: ZIPRASIDONE 80 MG CAP (GEODON) PO SCH (08:35)
[2020-06-24] MEDS: dexameTHASONE 20MG/5ML VIAL (J1100 PER 1MG) IV SCH (08:35)
[2020-06-24] MEDS: FUROSEMIDE 20MG/2ML VIAL (J1940) IV SCH (08:36)
[2020-06-24] MEDS: ENOXAPARIN 100MG/1ML SYRINGE (J1650 PER 10MG) SC SCH (08:36)
[2020-06-24] MEDS: LEVEMIR (INSULIN DETEMIR) 1 UNITS/0.01ML SC SCH (08:39)
[2020-06-24] MEDS: NYSTATIN 500,000 U/5 ML SUSP UDC SS SCH (08:40)
[2020-06-24] MEDS ORDERED: MORPHINE 2 MG/ML 1ML VIAL (J2270) IV STA (12:23)
[2020-06-24] MEDS ORDERED: MORPHINE 10MG/0.5ML ORAL CONCENTRATE SOLUTION U/D SL PRN (12:30)
[2020-06-24] MEDS ORDERED: LORazepam 2 MG/ML VIAL IV PRN (12:30)
[2020-06-24] MEDS ORDERED: SCOPOLAMINE 1MG TRANSDERMAL PATCH TOP PRN (12:30)
[2020-06-24] MEDS ORDERED: ONDANSETRON 4MG/2ML VIAL IV PRN (12:30)
[2020-06-24] MEDS ORDERED: LORazepam 2 MG/ML VIAL As Ordered ONE (12:47)
[2020-06-24] MEDS ORDERED: MORPHINE 2 MG/ML 1ML VIAL (J2270) IV ONE (13:00)
[2020-06-24] MEDS ORDERED: MORPHINE 2 MG/ML 1ML VIAL (J2270) IV PRN (13:15)
--- NOTE | 2020-06-24 21:33 | DS.PDOC ---
Discharge Summary General Date of Admission Jun 06, 2020 at 15:06 Date of Discharge Jun 24, 2020 Attending Physician: SHANE FLORES DO Specialist/Consultants Involve Pulmonary/Critical Care: Dr. Payton, Dr. Moreno, Dr. Pryor Discharge Summary PROCEDURES PERFORMED DURING STAY: None. ADMITTING DIAGNOSES: 1. COVID 19 pneumonia 2. COPD 3. Diabetes mellitus 4. Hypertension 5. Schizoaffective disorder 6. Hypothyroidism DISCHARGE DIAGNOSES: 1. COVID 19 pneumonia 2. Acute hypoxic respiratory failure 3. COPD 4. Diabetes mellitus 5. Hypertension 6. Schizoaffective disorder 7. Hypothyroidism COMPLICATIONS/CHIEF COMPLAINT: Weakness and Cough HISTORY OF PRESENT ILLNESS: Mrs. Keyes is a 74 year old female with diabetes mellitus, hypothyroidism, and osteoarthritis who presents with generalized weakness and cough. Symptoms began 1 week prior to admission. She had contact with her landlord who was COVID 19 positive. While in the ED, she also tested positive for COVID 19. While on 1L of oxygen, she saturated at 100%. HOSPITAL COURSE: During her hospitalization, she continued to have increasing oxygen requirements. Pulmonary/Critical care was consulted. Patient started on Remdesivir, steroids, antibiotics, and diuretics. In addition, due to increasing D-dimer, patient was put on 1mg/kg BID Lovenox. Oxygen requirements did not improve and she eventually was increased to Bipap. Patient was given a dose of Tociluzumab as the inflammatory markers and patient's respiratory status was not improving. There was no change with Tociluzumab. Discussing with the patient revealed she did not want to be intubated. She was made DNR/DNI. Her next of kin (Tammy Coleman, daughter in law) and her person to notify (Giselle Walton, friend) were informed about her decision to become DNR/DNI. At this time, she was at 100% FiO2 on Bipap. Every time the Bipap was removed to give her medications or Ensure, she would desaturated down to the 40s. She became very thirsty and asked me every day for a drink of water. One day she asked me if she would be able to eat again. Today, we had the discussion about comfort measures. On 100% FiO2 with Bipap, her pulse oxygen was 90, and she was not able to tolerate proning. Despite completing the course of Remdesivir and taking Tociluzumab with the steroids and full dose Lovenox, her respiratory status was still declining. She decided to become [employer] with the understanding that she will pass away. I contacted her next of kin. She could not come in because she had her own health problems. I contacted her person to notify, and she could not come in either. Patient was made comfortable and Bipap was removed. On at 1331, Mrs. Geri Keyes had comfortably . Her next of kin and person to notify were contacted of Mrs. Geri Keyes' passing. Vital Signs/I&Os Vital Signs Date Time Temp Pulse Resp B/P (MAP) Pulse Ox O2 Delivery O2 Flow Rate FiO2 06/24/20 13:24 26 06/24/20 12:44 NIPPV (BIPAP/CPAP) 06/24/20 12:00 98.0 84 150/72 (98) 93 100 06/20/20 22:50 100.0 I&O- Last 24 Hours up to 6 AM 06/24/20 06:00 Intake Total 1600 ml Output Total 1655 ml Balance -55 ml Laboratory Data Labs 24H Laboratory Tests 2 06/23/20 23:46: Bedside Glucose (Misc Panel) 130H 06/24/20 05:53: Bedside Glucose (Misc Panel) 165H, Immature Granulocyte % (Auto) 2.5, Neutrophils (%) (Auto) 72.5H, Lymphocytes (%) (Auto) 13.5L, Monocytes (%) (Auto) 7.8H, Eosinophils (%) (Auto) 3.1H, Basophils (%) (Auto) 0.6, Neutrophils # (Auto) 8.0, Lymphocytes # (Auto) 1.5, Monocytes # (Auto) 0.9H, Eosinophils # (Auto) 0.3, Basophils # (Auto) 0.1, Nucleated Red Blood Cells % (auto) 0.2H, Fibrinogen 565H, D-Dimer, Quantitative > 4000H, Anion Gap 3L, Glomerular Filtration Rate > 60.0, Calcium Level 9.7, Phosphorus Level 3.4, Ferritin 503H, Total Bilirubin 0.2, Aspartate Amino Transf (AST/SGOT) 41H, Alanine Aminotransferase (ALT/SGPT) 32, Alkaline Phosphatase 305H, Lactate Dehydrogenase 484H, Total Creatine Kinase 70, C-Reactive Protein, Quantitative 5.46H, Total Protein 7.4, Albumin 2.7L, Albumin/Globulin Ratio 0.6L, Triglycerides Level 603H, Cholesterol Level 178 CBC/BMP Laboratory Tests 06/24/20 05:53 FSBS Laboratory Tests Test 06/23/20 23:46 06/24/20 05:53 Range/Units Bedside Glucose (Misc Panel) 130 165 83-110 MG/DL Discharge Medications Scheduled Atorvastatin Calcium (Atorvastatin Calcium) 40 Mg Tab, 40 MG PO QHS, (Reported) Calcium Carbonate (Antacid) 200 Mg Tab.chew, 200 MG PO DAILY, (Reported) Calcium Polycarbophil (Fiber Laxative) 625 Mg Tablet, 1,250 MG PO BID, (Reported) NOON AND BEDTIME Candesartan Cilexetil (Candesartan Cilexetil) 32 Mg Tablet, 32 MG PO DAILY, (Reported) NOON Cetirizine HCl (Cetirizine HCl) 10 Mg Tab, 10 MG PO DAILY, (Reported) Clonazepam (Clonazepam) 1 Mg Tablet, 1 MG PO QHS, (Reported) Deutetrabenazine (Austedo) 12 Mg Tablet, 24 MG PO BID, (Reported) Dexlansoprazole (Dexilant) 30 Mg Cap.bp, 30 MG PO DAILY, (Reported) Docusate Sodium (Colace) 100 Mg Cap, 200 MG PO BID, (Reported) AM, DINNERTIME Donepezil HCl (Aricept) 10 Mg Tab, 10 MG PO DAILY, (Reported) Ferrous Sulfate (Ferrous Sulfate) 324 Mg Tablet.dr, 324 MG PO Q2D, (Reported) NOON Furosemide (Furosemide) 20 Mg Tab, 20 MG PO DAILY, (Reported) NOON Gabapentin (Gabapentin) 100 Mg Capsule, 100 MG PO BID, (Reported) Insulin Detemir (Levemir) 1 Units/0.01 Ml Susp, 56 UNITS SC BID, (Reported) Insulin Human Lispro (Novolog) 100 U/Ml Inj, 25 UNITS SC BID, (Reported) Lamotrigine (Lamictal) 200 Mg Tab, 200 MG PO DAILY, (Reported) TAKES AT NOON Levothyroxine Sodium (Levoxyl) 137 Mcg Tablet, 137 MCG PO DAILY, (Reported) Lubiprostone (Amitiza) 24 Mcg Cap, 24 MCG PO BID, (Reported) AM, HS Magnesium Oxide (Magnesium Oxide) 400 Mg Tablet, 800 MG PO BID, (Reported) NOON & HS Multivit-Min/FA/Lycopen/Lutein (Centrum Silver Tablet) 1 Each Tablet, 1 TAB PO DAILY, (Reported) Potassium Chloride (K-Tab ER) 10 Meq Tab, 20 MEQ PO BID, (Reported) NOON, HS Quetiapine Fumarate (Seroquel Xr) 400 Mg Tab, 400 MG PO QHS, (Reported) 450MG TOTAL QHS Quetiapine Fumarate (Seroquel Xr) 50 Mg Tab.er.24h, 50 MG PO QHS, (Reported) 450MG TOTAL QHS Sennosides (Senna Lax) 8.6 Mg Tablet, 8.6 MG PO BID, (Reported) NOON AND HS Sitagliptin Phos/Metformin HCl (Janumet Xr 50-500 mg Tablet) 1 Tab Tab, 1 TAB PO BID, (Reported) Tramadol HCl/Acetaminophen (Tramadol-Acetaminophn 37.5-325) 1 Each Tablet, 1 TAB PO TID, (Reported) Ziprasidone HCl (Ziprasidone HCl) 80 Mg Cap, 80 MG PO BID, (Reported) AM, DINNERTIME Zolpidem Tartrate (Zolpidem Tartrate) 10 Mg Tab, 10 MG PO QHS, (Reported) Scheduled PRN Albuterol Sulfate (Proair Hfa) 108 Mcg/Act Aer, 2 PUFF INH Q4H PRN for SHORTNESS OF BREATH, (Reported) Polyethylene Glycol 3350 (Miralax) 1 Pow Pow, 17 GM PO DAILY PRN for C ONSTIPATION, (Reported) Allergies Coded Allergies: Sulfa (Sulfonamide Antibiotics) (Verified Allergy, Intermediate, rash, hand swelling, 06/06/20) celecoxib (Verified Adverse Reaction, Intermediate, kidney failure, 06/06/20) oxycodone (Verified Adverse Reaction, Intermediate, altered mental status, 06/06/20) NSAIDS (Non-Steroidal Anti-Inflamma (Verified Adverse Reaction, Mild, gi upset, 06/06/20) aspirin (Verified Adverse Reaction, Mild, gi upset, 06/06/20) SHANE FLORES DO Jun 24, 2020 21:33
[2020-06-25 14:46] LABS: RSV AMPLIFICATION NEGATIVE (NEGATIVE)
== END 2020-06-24 13:30 | disposition expired | DRG 177 ==
LOC: M ED 11:00 → EDBD 11:00 → EEVIPCON 15:06 → M ED INP 15:06 → ENRESERV 15:20 → M 4MAIN 16:44 → M ICU 06-13 03:22
PROVIDERS: ADMIT Internal Medicine; ATTEND Internal Medicine
DX: U07.1 COVID-19 (principal); J15.9 Unspecified bacterial pneumonia; A41.9 Sepsis, unspecified organism; J96.01 Acute respiratory failure with hypoxia; J69.0 Pneumonitis due to inhalation of food and vomit; J44.1 Chronic obstructive pulmonary disease with (acute) exacerbation; J44.0 Chronic obstructive pulmonary disease with (acute) lower respiratory infection; F25.9 Schizoaffective disorder, unspecified; N18.30 Chronic kidney disease, stage 3 unspecified; I12.9 Hypertensive chronic kidney disease with stage 1 through stage 4 chronic kidney disease, or unspecified chronic kidney disease; E03.9 Hypothyroidism, unspecified; E11.9 Type 2 diabetes mellitus without complications; M19.90 Unspecified osteoarthritis, unspecified site; Z66 Do not resuscitate; Z51.5 Encounter for palliative care; Z79.899 Other long term (current) drug therapy; Z88.2 Allergy status to sulfonamides; Z88.6 Allergy status to analgesic agent; Z88.5 Allergy status to narcotic agent; E78.5 Hyperlipidemia, unspecified